=== PATIENT | male | born 1945 | race Caucasian/White ===

== ENCOUNTER 2019-10-20 07:14 | Inpatient (IN) | payer MEDICARE, MEDICAID ==
[~2019-10-20] VITALS: Ht 177.8 cm; Wt 88.2 kg
[~2019-10-20 07:14] MED LIST: ALLOPURINOL100 M1 ORAL; ALLOPURINOL300 M1 ORAL; APRESOLINE50 MG ORAL; ASPIRIN EC81 MG ORAL; ASPIRIN-LOW81 MG ORAL; FUROSEMIDE40 MG ORAL; HYDRALAZINE HCL50 MG ORAL; HYDROCODON-ACE1 EA13 ORAL; LIPITOR10 MG ORAL; METOPROLOL TAR100 M1 ORAL; METOPROLOL TAR100 MG ORAL; NORCO 5-325 TA1 EACH ORAL; SIMVASTATIN20 MG ORAL
[2019-10-20] MEDS ORDERED: FENOFIBRATE43 MG ORAL (07:16)
[2019-10-20 07:38] VITALS: BP 165/105
--- NOTE | 2019-10-20 07:40 | Emergency Room Report ---
History of Present Illness General Chief Complaint: General Complaint Source: Patient, EMS Present Illness HPI Patient presents with complaints of significant dizziness Reports difficulty ambulating Around 1130 last night when he was walking from [facility] to [facility] he felt a sensation Denies any chest pain with it however he did have some shortness of breath and palpitation sensation Reports that his blood pressure has also been elevated Denies any vomiting or diarrhea denies any focal weakness or trauma Allergies: Coded Allergies: No Known Allergies (Unverified , 09/12/15) Patient History Past Medical History: see triage record Reviewed Nursing Documentation: PMH: Agreed; PSxH: Agreed Nursing Documentation-PMH Hx Cardiac Problems: Yes - HYPERLIPIDEMIA Hx Hypertension: Yes Hx Cancer: No Hx Gastrointestinal Problems: No Hx Neurological Problems: No Review of Systems All Other Systems: negative except mentioned in HPI Physical Exam Vital Signs Date Time Temp Pulse Resp B/P (MAP) Pulse Ox O2 Delivery O2 Flow Rate FiO2 10/20/19 07:08 97.3 65 17 165/105 (125) 99 Sp02 EP Interpretation: reviewed, normal General Appearance: well appearing, no apparent distress Head: normocephalic, atraumatic Eyes: bilateral eye PERRL, bilateral eye EOMI ENT: hearing grossly normal, normal pharynx, TMs + canals normal, uvula midline Neck: full range of motion, supple, no meningismus, no bony tend Respiratory: lungs clear, normal breath sounds, no rhonchi, no respiratory distress, no retraction, no accessory muscle use Cardiovascular #1: normal peripheral pulses, no edema, no gallop, no JVD, no murmur, tachycardia Gastrointestinal: normal bowel sounds, non tender, soft, no mass, no organomegaly, non-distended, no guarding, no hernia, no pulsatile mass, no rebound Genitourinary: no CVA tenderness Musculoskeletal: other - 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 moving extremities equally Neurologic: motor strength/tone normal, 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 nml as tested, oriented x3 , sensory intact, responsive Psychiatric: mood/affect normal Skin: no rash Lymphatic: normal inspection, no adenopathy Medical Decision Making Diagnostic Impression: Primary Impression: Atrial flutter with rapid ventricular response ER Course Patient is a fairly complex patient with multiple differential to consideration including but not limited to cardiac cardiopulmonary and vascular emergencies patient initial complaint was essentially general weakness Upon evaluation patient was found to be tachycardic and placed on a monitor worker shows atrial fibrillation with RVR requiring Acute intervention Patient has further medication provided and requires inpatient care Labs Test 10/23/19 06:36 10/24/19 07:10 10/25/19 06:52 White Blood Count 11.0 K/UL (4.8-10.8) 10.6 K/UL (4.8-10.8) 10.7 K/UL (4.8-10.8) Red Blood Count 3.95 M/UL (4.70-6.10) 3.83 M/UL (4.70-6.10) 3.46 M/UL (4.70-6.10) Hemoglobin 13.1 G/DL (14.2-18.0) 12.5 G/DL (14.2-18.0) 12.6 G/DL (14.2-18.0) Hematocrit 37.8 % (42.0-52.0) 36.0 % (42.0-52.0) 32.7 % (42.0-52.0) Mean Corpuscular Volume 96 FL (80-99) 94 FL (80-99) 95 FL (80-99) Mean Corpuscular Hemoglobin 33.1 PG (27.0-31.0) 32.7 PG (27.0-31.0) 36.6 PG (27.0-31.0) Mean Corpuscular Hemoglobin Concent 34.6 G/DL (32.0-36.0) 34.7 G/DL (32.0-36.0) 38.6 G/DL (32.0-36.0) Red Cell Distribution Width 13.3 % (11.6-14.8) 13.4 % (11.6-14.8) 15.6 % (11.6-14.8) Platelet Count 132 K/UL (150-450) 126 K/UL (150-450) 139 K/UL (150-450) Mean Platelet Volume 6.3 FL (6.5-10.1) 6.6 FL (6.5-10.1) 6.8 FL (6.5-10.1) Neutrophils (%) (Auto) 76.7 % (45.0-75.0) 73.7 % (45.0-75.0) 75.4 % (45.0-75.0) Lymphocytes (%) (Auto) 12.5 % (20.0-45.0) 13.7 % (20.0-45.0) 10.4 % (20.0-45.0) Monocytes (%) (Auto) 9.6 % (1.0-10.0) 9.4 % (1.0-10.0) 10.1 % (1.0-10.0) Eosinophils (%) (Auto) 0.6 % (0.0-3.0) 1.7 % (0.0-3.0) 1.7 % (0.0-3.0) Basophils (%) (Auto) 0.6 % (0.0-2.0) 1.5 % (0.0-2.0) 2.4 % (0.0-2.0) Sodium Level 148 MMOL/L (136-145) 146 MMOL/L (136-145) 144 MMOL/L (136-145) Potassium Level 4.1 MMOL/L (3.5-5.1) 3.8 MMOL/L (3.5-5.1) 4.0 MMOL/L (3.5-5.1) Chloride Level 112 MMOL/L (98-107) 112 MMOL/L (98-107) 108 MMOL/L (98-107) Carbon Dioxide Level 24 MMOL/L (21-32) 24 MMOL/L (21-32) 25 MMOL/L (21-32) Anion Gap 12 mmol/L (5-15) 10 mmol/L (5-15) 11 mmol/L (5-15) Blood Urea Nitrogen 28 mg/dL (7-18) 27 mg/dL (7-18) 26 mg/dL (7-18) Creatinine 1.7 MG/DL (0.55-1.30) 1.9 MG/DL (0.55-1.30) 2.1 MG/DL (0.55-1.30) Estimat Glomerular Filtration Rate 39.5 mL/min (>60) 34.7 mL/min (>60) 30.9 mL/min (>60) Glucose Level 103 MG/DL (74-106) 105 MG/DL (74-106) 98 MG/DL (74-106) Uric Acid 6.3 MG/DL (2.6-7.2) Calcium Level 8.7 MG/DL (8.5-10.1) 8.7 MG/DL (8.5-10.1) 8.8 MG/DL (8.5-10.1) Phosphorus Level 2.9 MG/DL (2.5-4.9) 2.8 MG/DL (2.5-4.9) Magnesium Level 1.7 MG/DL (1.8-2.4) 1.6 MG/DL (1.8-2.4) Total Bilirubin 0.4 MG/DL (0.2-1.0) 0.5 MG/DL (0.2-1.0) Aspartate Amino Transf (AST/SGOT) 22 U/L (15-37) 17 U/L (15-37) Alanine Aminotransferase (ALT/SGPT) 15 U/L (12-78) 15 U/L (12-78) Alkaline Phosphatase 77 U/L (46-116) 68 U/L (46-116) Troponin I 0.048 ng/mL (0.000-0.056) C-Reactive Protein, Quantitative 9.2 mg/dL (0.00-0.90) Pro-B-Type Natriuretic Peptide 5253 pg/mL (0-125) Total Protein 6.2 G/DL (6.4-8.2) 5.9 G/DL (6.4-8.2) Albumin 3.2 G/DL (3.4-5.0) 2.9 G/DL (3.4-5.0) Globulin 3.0 g/dL Albumin/Globulin Ratio 1.1 (1.0-2.7) Digoxin Level 0.5 NG/ML (0.5-2.0) Direct Bilirubin < 0.1 MG/DL (0.0-0.3) EKG Diagnostic Results Rate: tachycardiac Rhythm: other ST Segments: other - Specific ST changes atrial fibrillation Rhythm Strip Diag. Results EP Interpretation: yes Rate: 120 Rhythm: no PVC's, no ectopy, other - afib rvr Chest X-Ray Diagnostic Results Chest X-Ray Diagnostic Results : Chest X-Ray Ordered: Yes # of Views/Limited/Complete: 1 View Indication: Chest Pain EP Interpretation: Yes Interpretation: no consolidation, no effusion, no pneumothorax Impression: No acute disease Electronically Signed by: Obdulio Scott DO CT/MRI/US Diagnostic Results CT/MRI/US Diagnostic Results : Impression CT headImpression: Mild age-related change Negative for acute intracranial bleed or mass effect Last Vital Signs Date Time Temp Pulse Resp B/P (MAP) Pulse Ox O2 Delivery O2 Flow Rate FiO2 10/20/19 07:08 97.3 65 17 165/105 (125) 99 Status: improved Disposition: ADMITTED INPATIENT Condition: Critical Obdulio Scott DO Oct 20, 2019 07:40
--- NOTE | 2019-10-20 07:43 | NUR ---
ED Nurse Note:pt. came with c/o bilateral legs weakness, no pain reported, VSS, pt. is A/Ox4
[2019-10-20 08:11] LABS: BASOPHILS % (AUTO) 0.8 % (0.0-2.0); EOSINOPHILS % (AUTO) 0.6 % (0.0-3.0); HEMATOCRIT 45.6 % (42.0-52.0); HEMOGLOBIN 15.6 G/DL (14.2-18.0); LYMPHOCYTES % (AUTO) 10.3 % (20.0-45.0); MEAN CORPUSCULAR VOLUME 94 FL (80-99); MONOCYTES % (AUTO) 6.1 % (1.0-10.0); NEUTROPHILS % (AUTO) 82.4 % (45.0-75.0); PLATELET COUNT 209 K/UL (150-450); RED BLOOD COUNT 4.83 M/UL (4.70-6.10); RED CELL DISTRIBUTION WIDTH 12.9 % (11.6-14.8); WHITE BLOOD COUNT 13.9 K/UL (4.8-10.8)
--- NOTE | 2019-10-20 08:23 | NUR ---
ED Nurse Note:CT head was done, blood sent to labs and IV fluids given
[2019-10-20 08:28] LABS: ANION GAP 21 mmol/L (5-15); BLOOD UREA NITROGEN 38 mg/dL (7-18); CALCIUM 9.3 MG/DL (8.5-10.1); CARBON DIOXIDE 17 MMOL/L (21-32); CHLORIDE 108 MMOL/L (98-107); POTASSIUM 3.8 MMOL/L (3.5-5.1); SODIUM 146 MMOL/L (136-145)
[2019-10-20 08:38] LABS: ALANINE AMINOTRANSFERASE 21 U/L (12-78); ALBUMIN 4.1 G/DL (3.4-5.0); ALBUMIN/GLOBULIN RATIO 1.1 (1.0-2.7); ALKALINE PHOSPHATASE 106 U/L (46-116); ASPARTATE AMINO TRANSFERASE 37 U/L (15-37); CREATINE KINASE 423 U/L (26-308)
--- NOTE | 2019-10-20 08:38 | Diagnostic Imaging Report ---
Indications: Headache and difficulty ambulating Technique: Spiral acquisitions obtained through the brain. Angled axial and coronal 5 x 5 mm slices were reconstructed. Total dose length product 1152 mGycm. CTDI vol(s) 53 mGy. Dose reduction achieved using automated exposure control Comparison: None. Findings: Normal size, for age, ventricles and extra axial CSF spaces. There is minimal periventricular deep white matter low-attenuation, consistent with chronic microvascular ischemic change. No acute intracranial hemorrhage or edema. No mass effect nor midline shift. The calvarium is intact. The mastoids are clear. Visualized orbits and sinuses are unremarkable Impression: Mild age-related change Negative for acute intracranial bleed or mass effect The CT scanner at [facility] is accredited by the [employer] and the scans are performed using protocols designed to limit radiation exposure to as low as reasonably achievable to attain images of sufficient resolution adequate for diagnostic evaluation.
[2019-10-20 09:03] LABS: APPEARANCE,URINE CLEAR; BILIRUBIN, URINE NEGATIVE (NEGATIVE); COLOR,URINE PALE YELLOW; GLUCOSE, URINE (UA) NEGATIVE (NEGATIVE); KETONES,URINE 2+ (NEGATIVE); LEUKOCYTE ESTERASE ,URINE NEGATIVE (NEGATIVE); NITRITE,URINE NEGATIVE (NEGATIVE); PH,URINE 5 (4.5-8.0); PROTEIN,URINE 4+ (NEGATIVE); UROBILINOGEN,URINE NORMAL MG/DL (0.0-1.0)
--- NOTE | 2019-10-20 09:30 | NUR ---
HAND-OFF: Report given to Vivian.
[2019-10-20 09:50] VITALS: BP 154/95
[2019-10-20] MEDS ORDERED: dilTIAZem HCl 25mg/5ml Inj IVP ONE (10:00)
[2019-10-20 10:44] VITALS: BP 133/75
--- NOTE | 2019-10-20 10:55 | Diagnostic Imaging Report ---
Indication: Chest pain Technique: One view of the chest Comparison: 09/12/2015 Findings: Unusual calcifications are seen surrounding the right heart border. The lungs and pleural spaces are clear. The heart size is normal. Surgical hardware is seen in the left shoulder Impression: No acute process Probable right pericardial calcification, unchanged
[2019-10-20] MEDS ORDERED: HYDROcodone/Acetamin 10/325 tab ORAL PRN (11:15)
[2019-10-20] MEDS ORDERED: Metoprolol Tartrate 5mg/5ml Inj IVP PRN (11:30)
[2019-10-20] MEDS ORDERED: Miralax 17gm pkt ORAL PRN (11:30)
[2019-10-20] MEDS ORDERED: Albuterol/Ipratropium 3ml neb HHN PRN (11:30)
[2019-10-20] MEDS ORDERED: Enalaprilat 2.5mg/2ml Inj IV PRN (11:30)
[2019-10-20] MEDS ORDERED: Nitroglycerin Subl 0.4mg tab SL PRN (11:30)
[2019-10-20] MEDS ORDERED: dilTIAZem HCl 25mg/5ml Inj IV PRN (11:30)
--- NOTE | 2019-10-20 11:37 | Consultation ---
History of Present Illness General Date patient seen: Oct 20, 2019 Chief Complaint: General Complaint Present Illness HPI 74 year old male with hx of HTN, Gout, chronic mild renal insufficiency, presented to ER with CC of dizziness and sob on walking. He as in a-flutter of 150 in ER and go Cardizem and Labetolol IV and his heart rate slowed down but remained in A-flutter. He is admitted to telemetry for further management. Allergies: Coded Allergies: No Known Allergies (Unverified , 09/12/15) Medication History Scheduled Allopurinol* (Allopurinol*), 300 MG ORAL DAILY Aspirin Ec* (Aspirin Ec*), 81 MG ORAL DAILY Atorvastatin Calcium* (Lipitor*), 10 MG ORAL BEDTIME Fenofibrate,Micronized (Fenofibrate), 43 MG ORAL DAILY, (Reported) Furosemide* (Lasix*), 40 MG ORAL DAILY Hydralazine HCl (Hydralazine HCl), 50 MG ORAL Q12HR Metoprolol Tartrate* (Metoprolol Tartrate*), 100 MG ORAL Q12HR Scheduled PRN Hydrocodone Bit/Acetaminophen 10-325* (Hydrocodon-Acetaminophn 10-325*), 1 EA ORAL EVERY 6 HOURS PRN for Moderate Pain (Pain Scale 4-6) Hydrocodone Bit/Acetaminophen 5-325* ([place] 5-325*), 1 TAB ORAL Q6H PRN for Mild Pain (Pain Scale 1-3) Patient History Healthcare decision maker Resuscitation status Advanced Directive on File Past Medical/Surgical History Past Medical/Surgical History: (1) History of gout (2) History of hypertension (3) Chronic renal insufficiency, stage II (mild) (4) Pericardial calcification Review of Systems All Other Systems: negative except mentioned in HPI Physical Exam General Appearance: WD/WN, no apparent distress, alert Lines, tubes and drains: peripheral HEENT: normocephalic, atraumatic Neck: non-tender, supple Respiratory/Chest: chest wall non-tender, lungs clear, normal breath sounds Cardiovascular/Chest: normal peripheral pulses Abdomen: normal bowel sounds Extremities: normal range of motion Last 24 Hour Vital Signs Date Time Temp Pulse Resp B/P (MAP) Pulse Ox O2 Delivery O2 Flow Rate FiO2 10/20/19 10:44 97.3 95 18 133/75 100 Room Air 10/20/19 10:44 95 133/75 2/20/20 09:57 153 165/105 10/20/19 09:50 97.3 153 18 154/95 100 10/20/19 07:38 97.3 65 17 165/105 99 10/20/19 07:38 65 17 10/20/19 07:08 97.3 65 17 165/105 (125) 99 Laboratory Tests Test 10/20/19 08:00 10/20/19 08:20 White Blood Count 13.9 K/UL (4.8-10.8) H Red Blood Count 4.83 M/UL (4.70-6.10) Hemoglobin 15.6 G/DL (14.2-18.0) Hematocrit 45.6 % (42.0-52.0) Mean Corpuscular Volume 94 FL (80-99) Mean Corpuscular Hemoglobin 32.4 PG (27.0-31.0) H Mean Corpuscular Hemoglobin Concent 34.3 G/DL (32.0-36.0) Red Cell Distribution Width 12.9 % (11.6-14.8) Platelet Count 209 K/UL (150-450) Mean Platelet Volume 6.2 FL (6.5-10.1) L Neutrophils (%) (Auto) 82.4 % (45.0-75.0) H Lymphocytes (%) (Auto) 10.3 % (20.0-45.0) L Monocytes (%) (Auto) 6.1 % (1.0-10.0) Eosinophils (%) (Auto) 0.6 % (0.0-3.0) Basophils (%) (Auto) 0.8 % (0.0-2.0) Sodium Level 146 MMOL/L (136-145) H Potassium Level 3.8 MMOL/L (3.5-5.1) Chloride Level 108 MMOL/L (98-107) H Carbon Dioxide Level 17 MMOL/L (21-32) L Anion Gap 21 mmol/L (5-15) H Blood Urea Nitrogen 38 mg/dL (7-18) H Creatinine 2.0 MG/DL (0.55-1.30) H Estimat Glomerular Filtration Rate 32.7 mL/min (>60) Glucose Level 63 MG/DL (74-106) L Calcium Level 9.3 MG/DL (8.5-10.1) Total Bilirubin 1.0 MG/DL (0.2-1.0) Aspartate Amino Transf (AST/SGOT) 37 U/L (15-37) Alanine Aminotransferase (ALT/SGPT) 21 U/L (12-78) Alkaline Phosphatase 106 U/L (46-116) Total Creatine Kinase 423 U/L (26-308) H Troponin I 0.030 ng/mL (0.000-0.056) Pro-B-Type Natriuretic Peptide 4493 pg/mL (0-125) H Total Protein 7.8 G/DL (6.4-8.2) Albumin 4.1 G/DL (3.4-5.0) Globulin 3.7 g/dL Albumin/Globulin Ratio 1.1 (1.0-2.7) Lipase 185 U/L (73-393) Urine Color Pale yellow Urine Appearance Clear Urine pH 5 (4.5-8.0) Urine Specific [place] 1.020 (1.005-1.035) Urine Protein 4+ (NEGATIVE) H Urine Glucose (UA) Negative (NEGATIVE) Urine Ketones 2+ (NEGATIVE) H Urine Blood 3+ (NEGATIVE) H Urine Nitrite Negative (NEGATIVE) Urine Bilirubin Negative (NEGATIVE) Urine Urobilinogen Normal MG/DL (0.0-1.0) Urine Leukocyte Esterase Negative (NEGATIVE) Urine RBC 2-4 /HPF (0 - 0) H Urine WBC 0-2 /HPF (0 - 0) Urine Squamous Epithelial Cells Occasional /LPF Urine Bacteria Few /HPF (NONE) Height (Feet): 5 Height (Inches): 7.00 Weight (Pounds): 150 Medications Current Medications Medications (Trade) Dose Ordered Sig/Catrina Route PRN Reason Start Time Stop Time Status Last Admin Dose Admin Acetaminophen (Tylenol) 650 mg Q4H PRN ORAL FEVER 10/20/19 11:30 11/19/19 11:29 UNV Acetaminophen/ Hydrocodone Bitart ([place] 10/325) 1 tab Q6H PRN ORAL Moderate Pain (Pain Scale 4-6) 10/20/19 11:15 10/27/19 11:14 Albuterol/ Ipratropium (Albuterol/ Ipratropium) 3 ml EVERY 4 HOURS PRN HHN Shortness of Breath 10/20/19 11:30 10/25/19 11:29 UNV Allopurinol (Zyloprim) 300 mg DAILY ORAL 10/21/19 09:00 11/20/19 08:59 Atorvastatin Calcium (Lipitor) 10 mg BEDTIME ORAL 10/20/19 21:00 11/19/19 20:59 Digoxin (Lanoxin) 0.25 mg DAILY IVP 10/21/19 09:00 11/20/19 08:59 UNV Diltiazem HCl (Cardizem) 10 mg EVERY HOUR PRN IV heart rate more than 120, 10/20/19 11:30 11/19/19 11:29 UNV Enalaprilat (Vasotec) 2.5 mg EVERY 6 HOURS PRN IV sbp more than 160 10/20/19 11:30 11/19/19 11:29 UNV Heparin Sodium/ Dextrose 500 ml @ 24.494 mls/ hr ADJUST PER PROTOCOL IV 10/20/19 11:30 11/19/19 11:29 UNV Hydralazine HCl (Apresoline) 50 mg Q12HR ORAL 10/20/19 21:00 11/19/19 20:59 Metoprolol Tartrate (Lopressor) 5 mg EVERY HOUR PRN IVP heart rate more than 140 10/20/19 11:30 11/19/19 11:29 UNV Metoprolol Tartrate (Lopressor) 100 mg Q12HR ORAL 10/20/19 21:00 11/19/19 20:59 Nitroglycerin (Ntg) 0.4 mg Every 5 Minutes PRN SL Prn Chest Pain 10/20/19 11:30 11/19/19 11:29 UNV Ondansetron HCl (Zofran) 4 mg Q6H PRN IVP Nausea & Vomiting 10/20/19 11:30 11/19/19 11:29 UNV Pantoprazole (Protonix) 40 mg DAILY ORAL 10/21/19 09:00 11/20/19 08:59 UNV Polyethylene Glycol (Miralax) 17 gm DAILYPRN PRN ORAL Constipation 10/20/19 11:30 11/19/19 11:29 UNV Temazepam (Restoril) 15 mg HSPRN PRN ORAL Insomnia 10/20/19 11:30 10/27/19 11:29 UNV Assessment/Plan Problem List: (1) Atrial flutter with rapid ventricular response ICD Codes: I48.92 - Unspecified atrial flutter SNOMED: 3151099, 1619200 (2) Chronic renal insufficiency, stage II (mild) ICD Codes: N18.2 - Chronic kidney disease, stage 2 (mild) SNOMED: 188827278 (3) History of hypertension ICD Codes: Z86.79 - Personal history of other diseases of the circulatory system SNOMED: 533538634 (4) History of gout ICD Codes: Z87.39 - Personal history of other diseases of the musculoskeletal system and connective tissue SNOMED: 421687848 (5) Homelessness ICD Codes: Z59.0 - Homelessness SNOMED: 66834805 (6) Pericardial calcification ICD Codes: I31.8 - Other specified diseases of pericardium SNOMED: 06127717 Assessment/Plan: telemetry monitoring Start Heparin drip digoxin and Cardizem prn to control heart rate monitor BP resume gout meds renal studies, bun/creatinine were the same during the last admission a few years ago echo cardiogram pericardiac calcification is old cardio evaluation social service evaluation. Erma Rajput MD Oct 20, 2019 11:37
--- NOTE | 2019-10-20 12:07 | NUR ---
patients wallet is placed in the safe the # is [phone]. copy given to patient
[2019-10-20 13:01] VITALS: BP 137/72
--- NOTE | 2019-10-20 13:01 | NUR ---
ED Nurse Note: SECOND BLUE TOP WITH BLOOD SPECIMEN SENT TO LAB.
--- NOTE | 2019-10-20 13:09 | NUR ---
Received patient from [place], reports was received from Kj Reyes. Patient is alert, oriented x4, no complaints of pain at the moment, I.V is intact and patent, belonging list review with kj Gómez R.N, follows commands and cooperative, place on telemetry monitor, oriented to room and policies. Plan of care discussed, verbalized understanding. Call light placed within reach, bed placed on lowest position, bed alarm on for safety reasons, Assessment done, heparin drip started. Will continue to monitor.
--- NOTE | 2019-10-20 13:09 | NUR ---
ED Nurse Note: PROVIDED PT WITH JUICE AND SANDWICH.
--- NOTE | 2019-10-20 13:09 | NUR ---
ED Nurse Note: REPORT GIVEN TO SARITHA CAGLE OF TELEMETRY UNIT.
[2019-10-20 13:29] LABS: INR 1.1 (0.9-1.1)
[2019-10-20] MEDS ORDERED: Heparin 25,000u/D5W 500ml 500 ML IV SCH ×2 (14:00→22:30)
[2019-10-20 16:21] VITALS: BP 125/76
--- NOTE | 2019-10-20 16:37 | Diagnostic Imaging Report ---
Indication: Abnormal renal function tests Technique: Grayscale and duplex images of the kidneys, retroperitoneum, and bladder were obtained. Comparison: none Findings: Right kidney measures 13 cm in length. Left kidney measures 10.7 cm in length. Both kidneys demonstrate normal echogenicity. There is mild right hydronephrosis, with decreased somewhat but not completely after patient voids. There is only minimal fullness to the left renal collecting system but no fab hydronephrosis. There is a 15 mm hypoechoic structure without distal acoustic enhancement in the interpolar region of the right kidney.. Small cysts are seen in the right kidney. Normal inferior vena cava. Bladder demonstrate a TURP defect. Prevoid volume is 250 mL. Postvoid volume is 180 mL. Calculated prostate volume is 33 mL. Impression: 15 mm hypoechoic structure in the interpolar region of the right kidney. Solid mass not excludable. Recommend further evaluation with CT. This should be done with contrast if GFR is over 30 and patient is not an acute renal failure Mild right hydronephrosis. Possibly but not definitely due to bladder urinary retention, as it partially but not completely resolved after incomplete voiding. Other etiologies should also be considered 180 mL postvoid bladder volume Evidence of prior TURP Incidental finding of right renal cyst.
--- NOTE | 2019-10-20 19:10 | NUR ---
Received patient from [place], reports was received from Kj Reyes. Patient is alert, oriented x4, no complaints of pain at the moment, I.V is intact and patent, belonging list review with kj Gómez R.N, follows commands and cooperative, place on secured entrance monitor, oriented to room and policies. Plan of care discussed, verbalized understanding. Call light placed within reach, bed placed on lowest position, bed alarm on for safety reasons, Assessment done, heparin drip started. Will continue to monitor.
--- NOTE | 2019-10-20 19:11 | NUR ---
NURSE NOTES: Got report from Javi CAGLE. Pt in stable condition. Denies any pain. No s/s of distress or discomfort noted. Pt resting in bed comfortably. Bed in low and locked position, call light within reach, bedside table within reach. Continue to monitor.
--- NOTE | 2019-10-20 19:32 | History & Physical ---
History and Physical History & Physicial Dictated for Int Med-Dr Purvis no. [id number] Leroy Zimmer MD Oct 20, 2019 19:32
[2019-10-20 20:00] VITALS: BP 158/95
--- NOTE | 2019-10-20 20:00 | History and Physical Report ---
DATE OF ADMISSION: 10/20/2019 CHIEF COMPLAINT: The patient is a 74-year-old male, who presents with chief complaint of dizziness. HISTORY OF PRESENT ILLNESS: Began last evening when the patient was walking from [facility] to [facility]. The patient began to experience dizziness. The patient states he also was having trouble walking. The patient states he was having some shortness of breath and heart palpitations. The patient presented to [place] emergency room. The patient is admitted with vertigo and ataxia rule out cerebrovascular accident versus acute coronary syndrome. PAST MEDICAL HISTORY: To rule out cerebrovascular accident versus acute coronary syndrome. REVIEW OF SYSTEMS: CONSTITUTIONAL: The patient denies weight loss or weight gain. The patient denies fevers or chills. HEENT: The patient denies ear or throat pain. The patient denies headache. CARDIOVASCULAR: The patient denies palpitations or chest pain. CHEST: The patient complains of shortness of breath as above. The patient denies wheezes. ABDOMEN: The patient denies nausea, vomiting, diarrhea, or constipation. GENITOURINARY: The patient denies dysuria or increased frequency of urination. NEUROMUSCULAR: The patient complains of vertigo as above. The patient denies seizures or generalized weakness. PAST MEDICAL HISTORY: Significant for hypercholesterolemia, hypertension, and gout. PAST SURGICAL HISTORY: Significant for right inguinal hernia repair. CURRENT MEDICATIONS: 1. Allopurinol 100 mg p.o. daily. 2. Aspirin 81 mg p.o. daily. 3. Atorvastatin 10 mg p.o. at bedtime. 4. Fenofibrate 43 mg p.o. daily. 5. Lasix 40 mg p.o. daily. 6. Hydralazine 50 mg p.o. twice daily. 7. Metoprolol 100 mg p.o. twice daily. ALLERGIES: No known drug allergies. SOCIAL HISTORY: The patient is single. The patient admits to tobacco use, one half pack per day. The patient denies alcohol use. PHYSICAL EXAMINATION: VITAL SIGNS: Temperature 97.3, respirations 18, pulse 95, blood pressure 133/70. GENERAL: The patient is a well-developed, well-nourished male, in no apparent distress. HEENT: Eyes, pupils are equal and responsive to light and accommodation. Extraocular movements are intact. NECK: Supple without lymphadenopathy. CHEST: Lungs are clear to auscultation bilaterally without wheezes or rales. CARDIOVASCULAR: Regular rate. S1 and S2 are normal without murmurs, rubs, or gallops. ABDOMEN: Soft, nontender, and nondistended. Positive bowel sounds. No evidence of hepatosplenomegaly. Currently, no rebound or guarding noted. EXTREMITIES: Negative for clubbing, cyanosis, or edema. RECTAL: Not performed. GENITAL: Not performed. NEUROLOGIC: Cranial nerves II through XII grossly intact without focal deficits. Motor strength is 5/5 bilaterally. Deep tendon reflexes are 2+ plantar. LABORATORY AND DIAGNOSTIC DATA: The CT scan of the brain failed to demonstrate acute hemorrhage or infarct. A chest x-ray is reported as no acute disease. Laboratory studies, WBC 13.9, hemoglobin 15.6, hematocrit 45.6, platelets 209,000. Sodium 146, potassium 3.8, chloride 108, CO2 17, BUN 38, creatinine 2.0, glucose 63. Troponin 0.03. BNP elevated at 4493. ASSESSMENT: This is a 74-year-old male with: 1. Vertigo. 2. Congestive heart failure. 3. Renal failure. 4. Hypercholesteremia. 5. Hypertension. 6. Gout. TREATMENT: 1. Renal failure. A Nephrology consultation has been obtained with Dr. Sandy. The patient is currently receiving intravenous fluids. We will follow recommendations of Dr. Sandy. Differential includes dehydration versus acute renal failure. 2. Congestive heart failure. Cardiology consultation has been obtained with Dr. Epifanio Silverio. Echocardiogram is pending. We will follow recommendations of Cardiology. 3. Hypercholesterolemia. Continue atorvastatin and fenofibrate as above. 4. Hypertension. Continue hydralazine and metoprolol as above. 5. Gout. Continue allopurinol as above. Leroy Zimmer M.D. DR: ZAHIRA JOB#: [id number] CC:
[2019-10-20] MEDS: Metoprolol Tartrate 100mg tab ORAL SCH (21:27)
[2019-10-20] MEDS: HydrALAZINE 50mg tab ORAL SCH (21:28)
[2019-10-21] VITALS: BP 139/90
[2019-10-21 04:00] VITALS: BP 126/72
[2019-10-21 07:22] LABS: BASOPHILS % (AUTO) 0.7 % (0.0-2.0); EOSINOPHILS % (AUTO) 1.3 % (0.0-3.0); HEMATOCRIT 39.8 % (42.0-52.0); HEMOGLOBIN 13.8 G/DL (14.2-18.0); LYMPHOCYTES % (AUTO) 12.2 % (20.0-45.0); MEAN CORPUSCULAR VOLUME 95 FL (80-99); MONOCYTES % (AUTO) 10.5 % (1.0-10.0); NEUTROPHILS % (AUTO) 75.2 % (45.0-75.0); PLATELET COUNT 158 K/UL (150-450); RED CELL DISTRIBUTION WIDTH 12.9 % (11.6-14.8); WHITE BLOOD COUNT 9.6 K/UL (4.8-10.8)
--- NOTE | 2019-10-21 07:30 | NUR ---
NURSE NOTES: Received report from Dwight Starks Patient is awake and oriented x4. Patient denies any pain at this time, no shortness of breath. Plan of care discussed. Verbalized understanding. Safety measures in place, call light within reach. Place bed in low position. Instructed to call for assistance if needed. Will continue top monitor.
--- NOTE | 2019-10-21 07:37 | Consultation ---
Consult Note Consult Note asked to eval at the request of Dr Zimmer Data reviewed full note to follow Assessment/Plan # [id number] Avila Sandy MD Oct 21, 2019 07:37
[2019-10-21 07:39] LABS: INR 1.1 (0.9-1.1)
[2019-10-21 07:41] LABS: PARTIAL THROMBOPLASTIN TIME > 150 SEC (23-33)
--- NOTE | 2019-10-21 07:45 | NUR ---
HAND-OFF: Report given to Javi CAGLE.
[2019-10-21 08:00] VITALS: BP 136/80
[2019-10-21] MEDS: Metoprolol Tartrate 100mg tab ORAL SCH ×2 (08:22→21:31)
[2019-10-21] MEDS: HydrALAZINE 50mg tab ORAL SCH ×3 (08:22→21:31)
[2019-10-21 08:44] LABS: CHOLESTEROL 111 MG/DL (< 200); HDL CHOLESTEROL 52 MG/DL (40-60); TRIGLYCERIDES 42 MG/DL (30-150)
[2019-10-21 08:47] LABS: ALANINE AMINOTRANSFERASE 30 U/L (12-78); ALBUMIN 3.2 G/DL (3.4-5.0); ALKALINE PHOSPHATASE 87 U/L (46-116); ANION GAP 16 mmol/L (5-15); ASPARTATE AMINO TRANSFERASE 26 U/L (15-37); BILIRUBIN,TOTAL 0.5 MG/DL (0.2-1.0); BLOOD UREA NITROGEN 35 mg/dL (7-18); CALCIUM 8.8 MG/DL (8.5-10.1); CARBON DIOXIDE 19 MMOL/L (21-32); CHLORIDE 112 MMOL/L (98-107); CREATININE 1.7 MG/DL (0.55-1.30); POTASSIUM 3.7 MMOL/L (3.5-5.1); SODIUM 147 MMOL/L (136-145)
[2019-10-21] MEDS ORDERED: Allopurinol 100mg Tab ORAL SCH (09:00)
[2019-10-21] MEDS ORDERED: Heparin 25,000u/D5W 500ml 500 ML IV SCH ×2 (09:00→16:30)
[2019-10-21] MEDS: Digoxin 0.5mg/2ml Inj IVP SCH (09:42)
[2019-10-21] MEDS: Tamsulosin 0.4mg cap ORAL SCH ×2 (09:46→16:53)
--- NOTE | 2019-10-21 11:05 | NUR ---
ON LINE CSR NOTE Pt is identified as homeless. SW met w/ pt and assessed pt's needs. Pt presents as A&O 4x. Pt is single, never and has one adult son living in [place] who is in contact w/ pt. Pt wears glasses. Pt reports he has been homeless on and off for years. Pt was independent w/o DME prior to hospitalization. Pt states he may need DME for ambulation. Emergency contact provided: Jorge Pickard (friend) [phone]. Pt declined to provide additional contact information. Pt does not have AD. 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 [facility] has been assisting pt w/ housing. However, pt reports he did not like any of housings that [facility] accommodated for him. Pt has been in various facilities in the past. Pt does not consider board and cares/assisted livings or independent living facilities. Pt is unwilling to pay for housing unless it is his own apartment i.e section [address] [facility] apartment. Pt states he receives $1048/mo from [employer] and [employer]. Pt states he was informed he will not be qualified for [facility] section 8 program d/t pt being discharged w/ other than honorable from [employer]. Pt does not receive additional services from [place] other than monthly income. Pt denies SI/HI. Pt reports he was residing at [facility] from May 2019-August 2019. Pt does not wish to return to [facility]. Pt is willing to go to a homeless custodial. However, such option is unsafe until he is medically cleared and able to ambulate. Recommending PT EVAL and SNF placement. Signed: 10/21/19 at 1115 by CAIT CHAUHAN <Co-Signature Required>
--- NOTE | 2019-10-21 11:15 | NUR ---
CASE MANAGEMENT: INITIAL REVIEW 74 YR OLD MALE BIBRajesh FROM [employer] CC: WEAKNESS OF THE LEGS SI: UNABLE TO AMBULATE . DIZZY . A-FLUTTER WITH RVR. RENAL INSUFFICIENCY 97.4 65 17 165/105 99% ON RA WBC 13.9 NA+ 147 CL-108 CO2-17 ANION GAP 21 BUN 38 CREAT 2.0 BG 63 T.CK 423 BNP 4493 IS:IV NS BOLUS X2 IV CARDIZEM X1 NORMODYNE PO X1 HEAD CT- MILD AGE RELATE CHANGE CHEST X-RAY- RIGHT PERICARDIAL CALCIFICATION US RENAL- RENAL CYST \: 2E TELE UNIT DCP: HOMELESS CASE MANAGEMENT: INITIAL REVIEW 10/21/19 SI: RENAL CYST . CHF . UNABLE TO AMBULATE . DIZZY . A-FLUTTER WITH RVR . RENAL INSUFFICIENCY 96.7 81 20 136/80 97% ON RA PTT > 150 NA+ 147 CL-112 CO2-19 ANION GAP 16 BUN 35 CREAT 1.7 IS:HEPARIN GTT LOPRESSOR PO BID IV DIGOXIN QD FLOMAX PO BID LIPITOR PO QHS \: 2E TELE UNIT DCP: HOMELESS PLAN: SW ACTIVELY SEEKING PLACEMENT PT EVAL Addendum: 10/21/19 at 1631 by MCKAY MIGUEL LVN interqual
[2019-10-21 12:00] VITALS: BP 147/93
[2019-10-21] MEDS: Docusate 100mg cap ORAL SCH ×2 (13:00→16:52)
--- NOTE | 2019-10-21 13:52 | Pulmonology Progress Note ---
Assessment/Plan Problems: (1) Atrial flutter with rapid ventricular response (2) Chronic renal insufficiency, stage II (mild) (3) History of hypertension (4) History of gout (5) Homelessness (6) Pericardial calcification (7) Renal mass Assessment/Plan rate controlled telemetry monitoring on Heparin drip on digoxin and Cardizem prn to control heart rate monitor BP resume gout meds renal studies, bun/creatinine were the same during the last admission a few years ago echo cardiogram pericardiac calcification is old cardio evaluation social service evaluation. Subjective ROS Limited/Unobtainable: No Constitutional: Reports: no symptoms HEENT: Repors: no symptoms Respiratory: Reports: no symptoms Allergies: Coded Allergies: No Known Allergies (Unverified , 09/12/15) Objective Last 24 Hour Vital Signs Date Time Temp Pulse Resp B/P (MAP) Pulse Ox O2 Delivery O2 Flow Rate FiO2 10/21/19 12:00 77 10/21/19 12:00 97.5 79 18 147/93 (111) 97 10/21/19 09:42 81 10/21/19 09:00 Room Air 10/21/19 08:22 81 136/80 10/21/19 08:22 136/80 10/21/19 08:00 96.7 81 20 136/80 (98) 97 10/21/19 08:00 93 10/21/19 04:00 78 10/21/19 04:00 97.7 76 18 126/72 (90) 96 10/21/19 02:00 Room Air 10/21/19 00:00 94 10/21/19 00:00 98.1 93 20 139/90 (106) 96 10/20/19 21:28 158/95 10/20/19 21:27 91 158/95 10/20/19 21:00 Room Air 10/20/19 20:00 98.1 91 20 158/95 (116) 95 10/20/19 20:00 86 10/20/19 18:00 105 10/20/19 16:21 97.4 107 18 125/76 (92) 10/20/19 15:51 Room Air Intake and Output 10/20/19 10/21/19 19:00 07:00 Intake Total 1120 ml Balance 1120 ml Intake Oral 120 ml IV Total 1000 ml # Voids 1 3 # Bowel Movements 2 General Appearance: WD/WN HEENT: normocephalic, anicteric Respiratory/Chest: chest wall non-tender, lungs clear Cardiovascular: normal peripheral pulses, regular rhythm Abdomen: normal bowel sounds, soft, non tender Laboratory Tests 10/20/19 16:00: Troponin I 0.029 10/20/19 20:15: Activated Partial Thromboplast Time 64H 10/21/19 05:35: Troponin I 0.031, Activated Partial Thromboplast Time > 150*H, White Blood Count 9.6, Red Blood Count 4.20L, Hemoglobin 13.8L, Hematocrit 39.8L, Mean Corpuscular Volume 95, Mean Corpuscular Hemoglobin 32.8H, Mean Corpuscular Hemoglobin Concent 34.6, Red Cell Distribution Width 12.9, Platelet Count 158, Mean Platelet Volume 6.6, Neutrophils (%) (Auto) 75.2H, Lymphocytes (%) (Auto) 12.2L, Monocytes (%) (Auto) 10.5H, Eosinophils (%) (Auto) 1.3, Basophils (%) ( Auto) 0.7, Prothrombin Time 11.8H, Prothromb Time International Ratio 1.1, Sodium Level 147H, Potassium Level 3.7, Chloride Level 112H, Carbon Dioxide Level 19L, Anion Gap 16H, Blood Urea Nitrogen 35H, Creatinine 1.7H, Estimat Glomerular Filtration Rate 39.5, Glucose Level 109H, Uric Acid 7.3H, Calcium Level 8.8, Phosphorus Level 3.0, Magnesium Level 1.9, Total Bilirubin 0.5, Aspartate Amino Transf (AST/SGOT) 26, Alanine Aminotransferase (ALT/SGPT) 30, Alkaline Phosphatase 87, C-Reactive Protein, Quantitative 5.8H, Total Protein 6.5, Albumin 3.2L, Globulin 3.3, Albumin/Globulin Ratio 1.0, Triglycerides Level 42, Cholesterol Level 111, LDL Cholesterol 54, HDL Cholesterol 52, Cholesterol/HDL Ratio 2.1L, Thyroid Stimulating Hormone (TSH) 0.254L 10/21/19 12:00: Urine Eosinophils [Pending], Urine Osmolality [Pending], Urine Random Sodium 84 Current Medications Medications (Trade) Dose Ordered Sig/Catrina Route PRN Reason Start Time Stop Time Status Last Admin Dose Admin Acetaminophen (Tylenol) 650 mg Q4H PRN ORAL FEVER 10/20/19 11:30 3/21/20 11:29 Acetaminophen/ Hydrocodone Bitart ([place] 10/325) 1 tab Q6H PRN ORAL Moderate Pain (Pain Scale 4-6) 10/20/19 11:15 10/27/19 11:14 Albuterol/ Ipratropium (Albuterol/ Ipratropium) 3 ml Q4H PRN HHN Shortness of Breath 10/20/19 11:30 10/25/19 11:29 Allopurinol (Zyloprim) 300 mg DAILY ORAL 10/21/19 09:00 11/20/19 08:59 10/21/19 09:43 Atorvastatin Calcium (Lipitor) 10 mg BEDTIME ORAL 10/20/19 21:00 11/19/19 20:59 10/20/19 21:27 Clonidine HCl (Catapres Tab) 0.1 mg Q4H PRN ORAL bp 165 syst 10/21/19 09:15 11/20/19 09:14 Digoxin (Lanoxin) 0.25 mg DAILY IVP 10/21/19 09:00 11/20/19 08:59 10/21/19 09:42 Diltiazem HCl (Cardizem) 10 mg Q1H PRN IV heart rate more than 120, 10/20/19 11:30 11/19/19 11:29 Docusate Sodium (Colace) 100 mg THREE TIMES A DAY ORAL 10/21/19 13:00 11/20/19 12:59 Heparin Sodium/ Dextrose 500 ml @ 27.2 mls/hr ADJUST PER PROTOCOL IV 10/21/19 09:00 11/19/19 22:29 10/21/19 09:45 Hydralazine HCl (Apresoline) 50 mg Q8HR ORAL 10/21/19 14:00 11/19/19 20:59 Metoprolol Tartrate (Lopressor) 5 mg Q1H PRN IVP heart rate more than 140 10/20/19 11:30 11/19/19 11:29 Metoprolol Tartrate (Lopressor) 100 mg Q12HR ORAL 10/20/19 21:00 11/19/19 20:59 10/21/19 08:22 Nitroglycerin (Ntg) 0.4 mg Q5M PRN SL Prn Chest Pain 10/20/19 11:30 11/19/19 11:29 Ondansetron HCl (Zofran) 4 mg Q6H PRN IVP Nausea & Vomiting 10/20/19 11:30 11/19/19 11:29 Pantoprazole (Protonix) 40 mg DAILY ORAL 10/21/19 09:00 11/20/19 08:59 10/21/19 09:43 Polyethylene Glycol (Miralax) 17 gm DAILYPRN PRN ORAL Constipation 10/20/19 11:30 11/19/19 11:29 Tamsulosin HCl (Flomax) 0.4 mg BID ORAL 10/21/19 09:30 11/20/19 09:29 10/21/19 09:46 Temazepam (Restoril) 15 mg HSPRN PRN ORAL Insomnia 10/20/19 11:30 10/27/19 11:29 Erma Rajput MD Oct 21, 2019 13:52
--- NOTE | 2019-10-21 14:30 | Consultation ---
DATE OF CONSULTATION: 10/21/2019 RENAL CONSULTATION CONSULTING PHYSICIAN: Avila Sandy M.D. HISTORY OF PRESENT ILLNESS: I was asked to evaluate the patient at the request of Dr. Zimmer for renal failure. The patient originally came to emergency room with paramedics for complaining of dizziness and difficulty ambulating and being short of breath. He is homeless. He states that he has been a patient of Dr. Purvis for many years. PAST MEDICAL HISTORY: Significant for high cholesterol, hypertension. He gives a vague history of previous prostate surgery in the form of TURP. MEDICATIONS: Listed as allopurinol, aspirin, Lipitor, Lasix, hydralazine, and metoprolol. ALLERGIES: None. SOCIAL HISTORY: The patient was an ex-smoker and currently homeless. PHYSICAL EXAMINATION: VITAL SIGNS: When examined this morning, temperature 96.7, pulse rate 81 irregular, respiratory rate 20, blood pressure 136/80. HEENT: Head is normocephalic. Sclerae not icteric. NECK: Full. LUNGS: Poor inspiratory effort. Decreased breath sounds over the bases. HEART: Regular with occasional irregular beats. Rate 80. ABDOMEN: Soft. EXTREMITIES: Lower extremities, trace edema. Varicose veins. CENTRAL NERVOUS SYSTEM: Moves all extremities. LABORATORY DATA: Today, the hemoglobin is 13.8, white blood cells 9.6. The chemistry panel today is pending. However yesterday, the creatinine was 2 and glucose level was 63. CK was 423. Natriuretic peptic assay 4490. Urinalysis had 4+ protein. Chest x-ray, no acute process. Probable right pericardial calcification. Kidney ultrasound, mild right hydronephrosis, possible due to bladder urinary retention, 180 mL postvoid bladder, evidence of prior TURP. IMPRESSION: 1. Acute on chronic renal failure. 2. Atrial flutter with rapid ventricular response upon admission. 3. Hypertension. 4. History of gout. 5. Homeless. 6. Pericardial calcification. PLAN: At this point is to monitor renal parameters. Optimize cardiac and pulmonary status. Avoid nephrotoxic. Urine studies. Start Flomax. Keep the blood pressure and blood sugar in check. According to how the patient's condition evolves, we will make the proper changes in our future management. Avila Sandy M.D. DR: BROOK JOB#: [id number] CC:
--- NOTE | 2019-10-21 14:42 | NUR ---
*-* NO INSURANCE INFORMATION IN THE BAR UNABLE TO SEND CLINICALS *-*
[2019-10-21 16:00] VITALS: BP 158/93
[2019-10-21] MEDS ORDERED: Heparin 5000 units/ml inj IV SCH (16:30)
--- NOTE | 2019-10-21 17:01 | NUR ---
NURSE NOTES: Patient refused to have colace and tamsulocin. Patient stated that he has regular bowel movement.
--- NOTE | 2019-10-21 18:46 | Internal Med Progress Note ---
Subjective Date of Service: Oct 21, 2019 Physician Name MeshaLeroy Attending Physician Yonas Purvis MD Current Medications Medications (Trade) Dose Ordered Sig/Catrina Route PRN Reason Start Time Stop Time Status Last Admin Dose Admin Acetaminophen (Tylenol) 650 mg Q4H PRN ORAL FEVER 10/20/19 11:30 11/19/19 11:29 Acetaminophen/ Hydrocodone Bitart ([place] 10/325) 1 tab Q6H PRN ORAL Moderate Pain (Pain Scale 4-6) 10/20/19 11:15 10/27/19 11:14 Albuterol/ Ipratropium (Albuterol/ Ipratropium) 3 ml Q4H PRN HHN Shortness of Breath 10/20/19 11:30 10/25/19 11:29 Allopurinol (Zyloprim) 100 mg DAILY ORAL 10/22/19 09:00 11/20/19 08:59 Atorvastatin Calcium (Lipitor) 10 mg BEDTIME ORAL 10/20/19 21:00 11/19/19 20:59 10/20/19 21:27 Clonidine HCl (Catapres Tab) 0.1 mg Q4H PRN ORAL bp 165 syst 10/21/19 09:15 11/20/19 09:14 Digoxin (Lanoxin) 0.25 mg DAILY IVP 10/21/19 09:00 11/20/19 08:59 10/21/19 09:42 Diltiazem HCl (Cardizem) 10 mg Q1H PRN IV heart rate more than 120, 10/20/19 11:30 11/19/19 11:29 Docusate Sodium (Colace) 100 mg THREE TIMES A DAY ORAL 10/21/19 13:00 11/20/19 12:59 Heparin Sodium/ Dextrose 500 ml @ 30.6 mls/hr ADJUST PER PROTOCOL IV 10/21/19 16:30 11/20/19 16:29 10/21/19 16:50 Hydralazine HCl (Apresoline) 50 mg Q8HR ORAL 10/21/19 14:00 11/19/19 20:59 10/21/19 15:56 Metoprolol Tartrate (Lopressor) 5 mg Q1H PRN IVP heart rate more than 140 10/20/19 11:30 11/19/19 11:29 Metoprolol Tartrate (Lopressor) 100 mg Q12HR ORAL 10/20/19 21:00 11/19/19 20:59 10/21/19 08:22 Nitroglycerin (Ntg) 0.4 mg Q5M PRN SL Prn Chest Pain 10/20/19 11:30 11/19/19 11:29 Ondansetron HCl (Zofran) 4 mg Q6H PRN IVP Nausea & Vomiting 10/20/19 11:30 11/19/19 11:29 Pantoprazole (Protonix) 40 mg DAILY ORAL 10/21/19 09:00 11/20/19 08:59 10/21/19 09:43 Polyethylene Glycol (Miralax) 17 gm DAILYPRN PRN ORAL Constipation 10/20/19 11:30 11/19/19 11:29 Tamsulosin HCl (Flomax) 0.4 mg BID ORAL 10/21/19 09:30 11/20/19 09:29 10/21/19 09:46 Temazepam (Restoril) 15 mg HSPRN PRN ORAL Insomnia 10/20/19 11:30 10/27/19 11:29 Allergies: Coded Allergies: No Known Allergies (Unverified , 09/12/15) ROS Limited/Unobtainable: No Constitutional: Reports: no symptoms HEENT: Reports: no symptoms Cardiovascular: Reports: no symptoms Respiratory: Reports: no symptoms Gastrointestinal/Abdominal: Reports: no symptoms Genitourinary: Reports: no symptoms Neurologic/Psychiatric: Reports: no symptoms Subjective 74 YO M admitted with vertigo and ataxia. Now atrial flutter with rapid ventricular rate and renal failure. Cover for Int Arnaldo-DR Purvis Objective Last Vital Signs Date Time Temp Pulse Resp B/P (MAP) Pulse Ox O2 Delivery O2 Flow Rate FiO2 10/21/19 16:00 96.7 78 18 158/93 (114) 97 10/21/19 09:00 Room Air Laboratory Tests Test 10/20/19 20:15 10/21/19 05:35 10/21/19 12:00 10/21/19 15:40 Activated Partial Thromboplast Time 64 SEC (23-33) H > 150 SEC (23-33) *H 63 SEC (23-33) H White Blood Count 9.6 K/UL (4.8-10.8) Red Blood Count 4.20 M/UL (4.70-6.10) L Hemoglobin 13.8 G/DL (14.2-18.0) L Hematocrit 39.8 % (42.0-52.0) L Mean Corpuscular Volume 95 FL (80-99) Mean Corpuscular Hemoglobin 32.8 PG (27.0-31.0) H Mean Corpuscular Hemoglobin Concent 34.6 G/DL (32.0-36.0) Red Cell Distribution Width 12.9 % (11.6-14.8) Platelet Count 158 K/UL (150-450) Mean Platelet Volume 6.6 FL (6.5-10.1) Neutrophils (%) (Auto) 75.2 % (45.0-75.0) H Lymphocytes (%) (Auto) 12.2 % (20.0-45.0) L Monocytes (%) (Auto) 10.5 % (1.0-10.0) H Eosinophils (%) (Auto) 1.3 % (0.0-3.0) Basophils (%) (Auto) 0.7 % (0.0-2.0) Prothrombin Time 11.8 SEC (9.30-11.50) H Prothromb Time International Ratio 1.1 (0.9-1.1) Sodium Level 147 MMOL/L (136-145) H Potassium Level 3.7 MMOL/L (3.5-5.1) Chloride Level 112 MMOL/L (98-107) H Carbon Dioxide Level 19 MMOL/L (21-32) L Anion Gap 16 mmol/L (5-15) H Blood Urea Nitrogen 35 mg/dL (7-18) H Creatinine 1.7 MG/DL (0.55-1.30) H Estimat Glomerular Filtration Rate 39.5 mL/min (>60) Glucose Level 109 MG/DL (74-106) H Uric Acid 7.3 MG/DL (2.6-7.2) H Calcium Level 8.8 MG/DL (8.5-10.1) Phosphorus Level 3.0 MG/DL (2.5-4.9) Magnesium Level 1.9 MG/DL (1.8-2.4) Total Bilirubin 0.5 MG/DL (0.2-1.0) Aspartate Amino Transf (AST/SGOT) 26 U/L (15-37) Alanine Aminotransferase (ALT/SGPT) 30 U/L (12-78) Alkaline Phosphatase 87 U/L (46-116) Troponin I 0.031 ng/mL (0.000-0.056) C-Reactive Protein, Quantitative 5.8 mg/dL (0.00-0.90) H Total Protein 6.5 G/DL (6.4-8.2) Albumin 3.2 G/DL (3.4-5.0) L Globulin 3.3 g/dL Albumin/Globulin Ratio 1.0 (1.0-2.7) Triglycerides Level 42 MG/DL (30-150) Cholesterol Level 111 MG/DL (< 200) LDL Cholesterol 54 mg/dL (<100) HDL Cholesterol 52 MG/DL (40-60) Cholesterol/HDL Ratio 2.1 (3.3-4.4) L Thyroid Stimulating Hormone (TSH) 0.254 uiU/mL (0.358-3.740) Urine Eosinophils None seen (NONE SEEN) Urine Osmolality Pending Urine Random Creatinine Pending Urine Random Microalbumin Pending Urine Random Sodium 84 mmol/L (20-110) Urine Microalbumin/Creatinine Ratio Pending Intake and Output 10/20/19 10/21/19 19:00 07:00 Intake Total 1120 ml Balance 1120 ml Intake Oral 120 ml IV Total 1000 ml # Voids 1 3 # Bowel Movements 2 Objective PHYSICAL EXAMINATION: GENERAL: The patient is a well-developed, well-nourished male, in no apparent distress. HEENT: Eyes, pupils are equal and responsive to light and accommodation. Extraocular movements are intact. NECK: Supple without lymphadenopathy. CHEST: Lungs are clear to auscultation bilaterally without wheezes or rales. CARDIOVASCULAR: Regular rate. S1 and S2 are normal without murmurs, rubs, or gallops. ABDOMEN: Soft, nontender, and nondistended. Positive bowel sounds. No evidence of hepatosplenomegaly. Currently, no rebound or guarding noted. EXTREMITIES: Negative for clubbing, cyanosis, or edema. RECTAL: Not performed. GENITAL: Not performed. NEUROLOGIC: Cranial nerves II through XII grossly intact without focal deficits. Motor strength is 5/5 bilaterally. Deep tendon reflexes are 2+ plantar. Assessment/Plan Assessment/Plan ASSESSMENT: This is a 74-year-old male with: 1. Vertigo. 2. Congestive heart failure. 3. Renal failure. 4. Hypercholesteremia. 5. Hypertension. 6. Gout. 7. Atrial flutter with rapid ventricular rate TREATMENT: 1. Renal failure. A Nephrology consultation has been obtained with Dr. Sandy. The patient is currently receiving intravenous fluids. We will follow recommendations of Dr. Sandy. Differential includes dehydration versus acute renal failure. 2. Congestive heart failure. Cardiology consultation has been obtained with Dr. Epifanio Silverio. Echocardiogram is pending. We will follow recommendations of Cardiology. 3. Hypercholesterolemia. Continue atorvastatin and fenofibrate as above. 4. Hypertension. Continue hydralazine and metoprolol as above. 5. Gout. Continue allopurinol as above. Leroy Zimmer MD Oct 21, 2019 18:46
--- NOTE | 2019-10-21 19:05 | Cardiology Progress Note ---
Assessment/Plan Assessment/Plan [id number] full note dictated Objective Last 24 Hour Vital Signs Date Time Temp Pulse Resp B/P (MAP) Pulse Ox O2 Delivery O2 Flow Rate FiO2 10/21/19 16:00 96.7 78 18 158/93 (114) 97 10/21/19 16:00 77 10/21/19 15:56 158/93 10/21/19 12:00 77 10/21/19 12:00 97.5 79 18 147/93 (111) 97 10/21/19 09:42 81 10/21/19 09:00 Room Air 10/21/19 08:22 81 136/80 10/21/19 08:22 136/80 10/21/19 08:00 96.7 81 20 136/80 (98) 97 10/21/19 08:00 93 10/21/19 04:00 78 10/21/19 04:00 97.7 76 18 126/72 (90) 96 10/21/19 02:00 Room Air 10/21/19 00:00 94 10/21/19 00:00 98.1 93 20 139/90 (106) 96 10/20/19 21:28 158/95 10/20/19 21:27 91 158/95 10/20/19 21:00 Room Air 10/20/19 20:00 98.1 91 20 158/95 (116) 95 10/20/19 20:00 86 Intake and Output 10/20/19 10/21/19 19:00 07:00 Intake Total 1120 ml Balance 1120 ml Intake Oral 120 ml IV Total 1000 ml # Voids 1 3 # Bowel Movements 2 Laboratory Tests Test 10/20/19 20:15 10/21/19 05:35 10/21/19 12:00 10/21/19 15:40 Activated Partial Thromboplast Time 64 SEC (23-33) H > 150 SEC (23-33) *H 63 SEC (23-33) H White Blood Count 9.6 K/UL (4.8-10.8) Red Blood Count 4.20 M/UL (4.70-6.10) L Hemoglobin 13.8 G/DL (14.2-18.0) L Hematocrit 39.8 % (42.0-52.0) L Mean Corpuscular Volume 95 FL (80-99) Mean Corpuscular Hemoglobin 32.8 PG (27.0-31.0) H Mean Corpuscular Hemoglobin Concent 34.6 G/DL (32.0-36.0) Red Cell Distribution Width 12.9 % (11.6-14.8) Platelet Count 158 K/UL (150-450) Mean Platelet Volume 6.6 FL (6.5-10.1) Neutrophils (%) (Auto) 75.2 % (45.0-75.0) H Lymphocytes (%) (Auto) 12.2 % (20.0-45.0) L Monocytes (%) (Auto) 10.5 % (1.0-10.0) H Eosinophils (%) (Auto) 1.3 % (0.0-3.0) Basophils (%) (Auto) 0.7 % (0.0-2.0) Prothrombin Time 11.8 SEC (9.30-11.50) H Prothromb Time International Ratio 1.1 (0.9-1.1) Sodium Level 147 MMOL/L (136-145) H Potassium Level 3.7 MMOL/L (3.5-5.1) Chloride Level 112 MMOL/L (98-107) H Carbon Dioxide Level 19 MMOL/L (21-32) L Anion Gap 16 mmol/L (5-15) H Blood Urea Nitrogen 35 mg/dL (7-18) H Creatinine 1.7 MG/DL (0.55-1.30) H Estimat Glomerular Filtration Rate 39.5 mL/min (>60) Glucose Level 109 MG/DL (74-106) H Uric Acid 7.3 MG/DL (2.6-7.2) H Calcium Level 8.8 MG/DL (8.5-10.1) Phosphorus Level 3.0 MG/DL (2.5-4.9) Magnesium Level 1.9 MG/DL (1.8-2.4) Total Bilirubin 0.5 MG/DL (0.2-1.0) Aspartate Amino Transf (AST/SGOT) 26 U/L (15-37) Alanine Aminotransferase (ALT/SGPT) 30 U/L (12-78) Alkaline Phosphatase 87 U/L (46-116) Troponin I 0.031 ng/mL (0.000-0.056) C-Reactive Protein, Quantitative 5.8 mg/dL (0.00-0.90) H Total Protein 6.5 G/DL (6.4-8.2) Albumin 3.2 G/DL (3.4-5.0) L Globulin 3.3 g/dL Albumin/Globulin Ratio 1.0 (1.0-2.7) Triglycerides Level 42 MG/DL (30-150) Cholesterol Level 111 MG/DL (< 200) LDL Cholesterol 54 mg/dL (<100) HDL Cholesterol 52 MG/DL (40-60) Cholesterol/HDL Ratio 2.1 (3.3-4.4) L Thyroid Stimulating Hormone (TSH) 0.254 uiU/mL (0.358-3.740) Urine Eosinophils None seen (NONE SEEN) Urine Osmolality Pending Urine Random Creatinine Pending Urine Random Microalbumin Pending Urine Random Sodium 84 mmol/L (20-110) Urine Microalbumin/Creatinine Ratio Pending Epifanio Silverio MD Oct 21, 2019 19:05
[2019-10-21 20:00] VITALS: BP 148/80
--- NOTE | 2019-10-21 23:15 | Consultation ---
DATE OF CONSULTATION: 10/21/2019 CARDIOLOGY CONSULTATION CONSULTING PHYSICIAN: Epifanio Silverio M.D. REFERRING PHYSICIANS: Erma Rajput M.D. and Yonas Purvis M.D. REASON FOR REFERRAL: Atrial flutter. HISTORY OF PRESENT ILLNESS: This is an elderly gentleman, homeless for the time being, who presented to the hospital because of basically generalized fatigue on ambulation from one [place] to the other for the past few days and some episodes of palpitation that he has noticed. He has some exertional fatigue. He does not really know if he has exertional shortness of breath either. He absolutely denies any pain on exertion. There is no PND. He sleeps in a sitting position mainly because he does not have a place to sleep and there is no dizziness or lightheadedness, but he did feel the heart pounding as mentioned on prior occasions. PAST MEDICAL HISTORY: Positive for history of congestive heart failure, and for some reason he has been on blood thinner previously, although he does not recall having problems with the heart rhythm previously. The patient's past medical history is positive for history of hypertension, hyperlipidemia, right inguinal hernia, benign prostatic hypertrophy, status post TURP, chronic kidney disease, gout, alcoholism in the past as well, history of heel fracture nondisplaced, dehydration, hypovolemia, anemia, prior history of melanoma as well. ALLERGIES: He is not allergic to any medications. SOCIAL HISTORY: He drinks beer. Denies any alcohol or drug use. REVIEW OF SYSTEMS: GASTROINTESTINAL: He is not having any nausea or vomiting. He has had some loose stools. No bloody or black stools. GENITOURINARY: No discomfort on urination. PULMONARY: He does have a cough sometimes. CONSTITUTIONAL: No fevers, chills, night sweats, or weight loss. NEUROLOGIC: Negative. PHYSICAL EXAMINATION: GENERAL: Shows to be a middle-aged gentleman, in bed coughing. NECK: Supple. No jugular venous distention. LUNGS: Clear to auscultation and percussion. CARDIAC: Irregularly irregular. Borderline tachycardia. No heaves or thrills noted. ABDOMEN: Soft, nontender. Positive bowel sounds. EXTREMITIES: No clubbing, cyanosis, or edema. NEUROLOGICAL: He is awake, responsive, and does not appear to be in any kind of respiratory distress. LABORATORY AND DIAGNOSTIC DATA: White count of 9.6, hemoglobin 13.8, and platelet count of . Sodium 147, potassium 3.7, chloride 112, bicarb 19, BUN 35, creatinine 1.7, and glucose of 109. Liver function tests are all normal. Two sets of cardiac enzymes are all negative. CRP of 5.8. Total cholesterol of 111 with LDL of 54 and HDL of 52. TSH of 0.254. Coags - INR of 1.2 and PTT of 30 at the time of admission. He is now on a heparin drip with last PTT of 30. Urinalysis shows 2 to 4 rbc's, 0 to [address] scan of the head that was performed, showed mild age-related changes, negative for acute intracranial bleed or mass effects. Chest x-ray performed in the emergency room shows unusual calcifications surrounding the right heart border. Lungs and pleural spaces are clear and they thought this is a probable right pericardial calcification. Renal ultrasound shows a 15 mm hyperechoic structure in the interpolar region of the right kidney, solid mass not excludable, mild right hydronephrosis, and evidence of prior TURP. The patient's electrocardiogram performed over the past few days have shown atrial flutter with rapid ventricular response, initially at a rate of 151 and subsequently rate has been controlled, and the patient anticoagulation. ASSESSMENT AND PLAN: 1. Atrial flutter, possibly few days old. 2. History of congestive heart failure. 3. LV systolic dysfunction, ejection fraction reported 35% to 40%. 4. Mild diastolic dysfunction and dilated IVC suggestive of increased RA pressure. 5. Renal insufficiency. 6. Questionable hyperthyroidism. 7. Hypertension. 8. History of gout. 9. Pericardial calcification. This patient was seen in cardiac consultation. The patient's heart rate is controlled. Agree with continuation of anticoagulation and heart rate control medications. Unfortunately, being homeless makes it difficult for him to be treated with NOACs. I have discussed with the patient the indication for anticoagulation, and at the present time although he is allowing the IV heparin, he is not looking forward to getting oral equivalent because he has apparently had a problem with that before. The atrial flutter certainly is treatable with catheter based procedure; however, he needs to definitely be on anticoagulation for a while to ensure that he has not developed left atrial appendage thrombus and to decrease the risk of stroke. I have discussed this with the patient as well. For the time being, we will continue beta-blockers and anticoagulation with heparin. If the patient does accept, we will treat with either NOACs or . Epifanio Silverio M.D. DR: ESTHER JOB#: [id number] CC:
[2019-10-22] VITALS: BP 141/83
[2019-10-22] MEDS ORDERED: Heparin 25,000u/D5W 500ml 500 ML IV SCH ×2 (01:30→11:45)
[2019-10-22 04:00] VITALS: BP 146/77
[2019-10-22] MEDS: HydrALAZINE 50mg tab ORAL SCH ×3 (06:20→21:05)
--- NOTE | 2019-10-22 07:31 | NUR ---
HAND-OFF: Report given to Victorino CAGLE.
--- NOTE | 2019-10-22 07:54 | NUR ---
NURSE NOTES: Received report from TSERING Starks. Pt in sitting at edge of bed, eating breakfast, talkative, on heparin gtt according to order 0730 timed ptt lab draw, no result at this time, no c/o pain, no apparent respiratory distress noted, bed in lowest position, call light within reach, discussed plan of care
[2019-10-22 08:00] VITALS: BP 139/66
[2019-10-22] MEDS: Tamsulosin 0.4mg cap ORAL SCH ×2 (09:00→18:00)
[2019-10-22] MEDS: Docusate 100mg cap ORAL SCH ×3 (09:00→18:00)
[2019-10-22] MEDS: Allopurinol 100mg Tab ORAL SCH (09:13)
[2019-10-22] MEDS: Metoprolol Tartrate 100mg tab ORAL SCH (09:13)
[2019-10-22] MEDS: Digoxin 0.5mg/2ml Inj IVP SCH (09:14)
[2019-10-22 09:21] LABS: BASOPHILS % (AUTO) 0.5 % (0.0-2.0); EOSINOPHILS % (AUTO) 1.7 % (0.0-3.0); HEMATOCRIT 42.1 % (42.0-52.0); HEMOGLOBIN 14.1 G/DL (14.2-18.0); LYMPHOCYTES % (AUTO) 13.1 % (20.0-45.0); MEAN CORPUSCULAR VOLUME 96 FL (80-99); MONOCYTES % (AUTO) 9.5 % (1.0-10.0); NEUTROPHILS % (AUTO) 75.3 % (45.0-75.0); PLATELET COUNT 158 K/UL (150-450); RED CELL DISTRIBUTION WIDTH 13.1 % (11.6-14.8); WHITE BLOOD COUNT 10.3 K/UL (4.8-10.8)
[2019-10-22] MEDS: Promethazine/Codeine 5ml UD ORAL PRN ×3 (09:30→21:06)
[2019-10-22 10:18] LABS: ALANINE AMINOTRANSFERASE 15 U/L (12-78); ALBUMIN 3.3 G/DL (3.4-5.0); ALBUMIN/GLOBULIN RATIO 0.9 (1.0-2.7); ALKALINE PHOSPHATASE 83 U/L (46-116); ANION GAP 13 mmol/L (5-15); ASPARTATE AMINO TRANSFERASE 23 U/L (15-37); BILIRUBIN,TOTAL 0.4 MG/DL (0.2-1.0); BLOOD UREA NITROGEN 28 mg/dL (7-18); CALCIUM 8.7 MG/DL (8.5-10.1); CARBON DIOXIDE 24 MMOL/L (21-32); CHLORIDE 111 MMOL/L (98-107); CREATININE 1.6 MG/DL (0.55-1.30); FERRITIN 54 NG/ML (8-388); PHOSPHORUS 2.4 MG/DL (2.5-4.9); POTASSIUM 3.6 MMOL/L (3.5-5.1); SODIUM 147 MMOL/L (136-145)
--- NOTE | 2019-10-22 11:04 | Nephrology Progress Note ---
Assessment/Plan Problem List: (1) Renal failure (ARF), acute on chronic (2) Atrial flutter with rapid ventricular response (3) Pericardial calcification (4) History of hypertension (5) History of gout (6) Cardiomyopathy Assessment 1. Acute on chronic renal failure. 2. Atrial flutter with rapid ventricular response upon admission. 3. Hypertension. 4. History of gout. 5. Homeless. 6. Pericardial calcification. 7. Cardiomyopathy Plan monitor renal parameters. Optimize cardiac and pulmonary status. Avoid nephrotoxic. Urine studies. Start Flomax. Keep the blood pressure and blood sugar in check. per orders Subjective ROS Limited/Unobtainable: No Constitutional: Reports: malaise, weakness Objective Objective Last 24 Hour Vital Signs Date Time Temp Pulse Resp B/P (MAP) Pulse Ox O2 Delivery O2 Flow Rate FiO2 10/22/19 09:14 60 10/22/19 09:13 60 139/66 10/22/19 09:00 Room Air 10/22/19 08:01 90 10/22/19 08:00 96.8 60 19 139/66 (90) 98 10/22/19 06:20 146/77 10/22/19 04:00 78 10/22/19 04:00 98.5 82 19 146/77 (100) 95 10/22/19 00:00 98.1 81 19 141/83 (102) 96 10/22/19 00:00 77 10/21/19 21:31 148/80 10/21/19 21:31 80 148/80 10/21/19 21:00 Room Air 10/21/19 20:03 81 20 95 Room Air 21 10/21/19 20:00 98.7 80 19 148/80 (102) 95 10/21/19 20:00 79 10/21/19 16:00 96.7 78 18 158/93 (114) 97 10/21/19 16:00 77 10/21/19 15:56 158/93 10/21/19 12:00 77 10/21/19 12:00 97.5 79 18 147/93 (111) 97 Intake and Output 10/21/19 10/22/19 19:00 07:00 Intake Total 200 ml Output Total 1200 ml Balance -1000 ml Other 200 ml Output Urine Total 1200 ml # Voids 1 # Bowel Movements 1 1 Current Medications Medications (Trade) Dose Ordered Sig/Catrina Route PRN Reason Start Time Stop Time Status Last Admin Dose Admin Acetaminophen (Tylenol) 650 mg Q4H PRN ORAL FEVER 10/20/19 11:30 11/19/19 11:29 Acetaminophen/ Hydrocodone Bitart ([place] 10/325) 1 tab Q6H PRN ORAL Moderate Pain (Pain Scale 4-6) 10/20/19 11:15 10/27/19 11:14 Albuterol/ Ipratropium (Albuterol/ Ipratropium) 3 ml Q4H PRN HHN Shortness of Breath 10/20/19 11:30 10/25/19 11:29 Allopurinol (Zyloprim) 100 mg DAILY ORAL 10/22/19 09:00 11/20/19 08:59 10/22/19 09:13 Atorvastatin Calcium (Lipitor) 10 mg BEDTIME ORAL 10/20/19 21:00 11/19/19 20:59 10/21/19 21:30 Clonidine HCl (Catapres Tab) 0.1 mg Q4H PRN ORAL bp 165 syst 10/21/19 09:15 11/20/19 09:14 Digoxin (Lanoxin) 0.25 mg DAILY ORAL 10/23/19 09:00 11/22/19 08:59 UNV Diltiazem HCl (Cardizem) 10 mg Q1H PRN IV heart rate more than 120, 10/20/19 11:30 11/19/19 11:29 Docusate Sodium (Colace) 100 mg THREE TIMES A DAY ORAL 10/21/19 13:00 11/20/19 12:59 Heparin Sodium/ Dextrose 500 ml @ 18.7 mls/hr ADJUST PER PROTOCOL IV 10/22/19 11:45 11/21/19 11:44 Hydralazine HCl (Apresoline) 50 mg Q8HR ORAL 10/21/19 14:00 11/19/19 20:59 10/22/19 06:20 Magnesium Sulfate 100 ml @ 100 mls/hr Q1H IVPB 10/22/19 11:00 10/22/19 12:59 Metoprolol Tartrate (Lopressor) 100 mg Q12HR ORAL 10/20/19 21:00 11/19/19 20:59 10/22/19 09:13 Nitroglycerin (Ntg) 0.4 mg Q5M PRN SL Prn Chest Pain 10/20/19 11:30 11/19/19 11:29 Ondansetron HCl (Zofran) 4 mg Q6H PRN IVP Nausea & Vomiting 10/20/19 11:30 11/19/19 11:29 Pantoprazole (Protonix) 40 mg BID ORAL 10/22/19 18:00 11/20/19 08:59 UNV Polyethylene Glycol (Miralax) 17 gm DAILYPRN PRN ORAL Constipation 10/20/19 11:30 11/19/19 11:29 Potassium Phosphate 20 mm/ Sodium Chloride 281.6667 ml @ 46.944 m... ONCE IV 10/22/19 12:00 10/22/19 14:00 Promethazine HCl/ Codeine (Phenergan with Codeine) 5 ml Q4H PRN ORAL For Cough 10/21/19 19:00 11/20/19 18:59 10/22/19 09:30 Tamsulosin HCl (Flomax) 0.4 mg BID ORAL 10/21/19 09:30 11/20/19 09:29 10/21/19 09:46 Temazepam (Restoril) 15 mg HSPRN PRN ORAL Insomnia 10/20/19 11:30 10/27/19 11:29 Laboratory Tests 10/21/19 12:00: Urine Eosinophils None seen, Urine Osmolality [Pending], Urine Random Creatinine [Pending], Urine Random Microalbumin [Pending], Urine Random Sodium 84, Urine Microalbumin/Creatinine Ratio [Pending] 10/21/19 15:40: Activated Partial Thromboplast Time 63H 10/21/19 22:56: Activated Partial Thromboplast Time > 150*H 10/22/19 08:00: Activated Partial Thromboplast Time 136H, White Blood Count 10.3, Red Blood Count 4.40L, Hemoglobin 14.1L, Hematocrit 42.1, Mean Corpuscular Volume 96, Mean Corpuscular Hemoglobin 32.1H, Mean Corpuscular Hemoglobin Concent 33.5, Red Cell Distribution Width 13.1, Platelet Count 158, Mean Platelet Volume 7.3, Neutrophils (%) (Auto) 75.3H, Lymphocytes (%) (Auto) 13.1L, Monocytes (%) (Auto ) 9.5, Eosinophils (%) (Auto) 1.7, Basophils (%) (Auto) 0.5, Sodium Level 147H, Potassium Level 3.6, Chloride Level 111H, Carbon Dioxide Level 24, Anion Gap 13 , Blood Urea Nitrogen 28H, Creatinine 1.6H, Estimat Glomerular Filtration Rate 42.3, Glucose Level 114H, Uric Acid 6.4, Calcium Level 8.7, Phosphorus Level 2.4L, Magnesium Level 1.6L, Iron Level [Pending], Unsaturated Iron Binding [ Pending], Ferritin 54, Total Bilirubin 0.4, Aspartate Amino Transf (AST/SGOT) 23 , Alanine Aminotransferase (ALT/SGPT) 15, Alkaline Phosphatase 83, Troponin I 0.023, C-Reactive Protein, Quantitative 4.9H, Pro-B-Type Natriuretic Peptide 7746H, Total Protein 6.8, Albumin 3.3L, Globulin 3.5, Albumin/Globulin Ratio 0.9L, Vitamin B12 Level [Pending], Folate [Pending], Digoxin Level < 0.2L Height (Feet): 5 Height (Inches): 10.00 Weight (Pounds): 177 General Appearance: no apparent distress, lethargic Cardiovascular: normal rate Respiratory/Chest: decreased breath sounds Abdomen: distended Avila Sandy MD Oct 22, 2019 11:04
--- NOTE | 2019-10-22 11:26 | Pulmonology Progress Note ---
Assessment/Plan Assessment/Plan ASSESSMENT Atrial flutter n with rapid ventricular response Congestive heart failure with systolic dysfunction Cardiomyopathy with EF 35-40% Acute on chronic renal failure Chronic kidney disease Hypertension History of TURP Gout Homeless E/lyte imbalance PLAN OF CARE tele heparin gtt- rate controlled with dig and Cardizem, converted to SR this am Echo with ejection fraction 35 to 40% and mild global LV hypokinesis moderately elevated left atrial pressure grade 2, RVSP of 36 guideline directed medical therapy as e[r cardio recs CT head -no acute IC pathology BP management with BP and hydralazine , optimize further as needed pericardial calcification on CXR old O2 HHN PRN avoid nephrotoxic's, monitor renal parameters; correct lytes as needed ( K, P and Mg as per nephro orders) renal ultrasound noted consider CT as per nephrology recs started on Flomax on allopurinol SS eval case discussed and evaluated by supervising physician Subjective Allergies: Coded Allergies: No Known Allergies (Unverified , 09/12/15) Subjective denies PROP [employer], SOB, palpitations pulse ox stable on RA Objective Last 24 Hour Vital Signs Date Time Temp Pulse Resp B/P (MAP) Pulse Ox O2 Delivery O2 Flow Rate FiO2 10/22/19 09:14 60 10/22/19 09:13 60 139/66 10/22/19 09:00 Room Air 10/22/19 08:01 90 10/22/19 08:00 96.8 60 19 139/66 (90) 98 10/22/19 06:20 146/77 10/22/19 04:00 78 10/22/19 04:00 98.5 82 19 146/77 (100) 95 10/22/19 00:00 98.1 81 19 141/83 (102) 96 10/22/19 00:00 77 10/21/19 21:31 148/80 10/21/19 21:31 80 148/80 10/21/19 21:00 Room Air 10/21/19 20:03 81 20 95 Room Air 21 10/21/19 20:00 98.7 80 19 148/80 (102) 95 10/21/19 20:00 79 10/21/19 16:00 96.7 78 18 158/93 (114) 97 10/21/19 16:00 77 10/21/19 15:56 158/93 10/21/19 12:00 77 10/21/19 12:00 97.5 79 18 147/93 (111) 97 Intake and Output 10/21/19 10/22/19 19:00 07:00 Intake Total 200 ml Output Total 1200 ml Balance -1000 ml Other 200 ml Output Urine Total 1200 ml # Voids 1 # Bowel Movements 1 1 General Appearance: other - male in NAD HEENT: normocephalic, atraumatic, anicteric, PERRL Respiratory/Chest: lungs clear, no respiratory distress, no accessory muscle use Cardiovascular: normal rate, regular rhythm - now in SR Abdomen: normal bowel sounds, soft, non tender - mild distention Extremities: no edema, pedal pulses normal Neurologic/Psychiatric: no motor/sensory deficits, alert, oriented x 3, responsive Musculoskeletal: normal muscle bulk Laboratory Tests 10/21/19 12:00: Urine Eosinophils None seen, Urine Osmolality [Pending], Urine Random Creatinine [Pending], Urine Random Microalbumin [Pending], Urine Random Sodium 84, Urine Microalbumin/Creatinine Ratio [Pending] 10/21/19 15:40: Activated Partial Thromboplast Time 63H 10/21/19 22:56: Activated Partial Thromboplast Time > 150*H 10/22/19 08:00: Activated Partial Thromboplast Time 136H, White Blood Count 10.3, Red Blood Count 4.40L, Hemoglobin 14.1L, Hematocrit 42.1, Mean Corpuscular Volume 96, Mean Corpuscular Hemoglobin 32.1H, Mean Corpuscular Hemoglobin Concent 33.5, Red Cell Distribution Width 13.1, Platelet Count 158, Mean Platelet Volume 7.3, Neutrophils (%) (Auto) 75.3H, Lymphocytes (%) (Auto) 13.1L, Monocytes (%) (Auto ) 9.5, Eosinophils (%) (Auto) 1.7, Basophils (%) (Auto) 0.5, Sodium Level 147H, Potassium Level 3.6, Chloride Level 111H, Carbon Dioxide Level 24, Anion Gap 13 , Blood Urea Nitrogen 28H, Creatinine 1.6H, Estimat Glomerular Filtration Rate 42.3, Glucose Level 114H, Uric Acid 6.4, Calcium Level 8.7, Phosphorus Level 2.4L, Magnesium Level 1.6L, Iron Level [Pending], Unsaturated Iron Binding [ Pending], Ferritin 54, Total Bilirubin 0.4, Aspartate Amino Transf (AST/SGOT) 23 , Alanine Aminotransferase (ALT/SGPT) 15, Alkaline Phosphatase 83, Troponin I 0.023, C-Reactive Protein, Quantitative 4.9H, Pro-B-Type Natriuretic Peptide 7746H, Total Protein 6.8, Albumin 3.3L, Globulin 3.5, Albumin/Globulin Ratio 0.9L, Vitamin B12 Level [Pending], Folate [Pending], Digoxin Level < 0.2L Current Medications Medications (Trade) Dose Ordered Sig/Catrina Route PRN Reason Start Time Stop Time Status Last Admin Dose Admin Acetaminophen (Tylenol) 650 mg Q4H PRN ORAL FEVER 10/20/19 11:30 11/19/19 11:29 Acetaminophen/ Hydrocodone Bitart ([place] 10/325) 1 tab Q6H PRN ORAL Moderate Pain (Pain Scale 4-6) 10/20/19 11:15 10/27/19 11:14 Albuterol/ Ipratropium (Albuterol/ Ipratropium) 3 ml Q4H PRN HHN Shortness of Breath 10/20/19 11:30 10/25/19 11:29 Allopurinol (Zyloprim) 100 mg DAILY ORAL 10/22/19 09:00 11/20/19 08:59 10/22/19 09:13 Atorvastatin Calcium (Lipitor) 10 mg BEDTIME ORAL 10/20/19 21:00 11/19/19 20:59 10/21/19 21:30 Clonidine HCl (Catapres Tab) 0.1 mg Q4H PRN ORAL bp 165 syst 10/21/19 09:15 11/20/19 09:14 Digoxin (Lanoxin) 0.25 mg DAILY ORAL 10/23/19 09:00 11/22/19 08:59 Diltiazem HCl (Cardizem) 10 mg Q1H PRN IV heart rate more than 120, 10/20/19 11:30 11/19/19 11:29 Docusate Sodium (Colace) 100 mg THREE TIMES A DAY ORAL 10/21/19 13:00 11/20/19 12:59 Heparin Sodium/ Dextrose 500 ml @ 18.7 mls/hr ADJUST PER PROTOCOL IV 10/22/19 11:45 11/21/19 11:44 Hydralazine HCl (Apresoline) 50 mg Q8HR ORAL 10/21/19 14:00 11/19/19 20:59 10/22/19 06:20 Magnesium Sulfate 100 ml @ 100 mls/hr Q1H IVPB 10/22/19 11:00 10/22/19 12:59 Metoprolol Tartrate (Lopressor) 100 mg Q12HR ORAL 10/20/19 21:00 11/19/19 20:59 10/22/19 09:13 Nitroglycerin (Ntg) 0.4 mg Q5M PRN SL Prn Chest Pain 10/20/19 11:30 11/19/19 11:29 Ondansetron HCl (Zofran) 4 mg Q6H PRN IVP Nausea & Vomiting 10/20/19 11:30 11/19/19 11:29 Pantoprazole (Protonix) 40 mg BID ORAL 10/22/19 18:00 11/20/19 08:59 Polyethylene Glycol (Miralax) 17 gm DAILYPRN PRN ORAL Constipation 10/20/19 11:30 11/19/19 11:29 Potassium Phosphate 20 mm/ Sodium Chloride 281.6667 ml @ 46.944 m... ONCE IV 10/22/19 12:00 10/22/19 14:00 Promethazine HCl/ Codeine (Phenergan with Codeine) 5 ml Q4H PRN ORAL For Cough 10/21/19 19:00 11/20/19 18:59 10/22/19 09:30 Tamsulosin HCl (Flomax) 0.4 mg BID ORAL 10/21/19 09:30 11/20/19 09:29 10/21/19 09:46 Temazepam (Restoril) 15 mg HSPRN PRN ORAL Insomnia 10/20/19 11:30 10/27/19 11:29 Princess Elias [employer]GER Oct 22, 2019 11:26
[2019-10-22 11:30] LABS: % IRON SATURATION 15 % (15-50); IRON 34 ug/dL (50-175); TOTAL IRON BINDING CAPACITY 222 ug/dL (250-450)
[2019-10-22 12:00] VITALS: BP 145/82
[2019-10-22] MEDS ORDERED: Potassium Phosphate 20 MM in NS 275 ML IV SCH (12:00)
--- NOTE | 2019-10-22 12:13 | NUR ---
NURSE NOTES: Pt converted to SR prior to AM shift, EKG done now, notified Dr. Silverio of SR and sent EKG results, pt is still on heparin drip
[2019-10-22] MEDS: Phospha 250 Neutral tab ORAL SCH ×2 (13:48→18:15)
[2019-10-22] MEDS: Magnesium Oxide 400mg tab ORAL SCH ×2 (13:48→18:15)
[2019-10-22] MEDS ORDERED: Tubing IV Secondary IV ONE (15:15)
--- NOTE | 2019-10-22 15:48 | Cardiology Progress Note ---
Assessment/Plan Assessment/Plan 1. Atrial flutter, possibly few days ? spont converted to sinus 10/22 2. History of congestive heart failure. 3. LV systolic dysfunction, ejection fraction reported 35% to 40%. 4. Mild diastolic dysfunction and dilated IVC suggestive of increased RA pressure. 5. Renal insufficiency. 6. Questionable hyperthyroidism. 7. Hypertension. 8. History of gout. 9. Pericardial calcification. now in sinus start on amiod for nwo i discussed with the pt need for anticoaguation for strok prevention and the possiblity of cure with ablation will refer to ep for ablation on dc amiod 200 mg bid for 1 weeks then 200 mg once a day pt is willing to take anticoag as inpt but nto suer if he will as out pt diuretics when ok with renal decrease bb sicne nwo o amiod adn dc dig as interact with amio dc heparin start on eliquis for stroke prevention Subjective Cardiovascular: Denies: chest pain, lightheadedness, palpitations Respiratory: Reports: cough; Denies: shortness of breath Gastrointestinal/Abdominal: Denies: abdominal pain Genitourinary: Denies: burning Objective Last 24 Hour Vital Signs Date Time Temp Pulse Resp B/P (MAP) Pulse Ox O2 Delivery O2 Flow Rate FiO2 10/22/19 13:48 145/82 10/22/19 12:00 98.5 84 20 145/82 (103) 97 10/22/19 11:30 84 10/22/19 09:14 60 10/22/19 09:13 60 139/66 10/22/19 09:00 Room Air 10/22/19 08:01 90 10/22/19 08:00 96.8 60 19 139/66 (90) 98 10/22/19 06:20 146/77 10/22/19 04:00 78 10/22/19 04:00 98.5 82 19 146/77 (100) 95 10/22/19 00:00 98.1 81 19 141/83 (102) 96 10/22/19 00:00 77 10/21/19 21:31 148/80 10/21/19 21:31 80 148/80 10/21/19 21:00 Room Air 10/21/19 20:03 81 20 95 Room Air 21 10/21/19 20:00 98.7 80 19 148/80 (102) 95 10/21/19 20:00 79 10/21/19 16:00 96.7 78 18 158/93 (114) 97 10/21/19 16:00 77 10/21/19 15:56 158/93 General Appearance: no apparent distress, alert Neck: supple Cardiovascular: normal rate Respiratory/Chest: lungs clear Abdomen: normal bowel sounds, non tender, soft Extremities: no swelling Intake and Output 10/21/19 10/22/19 19:00 07:00 Intake Total 200 ml Output Total 1200 ml Balance -1000 ml Other 200 ml Output Urine Total 1200 ml # Voids 1 # Bowel Movements 1 1 Laboratory Tests Test 10/21/19 15:40 10/21/19 22:56 10/22/19 08:00 Activated Partial Thromboplast Time 63 SEC (23-33) H > 150 SEC (23-33) *H 136 SEC (23-33) H White Blood Count 10.3 K/UL (4.8-10.8) Red Blood Count 4.40 M/UL (4.70-6.10) L Hemoglobin 14.1 G/DL (14.2-18.0) L Hematocrit 42.1 % (42.0-52.0) Mean Corpuscular Volume 96 FL (80-99) Mean Corpuscular Hemoglobin 32.1 PG (27.0-31.0) H Mean Corpuscular Hemoglobin Concent 33.5 G/DL (32.0-36.0) Red Cell Distribution Width 13.1 % (11.6-14.8) Platelet Count 158 K/UL (150-450) Mean Platelet Volume 7.3 FL (6.5-10.1) Neutrophils (%) (Auto) 75.3 % (45.0-75.0) H Lymphocytes (%) (Auto) 13.1 % (20.0-45.0) L Monocytes (%) (Auto) 9.5 % (1.0-10.0) Eosinophils (%) (Auto) 1.7 % (0.0-3.0) Basophils (%) (Auto) 0.5 % (0.0-2.0) Sodium Level 147 MMOL/L (136-145) H Potassium Level 3.6 MMOL/L (3.5-5.1) Chloride Level 111 MMOL/L (98-107) H Carbon Dioxide Level 24 MMOL/L (21-32) Anion Gap 13 mmol/L (5-15) Blood Urea Nitrogen 28 mg/dL (7-18) H Creatinine 1.6 MG/DL (0.55-1.30) H Estimat Glomerular Filtration Rate 42.3 mL/min (>60) Glucose Level 114 MG/DL (74-106) H Uric Acid 6.4 MG/DL (2.6-7.2) Calcium Level 8.7 MG/DL (8.5-10.1) Phosphorus Level 2.4 MG/DL (2.5-4.9) L Magnesium Level 1.6 MG/DL (1.8-2.4) L Iron Level 34 ug/dL (50-175) L Total Iron Binding Capacity 222 ug/dL (250-450) L Percent Iron Saturation 15 % (15-50) Unsaturated Iron Binding 188 ug/dL (112-346) Ferritin 54 NG/ML (8-388) Total Bilirubin 0.4 MG/DL (0.2-1.0) Aspartate Amino Transf (AST/SGOT) 23 U/L (15-37) Alanine Aminotransferase (ALT/SGPT) 15 U/L (12-78) Alkaline Phosphatase 83 U/L (46-116) Troponin I 0.023 ng/mL (0.000-0.056) C-Reactive Protein, Quantitative 4.9 mg/dL (0.00-0.90) H Pro-B-Type Natriuretic Peptide 7746 pg/mL (0-125) H Total Protein 6.8 G/DL (6.4-8.2) Albumin 3.3 G/DL (3.4-5.0) L Globulin 3.5 g/dL Albumin/Globulin Ratio 0.9 (1.0-2.7) L Vitamin B12 Level 184 PG/ML (193-986) L Folate 14.1 NG/ML (8.6-58.9) Digoxin Level < 0.2 NG/ML (0.5-2.0) L Epifanio Silverio MD Oct 22, 2019 15:48
[2019-10-22 16:00] VITALS: BP 144/89
--- NOTE | 2019-10-22 16:33 | Internal Med Progress Note ---
Subjective Date of Service: Oct 22, 2019 Physician Name Leroy Zimmer Attending Physician Yonas Purvis MD Current Medications Medications (Trade) Dose Ordered Sig/Catrina Route PRN Reason Start Time Stop Time Status Last Admin Dose Admin Acetaminophen (Tylenol) 650 mg Q4H PRN ORAL FEVER 10/20/19 11:30 11/19/19 11:29 Acetaminophen/ Hydrocodone Bitart ([place] 10/325) 1 tab Q6H PRN ORAL Moderate Pain (Pain Scale 4-6) 10/20/19 11:15 10/27/19 11:14 Albuterol/ Ipratropium (Albuterol/ Ipratropium) 3 ml Q4H PRN HHN Shortness of Breath 10/20/19 11:30 10/25/19 11:29 Allopurinol (Zyloprim) 100 mg DAILY ORAL 10/22/19 09:00 11/20/19 08:59 10/22/19 09:13 Amiodarone HCl (Cordarone) 200 mg EVERY 12 HOURS ORAL 10/22/19 21:00 11/21/19 20:59 Apixaban (Eliquis) 5 mg BID ORAL 10/22/19 18:00 11/21/19 17:59 Atorvastatin Calcium (Lipitor) 10 mg BEDTIME ORAL 10/20/19 21:00 11/19/19 20:59 10/21/19 21:30 Clonidine HCl (Catapres Tab) 0.1 mg Q4H PRN ORAL bp 165 syst 10/21/19 09:15 11/20/19 09:14 Cyanocobalamin (Vitamin B12) 1,000 mcg Q24H SUBQ 10/22/19 16:00 10/24/19 16:01 Diltiazem HCl (Cardizem) 10 mg Q1H PRN IV heart rate more than 120, 10/20/19 11:30 11/19/19 11:29 Docusate Sodium (Colace) 100 mg THREE TIMES A DAY ORAL 10/21/19 13:00 11/20/19 12:59 Hydralazine HCl (Apresoline) 50 mg Q8HR ORAL 10/21/19 14:00 11/19/19 20:59 10/22/19 13:48 Magnesium Oxide (Mag-Ox 400mg) 400 mg THREE TIMES A DAY ORAL 10/22/19 13:00 11/21/19 12:59 10/22/19 13:48 Metoprolol Tartrate (Lopressor) 50 mg Q12HR ORAL 10/22/19 21:00 11/21/19 20:59 Nitroglycerin (Ntg) 0.4 mg Q5M PRN SL Prn Chest Pain 10/20/19 11:30 11/19/19 11:29 Ondansetron HCl (Zofran) 4 mg Q6H PRN IVP Nausea & Vomiting 10/20/19 11:30 11/19/19 11:29 Pantoprazole (Protonix) 40 mg BID ORAL 10/22/19 18:00 11/20/19 08:59 Phosphorus (Phospha 250 Neutral) 250 mg THREE TIMES A DAY ORAL 10/22/19 13:00 11/21/19 12:59 10/22/19 13:48 Polyethylene Glycol (Miralax) 17 gm DAILYPRN PRN ORAL Constipation 10/20/19 11:30 11/19/19 11:29 Promethazine HCl/ Codeine (Phenergan with Codeine) 5 ml Q4H PRN ORAL For Cough 10/21/19 19:00 11/20/19 18:59 10/22/19 13:51 Tamsulosin HCl (Flomax) 0.4 mg BID ORAL 10/21/19 09:30 11/20/19 09:29 10/21/19 09:46 Temazepam (Restoril) 15 mg HSPRN PRN ORAL Insomnia 10/20/19 11:30 10/27/19 11:29 Allergies: Coded Allergies: No Known Allergies (Unverified , 09/12/15) ROS Limited/Unobtainable: No Constitutional: Reports: no symptoms HEENT: Reports: no symptoms Cardiovascular: Reports: no symptoms Respiratory: Reports: shortness of breath Gastrointestinal/Abdominal: Reports: no symptoms Genitourinary: Reports: no symptoms Neurologic/Psychiatric: Reports: no symptoms Subjective 74 YO M admitted with vertigo and ataxia. Now atrial flutter with rapid ventricular rate and renal failure. Cover for Int Pita Purvis Objective Last Vital Signs Date Time Temp Pulse Resp B/P (MAP) Pulse Ox O2 Delivery O2 Flow Rate FiO2 10/22/19 13:48 145/82 10/22/19 12:00 98.5 84 20 97 10/22/19 09:00 Room Air 10/21/19 20:03 21 Laboratory Tests Test 10/21/19 22:56 10/22/19 08:00 10/22/19 16:00 Activated Partial Thromboplast Time > 150 SEC (23-33) *H 136 SEC (23-33) H White Blood Count 10.3 K/UL (4.8-10.8) Red Blood Count 4.40 M/UL (4.70-6.10) L Hemoglobin 14.1 G/DL (14.2-18.0) L Hematocrit 42.1 % (42.0-52.0) Mean Corpuscular Volume 96 FL (80-99) Mean Corpuscular Hemoglobin 32.1 PG (27.0-31.0) H Mean Corpuscular Hemoglobin Concent 33.5 G/DL (32.0-36.0) Red Cell Distribution Width 13.1 % (11.6-14.8) Platelet Count 158 K/UL (150-450) Mean Platelet Volume 7.3 FL (6.5-10.1) Neutrophils (%) (Auto) 75.3 % (45.0-75.0) H Lymphocytes (%) (Auto) 13.1 % (20.0-45.0) L Monocytes (%) (Auto) 9.5 % (1.0-10.0) Eosinophils (%) (Auto) 1.7 % (0.0-3.0) Basophils (%) (Auto) 0.5 % (0.0-2.0) Sodium Level 147 MMOL/L (136-145) H Potassium Level 3.6 MMOL/L (3.5-5.1) Chloride Level 111 MMOL/L (98-107) H Carbon Dioxide Level 24 MMOL/L (21-32) Anion Gap 13 mmol/L (5-15) Blood Urea Nitrogen 28 mg/dL (7-18) H Creatinine 1.6 MG/DL (0.55-1.30) H Estimat Glomerular Filtration Rate 42.3 mL/min (>60) Glucose Level 114 MG/DL (74-106) H Uric Acid 6.4 MG/DL (2.6-7.2) Calcium Level 8.7 MG/DL (8.5-10.1) Phosphorus Level 2.4 MG/DL (2.5-4.9) L Magnesium Level 1.6 MG/DL (1.8-2.4) L Iron Level 34 ug/dL (50-175) L Total Iron Binding Capacity 222 ug/dL (250-450) L Percent Iron Saturation 15 % (15-50) Unsaturated Iron Binding 188 ug/dL (112-346) Ferritin 54 NG/ML (8-388) Total Bilirubin 0.4 MG/DL (0.2-1.0) Aspartate Amino Transf (AST/SGOT) 23 U/L (15-37) Alanine Aminotransferase (ALT/SGPT) 15 U/L (12-78) Alkaline Phosphatase 83 U/L (46-116) Troponin I 0.023 ng/mL (0.000-0.056) C-Reactive Protein, Quantitative 4.9 mg/dL (0.00-0.90) H Pro-B-Type Natriuretic Peptide 7746 pg/mL (0-125) H Total Protein 6.8 G/DL (6.4-8.2) Albumin 3.3 G/DL (3.4-5.0) L Globulin 3.5 g/dL Albumin/Globulin Ratio 0.9 (1.0-2.7) L Vitamin B12 Level 184 PG/ML (193-986) L Folate 14.1 NG/ML (8.6-58.9) Digoxin Level < 0.2 NG/ML (0.5-2.0) L Urine Opiates Screen Positive (NEGATIVE) H Urine Barbiturates Screen Negative (NEGATIVE) Phencyclidine (PCP) Screen Negative (NEGATIVE) Urine Amphetamines Screen Negative (NEGATIVE) Urine Benzodiazepines Screen Negative (NEGATIVE) Urine Cocaine Screen Negative (NEGATIVE) Urine Marijuana (THC) Screen Negative (NEGATIVE) Intake and Output 10/21/19 10/22/19 19:00 07:00 Intake Total 200 ml Output Total 1200 ml Balance -1000 ml Other 200 ml Output Urine Total 1200 ml # Voids 1 # Bowel Movements 1 1 Objective PHYSICAL EXAMINATION: GENERAL: The patient is a well-developed, well-nourished male, in no apparent distress. HEENT: Eyes, pupils are equal and responsive to light and accommodation. Extraocular movements are intact. NECK: Supple without lymphadenopathy. CHEST: Lungs are clear to auscultation bilaterally without wheezes or rales. CARDIOVASCULAR: Regular rate. S1 and S2 are normal without murmurs, rubs, or gallops. ABDOMEN: Soft, nontender, and nondistended. Positive bowel sounds. No evidence of hepatosplenomegaly. Currently, no rebound or guarding noted. EXTREMITIES: Negative for clubbing, cyanosis, or edema. RECTAL: Not performed. GENITAL: Not performed. NEUROLOGIC: Cranial nerves II through XII grossly intact without focal deficits. Motor strength is 5/5 bilaterally. Deep tendon reflexes are 2+ plantar. Assessment/Plan Assessment/Plan ASSESSMENT: This is a 74-year-old male with: 1. Vertigo. 2. Congestive heart failure. 3. Renal failure. 4. Hypercholesteremia. 5. Hypertension. 6. Gout. 7. Atrial flutter with rapid ventricular rate; now sinus TREATMENT: 1. Renal failure. A Nephrology consultation has been obtained with Dr. Sandy. The patient is currently receiving intravenous fluids. We will follow recommendations of Dr. Sandy. Differential includes dehydration versus acute renal failure. 2. Congestive heart failure. Cardiology consultation has been obtained with Dr. Epifanio Silverio. Echocardiogram is pending. We will follow recommendations of Cardiology. 3. Hypercholesterolemia. Continue atorvastatin and fenofibrate as above. 4. Hypertension. Continue hydralazine and metoprolol as above. 5. Gout. Continue allopurinol as above. 6. Continue amiodarone as above Per Cardiology Leroy Zimmer MD Oct 22, 2019 16:33
[2019-10-22] MEDS: Vitamin B12 1000mcg/ml Inj SUBQ SCH (18:00)
[2019-10-22] MEDS: Eliquis 5mg tablet ORAL SCH (18:16)
--- NOTE | 2019-10-22 18:45 | NUR ---
NURSE NOTES: PT refused B12 shot, notified Dr. Silverio
--- NOTE | 2019-10-22 19:39 | NUR ---
HAND-OFF: Report given to TSERING Bell.
--- NOTE | 2019-10-22 19:50 | NUR ---
NURSE NOTES: Received pt from TSERING De La Paz. Pt awake, alert, and talkative. Bed in lowest position. Call light within reach. Will continue to monitor.
[2019-10-22 20:00] VITALS: BP 144/82
[2019-10-22] MEDS: Amiodarone 200mg tab ORAL SCH (21:05)
[2019-10-22] MEDS: Metoprolol Tartrate 50mg tab ORAL SCH (21:05)
[2019-10-23] VITALS (7 sets, daily range): BP systolic 150–167; BP diastolic 73–88
[2019-10-23] MEDS: Promethazine/Codeine 5ml UD ORAL PRN ×4 (01:27→20:45)
[2019-10-23] MEDS: HydrALAZINE 50mg tab ORAL SCH ×3 (05:06→22:09)
--- NOTE | 2019-10-23 07:11 | NUR ---
HAND-OFF: Report given to TSERING De La Paz. Pt stable.
--- NOTE | 2019-10-23 07:22 | NUR ---
NURSE NOTES: Received report from TSERING Bell. Pt in bed, asleep, respiration unlabored and regular, HOB >30 degrees, glasses at bedside, bedside table within reach, no distress noted, bed in lowest position, call light within reach.
[2019-10-23 08:43] LABS: BASOPHILS % (AUTO) 0.6 % (0.0-2.0); EOSINOPHILS % (AUTO) 0.6 % (0.0-3.0); HEMATOCRIT 37.8 % (42.0-52.0); HEMOGLOBIN 13.1 G/DL (14.2-18.0); LYMPHOCYTES % (AUTO) 12.5 % (20.0-45.0); MEAN CORPUSCULAR VOLUME 96 FL (80-99); MONOCYTES % (AUTO) 9.6 % (1.0-10.0); NEUTROPHILS % (AUTO) 76.7 % (45.0-75.0); PLATELET COUNT 132 K/UL (150-450); RED BLOOD COUNT 3.95 M/UL (4.70-6.10); RED CELL DISTRIBUTION WIDTH 13.3 % (11.6-14.8)
[2019-10-23] MEDS: Tamsulosin 0.4mg cap ORAL SCH ×2 (09:00→16:55)
[2019-10-23] MEDS: Docusate 100mg cap ORAL SCH ×3 (09:00→16:54)
[2019-10-23] MEDS: Allopurinol 100mg Tab ORAL SCH (09:10)
[2019-10-23] MEDS: Magnesium Oxide 400mg tab ORAL SCH ×3 (09:10→17:09)
[2019-10-23] MEDS: Metoprolol Tartrate 50mg tab ORAL SCH ×2 (09:10→20:45)
[2019-10-23] MEDS: Eliquis 5mg tablet ORAL SCH ×2 (09:11→17:10)
[2019-10-23] MEDS: Phospha 250 Neutral tab ORAL SCH (09:11)
[2019-10-23] MEDS: Amiodarone 200mg tab ORAL SCH ×2 (09:11→20:45)
[2019-10-23 09:16] LABS: ALANINE AMINOTRANSFERASE 15 U/L (12-78); ALBUMIN 3.2 G/DL (3.4-5.0); ALBUMIN/GLOBULIN RATIO 1.1 (1.0-2.7); ALKALINE PHOSPHATASE 77 U/L (46-116); ANION GAP 12 mmol/L (5-15); ASPARTATE AMINO TRANSFERASE 22 U/L (15-37); BILIRUBIN,TOTAL 0.4 MG/DL (0.2-1.0); BLOOD UREA NITROGEN 28 mg/dL (7-18); CALCIUM 8.7 MG/DL (8.5-10.1); CARBON DIOXIDE 24 MMOL/L (21-32); CHLORIDE 112 MMOL/L (98-107); CREATININE 1.7 MG/DL (0.55-1.30); PHOSPHORUS 2.9 MG/DL (2.5-4.9); POTASSIUM 4.1 MMOL/L (3.5-5.1); SODIUM 148 MMOL/L (136-145)
--- NOTE | 2019-10-23 10:00 | NUR ---
PT Note Attempted to see patient for evaltx but patient requested t defer as he didn't get enough sleep last night.
--- NOTE | 2019-10-23 10:58 | Pulmonology Progress Note ---
Assessment/Plan Assessment/Plan ASSESSMENT Atrial flutter n with rapid ventricular response Congestive heart failure with systolic dysfunction Cardiomyopathy with EF 35-40% leukocytosis fevers, cough - possible PNA Acute on chronic renal failure Chronic kidney disease Hypertension History of TURP Gout Homeless E/lyte imbalance PLAN OF CARE tele off heparin gtt-now on Eliquis rate controlled with dig and Cardizem, Amiodarone added by cardio converted to SR Echo with ejection fraction 35 to 40% and mild global LV hypokinesis moderately elevated left atrial pressure grade 2, RVSP of 36 guideline directed medical therapy as per cardio recs CT head -no acute IC pathology BP management with BP and hydralazine , optimize further as needed pericardial calcification on CXR old O2 HHN PRN today , 10/23/ fever , cough and leukocytosis, ? PNA check CXR and start empiric Zosyn sputum cx if able avoid nephrotoxic's, monitor renal parameters; correct lytes as needed ( K, P and Mg as per nephro orders) renal ultrasound noted consider CT as per nephrology recs started on Flomax on allopurinol SS eval case discussed and evaluated by supervising physician Subjective Allergies: Coded Allergies: No Known Allergies (Unverified , 09/12/15) Subjective leukocytosis today, cough denies [employer], SOB, palpitations pulse ox stable on RA Objective Last 24 Hour Vital Signs Date Time Temp Pulse Resp B/P (MAP) Pulse Ox O2 Delivery O2 Flow Rate FiO2 10/23/19 09:10 90 167/85 10/23/19 08:15 90 10/23/19 08:00 101.0 90 18 167/85 (112) 98 10/23/19 07:58 Room Air 10/23/19 05:06 163/80 10/23/19 04:00 98.5 87 22 163/80 (107) 95 10/23/19 04:00 83 10/23/19 00:00 92 10/23/19 00:00 98.9 89 20 150/88 (108) 96 10/22/19 21:05 91 144/82 10/22/19 21:05 144/82 10/22/19 21:00 Room Air 10/22/19 20:00 99.5 91 20 144/82 (102) 96 10/22/19 20:00 87 10/22/19 19:47 64 18 98 Room Air 21 10/22/19 16:00 97.8 84 20 144/89 (107) 98 10/22/19 15:25 80 10/22/19 13:48 145/82 10/22/19 12:00 98.5 84 20 145/82 (103) 97 10/22/19 11:30 84 Intake and Output 10/22/19 10/23/19 19:00 07:00 Intake Total 140 ml Output Total 1200 ml Balance -1060 ml Intake Oral 140 ml Output Urine Total 1200 ml # Voids 3 3 # Bowel Movements 1 1 Objective General Appearance: other - male in NAD HEENT: normocephalic, atraumatic, anicteric, PERRL Respiratory/Chest: few bibasilar cackles, no accessory muscle use Cardiovascular: normal rate, regular rhythm now in SR Abdomen: normal bowel sounds, soft, non tender with mild distention Extremities: no edema, pedal pulses normal Neurologic/Psychiatric: no motor/sensory deficits, alert, oriented x 3, responsive Musculoskeletal: normal muscle bulk Laboratory Tests 10/22/19 16:00: Urine Opiates Screen PositiveH, Urine Barbiturates Screen Negative, Phencyclidine (PCP) Screen Negative, Urine Amphetamines Screen Negative, Urine Benzodiazepines Screen Negative, Urine Cocaine Screen Negative, Urine Marijuana (THC) Screen Negative 10/23/19 06:36: White Blood Count 11.0H, Red Blood Count 3.95L, Hemoglobin 13.1L, Hematocrit 37.8L, Mean Corpuscular Volume 96, Mean Corpuscular Hemoglobin 33.1H, Mean Corpuscular Hemoglobin Concent 34.6, Red Cell Distribution Width 13.3, Platelet Count 132L, Mean Platelet Volume 6.3L, Neutrophils (%) (Auto) 76.7H, Lymphocytes (%) (Auto) 12.5L, Monocytes (%) (Auto) 9.6, Eosinophils (%) (Auto) 0.6, Basophils (%) (Auto) 0.6, Sodium Level 148H, Potassium Level 4.1, Chloride Level 112H, Carbon Dioxide Level 24, Anion Gap 12, Blood Urea Nitrogen 28H, Creatinine 1.7H, Estimat Glomerular Filtration Rate 39.5, Glucose Level 103, Uric Acid 6.3, Calcium Level 8.7, Phosphorus Level 2.9, Magnesium Level 1.7L, Total Bilirubin 0.4, Aspartate Amino Transf (AST/SGOT) 22, Alanine Aminotransferase (ALT/SGPT) 15, Alkaline Phosphatase 77, Troponin I 0.048, C- Reactive Protein, Quantitative 9.2H, Pro-B-Type Natriuretic Peptide 5253H, Total Protein 6.2L, Albumin 3.2L, Globulin 3.0, Albumin/Globulin Ratio 1.1, Digoxin Level 0.5 Current Medications Medications (Trade) Dose Ordered Sig/Catrina Route PRN Reason Start Time Stop Time Status Last Admin Dose Admin Acetaminophen (Tylenol) 650 mg Q4H PRN ORAL FEVER 10/20/19 11:30 11/19/19 11:29 10/23/19 09:12 Acetaminophen/ Hydrocodone Bitart ([place] 10/325) 1 tab Q6H PRN ORAL Moderate Pain (Pain Scale 4-6) 10/20/19 11:15 10/27/19 11:14 Albuterol/ Ipratropium (Albuterol/ Ipratropium) 3 ml Q4H PRN HHN Shortness of Breath 10/20/19 11:30 10/25/19 11:29 Allopurinol (Zyloprim) 100 mg DAILY ORAL 10/22/19 09:00 11/20/19 08:59 10/23/19 09:10 Amiodarone HCl (Cordarone) 200 mg EVERY 12 HOURS ORAL 10/22/19 21:00 11/21/19 20:59 10/23/19 09:11 Apixaban (Eliquis) 5 mg BID ORAL 10/22/19 18:00 11/21/19 17:59 10/23/19 09:11 Atorvastatin Calcium (Lipitor) 10 mg BEDTIME ORAL 10/20/19 21:00 11/19/19 20:59 10/22/19 21:06 Cetylpyridinium Chloride (Cepacol) 1 lozg Q2H PRN HIRAM sore throat 10/22/19 18:00 11/21/19 17:59 10/23/19 05:06 Clonidine HCl (Catapres Tab) 0.1 mg Q4H PRN ORAL bp 165 syst 10/21/19 09:15 11/20/19 09:14 Cyanocobalamin (Vitamin B12) 1,000 mcg Q24H SUBQ 10/22/19 16:00 10/24/19 16:01 Diltiazem HCl (Cardizem) 10 mg Q1H PRN IV heart rate more than 120, 10/20/19 11:30 11/19/19 11:29 Docusate Sodium (Colace) 100 mg THREE TIMES A DAY ORAL 10/21/19 13:00 11/20/19 12:59 Hydralazine HCl (Apresoline) 50 mg Q8HR ORAL 10/21/19 14:00 11/19/19 20:59 10/23/19 05:06 Magnesium Oxide (Mag-Ox 400mg) 400 mg THREE TIMES A DAY ORAL 10/22/19 13:00 11/21/19 12:59 10/23/19 09:10 Metoprolol Tartrate (Lopressor) 50 mg Q12HR ORAL 10/22/19 21:00 11/21/19 20:59 10/23/19 09:10 Nitroglycerin (Ntg) 0.4 mg Q5M PRN SL Prn Chest Pain 10/20/19 11:30 11/19/19 11:29 Ondansetron HCl (Zofran) 4 mg Q6H PRN IVP Nausea & Vomiting 10/20/19 11:30 11/19/19 11:29 Pantoprazole (Protonix) 40 mg BID ORAL 10/22/19 18:00 11/20/19 08:59 10/23/19 09:11 Phosphorus (Phospha 250 Neutral) 250 mg THREE TIMES A DAY ORAL 10/22/19 13:00 11/21/19 12:59 10/23/19 09:11 Polyethylene Glycol (Miralax) 17 gm DAILYPRN PRN ORAL Constipation 10/20/19 11:30 11/19/19 11:29 Promethazine HCl/ Codeine (Phenergan with Codeine) 5 ml Q4H PRN ORAL For Cough 10/21/19 19:00 11/20/19 18:59 10/23/19 09:10 Tamsulosin HCl (Flomax) 0.4 mg BID ORAL 10/21/19 09:30 11/20/19 09:29 10/21/19 09:46 Temazepam (Restoril) 15 mg HSPRN PRN ORAL Insomnia 10/20/19 11:30 10/27/19 11:29 Princess Elias REGISTERED HEALTH NURSE Oct 23, 2019 10:58
[2019-10-23] MEDS ORDERED: Albuterol/Ipratropium 3ml neb HHN PRN (11:30)
--- NOTE | 2019-10-23 11:54 | Nephrology Progress Note ---
Assessment/Plan Problem List: (1) Renal failure (ARF), acute on chronic (2) Atrial flutter with rapid ventricular response (3) Pericardial calcification (4) History of hypertension (5) History of gout (6) Cardiomyopathy Assessment 1. Acute on chronic renal failure. 2. Atrial flutter with rapid ventricular response upon admission. 3. Hypertension. 4. History of gout. 5. Homeless. 6. Pericardial calcification. 7. Cardiomyopathy Plan monitor renal parameters. Optimize cardiac and pulmonary status. Avoid nephrotoxic. Urine studies. Start Flomax. Keep the blood pressure and blood sugar in check. per orders Subjective ROS Limited/Unobtainable: No Constitutional: Reports: malaise Objective Objective Last 24 Hour Vital Signs Date Time Temp Pulse Resp B/P (MAP) Pulse Ox O2 Delivery O2 Flow Rate FiO2 10/23/19 09:42 98.7 10/23/19 09:10 90 167/85 10/23/19 08:15 90 10/23/19 08:00 101.0 90 18 167/85 (112) 98 10/23/19 07:58 Room Air 10/23/19 07:11 83 20 96 Room Air 21 10/23/19 05:06 163/80 10/23/19 04:00 98.5 87 22 163/80 (107) 95 10/23/19 04:00 83 10/23/19 00:00 92 10/23/19 00:00 98.9 89 20 150/88 (108) 96 10/22/19 21:05 91 144/82 10/22/19 21:05 144/82 10/22/19 21:00 Room Air 10/22/19 20:00 99.5 91 20 144/82 (102) 96 10/22/19 20:00 87 10/22/19 19:47 64 18 98 Room Air 21 10/22/19 16:00 97.8 84 20 144/89 (107) 98 10/22/19 15:25 80 10/22/19 13:48 145/82 10/22/19 12:00 98.5 84 20 145/82 (103) 97 Intake and Output 10/22/19 10/23/19 19:00 07:00 Intake Total 140 ml Output Total 1200 ml Balance -1060 ml Intake Oral 140 ml Output Urine Total 1200 ml # Voids 3 3 # Bowel Movements 1 1 Current Medications Medications (Trade) Dose Ordered Sig/Catrina Route PRN Reason Start Time Stop Time Status Last Admin Dose Admin Acetaminophen (Tylenol) 650 mg Q4H PRN ORAL FEVER 10/20/19 11:30 11/19/19 11:29 10/23/19 09:12 Acetaminophen/ Hydrocodone Bitart ([place] 10/325) 1 tab Q6H PRN ORAL Moderate Pain (Pain Scale 4-6) 10/20/19 11:15 10/27/19 11:14 Albuterol/ Ipratropium (Albuterol/ Ipratropium) 3 ml Q4H PRN HHN Shortness of Breath 10/23/19 11:30 10/28/19 11:29 Allopurinol (Zyloprim) 100 mg DAILY ORAL 10/22/19 09:00 11/20/19 08:59 10/23/19 09:10 Amiodarone HCl (Cordarone) 200 mg EVERY 12 HOURS ORAL 10/22/19 21:00 11/21/19 20:59 10/23/19 09:11 Apixaban (Eliquis) 5 mg BID ORAL 10/22/19 18:00 11/21/19 17:59 10/23/19 09:11 Atorvastatin Calcium (Lipitor) 10 mg BEDTIME ORAL 10/20/19 21:00 11/19/19 20:59 10/22/19 21:06 Cetylpyridinium Chloride (Cepacol) 1 lozg Q2H PRN HIRAM sore throat 10/22/19 18:00 11/21/19 17:59 10/23/19 05:06 Clonidine HCl (Catapres Tab) 0.1 mg Q4H PRN ORAL bp 165 syst 10/21/19 09:15 11/20/19 09:14 Cyanocobalamin (Vitamin B12) 1,000 mcg Q24H SUBQ 10/22/19 16:00 10/24/19 16:01 Diltiazem HCl (Cardizem) 10 mg Q1H PRN IV heart rate more than 120, 10/20/19 11:30 11/19/19 11:29 Docusate Sodium (Colace) 100 mg THREE TIMES A DAY ORAL 10/21/19 13:00 11/20/19 12:59 Hydralazine HCl (Apresoline) 50 mg Q8HR ORAL 10/21/19 14:00 11/19/19 20:59 10/23/19 05:06 Magnesium Oxide (Mag-Ox 400mg) 400 mg THREE TIMES A DAY ORAL 10/22/19 13:00 11/21/19 12:59 10/23/19 09:10 Metoprolol Tartrate (Lopressor) 50 mg Q12HR ORAL 10/22/19 21:00 11/21/19 20:59 10/23/19 09:10 Nitroglycerin (Ntg) 0.4 mg Q5M PRN SL Prn Chest Pain 10/20/19 11:30 11/19/19 11:29 Ondansetron HCl (Zofran) 4 mg Q6H PRN IVP Nausea & Vomiting 10/20/19 11:30 11/19/19 11:29 Pantoprazole (Protonix) 40 mg BID ORAL 10/22/19 18:00 11/20/19 08:59 10/23/19 09:11 Phosphorus (Phospha 250 Neutral) 250 mg THREE TIMES A DAY ORAL 10/22/19 13:00 11/21/19 12:59 10/23/19 09:11 Piperacillin Sod/ Tazobactam Sod 3.375 gm/Sodium Chloride 110 ml @ 27.5 mls/hr Q8H IVPB 10/23/19 12:00 10/30/19 11:59 Polyethylene Glycol (Miralax) 17 gm DAILYPRN PRN ORAL Constipation 10/20/19 11:30 11/19/19 11:29 Promethazine HCl/ Codeine (Phenergan with Codeine) 5 ml Q4H PRN ORAL For Cough 10/21/19 19:00 11/20/19 18:59 10/23/19 09:10 Tamsulosin HCl (Flomax) 0.4 mg BID ORAL 10/21/19 09:30 11/20/19 09:29 10/21/19 09:46 Temazepam (Restoril) 15 mg HSPRN PRN ORAL Insomnia 10/20/19 11:30 10/27/19 11:29 Laboratory Tests 10/22/19 16:00: Urine Opiates Screen PositiveH, Urine Barbiturates Screen Negative, Phencyclidine (PCP) Screen Negative, Urine Amphetamines Screen Negative, Urine Benzodiazepines Screen Negative, Urine Cocaine Screen Negative, Urine Marijuana (THC) Screen Negative 10/23/19 06:36: White Blood Count 11.0H, Red Blood Count 3.95L, Hemoglobin 13.1L, Hematocrit 37.8L, Mean Corpuscular Volume 96, Mean Corpuscular Hemoglobin 33.1H, Mean Corpuscular Hemoglobin Concent 34.6, Red Cell Distribution Width 13.3, Platelet Count 132L, Mean Platelet Volume 6.3L, Neutrophils (%) (Auto) 76.7H, Lymphocytes (%) (Auto) 12.5L, Monocytes (%) (Auto) 9.6, Eosinophils (%) (Auto) 0.6, Basophils (%) (Auto) 0.6, Sodium Level 148H, Potassium Level 4.1, Chloride Level 112H, Carbon Dioxide Level 24, Anion Gap 12, Blood Urea Nitrogen 28H, Creatinine 1.7H, Estimat Glomerular Filtration Rate 39.5, Glucose Level 103, Uric Acid 6.3, Calcium Level 8.7, Phosphorus Level 2.9, Magnesium Level 1.7L, Total Bilirubin 0.4, Aspartate Amino Transf (AST/SGOT) 22, Alanine Aminotransferase (ALT/SGPT) 15, Alkaline Phosphatase 77, Troponin I 0.048, C- Reactive Protein, Quantitative 9.2H, Pro-B-Type Natriuretic Peptide 5253H, Total Protein 6.2L, Albumin 3.2L, Globulin 3.0, Albumin/Globulin Ratio 1.1, Digoxin Level 0.5 Height (Feet): 5 Height (Inches): 10.00 Weight (Pounds): 177 General Appearance: no apparent distress Objective no change Avila Sandy MD Oct 23, 2019 11:54
--- NOTE | 2019-10-23 12:30 | NUR ---
NURSE NOTES: Attempted to administer IV Abx Zosyn to pt, pt stated " Now? I want to eat my lunch and then after we can."
[2019-10-23] MEDS: Zoysn 3.37gm in NS 100ML IVPB SCH ×3 (13:38→22:06)
[2019-10-23] MEDS ORDERED: Piperacillin/Tazobactam 2.25 GM in D5W 55 ML IVPB SCH (14:00)
--- NOTE | 2019-10-23 14:07 | Internal Med Progress Note ---
Subjective Date of Service: Oct 23, 2019 Physician Name Leroy Zimmer Attending Physician Yonas Purvis MD Current Medications Medications (Trade) Dose Ordered Sig/Catrina Route PRN Reason Start Time Stop Time Status Last Admin Dose Admin Acetaminophen (Tylenol) 650 mg Q4H PRN ORAL FEVER 10/20/19 11:30 11/19/19 11:29 10/23/19 09:12 Acetaminophen/ Hydrocodone Bitart ([place] 10/325) 1 tab Q6H PRN ORAL Moderate Pain (Pain Scale 4-6) 10/20/19 11:15 10/27/19 11:14 Albuterol/ Ipratropium (Albuterol/ Ipratropium) 3 ml Q4H PRN HHN Shortness of Breath 10/23/19 11:30 10/28/19 11:29 Allopurinol (Zyloprim) 100 mg DAILY ORAL 10/22/19 09:00 11/20/19 08:59 10/23/19 09:10 Amiodarone HCl (Cordarone) 200 mg EVERY 12 HOURS ORAL 10/22/19 21:00 11/21/19 20:59 10/23/19 09:11 Apixaban (Eliquis) 5 mg BID ORAL 10/22/19 18:00 11/21/19 17:59 10/23/19 09:11 Atorvastatin Calcium (Lipitor) 10 mg BEDTIME ORAL 10/20/19 21:00 11/19/19 20:59 10/22/19 21:06 Cetylpyridinium Chloride (Cepacol) 1 lozg Q2H PRN HIRAM sore throat 10/22/19 18:00 11/21/19 17:59 10/23/19 05:06 Clonidine HCl (Catapres Tab) 0.1 mg Q4H PRN ORAL bp 165 syst 10/21/19 09:15 11/20/19 09:14 Cyanocobalamin (Vitamin B12) 1,000 mcg Q24H SUBQ 10/22/19 16:00 10/24/19 16:01 Diltiazem HCl (Cardizem) 10 mg Q1H PRN IV heart rate more than 120, 10/20/19 11:30 11/19/19 11:29 Docusate Sodium (Colace) 100 mg THREE TIMES A DAY ORAL 10/21/19 13:00 11/20/19 12:59 Hydralazine HCl (Apresoline) 50 mg Q8HR ORAL 10/21/19 14:00 11/19/19 20:59 10/23/19 13:39 Magnesium Oxide (Mag-Ox 400mg) 400 mg THREE TIMES A DAY ORAL 10/22/19 13:00 11/21/19 12:59 10/23/19 13:39 Metoprolol Tartrate (Lopressor) 50 mg Q12HR ORAL 10/22/19 21:00 11/21/19 20:59 10/23/19 09:10 Nitroglycerin (Ntg) 0.4 mg Q5M PRN SL Prn Chest Pain 10/20/19 11:30 11/19/19 11:29 Ondansetron HCl (Zofran) 4 mg Q6H PRN IVP Nausea & Vomiting 10/20/19 11:30 11/19/19 11:29 Pantoprazole (Protonix) 40 mg BID ORAL 10/22/19 18:00 11/20/19 08:59 10/23/19 09:11 Piperacillin Sod/ Tazobactam Sod 3.375 gm/Sodium Chloride 110 ml @ 27.5 mls/hr Q8H IVPB 10/23/19 12:00 10/30/19 11:59 10/23/19 13:38 Polyethylene Glycol (Miralax) 17 gm DAILYPRN PRN ORAL Constipation 10/20/19 11:30 11/19/19 11:29 Promethazine HCl/ Codeine (Phenergan with Codeine) 5 ml Q4H PRN ORAL For Cough 10/21/19 19:00 11/20/19 18:59 10/23/19 09:10 Tamsulosin HCl (Flomax) 0.4 mg BID ORAL 10/21/19 09:30 11/20/19 09:29 10/21/19 09:46 Temazepam (Restoril) 15 mg HSPRN PRN ORAL Insomnia 10/20/19 11:30 10/27/19 11:29 Allergies: Coded Allergies: No Known Allergies (Unverified , 09/12/15) ROS Limited/Unobtainable: No Constitutional: Reports: no symptoms HEENT: Reports: no symptoms Cardiovascular: Reports: no symptoms Respiratory: Reports: no symptoms Gastrointestinal/Abdominal: Reports: no symptoms Genitourinary: Reports: no symptoms Neurologic/Psychiatric: Reports: no symptoms Subjective 74 YO M admitted with vertigo and ataxia. Now atrial flutter with rapid ventricular rate and renal failure. Cover for Int Arnaldo-DR Purvis Objective Last Vital Signs Date Time Temp Pulse Resp B/P (MAP) Pulse Ox O2 Delivery O2 Flow Rate FiO2 10/23/19 13:39 157/80 10/23/19 12:00 98.7 82 20 96 10/23/19 07:58 Room Air 10/23/19 07:11 21 Laboratory Tests Test 10/22/19 16:00 10/23/19 06:36 Urine Opiates Screen Positive (NEGATIVE) H Urine Barbiturates Screen Negative (NEGATIVE) Phencyclidine (PCP) Screen Negative (NEGATIVE) Urine Amphetamines Screen Negative (NEGATIVE) Urine Benzodiazepines Screen Negative (NEGATIVE) Urine Cocaine Screen Negative (NEGATIVE) Urine Marijuana (THC) Screen Negative (NEGATIVE) White Blood Count 11.0 K/UL (4.8-10.8) H Red Blood Count 3.95 M/UL (4.70-6.10) L Hemoglobin 13.1 G/DL (14.2-18.0) L Hematocrit 37.8 % (42.0-52.0) L Mean Corpuscular Volume 96 FL (80-99) Mean Corpuscular Hemoglobin 33.1 PG (27.0-31.0) H Mean Corpuscular Hemoglobin Concent 34.6 G/DL (32.0-36.0) Red Cell Distribution Width 13.3 % (11.6-14.8) Platelet Count 132 K/UL (150-450) L Mean Platelet Volume 6.3 FL (6.5-10.1) L Neutrophils (%) (Auto) 76.7 % (45.0-75.0) H Lymphocytes (%) (Auto) 12.5 % (20.0-45.0) L Monocytes (%) (Auto) 9.6 % (1.0-10.0) Eosinophils (%) (Auto) 0.6 % (0.0-3.0) Basophils (%) (Auto) 0.6 % (0.0-2.0) Sodium Level 148 MMOL/L (136-145) H Potassium Level 4.1 MMOL/L (3.5-5.1) Chloride Level 112 MMOL/L (98-107) H Carbon Dioxide Level 24 MMOL/L (21-32) Anion Gap 12 mmol/L (5-15) Blood Urea Nitrogen 28 mg/dL (7-18) H Creatinine 1.7 MG/DL (0.55-1.30) H Estimat Glomerular Filtration Rate 39.5 mL/min (>60) Glucose Level 103 MG/DL (74-106) Uric Acid 6.3 MG/DL (2.6-7.2) Calcium Level 8.7 MG/DL (8.5-10.1) Phosphorus Level 2.9 MG/DL (2.5-4.9) Magnesium Level 1.7 MG/DL (1.8-2.4) L Total Bilirubin 0.4 MG/DL (0.2-1.0) Aspartate Amino Transf (AST/SGOT) 22 U/L (15-37) Alanine Aminotransferase (ALT/SGPT) 15 U/L (12-78) Alkaline Phosphatase 77 U/L (46-116) Troponin I 0.048 ng/mL (0.000-0.056) C-Reactive Protein, Quantitative 9.2 mg/dL (0.00-0.90) H Pro-B-Type Natriuretic Peptide 5253 pg/mL (0-125) H Total Protein 6.2 G/DL (6.4-8.2) L Albumin 3.2 G/DL (3.4-5.0) L Globulin 3.0 g/dL Albumin/Globulin Ratio 1.1 (1.0-2.7) Digoxin Level 0.5 NG/ML (0.5-2.0) Intake and Output 10/22/19 10/23/19 19:00 07:00 Intake Total 140 ml Output Total 1200 ml Balance -1060 ml Intake Oral 140 ml Output Urine Total 1200 ml # Voids 3 3 # Bowel Movements 1 1 Objective PHYSICAL EXAMINATION: GENERAL: The patient is a well-developed, well-nourished male, in no apparent distress. HEENT: Eyes, pupils are equal and responsive to light and accommodation. Extraocular movements are intact. NECK: Supple without lymphadenopathy. CHEST: Lungs are clear to auscultation bilaterally without wheezes or rales. CARDIOVASCULAR: Regular rate. S1 and S2 are normal without murmurs, rubs, or gallops. ABDOMEN: Soft, nontender, and nondistended. Positive bowel sounds. No evidence of hepatosplenomegaly. Currently, no rebound or guarding noted. EXTREMITIES: Negative for clubbing, cyanosis, or edema. RECTAL: Not performed. GENITAL: Not performed. NEUROLOGIC: Cranial nerves II through XII grossly intact without focal deficits. Motor strength is 5/5 bilaterally. Deep tendon reflexes are 2+ plantar. Assessment/Plan Assessment/Plan ASSESSMENT: This is a 74-year-old male with: 1. Vertigo. 2. Congestive heart failure. 3. Renal failure. 4. Hypercholesteremia. 5. Hypertension. 6. Gout. 7. Atrial flutter with rapid ventricular rate; now sinus TREATMENT: 1. Renal failure. A Nephrology consultation has been obtained with Dr. Sandy. The patient is currently receiving intravenous fluids. We will follow recommendations of Dr. Sandy. Differential includes dehydration versus acute renal failure. 2. Congestive heart failure. Cardiology consultation has been obtained with Dr. Epifanio Silverio. Echocardiogram is pending. We will follow recommendations of Cardiology. 3. Hypercholesterolemia. Continue atorvastatin and fenofibrate as above. 4. Hypertension. Continue hydralazine and metoprolol as above. 5. Gout. Continue allopurinol as above. 6. Continue amiodarone as above Per Cardiology 7. Continue apixaban Leroy Zimmer MD Oct 23, 2019 14:07
--- NOTE | 2019-10-23 15:52 | Cardiology Progress Note ---
Assessment/Plan Assessment/Plan 1. Atrial flutter, possibly few days ? spont converted to sinus 10/22 2. History of congestive heart failure. 3. LV systolic dysfunction, ejection fraction reported 35% to 40%. 4. Mild diastolic dysfunction and dilated IVC suggestive of increased RA pressure. 5. Renal insufficiency. 6. Questionable hyperthyroidism. 7. Hypertension. 8. History of gout. 9. Pericardial calcification. now in sinus start on amiod for nwo i discussed with the pt need for anticoaguation for stroke prevention and the possibility of cure with ablation will refer to ep for ablation on dc amiod 200 mg bid for 1 weeks then 200 mg once a day pt is willing to take anticoag as inpt but not suer if he will as out pt but definately coumadin may be dangerous with lack of fu and beign homeless diuretics when ok with renal decrease bb since now on amiod and dc dig as interact with amio dc heparin start on eliquis for stroke prevention ambualte d/c planning diuretics Subjective Cardiovascular: Denies: chest pain, lightheadedness, palpitations Respiratory: Denies: shortness of breath Gastrointestinal/Abdominal: Denies: abdominal pain Genitourinary: Denies: burning Subjective walked to the rn station but says rn was upset at hime walkign Objective Last 24 Hour Vital Signs Date Time Temp Pulse Resp B/P (MAP) Pulse Ox O2 Delivery O2 Flow Rate FiO2 10/23/19 13:39 157/80 10/23/19 12:00 98.7 82 20 157/80 (105) 96 10/23/19 11:43 78 10/23/19 09:42 98.7 10/23/19 09:10 90 167/85 10/23/19 08:15 90 10/23/19 08:00 101.0 90 18 167/85 (112) 98 10/23/19 07:58 Room Air 10/23/19 07:11 83 20 96 Room Air 21 10/23/19 05:06 163/80 10/23/19 04:00 98.5 87 22 163/80 (107) 95 10/23/19 04:00 83 10/23/19 00:00 92 10/23/19 00:00 98.9 89 20 150/88 (108) 96 10/22/19 21:05 91 144/82 10/22/19 21:05 144/82 10/22/19 21:00 Room Air 10/22/19 20:00 99.5 91 20 144/82 (102) 96 10/22/19 20:00 87 10/22/19 19:47 64 18 98 Room Air 21 10/22/19 16:00 97.8 84 20 144/89 (107) 98 General Appearance: no apparent distress, alert Neck: supple Respiratory/Chest: crackles/rales - left base Abdomen: normal bowel sounds, non tender, soft Extremities: trace edema Intake and Output 10/22/19 10/23/19 19:00 07:00 Intake Total 140 ml Output Total 1200 ml Balance -1060 ml Intake Oral 140 ml Output Urine Total 1200 ml # Voids 3 3 # Bowel Movements 1 1 Laboratory Tests Test 10/22/19 16:00 10/23/19 06:36 Urine Opiates Screen Positive (NEGATIVE) H Urine Barbiturates Screen Negative (NEGATIVE) Phencyclidine (PCP) Screen Negative (NEGATIVE) Urine Amphetamines Screen Negative (NEGATIVE) Urine Benzodiazepines Screen Negative (NEGATIVE) Urine Cocaine Screen Negative (NEGATIVE) Urine Marijuana (THC) Screen Negative (NEGATIVE) White Blood Count 11.0 K/UL (4.8-10.8) H Red Blood Count 3.95 M/UL (4.70-6.10) L Hemoglobin 13.1 G/DL (14.2-18.0) L Hematocrit 37.8 % (42.0-52.0) L Mean Corpuscular Volume 96 FL (80-99) Mean Corpuscular Hemoglobin 33.1 PG (27.0-31.0) H Mean Corpuscular Hemoglobin Concent 34.6 G/DL (32.0-36.0) Red Cell Distribution Width 13.3 % (11.6-14.8) Platelet Count 132 K/UL (150-450) L Mean Platelet Volume 6.3 FL (6.5-10.1) L Neutrophils (%) (Auto) 76.7 % (45.0-75.0) H Lymphocytes (%) (Auto) 12.5 % (20.0-45.0) L Monocytes (%) (Auto) 9.6 % (1.0-10.0) Eosinophils (%) (Auto) 0.6 % (0.0-3.0) Basophils (%) (Auto) 0.6 % (0.0-2.0) Sodium Level 148 MMOL/L (136-145) H Potassium Level 4.1 MMOL/L (3.5-5.1) Chloride Level 112 MMOL/L (98-107) H Carbon Dioxide Level 24 MMOL/L (21-32) Anion Gap 12 mmol/L (5-15) Blood Urea Nitrogen 28 mg/dL (7-18) H Creatinine 1.7 MG/DL (0.55-1.30) H Estimat Glomerular Filtration Rate 39.5 mL/min (>60) Glucose Level 103 MG/DL (74-106) Uric Acid 6.3 MG/DL (2.6-7.2) Calcium Level 8.7 MG/DL (8.5-10.1) Phosphorus Level 2.9 MG/DL (2.5-4.9) Magnesium Level 1.7 MG/DL (1.8-2.4) L Total Bilirubin 0.4 MG/DL (0.2-1.0) Aspartate Amino Transf (AST/SGOT) 22 U/L (15-37) Alanine Aminotransferase (ALT/SGPT) 15 U/L (12-78) Alkaline Phosphatase 77 U/L (46-116) Troponin I 0.048 ng/mL (0.000-0.056) C-Reactive Protein, Quantitative 9.2 mg/dL (0.00-0.90) H Pro-B-Type Natriuretic Peptide 5253 pg/mL (0-125) H Total Protein 6.2 G/DL (6.4-8.2) L Albumin 3.2 G/DL (3.4-5.0) L Globulin 3.0 g/dL Albumin/Globulin Ratio 1.1 (1.0-2.7) Digoxin Level 0.5 NG/ML (0.5-2.0) Epifanio Silverio MD Oct 23, 2019 15:52
[2019-10-23] MEDS: Vitamin B12 1000mcg/ml Inj SUBQ SCH (16:00)
--- NOTE | 2019-10-23 16:25 | NUR ---
NURSE NOTES: Received report from Ana Cristina CAGLE. Patient in bed awake and orientedx4. Denied SOB. IV site in left forearm 22G running with Zosyn patent and asymptomatic. Bed in lowest position and locked. Will continue the plan of care.
--- NOTE | 2019-10-23 16:25 | NUR ---
HAND-OFF: Report given to TSERING Willis. Pt stable. PT refused B12 shot
[2019-10-23] MEDS: Imdur 30mg tab ORAL SCH (16:48)
--- NOTE | 2019-10-23 19:15 | NUR ---
NURSE NOTES: Received patient from Min RN. Patient in bed, on room air, no signs of respiratory distress. Bed in low position, locked, bed alarm on, call light within reach.
--- NOTE | 2019-10-23 19:19 | NUR ---
HAND-OFF: Report given to Brett CAGLE. Pt remains stable.
[2019-10-24] VITALS (8 sets, daily range): BP systolic 123–149; BP diastolic 65–93
[2019-10-24] MEDS: Promethazine/Codeine 5ml UD ORAL PRN ×3 (00:58→20:11)
[2019-10-24] MEDS: Zoysn 3.37gm in NS 100ML IVPB SCH ×3 (05:52→22:04)
[2019-10-24] MEDS: HydrALAZINE 50mg tab ORAL SCH ×3 (05:52→22:04)
--- NOTE | 2019-10-24 07:13 | NUR ---
NURSE NOTES: Received report from Chanell CAGLE. Pt in bed awake an orientedx4. On room air. Call light within easy reach. Bed in lowest position and locked. IV site LFA 20G running with IV Zosyn patent and asymptomatic. Sputum Cx not collected yet. Encouraged the patient to collect the sputum. Will continue to plan of care.
[2019-10-24 07:45] LABS: BASOPHILS % (AUTO) 1.5 % (0.0-2.0); EOSINOPHILS % (AUTO) 1.7 % (0.0-3.0); HEMOGLOBIN 12.5 G/DL (14.2-18.0); LYMPHOCYTES % (AUTO) 13.7 % (20.0-45.0); MEAN CORPUSCULAR VOLUME 94 FL (80-99); MONOCYTES % (AUTO) 9.4 % (1.0-10.0); NEUTROPHILS % (AUTO) 73.7 % (45.0-75.0); PLATELET COUNT 126 K/UL (150-450); RED BLOOD COUNT 3.83 M/UL (4.70-6.10); RED CELL DISTRIBUTION WIDTH 13.4 % (11.6-14.8); WHITE BLOOD COUNT 10.6 K/UL (4.8-10.8)
[2019-10-24 08:13] LABS: ANION GAP 10 mmol/L (5-15); BLOOD UREA NITROGEN 27 mg/dL (7-18); CALCIUM 8.7 MG/DL (8.5-10.1); CARBON DIOXIDE 24 MMOL/L (21-32); CHLORIDE 112 MMOL/L (98-107); CREATININE 1.9 MG/DL (0.55-1.30); POTASSIUM 3.8 MMOL/L (3.5-5.1); SODIUM 146 MMOL/L (136-145)
[2019-10-24] MEDS: Eliquis 5mg tablet ORAL SCH ×2 (08:46→17:44)
[2019-10-24] MEDS: Magnesium Oxide 400mg tab ORAL SCH ×3 (08:46→17:45)
[2019-10-24] MEDS: Imdur 30mg tab ORAL SCH (08:46)
[2019-10-24] MEDS: Metoprolol Tartrate 50mg tab ORAL SCH ×2 (08:46→20:10)
[2019-10-24] MEDS: Amiodarone 200mg tab ORAL SCH ×2 (08:47→20:10)
[2019-10-24] MEDS: Allopurinol 100mg Tab ORAL SCH ×2 (08:48→08:55)
[2019-10-24] MEDS: Docusate 100mg cap ORAL SCH ×3 (08:48→17:43)
[2019-10-24] MEDS: Tamsulosin 0.4mg cap ORAL SCH ×2 (08:48→17:44)
[2019-10-24 09:00] LABS: ALANINE AMINOTRANSFERASE 15 U/L (12-78); ALBUMIN 2.9 G/DL (3.4-5.0); ALKALINE PHOSPHATASE 68 U/L (46-116); ASPARTATE AMINO TRANSFERASE 17 U/L (15-37); BILIRUBIN,DIRECT < 0.1 MG/DL (0.0-0.3); BILIRUBIN,TOTAL 0.5 MG/DL (0.2-1.0); PHOSPHORUS 2.8 MG/DL (2.5-4.9)
--- NOTE | 2019-10-24 09:04 | NUR ---
RADIOLOGY: PCXR COMPLETED 0900HRS. NF
--- NOTE | 2019-10-24 11:16 | Nephrology Progress Note ---
Assessment/Plan Problem List: (1) Renal failure (ARF), acute on chronic (2) Atrial flutter with rapid ventricular response (3) Pericardial calcification (4) History of hypertension (5) History of gout (6) Cardiomyopathy Assessment 1. Acute on chronic renal failure. 2. Atrial flutter with rapid ventricular response upon admission. 3. Hypertension. 4. History of gout. 5. Homeless. 6. Pericardial calcification. 7. Cardiomyopathy Plan monitor renal parameters. Optimize cardiac and pulmonary status. Avoid nephrotoxic. Urine studies. Start Flomax. Keep the blood pressure and blood sugar in check. per orders Subjective ROS Limited/Unobtainable: No Constitutional: Reports: malaise Objective Objective Last 24 Hour Vital Signs Date Time Temp Pulse Resp B/P (MAP) Pulse Ox O2 Delivery O2 Flow Rate FiO2 10/24/19 09:00 Room Air 10/24/19 08:46 149/82 10/24/19 08:46 85 149/82 10/24/19 08:00 85 10/24/19 08:00 98.2 85 20 149/82 (104) 94 10/24/19 06:02 98.4 77 137/77 (97) 10/24/19 05:52 137/77 10/24/19 04:00 72 10/24/19 04:00 98.8 75 24 123/65 (84) 97 10/24/19 00:00 99.1 75 20 124/71 (88) 95 10/24/19 00:00 74 10/23/19 22:09 154/73 10/23/19 22:00 81 154/73 (100) 10/23/19 22:00 98.5 10/23/19 21:00 Room Air 10/23/19 20:45 80 151/75 10/23/19 20:00 79 10/23/19 20:00 98.4 80 20 151/75 (100) 98 10/23/19 19:48 81 20 97 Room Air 21 10/23/19 16:48 150/75 10/23/19 16:00 98.7 72 18 150/75 (100) 97 10/23/19 16:00 72 10/23/19 13:39 157/80 10/23/19 12:00 98.7 82 20 157/80 (105) 96 10/23/19 11:43 78 Intake and Output 10/23/19 10/24/19 19:00 07:00 Intake Total 1310.0 ml Balance 1310.0 ml Intake Oral 1200 ml IV Total 110.0 ml # Voids 5 3 # Bowel Movements 1 1 Laboratory Tests 10/24/19 07:10: White Blood Count 10.6, Red Blood Count 3.83L, Hemoglobin 12.5L, Hematocrit 36.0L, Mean Corpuscular Volume 94, Mean Corpuscular Hemoglobin 32.7H, Mean Corpuscular Hemoglobin Concent 34.7, Red Cell Distribution Width 13.4, Platelet Count 126L, Mean Platelet Volume 6.6, Neutrophils (%) (Auto) 73.7, Lymphocytes ( %) (Auto) 13.7L, Monocytes (%) (Auto) 9.4, Eosinophils (%) (Auto) 1.7, Basophils (%) (Auto) 1.5, Sodium Level 146H, Potassium Level 3.8, Chloride Level 112H, Carbon Dioxide Level 24, Anion Gap 10, Blood Urea Nitrogen 27H, Creatinine 1.9H, Estimat Glomerular Filtration Rate 34.7, Glucose Level 105, Calcium Level 8.7, Phosphorus Level 2.8, Magnesium Level 1.6L, Total Bilirubin 0.5, Direct Bilirubin < 0.1, Aspartate Amino Transf (AST/SGOT) 17, Alanine Aminotransferase (ALT/SGPT) 15, Alkaline Phosphatase 68, Total Protein 5.9L, Albumin 2.9L Height (Feet): 5 Height (Inches): 10.00 Weight (Pounds): 177 General Appearance: no apparent distress Objective no change Avila Sandy MD Oct 24, 2019 11:16
--- NOTE | 2019-10-24 11:34 | Diagnostic Imaging Report ---
. Indication: Shortness of breath Technique: One view of the chest Comparison: 10/20/2019 Findings: Inspiration is suboptimal, with crowding of bronchovascular markings Medial pleural or pericardial calcifications are again demonstrated to the right of midline. No definite acute infiltrates, effusions, congestion. Surgical hardware in the left shoulder again demonstrated. Impression: No definite acute process
--- NOTE | 2019-10-24 12:24 | Pulmonology Progress Note ---
Assessment/Plan Problems: (1) Atrial flutter with rapid ventricular response Assessment & Plan: converted to sinus (2) Chronic renal insufficiency, stage II (mild) (3) History of hypertension (4) History of gout (5) Homelessness (6) Pericardial calcification Assessment & Plan: PPD to rule out Hx of TB (7) Renal mass Assessment/Plan rate controlled telemetry monitoring off Heparin drip converted to sinus spontaneously monitor BP renal studies, bun/creatinine were the same during the last admission a few years ago echo cardiogram reviewed EF is 35% to 40% pericardiac calcification is old cardio evaluation social service evaluation. Subjective ROS Limited/Unobtainable: No Interval Events: doing better Allergies: Coded Allergies: No Known Allergies (Unverified , 09/12/15) Objective Last 24 Hour Vital Signs Date Time Temp Pulse Resp B/P (MAP) Pulse Ox O2 Delivery O2 Flow Rate FiO2 10/24/19 12:00 99.3 96 20 123/69 (87) 93 10/24/19 09:00 Room Air 10/24/19 08:46 149/82 10/24/19 08:46 85 149/82 10/24/19 08:00 85 10/24/19 08:00 98.2 85 20 149/82 (104) 94 10/24/19 06:02 98.4 77 137/77 (97) 10/24/19 05:52 137/77 10/24/19 04:00 72 10/24/19 04:00 98.8 75 24 123/65 (84) 97 10/24/19 00:00 99.1 75 20 124/71 (88) 95 10/24/19 00:00 74 10/23/19 22:09 154/73 10/23/19 22:00 81 154/73 (100) 10/23/19 22:00 98.5 10/23/19 21:00 Room Air 10/23/19 20:45 80 151/75 10/23/19 20:00 79 10/23/19 20:00 98.4 80 20 151/75 (100) 98 10/23/19 19:48 81 20 97 Room Air 21 10/23/19 16:48 150/75 10/23/19 16:00 98.7 72 18 150/75 (100) 97 10/23/19 16:00 72 10/23/19 13:39 157/80 Intake and Output 10/23/19 10/24/19 19:00 07:00 Intake Total 1310.0 ml Balance 1310.0 ml Intake Oral 1200 ml IV Total 110.0 ml # Voids 5 3 # Bowel Movements 1 1 General Appearance: WD/WN HEENT: normocephalic, atraumatic Respiratory/Chest: chest wall non-tender, lungs clear Cardiovascular: normal peripheral pulses, normal rate Abdomen: normal bowel sounds, soft, non tender Extremities: no cyanosis, no clubbing Skin: no rash 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 Laboratory Tests 10/24/19 07:10: White Blood Count 10.6, Red Blood Count 3.83L, Hemoglobin 12.5L, Hematocrit 36.0L, Mean Corpuscular Volume 94, Mean Corpuscular Hemoglobin 32.7H, Mean Corpuscular Hemoglobin Concent 34.7, Red Cell Distribution Width 13.4, Platelet Count 126L, Mean Platelet Volume 6.6, Neutrophils (%) (Auto) 73.7, Lymphocytes ( %) (Auto) 13.7L, Monocytes (%) (Auto) 9.4, Eosinophils (%) (Auto) 1.7, Basophils (%) (Auto) 1.5, Sodium Level 146H, Potassium Level 3.8, Chloride Level 112H, Carbon Dioxide Level 24, Anion Gap 10, Blood Urea Nitrogen 27H, Creatinine 1.9H, Estimat Glomerular Filtration Rate 34.7, Glucose Level 105, Calcium Level 8.7, Phosphorus Level 2.8, Magnesium Level 1.6L, Total Bilirubin 0.5, Direct Bilirubin < 0.1, Aspartate Amino Transf (AST/SGOT) 17, Alanine Aminotransferase (ALT/SGPT) 15, Alkaline Phosphatase 68, Total Protein 5.9L, Albumin 2.9L Current Medications Medications (Trade) Dose Ordered Sig/Catrina Route PRN Reason Start Time Stop Time Status Last Admin Dose Admin Acetaminophen (Tylenol) 650 mg Q4H PRN ORAL FEVER 10/20/19 11:30 11/19/19 11:29 10/23/19 09:12 Acetaminophen/ Hydrocodone Bitart ([place] 10/325) 1 tab Q6H PRN ORAL Moderate Pain (Pain Scale 4-6) 10/20/19 11:15 10/27/19 11:14 Albuterol/ Ipratropium (Albuterol/ Ipratropium) 3 ml Q4H PRN HHN Shortness of Breath 10/23/19 11:30 10/28/19 11:29 Allopurinol (Zyloprim) 100 mg DAILY ORAL 10/22/19 09:00 11/20/19 08:59 10/24/19 08:55 Amiodarone HCl (Cordarone) 200 mg EVERY 12 HOURS ORAL 10/22/19 21:00 11/21/19 20:59 10/24/19 08:47 Apixaban (Eliquis) 5 mg BID ORAL 10/22/19 18:00 11/21/19 17:59 10/24/19 08:46 Atorvastatin Calcium (Lipitor) 10 mg BEDTIME ORAL 10/20/19 21:00 11/19/19 20:59 10/23/19 20:45 Cetylpyridinium Chloride (Cepacol) 1 lozg Q2H PRN HIRAM sore throat 10/22/19 18:00 11/21/19 17:59 10/24/19 05:52 Clonidine HCl (Catapres Tab) 0.1 mg Q4H PRN ORAL bp 165 syst 10/21/19 09:15 11/20/19 09:14 Cyanocobalamin (Vitamin B12) 1,000 mcg Q24H SUBQ 10/22/19 16:00 10/24/19 16:01 Diltiazem HCl (Cardizem) 10 mg Q1H PRN IV heart rate more than 120, 10/20/19 11:30 11/19/19 11:29 Docusate Sodium (Colace) 100 mg THREE TIMES A DAY ORAL 10/21/19 13:00 11/20/19 12:59 Furosemide (Lasix) 20 mg DAILY ORAL 10/24/19 09:00 11/23/19 08:59 10/24/19 08:47 Hydralazine HCl (Apresoline) 50 mg Q8HR ORAL 10/21/19 14:00 11/19/19 20:59 10/24/19 05:52 Isosorbide Mononitrate (Imdur) 30 mg DAILY ORAL 10/23/19 16:00 11/22/19 15:59 10/24/19 08:46 Magnesium Oxide (Mag-Ox 400mg) 400 mg THREE TIMES A DAY ORAL 10/22/19 13:00 11/21/19 12:59 10/24/19 08:46 Metoprolol Tartrate (Lopressor) 50 mg Q12HR ORAL 10/22/19 21:00 11/21/19 20:59 10/24/19 08:46 Nitroglycerin (Ntg) 0.4 mg Q5M PRN SL Prn Chest Pain 10/20/19 11:30 11/19/19 11:29 Ondansetron HCl (Zofran) 4 mg Q6H PRN IVP Nausea & Vomiting 10/20/19 11:30 11/19/19 11:29 Pantoprazole (Protonix) 40 mg BID ORAL 10/22/19 18:00 11/20/19 08:59 10/24/19 08:48 Piperacillin Sod/ Tazobactam Sod 3.375 gm/Sodium Chloride 110 ml @ 27.5 mls/hr EVERY 8 HOURS IVPB 10/24/19 06:00 10/31/19 05:59 10/24/19 05:52 Polyethylene Glycol (Miralax) 17 gm DAILYPRN PRN ORAL Constipation 10/20/19 11:30 11/19/19 11:29 Promethazine HCl/ Codeine (Phenergan with Codeine) 5 ml Q4H PRN ORAL For Cough 10/21/19 19:00 11/20/19 18:59 10/24/19 11:34 Tamsulosin HCl (Flomax) 0.4 mg BID ORAL 10/21/19 09:30 11/20/19 09:29 10/21/19 09:46 Temazepam (Restoril) 15 mg HSPRN PRN ORAL Insomnia 10/20/19 11:30 10/27/19 11:29 Erma Rajput MD Oct 24, 2019 12:24
--- NOTE | 2019-10-24 13:38 | NUR ---
CASE MANAGEMENT: INITIAL REVIEW 10/24/19 SI: UNABLE TO AMBULATE . DIZZY . A-FLUTTER WITH RVR. RENAL INSUFFICIENCY 99.3 96 20 123/69 93% ON RA NA+146 CL 112 BUN 27 CREAT 1.9 H/H 12.5/36.0 IS:IV ZOSYN TID LASIX PO QD PROTONIX PO BID AMIODARONE PO BID LOPRESSOR PO BID IMDUR PO QD HYDRALAZINE PO TID \: 2E TELE UNIT DCP: HOMELESS PLAN: SEEKING PLACEMENT
[2019-10-24] MEDS ORDERED: PPD Tuberculin Skin Test 5TU IDERMAL ONE (14:00)
--- NOTE | 2019-10-24 14:00 | NUR ---
*-* DISCHARGE PLANNING *-* PATIENT HAS BEEN REFERRED TO: 1. [facility] P: [phone] F: [phone] EFAX: [phone] & 2. [facility] P: [phone] F: [phone] EMAIL: [email or web address] & CLINIC OFFICE [email or web address] Addendum: 10/25/19 at 1204 by MCKAY MIGUEL LVN PATIENT HAS NO SNF DAYS POSS. DC TO [facility]
--- NOTE | 2019-10-24 14:55 | NUR ---
P.T Note: P.T evaluation completed and tx initiated. Please refer to P.T evaluation for current functional status. Pt is alert, pleasant and cooperative. Pt had no c/o but excessive coughing and generalized weakness. Pt currently requires SBA X 1 for bed mobilities and MIN/CGA x 1 for transfer and gait/ambulation activities. Skilled P.T service is warranted to increase his strength endurance to increase mobility independence and safety. Recommend SNF for further rehab intervention.
--- NOTE | 2019-10-24 19:03 | NUR ---
HAND-OFF: Report given to Brett CAGLE. Pt remains stable.
--- NOTE | 2019-10-24 19:11 | Internal Med Progress Note ---
Subjective Date of Service: Oct 24, 2019 Physician Name Leroy Zimmer Attending Physician Yonas Purvis MD Current Medications Medications (Trade) Dose Ordered Sig/Catrina Route PRN Reason Start Time Stop Time Status Last Admin Dose Admin Acetaminophen (Tylenol) 650 mg Q4H PRN ORAL FEVER 10/20/19 11:30 11/19/19 11:29 10/23/19 09:12 Acetaminophen/ Hydrocodone Bitart ([place] 10/325) 1 tab Q6H PRN ORAL Moderate Pain (Pain Scale 4-6) 10/20/19 11:15 10/27/19 11:14 Albuterol/ Ipratropium (Albuterol/ Ipratropium) 3 ml Q4H PRN HHN Shortness of Breath 10/23/19 11:30 10/28/19 11:29 Allopurinol (Zyloprim) 100 mg DAILY ORAL 10/22/19 09:00 11/20/19 08:59 10/24/19 08:55 Amiodarone HCl (Cordarone) 200 mg EVERY 12 HOURS ORAL 10/22/19 21:00 11/21/19 20:59 10/24/19 08:47 Apixaban (Eliquis) 5 mg BID ORAL 10/22/19 18:00 11/21/19 17:59 10/24/19 17:44 Atorvastatin Calcium (Lipitor) 10 mg BEDTIME ORAL 10/20/19 21:00 11/19/19 20:59 10/23/19 20:45 Cetylpyridinium Chloride (Cepacol) 1 lozg Q2H PRN HIRAM sore throat 10/22/19 18:00 11/21/19 17:59 10/24/19 05:52 Clonidine HCl (Catapres Tab) 0.1 mg Q4H PRN ORAL bp 165 syst 10/21/19 09:15 11/20/19 09:14 Cyanocobalamin (Vitamin B-12) 1,000 mcg DAILY ORAL 10/25/19 09:00 11/24/19 08:59 Diltiazem HCl (Cardizem) 10 mg Q1H PRN IV heart rate more than 120, 10/20/19 11:30 11/19/19 11:29 Docusate Sodium (Colace) 100 mg THREE TIMES A DAY ORAL 10/21/19 13:00 11/20/19 12:59 Furosemide (Lasix) 20 mg DAILY ORAL 10/24/19 09:00 11/23/19 08:59 10/24/19 08:47 Hydralazine HCl (Apresoline) 50 mg Q8HR ORAL 10/21/19 14:00 11/19/19 20:59 10/24/19 14:22 Isosorbide Mononitrate (Imdur) 30 mg DAILY ORAL 10/23/19 16:00 11/22/19 15:59 10/24/19 08:46 Magnesium Oxide (Mag-Ox 400mg) 400 mg THREE TIMES A DAY ORAL 10/22/19 13:00 11/21/19 12:59 10/24/19 17:45 Metoprolol Tartrate (Lopressor) 50 mg Q12HR ORAL 10/22/19 21:00 11/21/19 20:59 10/24/19 08:46 Nitroglycerin (Ntg) 0.4 mg Q5M PRN SL Prn Chest Pain 10/20/19 11:30 11/19/19 11:29 Ondansetron HCl (Zofran) 4 mg Q6H PRN IVP Nausea & Vomiting 10/20/19 11:30 11/19/19 11:29 Pantoprazole (Protonix) 40 mg BID ORAL 10/22/19 18:00 11/20/19 08:59 10/24/19 17:45 Piperacillin Sod/ Tazobactam Sod 3.375 gm/Sodium Chloride 110 ml @ 27.5 mls/hr EVERY 8 HOURS IVPB 10/24/19 06:00 10/31/19 05:59 10/24/19 14:21 Polyethylene Glycol (Miralax) 17 gm DAILYPRN PRN ORAL Constipation 10/20/19 11:30 11/19/19 11:29 Promethazine HCl/ Codeine (Phenergan with Codeine) 5 ml Q4H PRN ORAL For Cough 10/21/19 19:00 11/20/19 18:59 10/24/19 11:34 Tamsulosin HCl (Flomax) 0.4 mg BID ORAL 10/21/19 09:30 11/20/19 09:29 10/21/19 09:46 Temazepam (Restoril) 15 mg HSPRN PRN ORAL Insomnia 10/20/19 11:30 10/27/19 11:29 Allergies: Coded Allergies: No Known Allergies (Unverified , 09/12/15) ROS Limited/Unobtainable: No Constitutional: Reports: no symptoms HEENT: Reports: no symptoms Cardiovascular: Reports: no symptoms Respiratory: Reports: no symptoms Gastrointestinal/Abdominal: Reports: no symptoms Genitourinary: Reports: no symptoms Neurologic/Psychiatric: Reports: no symptoms Subjective 74 YO M admitted with vertigo and ataxia. Now atrial flutter with rapid ventricular rate and renal failure. Cover for Int Med-DR Purvis Objective Last Vital Signs Date Time Temp Pulse Resp B/P (MAP) Pulse Ox O2 Delivery O2 Flow Rate FiO2 10/24/19 16:00 79 10/24/19 16:00 98.7 20 136/70 (92) 97 10/24/19 09:09 Room Air 21 Laboratory Tests Test 10/24/19 07:10 White Blood Count 10.6 K/UL (4.8-10.8) Red Blood Count 3.83 M/UL (4.70-6.10) L Hemoglobin 12.5 G/DL (14.2-18.0) L Hematocrit 36.0 % (42.0-52.0) L Mean Corpuscular Volume 94 FL (80-99) Mean Corpuscular Hemoglobin 32.7 PG (27.0-31.0) H Mean Corpuscular Hemoglobin Concent 34.7 G/DL (32.0-36.0) Red Cell Distribution Width 13.4 % (11.6-14.8) Platelet Count 126 K/UL (150-450) L Mean Platelet Volume 6.6 FL (6.5-10.1) Neutrophils (%) (Auto) 73.7 % (45.0-75.0) Lymphocytes (%) (Auto) 13.7 % (20.0-45.0) L Monocytes (%) (Auto) 9.4 % (1.0-10.0) Eosinophils (%) (Auto) 1.7 % (0.0-3.0) Basophils (%) (Auto) 1.5 % (0.0-2.0) Sodium Level 146 MMOL/L (136-145) H Potassium Level 3.8 MMOL/L (3.5-5.1) Chloride Level 112 MMOL/L (98-107) H Carbon Dioxide Level 24 MMOL/L (21-32) Anion Gap 10 mmol/L (5-15) Blood Urea Nitrogen 27 mg/dL (7-18) H Creatinine 1.9 MG/DL (0.55-1.30) H Estimat Glomerular Filtration Rate 34.7 mL/min (>60) Glucose Level 105 MG/DL (74-106) Calcium Level 8.7 MG/DL (8.5-10.1) Phosphorus Level 2.8 MG/DL (2.5-4.9) Magnesium Level 1.6 MG/DL (1.8-2.4) L Total Bilirubin 0.5 MG/DL (0.2-1.0) Direct Bilirubin < 0.1 MG/DL (0.0-0.3) Aspartate Amino Transf (AST/SGOT) 17 U/L (15-37) Alanine Aminotransferase (ALT/SGPT) 15 U/L (12-78) Alkaline Phosphatase 68 U/L (46-116) Total Protein 5.9 G/DL (6.4-8.2) L Albumin 2.9 G/DL (3.4-5.0) L Intake and Output 10/23/19 10/24/19 19:00 07:00 Intake Total 1310.0 ml Balance 1310.0 ml Intake Oral 1200 ml IV Total 110.0 ml # Voids 5 3 # Bowel Movements 1 1 Objective PHYSICAL EXAMINATION: GENERAL: The patient is a well-developed, well-nourished male, in no apparent distress. HEENT: Eyes, pupils are equal and responsive to light and accommodation. Extraocular movements are intact. NECK: Supple without lymphadenopathy. CHEST: Lungs are clear to auscultation bilaterally without wheezes or rales. CARDIOVASCULAR: Regular rate. S1 and S2 are normal without murmurs, rubs, or gallops. ABDOMEN: Soft, nontender, and nondistended. Positive bowel sounds. No evidence of hepatosplenomegaly. Currently, no rebound or guarding noted. EXTREMITIES: Negative for clubbing, cyanosis, or edema. RECTAL: Not performed. GENITAL: Not performed. NEUROLOGIC: Cranial nerves II through XII grossly intact without focal deficits. Motor strength is 5/5 bilaterally. Deep tendon reflexes are 2+ plantar. Assessment/Plan Assessment/Plan ASSESSMENT: This is a 74-year-old male with: 1. Vertigo. 2. Congestive heart failure. 3. Renal failure. 4. Hypercholesteremia. 5. Hypertension. 6. Gout. 7. Atrial flutter with rapid ventricular rate; now sinus TREATMENT: 1. Renal failure. A Nephrology consultation has been obtained with Dr. Sandy. The patient is currently receiving intravenous fluids. We will follow recommendations of Dr. Sandy. Differential includes dehydration versus acute renal failure. 2. Congestive heart failure. Cardiology consultation has been obtained with Dr. Epifanio Silverio. Echocardiogram is pending. We will follow recommendations of Cardiology. 3. Hypercholesterolemia. Continue atorvastatin and fenofibrate as above. 4. Hypertension. Continue hydralazine and metoprolol as above. 5. Gout. Continue allopurinol as above. 6. Continue amiodarone as above Per Cardiology 7. Continue apixaban Leroy Zimmer MD Oct 24, 2019 19:11
--- NOTE | 2019-10-24 19:30 | NUR ---
NURSE NOTES: Received patient from Min RN. Patient in bed, alert and oriented. On room air, no signs of respiratory distress. Left forearm 20 gauge iv intact, patent, no signs of infection or infiltration. Bed in low position, locked, call light within reach.
--- NOTE | 2019-10-24 23:40 | NUR ---
NURSE NOTES: Patient coughing, asked if he can have cough syrup. Cough syrup not due for another half hour. Informed patient, patient said "forget it." Asked if patient wants staff to come back in half hour to give the syrup, patient refused.
[2019-10-25] VITALS (7 sets, daily range): BP systolic 134–156; BP diastolic 71–90
--- NOTE | 2019-10-25 01:30 | NUR ---
NURSE NOTES: Offered patient cough syrup again. Patient continues to refuse despite coughing.
[2019-10-25] MEDS: Zoysn 3.37gm in NS 100ML IVPB SCH ×3 (06:03→22:05)
[2019-10-25] MEDS: HydrALAZINE 50mg tab ORAL SCH ×4 (06:04→22:05)
[2019-10-25 07:54] LABS: BASOPHILS % (AUTO) 2.4 % (0.0-2.0); EOSINOPHILS % (AUTO) 1.7 % (0.0-3.0); HEMATOCRIT 32.7 % (42.0-52.0); HEMOGLOBIN 12.6 G/DL (14.2-18.0); LYMPHOCYTES % (AUTO) 10.4 % (20.0-45.0); MEAN CORPUSCULAR VOLUME 95 FL (80-99); MONOCYTES % (AUTO) 10.1 % (1.0-10.0); NEUTROPHILS % (AUTO) 75.4 % (45.0-75.0); PLATELET COUNT 139 K/UL (150-450); RED BLOOD COUNT 3.46 M/UL (4.70-6.10); RED CELL DISTRIBUTION WIDTH 15.6 % (11.6-14.8); WHITE BLOOD COUNT 10.7 K/UL (4.8-10.8)
--- NOTE | 2019-10-25 08:04 | CDS Physician Query ---
Clarification is required for compliance, coding accuracy, and to reflect severity of illness for this patient Dear Dr. Leroy Zimmer M.D. Date: 10/25/2019 Straightener/CDS Name: Michael Lemus ASSESSMENT: This is a 74-year-old male with: 1. Vertigo. 2. Congestive heart failure. 3. Renal failure. 4. Hypercholesteremia. 5. Hypertension. 6. Gout. BNP: 7746 "Heart Failure / CHF" documented in H&P Please Clarify: Acuity [] Acute [] Chronic [X] Acute on Chronic Type [X] Systolic [] Diastolic [] Systolic & Diastolic (Combined) [] Other: Present on Admission: [X] Yes [] No [] Clinically Undetermined Physician signature Date Please also document in your Progress Notes and/or Discharge Summary and indicate if the condition was present on admission. MAGO
[2019-10-25 08:12] LABS: ANION GAP 11 mmol/L (5-15); BLOOD UREA NITROGEN 26 mg/dL (7-18); CALCIUM 8.8 MG/DL (8.5-10.1); CARBON DIOXIDE 25 MMOL/L (21-32); CHLORIDE 108 MMOL/L (98-107); CREATININE 2.1 MG/DL (0.55-1.30); SODIUM 144 MMOL/L (136-145)
--- NOTE | 2019-10-25 08:28 | NUR ---
NURSE NOTES: Received report from Brett CAGLE. Pt in bed awake and orientedx4 and able to make needs known. IV site in left forearm 20G running with IV Zosyn patent and asymptomatic. Side rails x2 up for safety. Bed in lowest position and locked.On room air Will continue to plan of care.
[2019-10-25] MEDS: Docusate 100mg cap ORAL SCH ×3 (08:59→17:29)
[2019-10-25] MEDS: Amiodarone 200mg tab ORAL SCH ×2 (08:59→20:37)
[2019-10-25] MEDS: Metoprolol Tartrate 50mg tab ORAL SCH ×2 (08:59→20:46)
[2019-10-25] MEDS: Allopurinol 100mg Tab ORAL SCH (09:00)
[2019-10-25] MEDS: Eliquis 5mg tablet ORAL SCH ×2 (09:00→17:29)
[2019-10-25] MEDS ORDERED: Vitamin B-12 500mcg tab ORAL SCH (09:00)
[2019-10-25] MEDS: Imdur 30mg tab ORAL SCH (09:00)
[2019-10-25] MEDS: Tamsulosin 0.4mg cap ORAL SCH ×2 (09:00→17:29)
[2019-10-25] MEDS: Magnesium Oxide 400mg tab ORAL SCH ×3 (09:00→17:36)
--- NOTE | 2019-10-25 09:52 | Cardiology Progress Note ---
Assessment/Plan Assessment/Plan 1. Atrial flutter, possibly few days ? spont converted to sinus 10/22 2. History of congestive heart failure. 3. LV systolic dysfunction, ejection fraction reported 35% to 40%. 4. Mild diastolic dysfunction and dilated IVC suggestive of increased RA pressure. 5. Renal insufficiency. 6. Questionable hyperthyroidism. 7. Hypertension. 8. History of gout. 9. Pericardial calcification. remains in sinus on amiod for nwo i discussed with the pt need for anticoaguation for stroke prevention and the possibility of cure with ablation will refer to ep for ablation on dc amiod 200 mg bid for 1 weeks then 200 mg once a day pt is willing to take anticoag as inpt but not suer if he will as out pt but definately coumadin may be dangerous with lack of fu and beign homeless d/w decrease bb since now on amiod and dc dig as interact with amio dc heparin on eliquis for stroke prevention renal fx worse will dc lasix dc tele to med surg i have explained the medicatio namio and eliqusi to pt again Subjective Cardiovascular: Denies: chest pain, lightheadedness, palpitations Respiratory: Reports: cough, sputum; Denies: shortness of breath Gastrointestinal/Abdominal: Denies: abdominal pain Genitourinary: Denies: burning Subjective walked Objective Last 24 Hour Vital Signs Date Time Temp Pulse Resp B/P (MAP) Pulse Ox O2 Delivery O2 Flow Rate FiO2 10/25/19 09:00 148/74 10/25/19 08:59 85 148/74 10/25/19 08:00 97.5 85 20 148/74 (98) 97 10/25/19 06:04 155/89 10/25/19 06:00 99.5 82 155/89 (111) 10/25/19 04:00 76 10/25/19 04:00 98.6 83 20 146/79 (101) 97 10/25/19 00:00 73 10/25/19 00:00 98.6 78 20 134/71 (92) 96 10/24/19 22:04 148/93 10/24/19 22:00 80 148/93 (111) 10/24/19 21:00 Room Air 10/24/19 20:15 80 18 97 Room Air 21 10/24/19 20:10 79 143/76 10/24/19 20:00 80 10/24/19 20:00 99.7 79 24 143/76 (98) 96 10/24/19 16:00 79 10/24/19 16:00 98.7 79 20 136/70 (92) 97 10/24/19 14:22 123/69 10/24/19 12:00 83 10/24/19 12:00 99.3 96 20 123/69 (87) 93 General Appearance: no apparent distress, alert Neck: supple Cardiovascular: normal rate Respiratory/Chest: lungs clear Abdomen: normal bowel sounds, non tender, soft Extremities: no swelling Intake and Output 10/24/19 10/25/19 19:00 07:00 Intake Total 600 ml 240 ml Output Total 1000 ml 1650 ml Balance -400 ml -1410 ml Intake Oral 600 ml 240 ml Output Urine Total 1000 ml 1650 ml # Bowel Movements 1 Laboratory Tests Test 10/25/19 06:52 White Blood Count 10.7 K/UL (4.8-10.8) Red Blood Count 3.46 M/UL (4.70-6.10) L Hemoglobin 12.6 G/DL (14.2-18.0) L Hematocrit 32.7 % (42.0-52.0) L Mean Corpuscular Volume 95 FL (80-99) Mean Corpuscular Hemoglobin 36.6 PG (27.0-31.0) H Mean Corpuscular Hemoglobin Concent 38.6 G/DL (32.0-36.0) H Red Cell Distribution Width 15.6 % (11.6-14.8) H Platelet Count 139 K/UL (150-450) L Mean Platelet Volume 6.8 FL (6.5-10.1) Neutrophils (%) (Auto) 75.4 % (45.0-75.0) H Lymphocytes (%) (Auto) 10.4 % (20.0-45.0) L Monocytes (%) (Auto) 10.1 % (1.0-10.0) H Eosinophils (%) (Auto) 1.7 % (0.0-3.0) Basophils (%) (Auto) 2.4 % (0.0-2.0) H Sodium Level 144 MMOL/L (136-145) Potassium Level 4.0 MMOL/L (3.5-5.1) Chloride Level 108 MMOL/L (98-107) H Carbon Dioxide Level 25 MMOL/L (21-32) Anion Gap 11 mmol/L (5-15) Blood Urea Nitrogen 26 mg/dL (7-18) H Creatinine 2.1 MG/DL (0.55-1.30) H Estimat Glomerular Filtration Rate 30.9 mL/min (>60) Glucose Level 98 MG/DL (74-106) Calcium Level 8.8 MG/DL (8.5-10.1) Epifanio Silverio MD Oct 25, 2019 09:52
[2019-10-25] MEDS: Promethazine/Codeine 5ml UD ORAL PRN ×2 (11:58→20:37)
--- NOTE | 2019-10-25 12:25 | Pulmonology Progress Note ---
Assessment/Plan Problems: (1) Low grade fever (2) Atrial flutter with rapid ventricular response Assessment & Plan: converted to sinus (3) Chronic renal insufficiency, stage II (mild) (4) History of hypertension (5) History of gout (6) Homelessness (7) Pericardial calcification Assessment & Plan: PPD to rule out Hx of TB (8) Renal mass Assessment/Plan ID to see rate controlled no more telemetry monitoring off Heparin drip converted to sinus spontaneously monitor BP renal studies, bun/creatinine were the same during the last admission a few years ago echo cardiogram reviewed EF is 35% to 40% pericardiac calcification is old cardio evaluation appreciated social service evaluation. Subjective Interval Events: still coughing Allergies: Coded Allergies: No Known Allergies (Unverified , 09/12/15) Objective Last 24 Hour Vital Signs Date Time Temp Pulse Resp B/P (MAP) Pulse Ox O2 Delivery O2 Flow Rate FiO2 10/25/19 09:00 Room Air 10/25/19 09:00 148/74 10/25/19 08:59 85 148/74 10/25/19 08:00 82 10/25/19 08:00 97.5 85 20 148/74 (98) 97 10/25/19 06:04 155/89 10/25/19 06:00 99.5 82 155/89 (111) 10/25/19 04:00 76 10/25/19 04:00 98.6 83 20 146/79 (101) 97 10/25/19 00:00 73 10/25/19 00:00 98.6 78 20 134/71 (92) 96 10/24/19 22:04 148/93 10/24/19 22:00 80 148/93 (111) 10/24/19 21:00 Room Air 10/24/19 20:15 80 18 97 Room Air 21 10/24/19 20:10 79 143/76 10/24/19 20:00 80 10/24/19 20:00 99.7 79 24 143/76 (98) 96 10/24/19 16:00 79 10/24/19 16:00 98.7 79 20 136/70 (92) 97 10/24/19 14:22 123/69 Intake and Output 10/24/19 10/25/19 19:00 07:00 Intake Total 600 ml 240 ml Output Total 1000 ml 1650 ml Balance -400 ml -1410 ml Intake Oral 600 ml 240 ml Output Urine Total 1000 ml 1650 ml # Bowel Movements 2 General Appearance: WD/WN HEENT: normocephalic, atraumatic Respiratory/Chest: chest wall non-tender, crackles/rales Cardiovascular: normal peripheral pulses, normal rate Genitourinary: normal external genitalia Extremities: no clubbing Skin: no rash Neurologic/Psychiatric: facilities custodian II-XII grossly normal Laboratory Tests 10/25/19 06:52: White Blood Count 10.7, Red Blood Count 3.46L, Hemoglobin 12.6L, Hematocrit 32.7L, Mean Corpuscular Volume 95, Mean Corpuscular Hemoglobin 36.6H, Mean Corpuscular Hemoglobin Concent 38.6H, Red Cell Distribution Width 15.6H, Platelet Count 139L, Mean Platelet Volume 6.8, Neutrophils (%) (Auto) 75.4H, Lymphocytes (%) (Auto) 10.4L, Monocytes (%) (Auto) 10.1H, Eosinophils (%) (Auto ) 1.7, Basophils (%) (Auto) 2.4H, Sodium Level 144, Potassium Level 4.0, Chloride Level 108H, Carbon Dioxide Level 25, Anion Gap 11, Blood Urea Nitrogen 26H, Creatinine 2.1H, Estimat Glomerular Filtration Rate 30.9, Glucose Level 98 , Calcium Level 8.8 Current Medications Medications (Trade) Dose Ordered Sig/Catrina Route PRN Reason Start Time Stop Time Status Last Admin Dose Admin Acetaminophen (Tylenol) 650 mg Q4H PRN ORAL FEVER 10/20/19 11:30 11/19/19 11:29 10/23/19 09:12 Acetaminophen/ Hydrocodone Bitart ([place] 10/325) 1 tab Q6H PRN ORAL Moderate Pain (Pain Scale 4-6) 10/20/19 11:15 10/27/19 11:14 Albuterol/ Ipratropium (Albuterol/ Ipratropium) 3 ml Q4H PRN HHN Shortness of Breath 10/23/19 11:30 10/28/19 11:29 Allopurinol (Zyloprim) 100 mg DAILY ORAL 10/22/19 09:00 11/20/19 08:59 10/25/19 09:00 Amiodarone HCl (Cordarone) 200 mg EVERY 12 HOURS ORAL 10/22/19 21:00 11/21/19 20:59 10/25/19 08:59 Apixaban (Eliquis) 5 mg BID ORAL 10/22/19 18:00 11/21/19 17:59 10/25/19 09:00 Atorvastatin Calcium (Lipitor) 10 mg BEDTIME ORAL 10/20/19 21:00 11/19/19 20:59 10/24/19 20:10 Cetylpyridinium Chloride (Cepacol) 1 lozg Q2H PRN HIRAM sore throat 10/22/19 18:00 11/21/19 17:59 10/24/19 05:52 Clonidine HCl (Catapres Tab) 0.1 mg Q4H PRN ORAL bp 165 syst 10/21/19 09:15 11/20/19 09:14 Cyanocobalamin (Vitamin B-12) 1,000 mcg DAILY ORAL 10/25/19 09:00 11/24/19 08:59 10/25/19 09:00 Diltiazem HCl (Cardizem) 10 mg Q1H PRN IV heart rate more than 120, 10/20/19 11:30 11/19/19 11:29 Docusate Sodium (Colace) 100 mg THREE TIMES A DAY ORAL 10/21/19 13:00 11/20/19 12:59 Hydralazine HCl (Apresoline) 50 mg Q8HR ORAL 10/21/19 14:00 11/19/19 20:59 10/25/19 06:04 Isosorbide Mononitrate (Imdur) 30 mg DAILY ORAL 10/23/19 16:00 11/22/19 15:59 10/25/19 09:00 Magnesium Oxide (Mag-Ox 400mg) 400 mg THREE TIMES A DAY ORAL 10/22/19 13:00 11/21/19 12:59 10/25/19 09:00 Metoprolol Tartrate (Lopressor) 50 mg Q12HR ORAL 10/22/19 21:00 11/21/19 20:59 10/25/19 08:59 Nitroglycerin (Ntg) 0.4 mg Q5M PRN SL Prn Chest Pain 10/20/19 11:30 11/19/19 11:29 Ondansetron HCl (Zofran) 4 mg Q6H PRN IVP Nausea & Vomiting 10/20/19 11:30 11/19/19 11:29 Pantoprazole (Protonix) 40 mg BID ORAL 10/22/19 18:00 11/20/19 08:59 10/25/19 09:00 Piperacillin Sod/ Tazobactam Sod 3.375 gm/Sodium Chloride 110 ml @ 27.5 mls/hr EVERY 8 HOURS IVPB 10/24/19 06:00 10/31/19 05:59 10/25/19 06:03 Polyethylene Glycol (Miralax) 17 gm DAILYPRN PRN ORAL Constipation 10/20/19 11:30 11/19/19 11:29 Promethazine HCl/ Codeine (Phenergan with Codeine) 5 ml Q4H PRN ORAL For Cough 10/21/19 19:00 11/20/19 18:59 10/25/19 11:58 Tamsulosin HCl (Flomax) 0.4 mg BID ORAL 10/21/19 09:30 11/20/19 09:29 10/21/19 09:46 Temazepam (Restoril) 15 mg HSPRN PRN ORAL Insomnia 10/20/19 11:30 10/27/19 11:29 Erma Rajput MD Oct 25, 2019 12:25
--- NOTE | 2019-10-25 13:54 | Nephrology Progress Note ---
Assessment/Plan Problem List: (1) Renal failure (ARF), acute on chronic (2) Atrial flutter with rapid ventricular response (3) Pericardial calcification (4) History of hypertension (5) History of gout (6) Cardiomyopathy Assessment 1. Acute on chronic renal failure. 2. Atrial flutter with rapid ventricular response upon admission. 3. Hypertension. 4. History of gout. 5. Homeless. 6. Pericardial calcification. 7. Cardiomyopathy Plan monitor renal parameters. Optimize cardiac and pulmonary status. Avoid nephrotoxic. Urine studies. Start Flomax. Keep the blood pressure and blood sugar in check. per orders Subjective ROS Limited/Unobtainable: No Constitutional: Reports: malaise Objective Objective Last 24 Hour Vital Signs Date Time Temp Pulse Resp B/P (MAP) Pulse Ox O2 Delivery O2 Flow Rate FiO2 10/25/19 09:00 Room Air 10/25/19 09:00 148/74 10/25/19 08:59 85 148/74 10/25/19 08:00 82 10/25/19 08:00 97.5 85 20 148/74 (98) 97 10/25/19 06:04 155/89 10/25/19 06:00 99.5 82 155/89 (111) 10/25/19 04:00 76 10/25/19 04:00 98.6 83 20 146/79 (101) 97 10/25/19 00:00 73 10/25/19 00:00 98.6 78 20 134/71 (92) 96 10/24/19 22:04 148/93 10/24/19 22:00 80 148/93 (111) 10/24/19 21:00 Room Air 10/24/19 20:15 80 18 97 Room Air 21 10/24/19 20:10 79 143/76 10/24/19 20:00 80 10/24/19 20:00 99.7 79 24 143/76 (98) 96 10/24/19 16:00 79 10/24/19 16:00 98.7 79 20 136/70 (92) 97 10/24/19 14:22 123/69 Intake and Output 10/24/19 10/25/19 19:00 07:00 Intake Total 600 ml 240 ml Output Total 1000 ml 1650 ml Balance -400 ml -1410 ml Intake Oral 600 ml 240 ml Output Urine Total 1000 ml 1650 ml # Bowel Movements 2 Laboratory Tests 10/25/19 06:52: White Blood Count 10.7, Red Blood Count 3.46L, Hemoglobin 12.6L, Hematocrit 32.7L, Mean Corpuscular Volume 95, Mean Corpuscular Hemoglobin 36.6H, Mean Corpuscular Hemoglobin Concent 38.6H, Red Cell Distribution Width 15.6H, Platelet Count 139L, Mean Platelet Volume 6.8, Neutrophils (%) (Auto) 75.4H, Lymphocytes (%) (Auto) 10.4L, Monocytes (%) (Auto) 10.1H, Eosinophils (%) (Auto ) 1.7, Basophils (%) (Auto) 2.4H, Sodium Level 144, Potassium Level 4.0, Chloride Level 108H, Carbon Dioxide Level 25, Anion Gap 11, Blood Urea Nitrogen 26H, Creatinine 2.1H, Estimat Glomerular Filtration Rate 30.9, Glucose Level 98 , Calcium Level 8.8 Height (Feet): 5 Height (Inches): 10.00 Weight (Pounds): 177 General Appearance: no apparent distress Cardiovascular: normal rate Respiratory/Chest: decreased breath sounds Abdomen: soft Objective no change Avila Sandy MD Oct 25, 2019 13:54
--- NOTE | 2019-10-25 19:00 | Infectious Diseases Prog Note ---
Subjective Allergies: Coded Allergies: No Known Allergies (Unverified , 09/12/15) Subjective # [id number] Objective Vital Signs Last 24 Hour Vital Signs Date Time Temp Pulse Resp B/P (MAP) Pulse Ox O2 Delivery O2 Flow Rate FiO2 10/25/19 15:57 98.8 75 20 136/90 (105) 97 10/25/19 14:33 137/75 10/25/19 12:00 98.1 73 20 137/75 (95) 97 10/25/19 09:00 Room Air 10/25/19 09:00 148/74 10/25/19 08:59 85 148/74 10/25/19 08:00 82 10/25/19 08:00 97.5 85 20 148/74 (98) 97 10/25/19 06:04 155/89 10/25/19 06:00 99.5 82 155/89 (111) 10/25/19 04:00 76 10/25/19 04:00 98.6 83 20 146/79 (101) 97 10/25/19 00:00 73 10/25/19 00:00 98.6 78 20 134/71 (92) 96 10/24/19 22:04 148/93 10/24/19 22:00 80 148/93 (111) 10/24/19 21:00 Room Air 10/24/19 20:15 80 18 97 Room Air 21 10/24/19 20:10 79 143/76 10/24/19 20:00 80 10/24/19 20:00 99.7 79 24 143/76 (98) 96 Height (Feet): 5 Height (Inches): 10.00 Weight (Pounds): 177 Laboratory Tests Test 10/25/19 06:52 White Blood Count 10.7 K/UL (4.8-10.8) Red Blood Count 3.46 M/UL (4.70-6.10) L Hemoglobin 12.6 G/DL (14.2-18.0) L Hematocrit 32.7 % (42.0-52.0) L Mean Corpuscular Volume 95 FL (80-99) Mean Corpuscular Hemoglobin 36.6 PG (27.0-31.0) H Mean Corpuscular Hemoglobin Concent 38.6 G/DL (32.0-36.0) H Red Cell Distribution Width 15.6 % (11.6-14.8) H Platelet Count 139 K/UL (150-450) L Mean Platelet Volume 6.8 FL (6.5-10.1) Neutrophils (%) (Auto) 75.4 % (45.0-75.0) H Lymphocytes (%) (Auto) 10.4 % (20.0-45.0) L Monocytes (%) (Auto) 10.1 % (1.0-10.0) H Eosinophils (%) (Auto) 1.7 % (0.0-3.0) Basophils (%) (Auto) 2.4 % (0.0-2.0) H Sodium Level 144 MMOL/L (136-145) Potassium Level 4.0 MMOL/L (3.5-5.1) Chloride Level 108 MMOL/L (98-107) H Carbon Dioxide Level 25 MMOL/L (21-32) Anion Gap 11 mmol/L (5-15) Blood Urea Nitrogen 26 mg/dL (7-18) H Creatinine 2.1 MG/DL (0.55-1.30) H Estimat Glomerular Filtration Rate 30.9 mL/min (>60) Glucose Level 98 MG/DL (74-106) Calcium Level 8.8 MG/DL (8.5-10.1) Current Medications Medications (Trade) Dose Ordered Sig/Catrina Route PRN Reason Start Time Stop Time Status Last Admin Dose Admin Acetaminophen (Tylenol) 650 mg Q4H PRN ORAL FEVER 10/20/19 11:30 11/19/19 11:29 10/23/19 09:12 Acetaminophen/ Hydrocodone Bitart ([place] 10/325) 1 tab Q6H PRN ORAL Moderate Pain (Pain Scale 4-6) 10/20/19 11:15 10/27/19 11:14 Albuterol/ Ipratropium (Albuterol/ Ipratropium) 3 ml Q4H PRN HHN Shortness of Breath 10/23/19 11:30 10/28/19 11:29 Allopurinol (Zyloprim) 100 mg DAILY ORAL 10/22/19 09:00 11/20/19 08:59 10/25/19 09:00 Amiodarone HCl (Cordarone) 200 mg EVERY 12 HOURS ORAL 10/22/19 21:00 11/21/19:59 10/25/19 08:59 Apixaban (Eliquis) 5 mg BID ORAL 10/22/19 18:00 11/21/19 17:59 10/25/19 17:29 Atorvastatin Calcium (Lipitor) 10 mg BEDTIME ORAL 10/20/19 21:00 11/19/19 20:59 10/24/19 20:10 Cetylpyridinium Chloride (Cepacol) 1 lozg Q2H PRN HIRAM sore throat 10/22/19 18:00 11/21/19 17:59 10/25/19 12:57 Clonidine HCl (Catapres Tab) 0.1 mg Q4H PRN ORAL bp 165 syst 10/21/19 09:15 11/20/19 09:14 Cyanocobalamin (Vitamin B-12) 1,000 mcg DAILY ORAL 10/25/19 09:00 11/24/19 08:59 10/25/19 09:00 Diltiazem HCl (Cardizem) 10 mg Q1H PRN IV heart rate more than 120, 10/20/19 11:30 11/19/19 11:29 Docusate Sodium (Colace) 100 mg THREE TIMES A DAY ORAL 10/21/19 13:00 11/20/19 12:59 Hydralazine HCl (Apresoline) 50 mg Q8HR ORAL 10/21/19 14:00 11/19/19 20:59 10/25/19 14:33 Isosorbide Mononitrate (Imdur) 30 mg DAILY ORAL 10/23/19 16:00 11/22/19 15:59 10/25/19 09:00 Magnesium Oxide (Mag-Ox 400mg) 400 mg THREE TIMES A DAY ORAL 10/22/19 13:00 11/21/19 12:59 10/25/19 17:36 Metoprolol Tartrate (Lopressor) 50 mg Q12HR ORAL 10/22/19 21:00 11/21/19 20:59 10/25/19 08:59 Nitroglycerin (Ntg) 0.4 mg Q5M PRN SL Prn Chest Pain 10/20/19 11:30 11/19/19 11:29 Ondansetron HCl (Zofran) 4 mg Q6H PRN IVP Nausea & Vomiting 10/20/19 11:30 11/19/19 11:29 Pantoprazole (Protonix) 40 mg BID ORAL 10/22/19 18:00 11/20/19 08:59 10/25/19 17:29 Piperacillin Sod/ Tazobactam Sod 3.375 gm/Sodium Chloride 110 ml @ 27.5 mls/hr EVERY 8 HOURS IVPB 10/24/19 06:00 10/31/19 05:59 10/25/19 14:31 Polyethylene Glycol (Miralax) 17 gm DAILYPRN PRN ORAL Constipation 10/20/19 11:30 11/19/19 11:29 Promethazine HCl/ Codeine (Phenergan with Codeine) 5 ml Q4H PRN ORAL For Cough 10/21/19 19:00 11/20/19 18:59 10/25/19 11:58 Tamsulosin HCl (Flomax) 0.4 mg BID ORAL 10/21/19 09:30 11/20/19 09:29 10/21/19 09:46 Temazepam (Restoril) 15 mg HSPRN PRN ORAL Insomnia 10/20/19 11:30 10/27/19 11:29 Gilmer Reed MD Oct 25, 2019 19:00
--- NOTE | 2019-10-25 19:14 | Internal Med Progress Note ---
Subjective Date of Service: Oct 25, 2019 Physician Name Leroy Zimmer Attending Physician Yonas Purvis MD Current Medications Medications (Trade) Dose Ordered Sig/Catrina Route PRN Reason Start Time Stop Time Status Last Admin Dose Admin Acetaminophen (Tylenol) 650 mg Q4H PRN ORAL FEVER 10/20/19 11:30 11/19/19 11:29 10/23/19 09:12 Acetaminophen/ Hydrocodone Bitart ([place] 10/325) 1 tab Q6H PRN ORAL Moderate Pain (Pain Scale 4-6) 10/20/19 11:15 10/27/19 11:14 Albuterol/ Ipratropium (Albuterol/ Ipratropium) 3 ml Q4H PRN HHN Shortness of Breath 10/23/19 11:30 10/28/19 11:29 Allopurinol (Zyloprim) 100 mg DAILY ORAL 10/22/19 09:00 11/20/19 08:59 10/25/19 09:00 Amiodarone HCl (Cordarone) 200 mg EVERY 12 HOURS ORAL 10/22/19 21:00 11/21/19 20:59 10/25/19 08:59 Apixaban (Eliquis) 5 mg BID ORAL 10/22/19 18:00 11/21/19 17:59 10/25/19 17:29 Atorvastatin Calcium (Lipitor) 10 mg BEDTIME ORAL 10/20/19 21:00 11/19/19 20:59 10/24/19 20:10 Cetylpyridinium Chloride (Cepacol) 1 lozg Q2H PRN HIRAM sore throat 10/22/19 18:00 11/21/19 17:59 10/25/19 12:57 Clonidine HCl (Catapres Tab) 0.1 mg Q4H PRN ORAL bp 165 syst 10/21/19 09:15 11/20/19 09:14 Cyanocobalamin (Vitamin B-12) 1,000 mcg DAILY ORAL 10/25/19 09:00 11/24/19 08:59 10/25/19 09:00 Diltiazem HCl (Cardizem) 10 mg Q1H PRN IV heart rate more than 120, 10/20/19 11:30 11/19/19 11:29 Docusate Sodium (Colace) 100 mg THREE TIMES A DAY ORAL 10/21/19 13:00 11/20/19 12:59 Hydralazine HCl (Apresoline) 50 mg Q8HR ORAL 10/21/19 14:00 11/19/19 20:59 10/25/19 14:33 Isosorbide Mononitrate (Imdur) 30 mg DAILY ORAL 10/23/19 16:00 11/22/19 15:59 10/25/19 09:00 Magnesium Oxide (Mag-Ox 400mg) 400 mg THREE TIMES A DAY ORAL 10/22/19 13:00 11/21/19 12:59 10/25/19 17:36 Metoprolol Tartrate (Lopressor) 50 mg Q12HR ORAL 10/22/19 21:00 11/21/19 20:59 10/25/19 08:59 Nitroglycerin (Ntg) 0.4 mg Q5M PRN SL Prn Chest Pain 10/20/19 11:30 11/19/19 11:29 Ondansetron HCl (Zofran) 4 mg Q6H PRN IVP Nausea & Vomiting 10/20/19 11:30 11/19/19 11:29 Pantoprazole (Protonix) 40 mg BID ORAL 10/22/19 18:00 11/20/19 08:59 10/25/19 17:29 Piperacillin Sod/ Tazobactam Sod 3.375 gm/Sodium Chloride 110 ml @ 27.5 mls/hr EVERY 8 HOURS IVPB 10/24/19 06:00 10/31/19 05:59 10/25/19 14:31 Polyethylene Glycol (Miralax) 17 gm DAILYPRN PRN ORAL Constipation 10/20/19 11:30 11/19/19 11:29 Promethazine HCl/ Codeine (Phenergan with Codeine) 5 ml Q4H PRN ORAL For Cough 10/21/19 19:00 11/20/19 18:59 10/25/19 11:58 Tamsulosin HCl (Flomax) 0.4 mg BID ORAL 10/21/19 09:30 11/20/19 09:29 10/21/19 09:46 Temazepam (Restoril) 15 mg HSPRN PRN ORAL Insomnia 10/20/19 11:30 10/27/19 11:29 Allergies: Coded Allergies: No Known Allergies (Unverified , 09/12/15) ROS Limited/Unobtainable: No Constitutional: Reports: no symptoms HEENT: Reports: no symptoms Cardiovascular: Reports: no symptoms Respiratory: Reports: no symptoms Gastrointestinal/Abdominal: Reports: no symptoms Genitourinary: Reports: no symptoms Neurologic/Psychiatric: Reports: no symptoms Subjective 74 YO M admitted with vertigo and ataxia. Now atrial flutter with rapid ventricular rate and renal failure. Cover for Int Arnaldo-DR Purvis Objective Last Vital Signs Date Time Temp Pulse Resp B/P (MAP) Pulse Ox O2 Delivery O2 Flow Rate FiO2 10/25/19 15:57 98.8 75 20 136/90 (105) 97 10/25/19 09:00 Room Air 10/24/19 20:15 21 Laboratory Tests Test 10/25/19 06:52 White Blood Count 10.7 K/UL (4.8-10.8) Red Blood Count 3.46 M/UL (4.70-6.10) L Hemoglobin 12.6 G/DL (14.2-18.0) L Hematocrit 32.7 % (42.0-52.0) L Mean Corpuscular Volume 95 FL (80-99) Mean Corpuscular Hemoglobin 36.6 PG (27.0-31.0) H Mean Corpuscular Hemoglobin Concent 38.6 G/DL (32.0-36.0) H Red Cell Distribution Width 15.6 % (11.6-14.8) H Platelet Count 139 K/UL (150-450) L Mean Platelet Volume 6.8 FL (6.5-10.1) Neutrophils (%) (Auto) 75.4 % (45.0-75.0) H Lymphocytes (%) (Auto) 10.4 % (20.0-45.0) L Monocytes (%) (Auto) 10.1 % (1.0-10.0) H Eosinophils (%) (Auto) 1.7 % (0.0-3.0) Basophils (%) (Auto) 2.4 % (0.0-2.0) H Sodium Level 144 MMOL/L (136-145) Potassium Level 4.0 MMOL/L (3.5-5.1) Chloride Level 108 MMOL/L (98-107) H Carbon Dioxide Level 25 MMOL/L (21-32) Anion Gap 11 mmol/L (5-15) Blood Urea Nitrogen 26 mg/dL (7-18) H Creatinine 2.1 MG/DL (0.55-1.30) H Estimat Glomerular Filtration Rate 30.9 mL/min (>60) Glucose Level 98 MG/DL (74-106) Calcium Level 8.8 MG/DL (8.5-10.1) Intake and Output 10/24/19 10/25/19 19:00 07:00 Intake Total 600 ml 240 ml Output Total 1000 ml 1650 ml Balance -400 ml -1410 ml Intake Oral 600 ml 240 ml Output Urine Total 1000 ml 1650 ml # Bowel Movements 2 Objective PHYSICAL EXAMINATION: GENERAL: The patient is a well-developed, well-nourished male, in no apparent distress. HEENT: Eyes, pupils are equal and responsive to light and accommodation. Extraocular movements are intact. NECK: Supple without lymphadenopathy. CHEST: Lungs are clear to auscultation bilaterally without wheezes or rales. CARDIOVASCULAR: Regular rate. S1 and S2 are normal without murmurs, rubs, or gallops. ABDOMEN: Soft, nontender, and nondistended. Positive bowel sounds. No evidence of hepatosplenomegaly. Currently, no rebound or guarding noted. EXTREMITIES: Negative for clubbing, cyanosis, or edema. RECTAL: Not performed. GENITAL: Not performed. NEUROLOGIC: Cranial nerves II through XII grossly intact without focal deficits. Motor strength is 5/5 bilaterally. Deep tendon reflexes are 2+ plantar. Assessment/Plan Assessment/Plan ASSESSMENT: This is a 74-year-old male with: 1. Vertigo. 2. Congestive heart failure. 3. Renal failure. 4. Hypercholesteremia. 5. Hypertension. 6. Gout. 7. Atrial flutter with rapid ventricular rate; now sinus TREATMENT: 1. Renal failure. A Nephrology consultation has been obtained with Dr. Sandy. The patient is currently receiving intravenous fluids. We will follow recommendations of Dr. Sandy. Differential includes dehydration versus acute renal failure. 2. Congestive heart failure. Cardiology consultation has been obtained with Dr. Epifanio Silverio. Echocardiogram is pending. We will follow recommendations of Cardiology. 3. Hypercholesterolemia. Continue atorvastatin and fenofibrate as above. 4. Hypertension. Continue hydralazine and metoprolol as above. 5. Gout. Continue allopurinol as above. 6. Continue amiodarone as above Per Cardiology 7. Continue apixaban 8. discharge planning Leroy Zimmer MD Oct 25, 2019 19:14
--- NOTE | 2019-10-25 19:47 | NUR ---
HAND-OFF: Report given to Kim CAGLE. Pt remains stable.
--- NOTE | 2019-10-25 19:50 | NUR ---
NURSE NOTES: Received report from Minsu, RN. Pt in bed awake and oriented x4 and able to make needs known. IV site in left forearm 20G patent and asymptomatic. Side rails x2 up for safety. Bed in lowest position and locked.On room air Will continue to plan of care.
--- NOTE | 2019-10-25 23:00 | Consultation ---
DATE OF CONSULTATION: 10/25/2019 INFECTIOUS DISEASE CONSULTATION CONSULTING PHYSICIAN: Gilmer Reed M.D. REFERRING PHYSICIAN: Erma Rajput M.D. REASON FOR CONSULTATION: Evaluation of the patient for sepsis, fever, antibiotic management. HISTORY OF PRESENT ILLNESS: The patient is a 74-year-old male with multiple medical problems, who was admitted to this medical center earlier for dizziness. The patient developed cough and fever during hospitalization. The patient has been started on IV antibiotics. Infectious Disease consultation has been requested for further evaluation of the patient and antibiotic management. PAST MEDICAL HISTORY: Significant for: 1. Atrial fibrillation with rapid ventricular response. 2. History of chronic renal insufficiency. 3. History of hypertension. 4. History of gout. 5. History of homelessness. 6. Pericardial calcification. 7. History of renal mass. ALLERGIES: No known drug allergies. MEDICATIONS: IV Zosyn. SOCIAL HISTORY: The patient is homeless. FAMILY HISTORY: Not contributing. REVIEW OF SYSTEMS: A 10-point review of systems was done and except what was mentioned above has been negative.HEENT: No recent change in vision or hearing. PULMONARY: As mentioned above. CARDIOVASCULAR: No chest pain. GASTROINTESTINAL/ABDOMEN: No nausea or vomiting. No abdominal pain. GENITOURINARY: No dysuria. PHYSICAL EXAMINATION: VITAL SIGNS: Temperature is 97.5, pulse 86, respiratory rate 18, and blood pressure 152/90. HEENT: No pale conjunctivae. No icterus. NECK: No lymphadenopathy. CHEST: Coarse breathing sounds. HEART: S1 and S2. ABDOMEN: Soft, nontender. EXTREMITIES: No cyanosis at this time. NEUROLOGIC: Awake and alert. LABORATORY AND DIAGNOSTIC DATA: On , the patient has white count of 11, hemoglobin 12.6, platelets 126,000. BUN 26, creatinine 2.1. ALT, AST, and alkaline phosphatase unremarkable. Chest x-ray, no acute process. ASSESSMENT: The patient is a 74-year-old male, who has: 1. Cough. 2. Probable pneumonia (despite of negative chest x-ray). 3. Status post fever. 4. Status post leukocytosis. PLAN: 1. We will continue the patient on IV Zosyn day #2/7. 2. Monitor cultures (blood, sputum). 3. Monitor CBC and BMP. 4. Monitor chest x-ray. 5. Based on the patient's clinical course and labs, we will do further recommendations. Thank you, Dr. Rajput, for allowing me to participate in the care of this patient. I will follow the patient with you during this hospitalization. Gilmer Reed M.D. DR: PAIGE JOB#: [id number] CC:
[2019-10-25] MEDS ORDERED: Nitroglycerin Subl 0.4mg tab SL PRN (23:20)
--- NOTE | 2019-10-25 23:25 | NUR ---
NURSE NOTES: Patient admitted to 3E, received report from TSERING Mckeon. Belongings list reviewed. Patient alert, oriented, no distress noted at this time. No complaints of pain, "except when I cough", patient refuses meds for now. Bed in low position, locked, side rails up x2, call light and light cord within reach. Will continue to monitor.
--- NOTE | 2019-10-25 23:25 | NUR ---
NURSE NOTES: TRANSFER TO FLOOR: Patient transferred to 3 E bed 303-1 via hospital bed. Report given to TSERING Armenta Belongings accounted for and signed with oncoming nurse, Kathi. Pt in stable condition. All medications for 2099 and 2199 have been given, currently zosyn running, IV intact and patent.
[2019-10-25] MEDS ORDERED: dilTIAZem HCl 25mg/5ml Inj IV PRN (23:30)
[2019-10-25] MEDS ORDERED: Albuterol/Ipratropium 3ml neb HHN PRN (23:30)
[2019-10-26] VITALS: BP 152/90
--- NOTE | 2019-10-26 | NUR ---
NURSE NOTES: Offered throat lozenge and cough medication, patient refused both, despite coughing. Aware of need for sputum specimen, cup at bedside. Encouraged to call as needed. Will continue to monitor.
--- NOTE | 2019-10-26 | NUR ---
NURSE NOTES: Sleeping. No distress noted. Addendum: 10/27/19 at 0011 by Kathi Girard RN Incorrect note, incorrect date.
--- NOTE | 2019-10-26 01:22 | NUR ---
NURSE NOTES: Patient asleep, resp unlabored.
[2019-10-26 04:00] VITALS: BP 145/86
--- NOTE | 2019-10-26 04:28 | NUR ---
NURSE NOTES: Patient up to bathroom, steady gait. voided without difficulty. Coughing, unable to give sputum specimen at this time. Refused cough med.
[2019-10-26] MEDS ORDERED: HYDROcodone/Acetamin 10/325 tab ORAL PRN (05:15)
[2019-10-26] MEDS: Zoysn 3.37gm in NS 100ML IVPB SCH (05:48)
[2019-10-26] MEDS: HydrALAZINE 50mg tab ORAL SCH ×3 (05:49→22:00)
[2019-10-26] MEDS: Piperacillin/Tazobactam 3.375 GM in NS 110 ML IVPB SCH ×3 (05:49→22:00)
[2019-10-26 06:47] LABS: ANION GAP 10 mmol/L (5-15); BLOOD UREA NITROGEN 27 mg/dL (7-18); CALCIUM 8.9 MG/DL (8.5-10.1); CARBON DIOXIDE 28 MMOL/L (21-32); CHLORIDE 109 MMOL/L (98-107); CREATININE 2.4 MG/DL (0.55-1.30); POTASSIUM 4.2 MMOL/L (3.5-5.1); SODIUM 146 MMOL/L (136-145)
[2019-10-26 07:02] LABS: BASOPHILS % (AUTO) 0.9 % (0.0-2.0); EOSINOPHILS % (AUTO) 2.3 % (0.0-3.0); HEMATOCRIT 31.8 % (42.0-52.0); HEMOGLOBIN 12.3 G/DL (14.2-18.0); LYMPHOCYTES % (AUTO) 13.8 % (20.0-45.0); MEAN CORPUSCULAR VOLUME 96 FL (80-99); MONOCYTES % (AUTO) 12.6 % (1.0-10.0); NEUTROPHILS % (AUTO) 70.4 % (45.0-75.0); PLATELET COUNT 172 K/UL (150-450); RED BLOOD COUNT 3.32 M/UL (4.70-6.10); RED CELL DISTRIBUTION WIDTH 14.6 % (11.6-14.8); WHITE BLOOD COUNT 9.4 K/UL (4.8-10.8)
--- NOTE | 2019-10-26 07:33 | NUR ---
HAND-OFF: Left written report for TSERING Parry. Charge nurse aware.
[2019-10-26 08:00] VITALS: BP 144/69
[2019-10-26] MEDS ORDERED: Tamsulosin 0.4mg cap ORAL SCH (09:00)
[2019-10-26] MEDS ORDERED: Eliquis 5mg tablet ORAL SCH (09:00)
--- NOTE | 2019-10-26 09:00 | NUR ---
NURSE NOTES: Patient is in bed awake and able to verbalize needs. Stable. Patient is upset at RN for asking him to verify his name and birthday. Plan of care discussed with patient. Patient instructed to use call light for assistance, verbalized understanding. Patient is in bed in locked and lowest position with call light within reach. All needs met at this time. All safety measures provided. Will continue to monitor.
[2019-10-26] MEDS: Allopurinol 100mg Tab ORAL SCH (09:58)
[2019-10-26] MEDS: Imdur 30mg tab ORAL SCH (09:58)
[2019-10-26] MEDS: Docusate 100mg cap ORAL SCH ×3 (09:59→17:22)
[2019-10-26] MEDS: Vitamin B-12 500mcg tab ORAL SCH (09:59)
[2019-10-26] MEDS: Magnesium Oxide 400mg tab ORAL SCH ×3 (09:59→17:53)
[2019-10-26] MEDS: Amiodarone 200mg tab ORAL SCH ×2 (09:59→20:40)
--- NOTE | 2019-10-26 09:59 | NUR ---
RD ASSESSMENT & RECOMMENDATIONS SEE CARE ACTIVITY FOR COMPLETE ASSESSMENT DAILY ESTIMATED NEEDS: Needs based on Cardiac 78.6 kg abw 25-30 kcals/kg 4384-2985 total kcals 1-1.2 g protein/kg 79-94 g total protein 25-30 mL/kg 1451-7397 total fluid mLs NUTRITION DIAGNOSIS: Decreased sodium and fat needs r/t cardiac history (CHF, HTN) as evidenced by pt w/ elev BP (145/86), elev BNP, w/ h/o hypercholesterolemia. CURRENT DIET: Regular PO DIET RECOMMENDATIONS--->>> Rec diet change to CARDIAC diet (Low Na/ Low Fat) ADDITIONAL RECOMMENDATIONS: 1) Obtain a standing weight 2) Monitor lytes w/ renal dx, need for renal dietary restrictions
[2019-10-26] MEDS: Metoprolol Tartrate 50mg tab ORAL SCH ×2 (10:00→20:40)
--- NOTE | 2019-10-26 10:39 | Infectious Diseases Prog Note ---
Assessment/Plan Assessment/Plan ASSESSMENT: The patient is a 74-year-old male, who has: Cough Probable pneumonia (despite of negative chest x-ray). Status post fever Status post leukocytosis. Atrial fibrillation with rapid ventricular response. History of chronic renal insufficiency. History of hypertension. History of gout. History of homelessness. Pericardial calcification. History of renal mass. PLAN: continue the patient on IV Zosyn day #3/7 Monitor cultures (blood, sputum) Monitor CBC and BMP. Monitor chest x-ray. recommendations. Subjective Allergies: Coded Allergies: No Known Allergies (Unverified , 09/12/15) Subjective afebrile Objective Vital Signs Last 24 Hour Vital Signs Date Time Temp Pulse Resp B/P (MAP) Pulse Ox O2 Delivery O2 Flow Rate FiO2 10/26/19 10:00 84 144/69 10/26/19 09:58 144/69 10/26/19 09:00 Room Air 10/26/19 08:00 99.4 84 18 144/69 (94) 92 10/26/19 05:49 145/86 10/26/19 04:00 98.6 75 17 145/86 (105) 96 10/26/19 00:00 98.8 83 18 152/90 (110) 96 10/25/19 22:05 142/79 10/25/19 20:50 Room Air 10/25/19 20:46 87 156/79 10/25/19 20:00 98.2 87 16 156/79 (104) 95 10/25/19 19:54 82 18 96 Room Air 21 10/25/19 15:57 98.8 75 20 136/90 (105) 97 10/25/19 14:33 137/75 10/25/19 12:00 98.1 73 20 137/75 (95) 97 Height (Feet): 5 Height (Inches): 10.00 Weight (Pounds): 194 HEENT: anicteric Respiratory/Chest: no respiratory distress Cardiovascular: regularly irregular Abdomen: no organomegaly Laboratory Tests Test 10/26/19 05:20 White Blood Count 9.4 K/UL (4.8-10.8) Red Blood Count 3.32 M/UL (4.70-6.10) L Hemoglobin 12.3 G/DL (14.2-18.0) L Hematocrit 31.8 % (42.0-52.0) L Mean Corpuscular Volume 96 FL (80-99) Mean Corpuscular Hemoglobin 37.0 PG (27.0-31.0) H Mean Corpuscular Hemoglobin Concent 38.5 G/DL (32.0-36.0) H Red Cell Distribution Width 14.6 % (11.6-14.8) Platelet Count 172 K/UL (150-450) Mean Platelet Volume 6.5 FL (6.5-10.1) Neutrophils (%) (Auto) 70.4 % (45.0-75.0) Lymphocytes (%) (Auto) 13.8 % (20.0-45.0) L Monocytes (%) (Auto) 12.6 % (1.0-10.0) H Eosinophils (%) (Auto) 2.3 % (0.0-3.0) Basophils (%) (Auto) 0.9 % (0.0-2.0) Sodium Level 146 MMOL/L (136-145) H Potassium Level 4.2 MMOL/L (3.5-5.1) Chloride Level 109 MMOL/L (98-107) H Carbon Dioxide Level 28 MMOL/L (21-32) Anion Gap 10 mmol/L (5-15) Blood Urea Nitrogen 27 mg/dL (7-18) H Creatinine 2.4 MG/DL (0.55-1.30) H Estimat Glomerular Filtration Rate 26.5 mL/min (>60) Glucose Level 95 MG/DL (74-106) Calcium Level 8.9 MG/DL (8.5-10.1) Current Medications Medications (Trade) Dose Ordered Sig/Catrina Route PRN Reason Start Time Stop Time Status Last Admin Dose Admin Acetaminophen (Tylenol) 650 mg Q4H PRN ORAL FEVER 10/25/19 23:30 11/19/19 11:29 Acetaminophen/ Hydrocodone Bitart ([place] 10/325) 1 tab Q6H PRN ORAL Moderate Pain (Pain Scale 4-6) 10/26/19 05:15 10/27/19 11:14 Albuterol/ Ipratropium (Albuterol/ Ipratropium) 3 ml Q4H PRN HHN Shortness of Breath 10/25/19 23:30 10/28/19 11:29 Allopurinol (Zyloprim) 100 mg DAILY ORAL 10/26/19 09:00 11/20/19 08:59 10/26/19 09:58 Amiodarone HCl (Cordarone) 200 mg EVERY 12 HOURS ORAL 10/26/19 09:00 11/21/19 20:59 10/26/19 09:59 Apixaban (Eliquis) 5 mg BID ORAL 10/26/19 09:00 11/21/19 17:59 10/26/19 09:58 Atorvastatin Calcium (Lipitor) 10 mg BEDTIME ORAL 10/26/19 21:00 11/19/19 20:59 Cetylpyridinium Chloride (Cepacol) 1 lozg Q2H PRN HIRAM sore throat 10/26/19 00:00 11/21/19 17:59 Clonidine HCl (Catapres Tab) 0.1 mg Q4H PRN ORAL bp 165 syst 10/26/19 01:15 11/20/19 09:14 Cyanocobalamin (Vitamin B-12) 1,000 mcg DAILY ORAL 10/26/19 09:00 11/24/19 08:59 10/26/19 09:59 Diltiazem HCl (Cardizem) 10 mg Q1H PRN IV heart rate more than 120, 10/25/19 23:30 11/19/19 11:29 Docusate Sodium (Colace) 100 mg THREE TIMES A DAY ORAL 10/26/19 09:00 11/20/19 12:59 10/26/19 09:59 Hydralazine HCl (Apresoline) 50 mg Q8HR ORAL 10/26/19 06:00 11/19/19 20:59 10/26/19 05:49 Isosorbide Mononitrate (Imdur) 30 mg DAILY ORAL 10/26/19 09:00 11/22/19 15:59 10/26/19 09:58 Magnesium Oxide (Mag-Ox 400mg) 400 mg THREE TIMES A DAY ORAL 10/26/19 09:00 11/21/19 12:59 10/26/19 09:59 Metoprolol Tartrate (Lopressor) 50 mg Q12HR ORAL 10/26/19 09:00 11/21/19 20:59 10/26/19 10:00 Nitroglycerin (Ntg) 0.4 mg Q5M PRN SL Prn Chest Pain 10/25/19 23:20 11/19/19 11:29 Ondansetron HCl (Zofran) 4 mg Q6H PRN IVP Nausea & Vomiting 10/25/19 23:30 11/19/19 11:29 Pantoprazole (Protonix) 40 mg BID ORAL 10/26/19 09:00 11/20/19 08:59 10/26/19 09:59 Piperacillin Sod/ Tazobactam Sod 3.375 gm/Sodium Chloride 110 ml @ 27.5 mls/hr EVERY 8 HOURS IVPB 10/26/19 06:00 10/31/19 05:59 10/26/19 05:49 Polyethylene Glycol (Miralax) 17 gm DAILYPRN PRN ORAL Constipation 10/26/19 11:30 11/19/19 11:29 Promethazine HCl/ Codeine (Phenergan with Codeine) 5 ml Q4H PRN ORAL For Cough 10/26/19 01:00 11/20/19 00:59 Tamsulosin HCl (Flomax) 0.4 mg BID ORAL 10/26/19 09:00 11/20/19 09:29 10/26/19 09:59 Temazepam (Restoril) 15 mg HSPRN PRN ORAL Insomnia 10/26/19 03:00 10/27/19 02:59 Gilmer Reed MD Oct 26, 2019 10:39
--- NOTE | 2019-10-26 11:06 | NUR ---
CHARGE NURSE NOTES: Pt is very independent w/ ADL's, ambulates inside his room, walks from his room to the nursing station (100 feetx2) back & forth without any help, w/ steady gait. No dizziness, per pt report.
[2019-10-26] MEDS ORDERED: Miralax 17gm pkt ORAL PRN (11:30)
--- NOTE | 2019-10-26 11:58 | Nephrology Progress Note ---
Assessment/Plan Problem List: (1) Renal failure (ARF), acute on chronic Assessment: Cr up to 2.4 (2) Atrial flutter with rapid ventricular response (3) Pericardial calcification (4) History of hypertension (5) History of gout (6) Cardiomyopathy Assessment 1. Acute on chronic renal failure. 2. Atrial flutter with rapid ventricular response upon admission. 3. Hypertension. 4. History of gout. 5. Homeless. 6. Pericardial calcification. 7. Cardiomyopathy Plan monitor renal parameters. Cr higher today Optimize cardiac and pulmonary status. Avoid nephrotoxic. Urine studies. Flomax. Keep the blood pressure and blood sugar in check. per orders Subjective ROS Limited/Unobtainable: No Constitutional: Reports: malaise Objective Objective Last 24 Hour Vital Signs Date Time Temp Pulse Resp B/P (MAP) Pulse Ox O2 Delivery O2 Flow Rate FiO2 10/26/19 10:00 84 144/69 10/26/19 09:58 144/69 10/26/19 09:00 Room Air 10/26/19 08:00 99.4 84 18 144/69 (94) 92 10/26/19 05:49 145/86 10/26/19 04:00 98.6 75 17 145/86 (105) 96 10/26/19 00:00 98.8 83 18 152/90 (110) 96 10/25/19 22:05 142/79 10/25/19 20:50 Room Air 10/25/19 20:46 87 156/79 10/25/19 20:00 98.2 87 16 156/79 (104) 95 10/25/19 19:54 82 18 96 Room Air 21 10/25/19 15:57 98.8 75 20 136/90 (105) 97 10/25/19 14:33 137/75 10/25/19 12:00 98.1 73 20 137/75 (95) 97 Intake and Output 10/25/19 10/26/19 19:00 07:00 Intake Total 400 ml 360 ml Output Total 1250 ml Balance -850 ml 360 ml Intake Oral 400 ml 360 ml Output Urine Total 1250 ml # Voids 4 2 Current Medications Medications (Trade) Dose Ordered Sig/Catrina Route PRN Reason Start Time Stop Time Status Last Admin Dose Admin Acetaminophen (Tylenol) 650 mg Q4H PRN ORAL FEVER 2/25/20 23:30 11/19/19 11:29 Acetaminophen/ Hydrocodone Bitart ([place] 10/325) 1 tab Q6H PRN ORAL Moderate Pain (Pain Scale 4-6) 10/26/19 05:15 10/27/19 11:14 Albuterol/ Ipratropium (Albuterol/ Ipratropium) 3 ml Q4H PRN HHN Shortness of Breath 10/25/19 23:30 10/28/19 11:29 Allopurinol (Zyloprim) 100 mg DAILY ORAL 10/26/19 09:00 11/20/19 08:59 10/26/19 09:58 Amiodarone HCl (Cordarone) 200 mg EVERY 12 HOURS ORAL 10/26/19 09:00 11/21/19 20:59 10/26/19 09:59 Apixaban (Eliquis) 5 mg BID ORAL 10/26/19 09:00 11/21/19 17:59 10/26/19 09:58 Atorvastatin Calcium (Lipitor) 10 mg BEDTIME ORAL 10/26/19 21:00 11/19/19 20:59 Cetylpyridinium Chloride (Cepacol) 1 lozg Q2H PRN HIRAM sore throat 10/26/19 00:00 11/21/19 17:59 Clonidine HCl (Catapres Tab) 0.1 mg Q4H PRN ORAL bp 165 syst 10/26/19 01:15 11/20/19 09:14 Cyanocobalamin (Vitamin B-12) 1,000 mcg DAILY ORAL 10/26/19 09:00 11/24/19 08:59 10/26/19 09:59 Diltiazem HCl (Cardizem) 10 mg Q1H PRN IV heart rate more than 120, 10/25/19 23:30 11/19/19 11:29 Docusate Sodium (Colace) 100 mg THREE TIMES A DAY ORAL 10/26/19 09:00 11/20/19 12:59 10/26/19 09:59 Hydralazine HCl (Apresoline) 50 mg Q8HR ORAL 10/26/19 06:00 11/19/19 20:59 10/26/19 05:49 Isosorbide Mononitrate (Imdur) 30 mg DAILY ORAL 10/26/19 09:00 11/22/19 15:59 10/26/19 09:58 Magnesium Oxide (Mag-Ox 400mg) 400 mg THREE TIMES A DAY ORAL 10/26/19 09:00 11/21/19 12:59 10/26/19 09:59 Metoprolol Tartrate (Lopressor) 50 mg Q12HR ORAL 10/26/19 09:00 11/21/19 20:59 10/26/19 10:00 Nitroglycerin (Ntg) 0.4 mg Q5M PRN SL Prn Chest Pain 10/25/19 23:20 11/19/19 11:29 Ondansetron HCl (Zofran) 4 mg Q6H PRN IVP Nausea & Vomiting 10/25/19 23:30 11/19/19 11:29 Pantoprazole (Protonix) 40 mg BID ORAL 10/26/19 09:00 11/20/19 08:59 10/26/19 09:59 Piperacillin Sod/ Tazobactam Sod 3.375 gm/Sodium Chloride 110 ml @ 27.5 mls/hr EVERY 8 HOURS IVPB 10/26/19 06:00 10/31/19 05:59 10/26/19 05:49 Polyethylene Glycol (Miralax) 17 gm DAILYPRN PRN ORAL Constipation 10/26/19 11:30 11/19/19 11:29 Promethazine HCl/ Codeine (Phenergan with Codeine) 5 ml Q4H PRN ORAL For Cough 10/26/19 01:00 11/20/19 00:59 Tamsulosin HCl (Flomax) 0.4 mg BID ORAL 10/26/19 09:00 11/20/19 09:29 10/26/19 09:59 Temazepam (Restoril) 15 mg HSPRN PRN ORAL Insomnia 10/26/19 03:00 10/27/19 02:59 Laboratory Tests 10/26/19 05:20: White Blood Count 9.4, Red Blood Count 3.32L, Hemoglobin 12.3L, Hematocrit 31.8L , Mean Corpuscular Volume 96, Mean Corpuscular Hemoglobin 37.0H, Mean Corpuscular Hemoglobin Concent 38.5H, Red Cell Distribution Width 14.6, Platelet Count 172, Mean Platelet Volume 6.5, Neutrophils (%) (Auto) 70.4, Lymphocytes (%) (Auto) 13.8L, Monocytes (%) (Auto) 12.6H, Eosinophils (%) (Auto ) 2.3, Basophils (%) (Auto) 0.9, Sodium Level 146H, Potassium Level 4.2, Chloride Level 109H, Carbon Dioxide Level 28, Anion Gap 10, Blood Urea Nitrogen 27H, Creatinine 2.4H, Estimat Glomerular Filtration Rate 26.5, Glucose Level 95 , Calcium Level 8.9 Height (Feet): 5 Height (Inches): 10.00 Weight (Pounds): 194 General Appearance: no apparent distress Objective no change Avila Sandy MD Oct 26, 2019 11:58
[2019-10-26 12:00] VITALS: BP 138/77
--- NOTE | 2019-10-26 12:06 | NUR ---
SECURITY AUDITOR NOTE SW met w/ pt to discuss dc planning. Pt presents as A&O4x, irritable and labile. Pt states he does not know where he will be going upon DC. Pt is ambulatory and independent w/ ADLs. SW offered board and care and independent living facilities. However, pt refused that he does not want shared housing. GISSEL informed pt tat SW can only offer limited housing. GISSEL redirected pt several times as pt attempted to change topics while discussing dc planning. Pt reports he needs to see a monitoring tech at ' office upon DC. GISSEL encouraged pt to schedule the appointment so that he could address his concern in dermatology. SW offered the list of winter shelters, homeless shelters, list of independent living facilities and other homeless resource. HOwever, pt refused to receive them. PT did not disclose his preferred location. GISSEL encouraged pt to work w/ his legal support manager, Pepe Bean from [facility]. PT is uncooperative w/ dc planning. PT to be discharged his preferred location w/ bus pass. Signed: 10/26/19 at 1211 by CAIT CHAUHAN <Co-Signature Required>
--- NOTE | 2019-10-26 12:30 | NUR ---
NURSE NOTES: Patient able to ambulate independently, steady gait. Patient confirms that he is able to ambulate independently and that he does not have any dizziness. Patient's vital signs are stable. Will continue to monitor.
--- NOTE | 2019-10-26 12:32 | NUR ---
DISCHARGE PLANNING: PATIENT HAS EXHAUSTED SNF DAYS UNABLE TO PLACE IN SNF NO SKILLED NEED PATIENT IS ABLE TO AMBULATE WITH NO ASSIST SW PROVIDED DC SHELTERS; PT DECLINING SERVICES PATIENT TO BE DISCHARGE
--- NOTE | 2019-10-26 12:53 | Internal Med Progress Note ---
Subjective Date of Service: Oct 26, 2019 Physician Name Leroy Zimmer Attending Physician Yonas Purvis MD Current Medications Medications (Trade) Dose Ordered Sig/Catrina Route PRN Reason Start Time Stop Time Status Last Admin Dose Admin Acetaminophen (Tylenol) 650 mg Q4H PRN ORAL FEVER 10/25/19 23:30 11/19/19 11:29 Acetaminophen/ Hydrocodone Bitart ([place] 10/325) 1 tab Q6H PRN ORAL Moderate Pain (Pain Scale 4-6) 10/26/19 05:15 10/27/19 11:14 Albuterol/ Ipratropium (Albuterol/ Ipratropium) 3 ml Q4H PRN HHN Shortness of Breath 10/25/19 23:30 10/28/19 11:29 Allopurinol (Zyloprim) 100 mg DAILY ORAL 10/26/19 09:00 11/20/19 08:59 10/26/19 09:58 Amiodarone HCl (Cordarone) 200 mg EVERY 12 HOURS ORAL 10/26/19 09:00 11/21/19 20:59 10/26/19 09:59 Apixaban (Eliquis) 5 mg BID ORAL 10/26/19 09:00 11/21/19 17:59 10/26/19 09:58 Atorvastatin Calcium (Lipitor) 10 mg BEDTIME ORAL 10/26/19 21:00 11/19/19 20:59 Cetylpyridinium Chloride (Cepacol) 1 lozg Q2H PRN HIRAM sore throat 10/26/19 00:00 11/21/19 17:59 Clonidine HCl (Catapres Tab) 0.1 mg Q4H PRN ORAL bp 165 syst 10/26/19 01:15 11/20/19 09:14 Cyanocobalamin (Vitamin B-12) 1,000 mcg DAILY ORAL 10/26/19 09:00 11/24/19 08:59 10/26/19 09:59 Diltiazem HCl (Cardizem) 10 mg Q1H PRN IV heart rate more than 120, 10/25/19 23:30 11/19/19 11:29 Docusate Sodium (Colace) 100 mg THREE TIMES A DAY ORAL 10/26/19 09:00 11/20/19 12:59 10/26/19 09:59 Hydralazine HCl (Apresoline) 50 mg Q8HR ORAL 10/26/19 06:00 11/19/19 20:59 10/26/19 05:49 Isosorbide Mononitrate (Imdur) 30 mg DAILY ORAL 10/26/19 09:00 11/22/19 15:59 10/26/19 09:58 Magnesium Oxide (Mag-Ox 400mg) 400 mg THREE TIMES A DAY ORAL 10/26/19 09:00 11/21/19 12:59 10/26/19 09:59 Metoprolol Tartrate (Lopressor) 50 mg Q12HR ORAL 10/26/19 09:00 11/21/19 20:59 10/26/19 10:00 Nitroglycerin (Ntg) 0.4 mg Q5M PRN SL Prn Chest Pain 10/25/19 23:20 11/19/19 11:29 Ondansetron HCl (Zofran) 4 mg Q6H PRN IVP Nausea & Vomiting 10/25/19 23:30 11/19/19 11:29 Pantoprazole (Protonix) 40 mg BID ORAL 10/26/19 09:00 11/20/19 08:59 10/26/19 09:59 Piperacillin Sod/ Tazobactam Sod 3.375 gm/Sodium Chloride 110 ml @ 27.5 mls/hr EVERY 8 HOURS IVPB 10/26/19 06:00 10/31/19 05:59 10/26/19 05:49 Polyethylene Glycol (Miralax) 17 gm DAILYPRN PRN ORAL Constipation 10/26/19 11:30 11/19/19 11:29 Promethazine HCl/ Codeine (Phenergan with Codeine) 5 ml Q4H PRN ORAL For Cough 10/26/19 01:00 11/20/19 00:59 Tamsulosin HCl (Flomax) 0.4 mg BID ORAL 10/26/19 09:00 11/20/19 09:29 10/26/19 09:59 Temazepam (Restoril) 15 mg HSPRN PRN ORAL Insomnia 10/26/19 03:00 10/27/19 02:59 Allergies: Coded Allergies: No Known Allergies (Unverified , 09/12/15) ROS Limited/Unobtainable: No Constitutional: Reports: no symptoms HEENT: Reports: no symptoms Cardiovascular: Reports: no symptoms Respiratory: Reports: no symptoms Gastrointestinal/Abdominal: Reports: no symptoms Genitourinary: Reports: no symptoms Neurologic/Psychiatric: Reports: no symptoms Subjective 74 YO M admitted with vertigo and ataxia. Now atrial flutter with rapid ventricular rate and renal failure. Cover for Int Arnaldo-DR Purvis Objective Last Vital Signs Date Time Temp Pulse Resp B/P (MAP) Pulse Ox O2 Delivery O2 Flow Rate FiO2 10/26/19 12:00 98.4 70 20 138/77 (97) 94 10/26/19 09:00 Room Air 10/25/19 19:54 21 Laboratory Tests Test 10/26/19 05:20 White Blood Count 9.4 K/UL (4.8-10.8) Red Blood Count 3.32 M/UL (4.70-6.10) L Hemoglobin 12.3 G/DL (14.2-18.0) L Hematocrit 31.8 % (42.0-52.0) L Mean Corpuscular Volume 96 FL (80-99) Mean Corpuscular Hemoglobin 37.0 PG (27.0-31.0) H Mean Corpuscular Hemoglobin Concent 38.5 G/DL (32.0-36.0) H Red Cell Distribution Width 14.6 % (11.6-14.8) Platelet Count 172 K/UL (150-450) Mean Platelet Volume 6.5 FL (6.5-10.1) Neutrophils (%) (Auto) 70.4 % (45.0-75.0) Lymphocytes (%) (Auto) 13.8 % (20.0-45.0) L Monocytes (%) (Auto) 12.6 % (1.0-10.0) H Eosinophils (%) (Auto) 2.3 % (0.0-3.0) Basophils (%) (Auto) 0.9 % (0.0-2.0) Sodium Level 146 MMOL/L (136-145) H Potassium Level 4.2 MMOL/L (3.5-5.1) Chloride Level 109 MMOL/L (98-107) H Carbon Dioxide Level 28 MMOL/L (21-32) Anion Gap 10 mmol/L (5-15) Blood Urea Nitrogen 27 mg/dL (7-18) H Creatinine 2.4 MG/DL (0.55-1.30) H Estimat Glomerular Filtration Rate 26.5 mL/min (>60) Glucose Level 95 MG/DL (74-106) Calcium Level 8.9 MG/DL (8.5-10.1) Intake and Output 10/25/19 10/26/19 19:00 07:00 Intake Total 400 ml 360 ml Output Total 1250 ml Balance -850 ml 360 ml Intake Oral 400 ml 360 ml Output Urine Total 1250 ml # Voids 4 2 Objective PHYSICAL EXAMINATION: GENERAL: The patient is a well-developed, well-nourished male, in no apparent distress. HEENT: Eyes, pupils are equal and responsive to light and accommodation. Extraocular movements are intact. NECK: Supple without lymphadenopathy. CHEST: Lungs are clear to auscultation bilaterally without wheezes or rales. CARDIOVASCULAR: Regular rate. S1 and S2 are normal without murmurs, rubs, or gallops. ABDOMEN: Soft, nontender, and nondistended. Positive bowel sounds. No evidence of hepatosplenomegaly. Currently, no rebound or guarding noted. EXTREMITIES: Negative for clubbing, cyanosis, or edema. RECTAL: Not performed. GENITAL: Not performed. NEUROLOGIC: Cranial nerves II through XII grossly intact without focal deficits. Motor strength is 5/5 bilaterally. Deep tendon reflexes are 2+ plantar. Assessment/Plan Assessment/Plan ASSESSMENT: This is a 74-year-old male with: 1. Vertigo. 2. Congestive heart failure. 3. Renal failure. 4. Hypercholesteremia. 5. Hypertension. 6. Gout. 7. Atrial flutter with rapid ventricular rate; now sinus TREATMENT: 1. Renal failure. A Nephrology consultation has been obtained with Dr. Sandy. The patient is currently receiving intravenous fluids. We will follow recommendations of Dr. Sandy. Differential includes dehydration versus acute renal failure. 2. Congestive heart failure. Cardiology consultation has been obtained with Dr. Epifanio Silverio. Echocardiogram is pending. We will follow recommendations of Cardiology. 3. Hypercholesterolemia. Continue atorvastatin and fenofibrate as above. 4. Hypertension. Continue hydralazine and metoprolol as above. 5. Gout. Continue allopurinol as above. 6. Continue amiodarone as above Per Cardiology 7. Continue apixaban 8. discharge planning Leroy Zimmer MD Oct 26, 2019 12:53
--- NOTE | 2019-10-26 12:58 | Pulmonology Progress Note ---
Assessment/Plan Problems: (1) Purulent bronchitis (2) Atrial flutter with rapid ventricular response Assessment & Plan: converted to sinus (3) Chronic renal insufficiency, stage II (mild) (4) History of hypertension (5) History of gout (6) Homelessness (7) Pericardial calcification Assessment & Plan: PPD to rule out Hx of TB (8) Renal mass Assessment/Plan renal function worsening ID consult appreciated ge doesn't want any anticoagulation rate controlled no more telemetry monitoring converted to sinus spontaneously monitor BP renal studies, bun/creatinine were the same during the last admission a few years ago echo cardiogram reviewed EF is 35% to 40% pericardiac calcification is old cardio evaluation appreciated social service evaluation. Subjective ROS Limited/Unobtainable: No Constitutional: Reports: no symptoms HEENT: Repors: no symptoms Respiratory: Reports: no symptoms Allergies: Coded Allergies: No Known Allergies (Unverified , 09/12/15) Objective Last 24 Hour Vital Signs Date Time Temp Pulse Resp B/P (MAP) Pulse Ox O2 Delivery O2 Flow Rate FiO2 10/26/19 12:00 98.4 70 20 138/77 (97) 94 10/26/19 10:00 84 144/69 10/26/19 09:58 144/69 10/26/19 09:00 Room Air 10/26/19 08:00 99.4 84 18 144/69 (94) 92 10/26/19 05:49 145/86 10/26/19 04:00 98.6 75 17 145/86 (105) 96 10/26/19 00:00 98.8 83 18 152/90 (110) 96 10/25/19 22:05 142/79 10/25/19 20:50 Room Air 10/25/19 20:46 87 156/79 10/25/19 20:00 98.2 87 16 156/79 (104) 95 10/25/19 19:54 82 18 96 Room Air 21 10/25/19 15:57 98.8 75 20 136/90 (105) 97 10/25/19 14:33 137/75 Intake and Output 10/25/19 10/26/19 19:00 07:00 Intake Total 400 ml 360 ml Output Total 1250 ml Balance -850 ml 360 ml Intake Oral 400 ml 360 ml Output Urine Total 1250 ml # Voids 4 2 Objective still coughing a lot, has lots of ear wax. 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 normal Laboratory Tests 10/26/19 05:20: White Blood Count 9.4, Red Blood Count 3.32L, Hemoglobin 12.3L, Hematocrit 31.8L , Mean Corpuscular Volume 96, Mean Corpuscular Hemoglobin 37.0H, Mean Corpuscular Hemoglobin Concent 38.5H, Red Cell Distribution Width 14.6, Platelet Count 172, Mean Platelet Volume 6.5, Neutrophils (%) (Auto) 70.4, Lymphocytes (%) (Auto) 13.8L, Monocytes (%) (Auto) 12.6H, Eosinophils (%) (Auto ) 2.3, Basophils (%) (Auto) 0.9, Sodium Level 146H, Potassium Level 4.2, Chloride Level 109H, Carbon Dioxide Level 28, Anion Gap 10, Blood Urea Nitrogen 27H, Creatinine 2.4H, Estimat Glomerular Filtration Rate 26.5, Glucose Level 95 , Calcium Level 8.9 Current Medications Medications (Trade) Dose Ordered Sig/Catrina Route PRN Reason Start Time Stop Time Status Last Admin Dose Admin Acetaminophen (Tylenol) 650 mg Q4H PRN ORAL FEVER 10/25/19 23:30 11/19/19 11:29 Acetaminophen/ Hydrocodone Bitart ([place] 10/325) 1 tab Q6H PRN ORAL Moderate Pain (Pain Scale 4-6) 10/26/19 05:15 10/27/19 11:14 Albuterol/ Ipratropium (Albuterol/ Ipratropium) 3 ml Q4H PRN HHN Shortness of Breath 10/25/19 23:30 10/28/19 11:29 Allopurinol (Zyloprim) 100 mg DAILY ORAL 10/26/19 09:00 11/20/19 08:59 10/26/19 09:58 Amiodarone HCl (Cordarone) 200 mg EVERY 12 HOURS ORAL 10/26/19 09:00 11/21/19 20:59 10/26/19 09:59 Apixaban (Eliquis) 5 mg BID ORAL 10/26/19 09:00 11/21/19 17:59 10/26/19 09:58 Atorvastatin Calcium (Lipitor) 10 mg BEDTIME ORAL 10/26/19 21:00 11/19/19 20:59 Cetylpyridinium Chloride (Cepacol) 1 lozg Q2H PRN HIRAM sore throat 10/26/19 00:00 11/21/19 17:59 Clonidine HCl (Catapres Tab) 0.1 mg Q4H PRN ORAL bp 165 syst 10/26/19 01:15 11/20/19 09:14 Cyanocobalamin (Vitamin B-12) 1,000 mcg DAILY ORAL 10/26/19 09:00 11/24/19 08:59 10/26/19 09:59 Diltiazem HCl (Cardizem) 10 mg Q1H PRN IV heart rate more than 120, 10/25/19 23:30 11/19/19 11:29 Docusate Sodium (Colace) 100 mg THREE TIMES A DAY ORAL 10/26/19 09:00 11/20/19 12:59 10/26/19 09:59 Hydralazine HCl (Apresoline) 50 mg Q8HR ORAL 10/26/19 06:00 11/19/19 20:59 10/26/19 05:49 Isosorbide Mononitrate (Imdur) 30 mg DAILY ORAL 10/26/19 09:00 11/22/19 15:59 10/26/19 09:58 Magnesium Oxide (Mag-Ox 400mg) 400 mg THREE TIMES A DAY ORAL 10/26/19 09:00 11/21/19 12:59 10/26/19 09:59 Metoprolol Tartrate (Lopressor) 50 mg Q12HR ORAL 10/26/19 09:00 11/21/19 20:59 10/26/19 10:00 Nitroglycerin (Ntg) 0.4 mg Q5M PRN SL Prn Chest Pain 10/25/19 23:20 11/19/19 11:29 Ondansetron HCl (Zofran) 4 mg Q6H PRN IVP Nausea & Vomiting 10/25/19 23:30 11/19/19 11:29 Pantoprazole (Protonix) 40 mg BID ORAL 10/26/19 09:00 11/20/19 08:59 10/26/19 09:59 Piperacillin Sod/ Tazobactam Sod 3.375 gm/Sodium Chloride 110 ml @ 27.5 mls/hr EVERY 8 HOURS IVPB 10/26/19 06:00 10/31/19 05:59 10/26/19 05:49 Polyethylene Glycol (Miralax) 17 gm DAILYPRN PRN ORAL Constipation 10/26/19 11:30 11/19/19 11:29 Promethazine HCl/ Codeine (Phenergan with Codeine) 5 ml Q4H PRN ORAL For Cough 10/26/19 01:00 11/20/19 00:59 Tamsulosin HCl (Flomax) 0.4 mg BID ORAL 10/26/19 09:00 11/20/19 09:29 10/26/19 09:59 Temazepam (Restoril) 15 mg HSPRN PRN ORAL Insomnia 10/26/19 03:00 10/27/19 02:59 Erma Rajput MD Oct 26, 2019 12:58
[2019-10-26] MEDS ORDERED: METOPROLOL TART50 MG ORAL (12:59)
[2019-10-26] MEDS ORDERED: NITRO0.4 SL (12:59)
[2019-10-26] MEDS ORDERED: ELIQUIS5 MG ORAL (12:59)
[2019-10-26] MEDS ORDERED: PACERONE200 MG ORAL (12:59)
[2019-10-26] MEDS ORDERED: APRESOLINE50 MG ORAL (12:59)
[2019-10-26] MEDS ORDERED: FLOMAX0.4 MG ORAL (12:59)
[2019-10-26] MEDS ORDERED: ISOSORBIDE MONO30 M1 ORAL (12:59)
--- NOTE | 2019-10-26 14:24 | NUR ---
NURSE NOTES: RN checked blood pressure with automatic cuff. When removing cuff from patient, patient stated, "you dont have to hurt me." Patient was reassured that RN did not touch patient other than to remove blood pressure cuff. No injuries noted at this time. Patient is upset with RN and continues to disrespect staff.
--- NOTE | 2019-10-26 14:44 | NUR ---
NURSE NOTES: Patient is upset with RN because RN started Zosyn IV as ordered. Patient demands to be disconnected. Patient is aware of risks and benefits. Patient continues to refuse.
[2019-10-26 16:00] VITALS: BP 128/75
--- NOTE | 2019-10-26 16:39 | NUR ---
CASE MANAGEMENT: REVIEW 10/26/19 SI: UNABLE TO AMBULATE . DIZZY . A-FLUTTER WITH RVR. RENAL INSUFFICIENCY 98.4 70 20 138/77 94% ON RA NA+146 CL 109 BUN 27 CREAT 2.4 H/H 12.3/31.8 IS:IV ZOSYN TID HYDRALAZINE PO TID AMIODARONE PO BID LOPRESSOR PO BID IMDUR PO QD PROTONIX PO BID \: 2E TELE UNIT DCP: HOMELESS PLAN: PATIENT AMBULATING WELL PATIENT HAS NO SNF DAYS [facility] AT [facility] PATIENT DECLINED [facility] ASSISTANCE PATIENT APPEALED DISCHARGE
--- NOTE | 2019-10-26 19:36 | NUR ---
HAND-OFF: Report given to Kathi CAGLE. Patient is stable.
--- NOTE | 2019-10-26 19:40 | NUR ---
NURSE NOTES: Received report from TSERING Parry. Rounds done, patient sitting up in bed, no distress noted. Bed in low position, locked, side rails up x2, call light within reach. Will continue to monitor.
[2019-10-26 20:00] VITALS: BP 138/77
--- NOTE | 2019-10-26 23:30 | NUR ---
NURSE NOTES: Patient refuses vitals.
--- NOTE | 2019-10-27 00:11 | NUR ---
NURSE NOTES: Sleeping, no distress noted.
--- NOTE | 2019-10-27 04:16 | NUR ---
NURSE NOTES: Patient coughing. Offered cough medication, patient refused. Refused vitals signs as well at this time. Will attempt later.
--- NOTE | 2019-10-27 04:58 | NUR ---
NURSE NOTES: Patient refused lab draw. Coughing, refuses medication as well.
[2019-10-27] MEDS: Piperacillin/Tazobactam 3.375 GM in NS 110 ML IVPB SCH ×3 (06:00→22:00)
[2019-10-27 06:20] VITALS: BP 170/92
[2019-10-27] MEDS: HydrALAZINE 50mg tab ORAL SCH ×3 (06:23→21:47)
--- NOTE | 2019-10-27 06:24 | NUR ---
NURSE NOTES: Refused IV antibiotic.
--- NOTE | 2019-10-27 06:55 | NUR ---
NURSE NOTES: Refused BP recheck after med.
--- NOTE | 2019-10-27 07:40 | NUR ---
HAND-OFF: Report given to TSERING Agarwal.
[2019-10-27 08:00] VITALS: BP 135/80
[2019-10-27] MEDS: Allopurinol 100mg Tab ORAL SCH (08:46)
[2019-10-27] MEDS: Vitamin B-12 500mcg tab ORAL SCH (08:46)
[2019-10-27] MEDS: Amiodarone 200mg tab ORAL SCH ×2 (08:46→20:15)
[2019-10-27] MEDS: Docusate 100mg cap ORAL SCH ×4 (08:46→17:59)
[2019-10-27] MEDS: Imdur 30mg tab ORAL SCH (08:47)
[2019-10-27] MEDS: Metoprolol Tartrate 50mg tab ORAL SCH ×2 (08:47→20:15)
[2019-10-27] MEDS: Magnesium Oxide 400mg tab ORAL SCH ×3 (08:51→17:56)
--- NOTE | 2019-10-27 10:00 | NUR ---
NURSE NOTES: Received report from Kathi CAGLE, pt a/a/o x4 laying in bed with no signs of distress or other issues however he stated that he is not ready to go home. He stated that he is waiting for his medicare appeal. IV on the left FA gauge#20. pt is able to ambulate around the u unit. call light within reach bed in lowest position. side rales up. I will f/u as needed.
[2019-10-27 10:15] LABS: BASOPHILS % (AUTO) 3.3 % (0.0-2.0); EOSINOPHILS % (AUTO) 2.9 % (0.0-3.0); HEMATOCRIT 38.9 % (42.0-52.0); HEMOGLOBIN 12.4 G/DL (14.2-18.0); LYMPHOCYTES % (AUTO) 16.3 % (20.0-45.0); MEAN CORPUSCULAR VOLUME 98 FL (80-99); MONOCYTES % (AUTO) 10.5 % (1.0-10.0); NEUTROPHILS % (AUTO) 67.1 % (45.0-75.0); PLATELET COUNT 194 K/UL (150-450); RED BLOOD COUNT 3.98 M/UL (4.70-6.10); WHITE BLOOD COUNT 7.6 K/UL (4.8-10.8)
[2019-10-27 10:27] LABS: ALANINE AMINOTRANSFERASE 14 U/L (12-78); ALBUMIN 2.8 G/DL (3.4-5.0); ALBUMIN/GLOBULIN RATIO 0.7 (1.0-2.7); ALKALINE PHOSPHATASE 63 U/L (46-116); ANION GAP 9 mmol/L (5-15); ASPARTATE AMINO TRANSFERASE 18 U/L (15-37); BILIRUBIN,TOTAL 0.3 MG/DL (0.2-1.0); BLOOD UREA NITROGEN 26 mg/dL (7-18); CALCIUM 9.1 MG/DL (8.5-10.1); CARBON DIOXIDE 26 MMOL/L (21-32); CHLORIDE 109 MMOL/L (98-107); PHOSPHORUS 2.5 MG/DL (2.5-4.9); POTASSIUM 3.9 MMOL/L (3.5-5.1); SODIUM 144 MMOL/L (136-145)
--- NOTE | 2019-10-27 10:54 | Nephrology Progress Note ---
Assessment/Plan Problem List: (1) Renal failure (ARF), acute on chronic Assessment: Cr up to 2.4 (2) Atrial flutter with rapid ventricular response (3) Pericardial calcification (4) History of hypertension (5) History of gout (6) Cardiomyopathy Assessment 1. Acute on chronic renal failure. 2. Atrial flutter with rapid ventricular response upon admission. 3. Hypertension. 4. History of gout. 5. Homeless. 6. Pericardial calcification. 7. Cardiomyopathy Plan monitor renal parameters. Cr lower again Optimize cardiac and pulmonary status. Avoid nephrotoxic. Urine studies. Flomax. Keep the blood pressure and blood sugar in check. per orders Subjective ROS Limited/Unobtainable: No Constitutional: Reports: malaise, weakness Objective Objective Last 24 Hour Vital Signs Date Time Temp Pulse Resp B/P (MAP) Pulse Ox O2 Delivery O2 Flow Rate FiO2 10/27/19 08:47 82 135/80 10/27/19 08:47 135/80 10/27/19 08:00 97.8 82 20 135/80 (98) 98 10/27/19 06:23 170/92 10/27/19 06:20 98.6 77 20 170/92 (118) 96 10/26/19 21:00 Room Air 10/26/19 20:40 77 138/77 10/26/19 20:00 98.9 77 18 138/77 (97) 96 10/26/19 16:00 98.7 75 20 128/75 (92) 97 10/26/19 14:23 156/76 10/26/19 12:00 98.4 70 20 138/77 (97) 94 Intake and Output 10/26/19 10/27/19 19:00 07:00 Intake Total 500 ml Balance 500 ml Intake Oral 500 ml # Voids 2 Current Medications Medications (Trade) Dose Ordered Sig/Catrina Route PRN Reason Start Time Stop Time Status Last Admin Dose Admin Acetaminophen (Tylenol) 650 mg Q4H PRN ORAL FEVER 10/25/19 23:30 11/19/19 11:29 Acetaminophen/ Hydrocodone Bitart ([place] 10/325) 1 tab Q6H PRN ORAL Moderate Pain (Pain Scale 4-6) 10/26/19 05:15 10/27/19 11:14 Albuterol/ Ipratropium (Albuterol/ Ipratropium) 3 ml Q4H PRN HHN Shortness of Breath 10/25/19 23:30 10/28/19 11:29 Allopurinol (Zyloprim) 100 mg DAILY ORAL 10/26/19 09:00 11/20/19 08:59 10/27/19 08:46 Amiodarone HCl (Cordarone) 200 mg EVERY 12 HOURS ORAL 10/26/19 09:00 11/21/19 20:59 10/27/19 08:46 Atorvastatin Calcium (Lipitor) 10 mg BEDTIME ORAL 10/26/19 21:00 11/19/19 20:59 10/26/19 20:43 Cetylpyridinium Chloride (Cepacol) 1 lozg Q2H PRN HIRAM sore throat 10/26/19 00:00 11/21/19 17:59 Clonidine HCl (Catapres Tab) 0.1 mg Q4H PRN ORAL bp 165 syst 10/26/19 01:15 11/20/19 09:14 Cyanocobalamin (Vitamin B-12) 1,000 mcg DAILY ORAL 10/26/19 09:00 11/24/19 08:59 10/27/19 08:46 Diltiazem HCl (Cardizem) 10 mg Q1H PRN IV heart rate more than 120, 10/25/19 23:30 11/19/19 11:29 Docusate Sodium (Colace) 100 mg THREE TIMES A DAY ORAL 10/26/19 09:00 11/20/19 12:59 10/26/19 09:59 Hydralazine HCl (Apresoline) 50 mg Q8HR ORAL 10/26/19 06:00 11/19/19 20:59 10/27/19 06:23 Isosorbide Mononitrate (Imdur) 30 mg DAILY ORAL 10/26/19 09:00 11/22/19 15:59 10/27/19 08:47 Magnesium Oxide (Mag-Ox 400mg) 400 mg THREE TIMES A DAY ORAL 10/26/19 09:00 11/21/19 12:59 10/27/19 08:51 Metoprolol Tartrate (Lopressor) 50 mg Q12HR ORAL 10/26/19 09:00 11/21/19 20:59 10/27/19 08:47 Nitroglycerin (Ntg) 0.4 mg Q5M PRN SL Prn Chest Pain 10/25/19 23:20 11/19/19 11:29 Ondansetron HCl (Zofran) 4 mg Q6H PRN IVP Nausea & Vomiting 10/25/19 23:30 11/19/19 11:29 Pantoprazole (Protonix) 40 mg BID ORAL 10/26/19 09:00 11/20/19 08:59 10/27/19 08:46 Piperacillin Sod/ Tazobactam Sod 3.375 gm/Sodium Chloride 110 ml @ 27.5 mls/hr EVERY 8 HOURS IVPB 10/26/19 06:00 10/31/19 05:59 10/26/19 14:23 Polyethylene Glycol (Miralax) 17 gm DAILYPRN PRN ORAL Constipation 10/26/19 11:30 11/19/19 11:29 Promethazine HCl/ Codeine (Phenergan with Codeine) 5 ml Q4H PRN ORAL For Cough 10/26/19 01:00 11/20/19 00:59 Laboratory Tests 10/27/19 09:45: White Blood Count 7.6, Red Blood Count 3.98L, Hemoglobin 12.4L, Hematocrit 38.9L , Mean Corpuscular Volume 98, Mean Corpuscular Hemoglobin 31.2H, Mean Corpuscular Hemoglobin Concent 32.0, Red Cell Distribution Width 14.0, Platelet Count 194, Mean Platelet Volume 7.0, Neutrophils (%) (Auto) 67.1, Lymphocytes (% ) (Auto) 16.3L, Monocytes (%) (Auto) 10.5H, Eosinophils (%) (Auto) 2.9, Basophils (%) (Auto) 3.3H, Sodium Level 144, Potassium Level 3.9, Chloride Level 109H, Carbon Dioxide Level 26, Anion Gap 9, Blood Urea Nitrogen 26H, Creatinine 2.0H, Estimat Glomerular Filtration Rate 32.7, Glucose Level 110H, Uric Acid 5.5, Calcium Level 9.1, Phosphorus Level 2.5, Magnesium Level 1.9, Total Bilirubin 0.3, Aspartate Amino Transf (AST/SGOT) 18, Alanine Aminotransferase (ALT/SGPT) 14, Alkaline Phosphatase 63, Total Protein 7.0, Albumin 2.8L, Globulin 4.2, Albumin/Globulin Ratio 0.7L Height (Feet): 5 Height (Inches): 10.00 Weight (Pounds): 194 General Appearance: no apparent distress Cardiovascular: normal rate Respiratory/Chest: decreased breath sounds Abdomen: soft Objective no change Avila Sandy MD Oct 27, 2019 10:54
[2019-10-27 12:00] VITALS: BP 150/71
--- NOTE | 2019-10-27 13:35 | NUR ---
*-* CASE MANAGEMENT NOTES *-* PATIENT HAS FILED A DISCHARGE APPEAL WITH MEDICARE (RIKI) ALL MEDICAL RECORDS HAVE BEEN FAXED TO: CASE# [id number] F: [phone]
--- NOTE | 2019-10-27 14:41 | Pulmonology Progress Note ---
Assessment/Plan Problems: (1) Purulent bronchitis (2) Atrial flutter with rapid ventricular response Assessment & Plan: converted to sinus (3) Chronic renal insufficiency, stage II (mild) (4) History of hypertension (5) History of gout (6) Homelessness (7) Pericardial calcification Assessment & Plan: PPD to rule out Hx of TB was negative (8) Renal mass Assessment/Plan renal function fluctuating ID consult appreciated ge doesn't want any anticoagulation rate controlled no more telemetry monitoring converted to sinus spontaneously monitor BP pt wanted to appeal the discharge, but he was told that he can not appeal because he has ran out of Medicare . I don't think one has anything to do with the other one. Subjective Interval Events: still has some cough, doesn't want to be discharged Allergies: Coded Allergies: No Known Allergies (Unverified , 09/12/15) Objective Last 24 Hour Vital Signs Date Time Temp Pulse Resp B/P (MAP) Pulse Ox O2 Delivery O2 Flow Rate FiO2 10/27/19 13:47 150/71 10/27/19 12:00 97.7 75 20 150/71 (97) 95 10/27/19 09:00 Room Air 10/27/19 08:47 82 135/80 10/27/19 08:47 135/80 10/27/19 08:00 97.8 82 20 135/80 (98) 98 10/27/19 06:23 170/92 10/27/19 06:20 98.6 77 20 170/92 (118) 96 10/26/19 21:00 Room Air 10/26/19 20:40 77 138/77 10/26/19 20:00 98.9 77 18 138/77 (97) 96 10/26/19 16:00 98.7 75 20 128/75 (92) 97 Intake and Output 10/26/19 10/27/19 19:00 07:00 Intake Total 500 ml Balance 500 ml Intake Oral 500 ml # Voids 2 Objective still coughing a lot, has lots of ear wax. wants to be seen by ENT HEENT: normocephalic, anicteric Cardiovascular: normal peripheral pulses, normal rate Abdomen: normal bowel sounds, no organomegaly Genitourinary: normal external genitalia Extremities: no clubbing Neurologic/Psychiatric: no motor/sensory deficits Lymphatic: no neck adenopathy Laboratory Tests 10/27/19 09:45: White Blood Count 7.6, Red Blood Count 3.98L, Hemoglobin 12.4L, Hematocrit 38.9L , Mean Corpuscular Volume 98, Mean Corpuscular Hemoglobin 31.2H, Mean Corpuscular Hemoglobin Concent 32.0, Red Cell Distribution Width 14.0, Platelet Count 194, Mean Platelet Volume 7.0, Neutrophils (%) (Auto) 67.1, Lymphocytes (% ) (Auto) 16.3L, Monocytes (%) (Auto) 10.5H, Eosinophils (%) (Auto) 2.9, Basophils (%) (Auto) 3.3H, Sodium Level 144, Potassium Level 3.9, Chloride Level 109H, Carbon Dioxide Level 26, Anion Gap 9, Blood Urea Nitrogen 26H, Creatinine 2.0H, Estimat Glomerular Filtration Rate 32.7, Glucose Level 110H, Uric Acid 5.5, Calcium Level 9.1, Phosphorus Level 2.5, Magnesium Level 1.9, Total Bilirubin 0.3, Aspartate Amino Transf (AST/SGOT) 18, Alanine Aminotransferase (ALT/SGPT) 14, Alkaline Phosphatase 63, Total Protein 7.0, Albumin 2.8L, Globulin 4.2, Albumin/Globulin Ratio 0.7L Current Medications Medications (Trade) Dose Ordered Sig/Catrina Route PRN Reason Start Time Stop Time Status Last Admin Dose Admin Acetaminophen (Tylenol) 650 mg Q4H PRN ORAL FEVER 10/25/19 23:30 11/19/19 11:29 Albuterol/ Ipratropium (Albuterol/ Ipratropium) 3 ml Q4H PRN HHN Shortness of Breath 10/25/19 23:30 10/28/19 11:29 Allopurinol (Zyloprim) 100 mg DAILY ORAL 10/26/19 09:00 11/20/19 08:59 10/27/19 08:46 Amiodarone HCl (Cordarone) 200 mg EVERY 12 HOURS ORAL 10/26/19 09:00 11/21/19 20:59 10/27/19 08:46 Atorvastatin Calcium (Lipitor) 10 mg BEDTIME ORAL 10/26/19 21:00 11/19/19 20:59 10/26/19 20:43 Cetylpyridinium Chloride (Cepacol) 1 lozg Q2H PRN HIRAM sore throat 10/26/19 00:00 11/21/19 17:59 10/27/19 12:12 Clonidine HCl (Catapres Tab) 0.1 mg Q4H PRN ORAL bp 165 syst 10/26/19 01:15 11/20/19 09:14 Cyanocobalamin (Vitamin B-12) 1,000 mcg DAILY ORAL 10/26/19 09:00 11/24/19 08:59 10/27/19 08:46 Diltiazem HCl (Cardizem) 10 mg Q1H PRN IV heart rate more than 120, 10/25/19 23:30 11/19/19 11:29 Docusate Sodium (Colace) 100 mg THREE TIMES A DAY ORAL 10/26/19 09:00 11/20/19 12:59 10/26/19 09:59 Hydralazine HCl (Apresoline) 50 mg Q8HR ORAL 10/26/19 06:00 11/19/19 20:59 10/27/19 13:47 Isosorbide Mononitrate (Imdur) 30 mg DAILY ORAL 10/26/19 09:00 11/22/19 15:59 10/27/19 08:47 Magnesium Oxide (Mag-Ox 400mg) 400 mg THREE TIMES A DAY ORAL 10/26/19 09:00 11/21/19 12:59 10/27/19 12:10 Metoprolol Tartrate (Lopressor) 50 mg Q12HR ORAL 10/26/19 09:00 11/21/19 20:59 10/27/19 08:47 Nitroglycerin (Ntg) 0.4 mg Q5M PRN SL Prn Chest Pain 10/25/19 23:20 11/19/19 11:29 Ondansetron HCl (Zofran) 4 mg Q6H PRN IVP Nausea & Vomiting 10/25/19 23:30 11/19/19 11:29 Pantoprazole (Protonix) 40 mg BID ORAL 10/26/19 09:00 11/20/19 08:59 10/27/19 08:46 Piperacillin Sod/ Tazobactam Sod 3.375 gm/Sodium Chloride 110 ml @ 27.5 mls/hr EVERY 8 HOURS IVPB 10/26/19 06:00 10/31/19 05:59 10/27/19 13:46 Polyethylene Glycol (Miralax) 17 gm DAILYPRN PRN ORAL Constipation 10/26/19 11:30 11/19/19 11:29 Promethazine HCl/ Codeine (Phenergan with Codeine) 5 ml Q4H PRN ORAL For Cough 10/26/19 01:00 11/20/19 00:59 Erma Rajput MD Oct 27, 2019 14:41
--- NOTE | 2019-10-27 15:04 | Infectious Diseases Prog Note ---
Assessment/Plan Assessment/Plan ASSESSMENT: The patient is a 74-year-old male, who has: Cough Probable (HAP) pneumonia (despite of negative chest x-ray). Status post fever Status post leukocytosis. Atrial fibrillation with rapid ventricular response. History of chronic renal insufficiency. History of hypertension. History of gout. History of homelessness. Pericardial calcification. History of renal mass. PLAN: continue the patient on IV Zosyn day # 4/7 Monitor cultures (blood, sputum) Monitor CBC and BMP. Monitor chest x-ray. Subjective Gastrointestinal/Abdominal: Denies: no symptoms, nausea, vomiting, diarrhea, constipation, blood in stool, bloating, other Allergies: Coded Allergies: No Known Allergies (Unverified , 09/12/15) Subjective comfortable afebrile Objective Vital Signs Last 24 Hour Vital Signs Date Time Temp Pulse Resp B/P (MAP) Pulse Ox O2 Delivery O2 Flow Rate FiO2 10/27/19 13:47 150/71 10/27/19 12:00 97.7 75 20 150/71 (97) 95 10/27/19 09:00 Room Air 10/27/19 08:47 82 135/80 10/27/19 08:47 135/80 10/27/19 08:00 97.8 82 20 135/80 (98) 98 10/27/19 06:23 170/92 10/27/19 06:20 98.6 77 20 170/92 (118) 96 10/26/19 21:00 Room Air 10/26/19 20:40 77 138/77 10/26/19 20:00 98.9 77 18 138/77 (97) 96 10/26/19 16:00 98.7 75 20 128/75 (92) 97 Height (Feet): 5 Height (Inches): 10.00 Weight (Pounds): 194 HEENT: mucous membranes moist Respiratory/Chest: no respiratory distress Cardiovascular: normal rate Abdomen: no organomegaly Laboratory Tests Test 10/27/19 09:45 White Blood Count 7.6 K/UL (4.8-10.8) Red Blood Count 3.98 M/UL (4.70-6.10) L Hemoglobin 12.4 G/DL (14.2-18.0) L Hematocrit 38.9 % (42.0-52.0) L Mean Corpuscular Volume 98 FL (80-99) Mean Corpuscular Hemoglobin 31.2 PG (27.0-31.0) H Mean Corpuscular Hemoglobin Concent 32.0 G/DL (32.0-36.0) Red Cell Distribution Width 14.0 % (11.6-14.8) Platelet Count 194 K/UL (150-450) Mean Platelet Volume 7.0 FL (6.5-10.1) Neutrophils (%) (Auto) 67.1 % (45.0-75.0) Lymphocytes (%) (Auto) 16.3 % (20.0-45.0) L Monocytes (%) (Auto) 10.5 % (1.0-10.0) H Eosinophils (%) (Auto) 2.9 % (0.0-3.0) Basophils (%) (Auto) 3.3 % (0.0-2.0) H Sodium Level 144 MMOL/L (136-145) Potassium Level 3.9 MMOL/L (3.5-5.1) Chloride Level 109 MMOL/L (98-107) H Carbon Dioxide Level 26 MMOL/L (21-32) Anion Gap 9 mmol/L (5-15) Blood Urea Nitrogen 26 mg/dL (7-18) H Creatinine 2.0 MG/DL (0.55-1.30) H Estimat Glomerular Filtration Rate 32.7 mL/min (>60) Glucose Level 110 MG/DL (74-106) H Uric Acid 5.5 MG/DL (2.6-7.2) Calcium Level 9.1 MG/DL (8.5-10.1) Phosphorus Level 2.5 MG/DL (2.5-4.9) Magnesium Level 1.9 MG/DL (1.8-2.4) Total Bilirubin 0.3 MG/DL (0.2-1.0) Aspartate Amino Transf (AST/SGOT) 18 U/L (15-37) Alanine Aminotransferase (ALT/SGPT) 14 U/L (12-78) Alkaline Phosphatase 63 U/L (46-116) Total Protein 7.0 G/DL (6.4-8.2) Albumin 2.8 G/DL (3.4-5.0) L Globulin 4.2 g/dL Albumin/Globulin Ratio 0.7 (1.0-2.7) L Current Medications Medications (Trade) Dose Ordered Sig/Catrina Route PRN Reason Start Time Stop Time Status Last Admin Dose Admin Acetaminophen (Tylenol) 650 mg Q4H PRN ORAL FEVER 10/25/19 23:30 11/19/19 11:29 Albuterol/ Ipratropium (Albuterol/ Ipratropium) 3 ml Q4H PRN HHN Shortness of Breath 10/25/19 23:30 10/28/19 11:29 Allopurinol (Zyloprim) 100 mg DAILY ORAL 10/26/19 09:00 11/20/19 08:59 10/27/19 08:46 Amiodarone HCl (Cordarone) 200 mg EVERY 12 HOURS ORAL 10/26/19 09:00 11/21/19 20:59 10/27/19 08:46 Atorvastatin Calcium (Lipitor) 10 mg BEDTIME ORAL 10/26/19 21:00 11/19/19 20:59 10/26/19 20:43 Cetylpyridinium Chloride (Cepacol) 1 lozg Q2H PRN HIRAM sore throat 10/26/19 00:00 11/21/19 17:59 10/27/19 12:12 Clonidine HCl (Catapres Tab) 0.1 mg Q4H PRN ORAL bp 165 syst 10/26/19 01:15 11/20/19 09:14 Cyanocobalamin (Vitamin B-12) 1,000 mcg DAILY ORAL 10/26/19 09:00 11/24/19 08:59 10/27/19 08:46 Diltiazem HCl (Cardizem) 10 mg Q1H PRN IV heart rate more than 120, 10/25/19 23:30 11/19/19 11:29 Docusate Sodium (Colace) 100 mg THREE TIMES A DAY ORAL 10/26/19 09:00 11/20/19 12:59 10/26/19 09:59 Hydralazine HCl (Apresoline) 50 mg Q8HR ORAL 10/26/19 06:00 11/19/19 20:59 10/27/19 13:47 Isosorbide Mononitrate (Imdur) 30 mg DAILY ORAL 10/26/19 09:00 11/22/19 15:59 10/27/19 08:47 Magnesium Oxide (Mag-Ox 400mg) 400 mg THREE TIMES A DAY ORAL 10/26/19 09:00 11/21/19 12:59 10/27/19 12:10 Metoprolol Tartrate (Lopressor) 50 mg Q12HR ORAL 10/26/19 09:00 11/21/19 20:59 10/27/19 08:47 Nitroglycerin (Ntg) 0.4 mg Q5M PRN SL Prn Chest Pain 10/25/19 23:20 11/19/19 11:29 Ondansetron HCl (Zofran) 4 mg Q6H PRN IVP Nausea & Vomiting 10/25/19 23:30 11/19/19 11:29 Pantoprazole (Protonix) 40 mg BID ORAL 10/26/19 09:00 11/20/19 08:59 10/27/19 08:46 Piperacillin Sod/ Tazobactam Sod 3.375 gm/Sodium Chloride 110 ml @ 27.5 mls/hr EVERY 8 HOURS IVPB 10/26/19 06:00 10/31/19 05:59 10/27/19 13:46 Polyethylene Glycol (Miralax) 17 gm DAILYPRN PRN ORAL Constipation 10/26/19 11:30 11/19/19 11:29 Promethazine HCl/ Codeine (Phenergan with Codeine) 5 ml Q4H PRN ORAL For Cough 10/26/19 01:00 11/20/19 00:59 Gilmer Reed MD Oct 27, 2019 15:04
[2019-10-27 16:00] VITALS: BP 143/77
--- NOTE | 2019-10-27 18:31 | Internal Med Progress Note ---
Subjective Date of Service: Oct 27, 2019 Physician Name Leroy Zimmer Attending Physician Yonas Purvis MD Current Medications Medications (Trade) Dose Ordered Sig/Catrina Route PRN Reason Start Time Stop Time Status Last Admin Dose Admin Acetaminophen (Tylenol) 650 mg Q4H PRN ORAL FEVER 10/25/19 23:30 11/19/19 11:29 Albuterol/ Ipratropium (Albuterol/ Ipratropium) 3 ml Q4H PRN HHN Shortness of Breath 10/25/19 23:30 10/28/19 11:29 Allopurinol (Zyloprim) 100 mg DAILY ORAL 10/26/19 09:00 11/20/19 08:59 10/27/19 08:46 Amiodarone HCl (Cordarone) 200 mg EVERY 12 HOURS ORAL 10/26/19 09:00 11/21/19 20:59 10/27/19 08:46 Atorvastatin Calcium (Lipitor) 10 mg BEDTIME ORAL 10/26/19 21:00 11/19/19 20:59 10/26/19 20:43 Cetylpyridinium Chloride (Cepacol) 1 lozg Q2H PRN HIRAM sore throat 10/26/19 00:00 11/21/19 17:59 10/27/19 12:12 Clonidine HCl (Catapres Tab) 0.1 mg Q4H PRN ORAL bp 165 syst 10/26/19 01:15 11/20/19 09:14 Cyanocobalamin (Vitamin B-12) 1,000 mcg DAILY ORAL 10/26/19 09:00 11/24/19 08:59 10/27/19 08:46 Diltiazem HCl (Cardizem) 10 mg Q1H PRN IV heart rate more than 120, 10/25/19 23:30 11/19/19 11:29 Docusate Sodium (Colace) 100 mg THREE TIMES A DAY ORAL 10/26/19 09:00 11/20/19 12:59 10/26/19 09:59 Hydralazine HCl (Apresoline) 50 mg Q8HR ORAL 10/26/19 06:00 11/19/19 20:59 10/27/19 13:47 Isosorbide Mononitrate (Imdur) 30 mg DAILY ORAL 10/26/19 09:00 11/22/19 15:59 10/27/19 08:47 Magnesium Oxide (Mag-Ox 400mg) 400 mg THREE TIMES A DAY ORAL 10/26/19 09:00 11/21/19 12:59 10/27/19 17:56 Metoprolol Tartrate (Lopressor) 50 mg Q12HR ORAL 10/26/19 09:00 11/21/19 20:59 10/27/19 08:47 Nitroglycerin (Ntg) 0.4 mg Q5M PRN SL Prn Chest Pain 10/25/19 23:20 11/19/19 11:29 Ondansetron HCl (Zofran) 4 mg Q6H PRN IVP Nausea & Vomiting 10/25/19 23:30 11/19/19 11:29 Pantoprazole (Protonix) 40 mg BID ORAL 10/26/19 09:00 11/20/19 08:59 10/27/19 17:56 Piperacillin Sod/ Tazobactam Sod 3.375 gm/Sodium Chloride 110 ml @ 27.5 mls/hr EVERY 8 HOURS IVPB 10/26/19 06:00 10/31/19 05:59 10/27/19 13:46 Polyethylene Glycol (Miralax) 17 gm DAILYPRN PRN ORAL Constipation 10/26/19 11:30 11/19/19 11:29 Promethazine HCl/ Codeine (Phenergan with Codeine) 5 ml Q4H PRN ORAL For Cough 10/26/19 01:00 11/20/19 00:59 Allergies: Coded Allergies: No Known Allergies (Unverified , 09/12/15) ROS Limited/Unobtainable: No Constitutional: Reports: no symptoms HEENT: Reports: no symptoms Cardiovascular: Reports: no symptoms Respiratory: Reports: no symptoms Gastrointestinal/Abdominal: Reports: no symptoms Genitourinary: Reports: no symptoms Neurologic/Psychiatric: Reports: no symptoms Subjective 74 YO M admitted with vertigo and ataxia. Now atrial flutter with rapid ventricular rate and renal failure. Cover for Lyndon Purvis Objective Last Vital Signs Date Time Temp Pulse Resp B/P (MAP) Pulse Ox O2 Delivery O2 Flow Rate FiO2 10/27/19 16:00 98.5 70 20 143/77 (99) 95 10/27/19 09:00 Room Air 10/25/19 19:54 21 Laboratory Tests Test 10/27/19 09:45 White Blood Count 7.6 K/UL (4.8-10.8) Red Blood Count 3.98 M/UL (4.70-6.10) L Hemoglobin 12.4 G/DL (14.2-18.0) L Hematocrit 38.9 % (42.0-52.0) L Mean Corpuscular Volume 98 FL (80-99) Mean Corpuscular Hemoglobin 31.2 PG (27.0-31.0) H Mean Corpuscular Hemoglobin Concent 32.0 G/DL (32.0-36.0) Red Cell Distribution Width 14.0 % (11.6-14.8) Platelet Count 194 K/UL (150-450) Mean Platelet Volume 7.0 FL (6.5-10.1) Neutrophils (%) (Auto) 67.1 % (45.0-75.0) Lymphocytes (%) (Auto) 16.3 % (20.0-45.0) L Monocytes (%) (Auto) 10.5 % (1.0-10.0) H Eosinophils (%) (Auto) 2.9 % (0.0-3.0) Basophils (%) (Auto) 3.3 % (0.0-2.0) H Sodium Level 144 MMOL/L (136-145) Potassium Level 3.9 MMOL/L (3.5-5.1) Chloride Level 109 MMOL/L (98-107) H Carbon Dioxide Level 26 MMOL/L (21-32) Anion Gap 9 mmol/L (5-15) Blood Urea Nitrogen 26 mg/dL (7-18) H Creatinine 2.0 MG/DL (0.55-1.30) H Estimat Glomerular Filtration Rate 32.7 mL/min (>60) Glucose Level 110 MG/DL (74-106) H Uric Acid 5.5 MG/DL (2.6-7.2) Calcium Level 9.1 MG/DL (8.5-10.1) Phosphorus Level 2.5 MG/DL (2.5-4.9) Magnesium Level 1.9 MG/DL (1.8-2.4) Total Bilirubin 0.3 MG/DL (0.2-1.0) Aspartate Amino Transf (AST/SGOT) 18 U/L (15-37) Alanine Aminotransferase (ALT/SGPT) 14 U/L (12-78) Alkaline Phosphatase 63 U/L (46-116) Total Protein 7.0 G/DL (6.4-8.2) Albumin 2.8 G/DL (3.4-5.0) L Globulin 4.2 g/dL Albumin/Globulin Ratio 0.7 (1.0-2.7) L Intake and Output 10/26/19 10/27/19 19:00 07:00 Intake Total 500 ml Balance 500 ml Intake Oral 500 ml # Voids 2 Objective PHYSICAL EXAMINATION: GENERAL: The patient is a well-developed, well-nourished male, in no apparent distress. HEENT: Eyes, pupils are equal and responsive to light and accommodation. Extraocular movements are intact. NECK: Supple without lymphadenopathy. CHEST: Lungs are clear to auscultation bilaterally without wheezes or rales. CARDIOVASCULAR: Regular rate. S1 and S2 are normal without murmurs, rubs, or gallops. ABDOMEN: Soft, nontender, and nondistended. Positive bowel sounds. No evidence of hepatosplenomegaly. Currently, no rebound or guarding noted. EXTREMITIES: Negative for clubbing, cyanosis, or edema. RECTAL: Not performed. GENITAL: Not performed. NEUROLOGIC: Cranial nerves II through XII grossly intact without focal deficits. Motor strength is 5/5 bilaterally. Deep tendon reflexes are 2+ plantar. Assessment/Plan Assessment/Plan ASSESSMENT: This is a 74-year-old male with: 1. Vertigo. 2. Congestive heart failure. 3. Renal failure. 4. Hypercholesteremia. 5. Hypertension. 6. Gout. 7. Atrial flutter with rapid ventricular rate; now sinus TREATMENT: 1. Renal failure. A Nephrology consultation has been obtained with Dr. Sandy. The patient is currently receiving intravenous fluids. We will follow recommendations of Dr. Sandy. Differential includes dehydration versus acute renal failure. 2. Congestive heart failure. Cardiology consultation has been obtained with Dr. Epifanio Silverio. Echocardiogram is pending. We will follow recommendations of Cardiology. 3. Hypercholesterolemia. Continue atorvastatin and fenofibrate as above. 4. Hypertension. Continue hydralazine and metoprolol as above. 5. Gout. Continue allopurinol as above. 6. Continue amiodarone as above Per Cardiology 7. Continue apixaban 8. Patient has filed an appeal of discharge to medicare-see social work note Leroy Zimmer MD Oct 27, 2019 18:31
--- NOTE | 2019-10-27 19:23 | NUR ---
HAND-OFF: Report given to Shreyas CAGLE, pt in stable condition. Addendum: 10/27/19 at 1930 by Any Roldan RN during my shift pt REFUSED, IV abx (Zosyn) because he stated that he doesn't want to be connected for 4hrs. he also REFUSED to take the stool softener (Docusate) since he stated that he doesn't needed. RN offered cough medicine however pt REFUSED saying "that syrup is not strong enough". however pt was ok taking cepacol. incoming nurse is aware of the above.
--- NOTE | 2019-10-27 19:24 | NUR ---
NURSE NOTES: Received report from TSERING Agarwal. Pt is sleeping, lying semi-castro's; comfortably resting. No signs of acute distress noted. Bed at lowest position. Brakes on. Siderails up x2. Call light within reach. Will continue to monitor.
[2019-10-27 20:00] VITALS: BP 171/94
[2019-10-27] MEDS: Promethazine/Codeine 5ml UD ORAL PRN (23:10)
--- NOTE | 2019-10-27 23:57 | NUR ---
NURSE NOTES: Pt was yelling and very combative, unpleasant and verbally aggressive towards staff due to his HTN. RN educated and explained to the pt that he has 3 scheduled BP medications and how how long they take effect. RN also explained to pt that the 3 scheduled BP medications cannot be given along with the PRN BP medications as pt's BP might drop tremendously. RN monitored pt's BP but pt was very suspicious that RN was not giving him the right medications and states "all the medications you have given me are not working and you're probably giving me wrong medications." He even questioned if RN is "even an RN" just because he was assuming that RN was not worried about his condition. He also stated that "you're probably thinking that I'm stupid and ignorant about my blood pressure". RN even called for security for assistance as pt has been increasingly getting aggressive and combative. grill associate made aware of the situation as well. grill associate also explained BP medication regimen to the pt. Dr. Silverio made aware of the BP situation and ordered new medications for the pt. Order noted and carried out. Please see orders for details.
[2019-10-28] VITALS (9 sets, daily range): BP systolic 122–188; BP diastolic 72–103
[2019-10-28] MEDS: Piperacillin/Tazobactam 3.375 GM in NS 110 ML IVPB SCH ×3 (06:00→22:00)
[2019-10-28 06:29] LABS: BLOOD UREA NITROGEN 28 mg/dL (7-18); CALCIUM 8.4 MG/DL (8.5-10.1); CARBON DIOXIDE 28 MMOL/L (21-32); CHLORIDE 108 MMOL/L (98-107); CREATININE 2.1 MG/DL (0.55-1.30); POTASSIUM 4.2 MMOL/L (3.5-5.1); SODIUM 144 MMOL/L (136-145)
[2019-10-28 06:42] LABS: BASOPHILS % (AUTO) 1.6 % (0.0-2.0); EOSINOPHILS % (AUTO) 4.1 % (0.0-3.0); HEMATOCRIT 37.4 % (42.0-52.0); HEMOGLOBIN 12.6 G/DL (14.2-18.0); LYMPHOCYTES % (AUTO) 29.6 % (20.0-45.0); MEAN CORPUSCULAR VOLUME 95 FL (80-99); MONOCYTES % (AUTO) 8.3 % (1.0-10.0); NEUTROPHILS % (AUTO) 56.4 % (45.0-75.0); PLATELET COUNT 192 K/UL (150-450); RED BLOOD COUNT 3.95 M/UL (4.70-6.10); RED CELL DISTRIBUTION WIDTH 12.9 % (11.6-14.8); WHITE BLOOD COUNT 7.4 K/UL (4.8-10.8)
--- NOTE | 2019-10-28 07:49 | NUR ---
HAND-OFF: Report given to TSERING Curiel. Pt is awake and in stable condition. Plan of care endorsed.
--- NOTE | 2019-10-28 07:54 | NUR ---
NURSE NOTES: Received patient in bed awake. No SOB or acute distress. IV line intact. HOB elevated. Bed locked in lowest position. Call light within reach. Will continue to monitor.
[2019-10-28] MEDS: Docusate 100mg cap ORAL SCH ×3 (09:00→18:00)
[2019-10-28] MEDS: Allopurinol 100mg Tab ORAL SCH (09:21)
[2019-10-28] MEDS: Magnesium Oxide 400mg tab ORAL SCH ×4 (09:21→18:00)
[2019-10-28] MEDS: Vitamin B-12 500mcg tab ORAL SCH (09:22)
[2019-10-28] MEDS: Metoprolol Tartrate 50mg tab ORAL SCH ×2 (09:23→21:00)
[2019-10-28] MEDS: Amiodarone 200mg tab ORAL SCH (09:23)
[2019-10-28] MEDS: HydrALAZINE 50mg tab ORAL SCH ×3 (09:23→22:00)
[2019-10-28] MEDS: Imdur 30mg tab ORAL SCH (09:23)
--- NOTE | 2019-10-28 10:22 | Nephrology Progress Note ---
Assessment/Plan Problem List: (1) Renal failure (ARF), acute on chronic Assessment: Cr up to 2.4 (2) Atrial flutter with rapid ventricular response (3) Pericardial calcification (4) History of hypertension (5) History of gout (6) Cardiomyopathy Assessment 1. Acute on chronic renal failure. 2. Atrial flutter with rapid ventricular response upon admission. 3. Hypertension. 4. History of gout. 5. Homeless. 6. Pericardial calcification. 7. Cardiomyopathy Plan monitor renal parameters. Cr lower again Optimize cardiac and pulmonary status. Avoid nephrotoxic. Urine studies. Flomax. Keep the blood pressure and blood sugar in check. per orders Subjective ROS Limited/Unobtainable: No Constitutional: Reports: malaise Objective Objective Last 24 Hour Vital Signs Date Time Temp Pulse Resp B/P (MAP) Pulse Ox O2 Delivery O2 Flow Rate FiO2 10/28/19 09:24 70 126/79 10/28/19 09:23 126/79 10/28/19 09:23 70 126/79 10/28/19 09:23 126/79 10/28/19 08:24 70 16 96 Room Air 21 10/28/19 08:00 98.0 75 20 126/79 (95) 96 10/28/19 04:00 98.3 68 20 142/79 (100) 94 10/28/19 02:07 72 137/73 (94) 10/28/19 01:03 76 162/96 (118) 10/28/19 00:31 80 182/103 10/28/19 00:04 81 188/103 (131) 10/28/19 00:00 98.2 77 20 177/91 (119) 96 10/27/19 23:57 177/80 10/27/19 21:47 167/95 10/27/19 21:00 Room Air 10/27/19 20:15 77 171/94 10/27/19 20:14 79 18 97 Room Air 21 10/27/19 20:00 98.6 77 20 171/94 (119) 94 10/27/19 16:00 98.5 70 20 143/77 (99) 95 10/27/19 13:47 150/71 10/27/19 12:00 97.7 75 20 150/71 (97) 95 Intake and Output 10/27/19 10/28/19 19:00 07:00 Intake Total 650 ml 700 ml Output Total 500 ml Balance 150 ml 700 ml Intake Oral 650 ml 700 ml Output Urine Total 500 ml # Voids 4 # Bowel Movements 3 Laboratory Tests 10/28/19 04:45: White Blood Count 7.4, Red Blood Count 3.95L, Hemoglobin 12.6L, Hematocrit 37.4L , Mean Corpuscular Volume 95, Mean Corpuscular Hemoglobin 32.0H, Mean Corpuscular Hemoglobin Concent 33.8, Red Cell Distribution Width 12.9, Platelet Count 192, Mean Platelet Volume 5.9L, Neutrophils (%) (Auto) 56.4, Lymphocytes ( %) (Auto) 29.6, Monocytes (%) (Auto) 8.3, Eosinophils (%) (Auto) 4.1H, Basophils (%) (Auto) 1.6, Sodium Level 144, Potassium Level 4.2, Chloride Level 108H, Carbon Dioxide Level 28, Blood Urea Nitrogen 28H, Creatinine 2.1H, Estimat Glomerular Filtration Rate 30.9, Glucose Level 86, Calcium Level 8.4L Height (Feet): 5 Height (Inches): 10.00 Weight (Pounds): 194 General Appearance: no apparent distress Objective no change Avila Sandy MD Oct 28, 2019 10:22
--- NOTE | 2019-10-28 10:54 | Infectious Diseases Prog Note ---
Assessment/Plan Assessment/Plan ASSESSMENT: The patient is a 74-year-old male, who has: Cough Probable (HAP) pneumonia (despite of negative chest x-ray). Fever, sp sp leukocytosis. Atrial fibrillation with rapid ventricular response. History of chronic renal insufficiency. History of hypertension. History of gout. History of homelessness. Pericardial calcification. History of renal mass. PLAN: continue the patient on IV Zosyn day # 5/7 Monitor cultures (blood, sputum) Monitor CBC and BMP. Monitor chest x-ray : P Subjective Allergies: Coded Allergies: No Known Allergies (Unverified , 09/12/15) Subjective comfortable afebrile Objective Vital Signs Last 24 Hour Vital Signs Date Time Temp Pulse Resp B/P (MAP) Pulse Ox O2 Delivery O2 Flow Rate FiO2 10/28/19 09:24 70 126/79 10/28/19 09:23 126/79 10/28/19 09:23 70 126/79 10/28/19 09:23 126/79 10/28/19 08:24 70 16 96 Room Air 21 10/28/19 08:00 98.0 75 20 126/79 (95) 96 10/28/19 04:00 98.3 68 20 142/79 (100) 94 10/28/19 02:07 72 137/73 (94) 10/28/19 01:03 76 162/96 (118) 10/28/19 00:31 80 182/103 10/28/19 00:04 81 188/103 (131) 10/28/19 00:00 98.2 77 20 177/91 (119) 96 10/27/19 23:57 177/80 10/27/19 21:47 167/95 10/27/19 21:00 Room Air 10/27/19 20:15 77 171/94 10/27/19 20:14 79 18 97 Room Air 21 10/27/19 20:00 98.6 77 20 171/94 (119) 94 10/27/19 16:00 98.5 70 20 143/77 (99) 95 10/27/19 13:47 150/71 10/27/19 12:00 97.7 75 20 150/71 (97) 95 Height (Feet): 5 Height (Inches): 10.00 Weight (Pounds): 194 HEENT: anicteric Respiratory/Chest: normal breath sounds Cardiovascular: regular rhythm Abdomen: no organomegaly Laboratory Tests Test 10/28/19 04:45 White Blood Count 7.4 K/UL (4.8-10.8) Red Blood Count 3.95 M/UL (4.70-6.10) L Hemoglobin 12.6 G/DL (14.2-18.0) L Hematocrit 37.4 % (42.0-52.0) L Mean Corpuscular Volume 95 FL (80-99) Mean Corpuscular Hemoglobin 32.0 PG (27.0-31.0) H Mean Corpuscular Hemoglobin Concent 33.8 G/DL (32.0-36.0) Red Cell Distribution Width 12.9 % (11.6-14.8) Platelet Count 192 K/UL (150-450) Mean Platelet Volume 5.9 FL (6.5-10.1) L Neutrophils (%) (Auto) 56.4 % (45.0-75.0) Lymphocytes (%) (Auto) 29.6 % (20.0-45.0) Monocytes (%) (Auto) 8.3 % (1.0-10.0) Eosinophils (%) (Auto) 4.1 % (0.0-3.0) H Basophils (%) (Auto) 1.6 % (0.0-2.0) Sodium Level 144 MMOL/L (136-145) Potassium Level 4.2 MMOL/L (3.5-5.1) Chloride Level 108 MMOL/L (98-107) H Carbon Dioxide Level 28 MMOL/L (21-32) Blood Urea Nitrogen 28 mg/dL (7-18) H Creatinine 2.1 MG/DL (0.55-1.30) H Estimat Glomerular Filtration Rate 30.9 mL/min (>60) Glucose Level 86 MG/DL (74-106) Calcium Level 8.4 MG/DL (8.5-10.1) L Current Medications Medications (Trade) Dose Ordered Sig/Catrina Route PRN Reason Start Time Stop Time Status Last Admin Dose Admin Acetaminophen (Tylenol) 650 mg Q4H PRN ORAL FEVER 10/25/19 23:30 11/19/19 11:29 Albuterol/ Ipratropium (Albuterol/ Ipratropium) 3 ml Q4H PRN HHN Shortness of Breath 10/25/19 23:30 10/28/19 11:29 Allopurinol (Zyloprim) 100 mg DAILY ORAL 10/26/19 09:00 11/20/19 08:59 10/28/19 09:21 Amiodarone HCl (Cordarone) 200 mg EVERY 12 HOURS ORAL 10/26/19 09:00 11/21/19 20:59 10/28/19 09:23 Amlodipine Besylate (Norvasc) 5 mg BID ORAL 10/28/19 00:15 11/27/19 00:14 10/28/19 09:24 Atorvastatin Calcium (Lipitor) 10 mg BEDTIME ORAL 10/26/19 21:00 11/19/19 20:59 10/27/19 20:15 Cetylpyridinium Chloride (Cepacol) 1 lozg Q2H PRN HIRAM sore throat 10/26/19 00:00 11/21/19 17:59 10/27/19 23:11 Clonidine HCl (Catapres Tab) 0.1 mg Q4H PRN ORAL bp 165 syst 10/26/19 01:15 11/20/19 09:14 10/27/19 23:57 Cyanocobalamin (Vitamin B-12) 1,000 mcg DAILY ORAL 10/26/19 09:00 11/24/19 08:59 10/28/19 09:22 Diltiazem HCl (Cardizem) 10 mg Q1H PRN IV heart rate more than 120, 10/25/19 23:30 11/19/19 11:29 Docusate Sodium (Colace) 100 mg THREE TIMES A DAY ORAL 10/26/19 09:00 11/20/19 12:59 10/26/19 09:59 Hydralazine HCl (Apresoline) 75 mg TID ORAL 10/28/19 09:00 11/27/19 08:59 10/28/19 09:23 Isosorbide Mononitrate (Imdur) 30 mg DAILY ORAL 10/26/19 09:00 11/22/19 15:59 10/28/19 09:23 Magnesium Oxide (Mag-Ox 400mg) 400 mg THREE TIMES A DAY ORAL 10/26/19 09:00 11/21/19 12:59 10/28/19 09:21 Metoprolol Tartrate (Lopressor) 50 mg Q12HR ORAL 10/26/19 09:00 11/21/19 20:59 10/28/19 09:23 Nitroglycerin (Ntg) 0.4 mg Q5M PRN SL Prn Chest Pain 10/25/19 23:20 11/19/19 11:29 Ondansetron HCl (Zofran) 4 mg Q6H PRN IVP Nausea & Vomiting 10/25/19 23:30 11/19/19 11:29 Pantoprazole (Protonix) 40 mg BID ORAL 10/26/19 09:00 11/20/19 08:59 10/28/19 09:20 Piperacillin Sod/ Tazobactam Sod 3.375 gm/Sodium Chloride 110 ml @ 27.5 mls/hr EVERY 8 HOURS IVPB 10/26/19 06:00 10/31/19 05:59 10/27/19 13:46 Polyethylene Glycol (Miralax) 17 gm DAILYPRN PRN ORAL Constipation 10/26/19 11:30 11/19/19 11:29 Promethazine HCl/ Codeine (Phenergan with Codeine) 5 ml Q4H PRN ORAL For Cough 10/26/19 01:00 11/20/19 00:59 10/27/19 23:10 Gilmer Reed MD Oct 28, 2019 10:54
[2019-10-28] MEDS: Promethazine/Codeine 5ml UD ORAL PRN ×2 (12:30→21:10)
--- NOTE | 2019-10-28 13:57 | NUR ---
CASE MANAGEMENT: REVIEW 10/28/19 SI: UNABLE TO AMBULATE . DIZZY . A-FLUTTER WITH RVR. RENAL INSUFFICIENCY 98.0 75 20 126/79 96% ON RA H/H 12.6/37.4 BUN 28 CREAT 2.1 CA+ 8.4 IS:IV ZOSYN TID HYDRALAZINE PO TID NORVASC PO BID AMIODARONE PO BID LOPRESSOR PO BID IMDUR PO QD PROTONIX PO BID \: 2E TELE UNIT DCP: HOMELESS PLAN: PATIENT AMBULATING WELL PATIENT HAS NO SNF DAYS PREVIOUSLY AT [facility] PATIENT DECLINED NURSING HOME ASSISTANCE PATIENT APPEALED DISCHARGE
--- NOTE | 2019-10-28 14:34 | Pulmonology Progress Note ---
Assessment/Plan Problems: (1) Uncontrolled hypertension (2) Purulent bronchitis (3) Atrial flutter with rapid ventricular response Assessment & Plan: converted to sinus (4) Chronic renal insufficiency, stage II (mild) (5) History of hypertension (6) History of gout (7) Homelessness (8) Pericardial calcification Assessment & Plan: PPD to rule out Hx of TB was negative (9) Renal mass Assessment/Plan c.o high BP, not controlled yet rate controlled converted to sinus spontaneously symptomatic treatment Subjective ROS Limited/Unobtainable: No HEENT: Repors: no symptoms Allergies: Coded Allergies: No Known Allergies (Unverified , 09/12/15) Objective Last 24 Hour Vital Signs Date Time Temp Pulse Resp B/P (MAP) Pulse Ox O2 Delivery O2 Flow Rate FiO2 10/28/19 12:00 97.5 69 18 147/82 (103) 96 10/28/19 09:24 70 126/79 10/28/19 09:23 126/79 10/28/19 09:23 70 126/79 10/28/19 09:23 126/79 10/28/19 09:00 Room Air 10/28/19 08:24 70 16 96 Room Air 21 10/28/19 08:00 98.0 75 20 126/79 (95) 96 10/28/19 04:00 98.3 68 20 142/79 (100) 94 10/28/19 02:07 72 137/73 (94) 10/28/19 01:03 76 162/96 (118) 10/28/19 00:31 80 182/103 10/28/19 00:04 81 188/103 (131) 10/28/19 00:00 98.2 77 20 177/91 (119) 96 10/27/19 23:57 177/80 10/27/19 21:47 167/95 10/27/19 21:00 Room Air 10/27/19 20:15 77 171/94 10/27/19 20:14 79 18 97 Room Air 21 10/27/19 20:00 98.6 77 20 171/94 (119) 94 10/27/19 16:00 98.5 70 20 143/77 (99) 95 Intake and Output 10/27/19 10/28/19 19:00 07:00 Intake Total 650 ml 700 ml Output Total 500 ml Balance 150 ml 700 ml Intake Oral 650 ml 700 ml Output Urine Total 500 ml # Voids 4 # Bowel Movements 3 Objective bp is very high HEENT: normocephalic, anicteric Respiratory/Chest: lungs clear, no respiratory distress Cardiovascular: normal peripheral pulses, regular rhythm Abdomen: soft, non tender, no organomegaly Extremities: no cyanosis Skin: no ulcers Laboratory Tests 10/28/19 04:45: White Blood Count 7.4, Red Blood Count 3.95L, Hemoglobin 12.6L, Hematocrit 37.4L , Mean Corpuscular Volume 95, Mean Corpuscular Hemoglobin 32.0H, Mean Corpuscular Hemoglobin Concent 33.8, Red Cell Distribution Width 12.9, Platelet Count 192, Mean Platelet Volume 5.9L, Neutrophils (%) (Auto) 56.4, Lymphocytes ( %) (Auto) 29.6, Monocytes (%) (Auto) 8.3, Eosinophils (%) (Auto) 4.1H, Basophils (%) (Auto) 1.6, Sodium Level 144, Potassium Level 4.2, Chloride Level 108H, Carbon Dioxide Level 28, Blood Urea Nitrogen 28H, Creatinine 2.1H, Estimat Glomerular Filtration Rate 30.9, Glucose Level 86, Calcium Level 8.4L Current Medications Medications (Trade) Dose Ordered Sig/Catrina Route PRN Reason Start Time Stop Time Status Last Admin Dose Admin Acetaminophen (Tylenol) 650 mg Q4H PRN ORAL FEVER 10/25/19 23:30 11/19/19 11:29 Allopurinol (Zyloprim) 100 mg DAILY ORAL 10/26/19 09:00 11/20/19 08:59 10/28/19 09:21 Amiodarone HCl (Cordarone) 200 mg EVERY 12 HOURS ORAL 10/26/19 09:00 11/21/19 20:59 10/28/19 09:23 Amlodipine Besylate (Norvasc) 5 mg BID ORAL 10/28/19 00:15 11/27/19 00:14 10/28/19 09:24 Atorvastatin Calcium (Lipitor) 10 mg BEDTIME ORAL 10/26/19 21:00 11/19/19 20:59 10/27/19 20:15 Cetylpyridinium Chloride (Cepacol) 1 lozg Q2H PRN HIRAM sore throat 10/26/19 00:00 11/21/19 17:59 10/28/19 12:30 Clonidine HCl (Catapres Tab) 0.1 mg Q4H PRN ORAL bp 165 syst 10/26/19 01:15 11/20/19 09:14 10/27/19 23:57 Cyanocobalamin (Vitamin B-12) 1,000 mcg DAILY ORAL 10/26/19 09:00 11/24/19 08:59 10/28/19 09:22 Docusate Sodium (Colace) 100 mg THREE TIMES A DAY ORAL 10/26/19 09:00 11/20/19 12:59 10/26/19 09:59 Hydralazine HCl (Apresoline) 75 mg Q8HR ORAL 10/28/19 22:00 11/27/19 08:59 Isosorbide Mononitrate (Imdur) 30 mg DAILY ORAL 10/26/19 09:00 11/22/19 15:59 10/28/19 09:23 Magnesium Oxide (Mag-Ox 400mg) 400 mg THREE TIMES A DAY ORAL 10/26/19 09:00 11/21/19 12:59 10/28/19 09:21 Metoprolol Tartrate (Lopressor) 50 mg Q12HR ORAL 10/26/19 09:00 11/21/19 20:59 10/28/19 09:23 Nitroglycerin (Ntg) 0.4 mg Q5M PRN SL Prn Chest Pain 10/25/19 23:20 11/19/19 11:29 Ondansetron HCl (Zofran) 4 mg Q6H PRN IVP Nausea & Vomiting 10/25/19 23:30 11/19/19 11:29 Pantoprazole (Protonix) 40 mg BID ORAL 10/26/19 09:00 11/20/19 08:59 10/28/19 09:20 Piperacillin Sod/ Tazobactam Sod 3.375 gm/Sodium Chloride 110 ml @ 27.5 mls/hr EVERY 8 HOURS IVPB 10/26/19 06:00 10/31/19 05:59 10/27/19 13:46 Polyethylene Glycol (Miralax) 17 gm DAILYPRN PRN ORAL Constipation 10/26/19 11:30 11/19/19 11:29 Promethazine HCl/ Codeine (Phenergan with Codeine) 5 ml Q4H PRN ORAL For Cough 10/26/19 01:00 11/20/19 00:59 10/28/19 12:30 Erma Rajput MD Oct 28, 2019 14:34
--- NOTE | 2019-10-28 15:27 | NUR ---
NURSE NOTES: Patient back on floor, received report from Leta. Patient is awake. No SOB or acute distress. No complaints of pain. Steri strips on post op site intact, will monitor for bleeding. HOB elevated. Bed locked in lowest position. Call light within reach. Will continue plan of care.
--- NOTE | 2019-10-28 15:36 | Diagnostic Imaging Report ---
Indication: Abnormal chest sounds Technique: One view of the chest Comparison: 10/24/2019 Findings: Lungs and pleural spaces remain clear. Calcifications outlining the right atrial wall or pericardium again noted. Left shoulder hardware again noted. Rightward tracheal deviation is unchanged since prior 2016 exam. Impression: Unchanged, over 4 days, findings as above. No acute process
--- NOTE | 2019-10-28 19:34 | Internal Med Progress Note ---
Subjective Date of Service: Oct 28, 2019 Physician Name Leroy Zimmer Attending Physician Yonas Purvis MD Current Medications Medications (Trade) Dose Ordered Sig/Catrina Route PRN Reason Start Time Stop Time Status Last Admin Dose Admin Acetaminophen (Tylenol) 650 mg Q4H PRN ORAL FEVER 10/25/19 23:30 11/19/19 11:29 Allopurinol (Zyloprim) 100 mg DAILY ORAL 10/26/19 09:00 11/20/19 08:59 10/28/19 09:21 Amiodarone HCl (Cordarone) 200 mg EVERY 12 HOURS ORAL 10/26/19 09:00 11/21/19 20:59 10/28/19 09:23 Amlodipine Besylate (Norvasc) 5 mg BID ORAL 10/28/19 00:15 11/27/19 00:14 10/28/19 17:24 Atorvastatin Calcium (Lipitor) 10 mg BEDTIME ORAL 10/26/19 21:00 11/19/19 20:59 10/27/19 20:15 Cetylpyridinium Chloride (Cepacol) 1 lozg Q2H PRN HIRAM sore throat 10/26/19 00:00 11/21/19 17:59 10/28/19 12:30 Clonidine HCl (Catapres Tab) 0.1 mg Q4H PRN ORAL bp 165 syst 10/26/19 01:15 11/20/19 09:14 10/27/19 23:57 Cyanocobalamin (Vitamin B-12) 1,000 mcg DAILY ORAL 10/26/19 09:00 11/24/19 08:59 10/28/19 09:22 Docusate Sodium (Colace) 100 mg THREE TIMES A DAY ORAL 10/26/19 09:00 11/20/19 12:59 10/26/19 09:59 Hydralazine HCl (Apresoline) 75 mg Q8HR ORAL 10/28/19 22:00 11/27/19 08:59 Isosorbide Mononitrate (Imdur) 30 mg DAILY ORAL 10/26/19 09:00 11/22/19 15:59 10/28/19 09:23 Magnesium Oxide (Mag-Ox 400mg) 400 mg THREE TIMES A DAY ORAL 10/26/19 09:00 11/21/19 12:59 10/28/19 09:21 Metoprolol Tartrate (Lopressor) 50 mg Q12HR ORAL 10/26/19 09:00 11/21/19 20:59 10/28/19 09:23 Nitroglycerin (Ntg) 0.4 mg Q5M PRN SL Prn Chest Pain 10/25/19 23:20 11/19/19 11:29 Ondansetron HCl (Zofran) 4 mg Q6H PRN IVP Nausea & Vomiting 10/25/19 23:30 11/19/19 11:29 Pantoprazole (Protonix) 40 mg BID ORAL 10/26/19 09:00 11/20/19 08:59 10/28/19 17:24 Piperacillin Sod/ Tazobactam Sod 3.375 gm/Sodium Chloride 110 ml @ 27.5 mls/hr EVERY 8 HOURS IVPB 10/26/19 06:00 11/01/19 15:00 10/27/19 13:46 Polyethylene Glycol (Miralax) 17 gm DAILYPRN PRN ORAL Constipation 10/26/19 11:30 11/19/19 11:29 Promethazine HCl/ Codeine (Phenergan with Codeine) 5 ml Q4H PRN ORAL For Cough 10/26/19 01:00 11/20/19 00:59 10/28/19 12:30 Allergies: Coded Allergies: No Known Allergies (Unverified , 09/12/15) ROS Limited/Unobtainable: No Constitutional: Reports: no symptoms HEENT: Reports: no symptoms Cardiovascular: Reports: no symptoms Respiratory: Reports: no symptoms Gastrointestinal/Abdominal: Reports: no symptoms Genitourinary: Reports: no symptoms Neurologic/Psychiatric: Reports: no symptoms Subjective 74 YO M admitted with vertigo and ataxia. Now atrial flutter with rapid ventricular rate and renal failure. Cover for Int Arnaldo-DR Purvis Objective Last Vital Signs Date Time Temp Pulse Resp B/P (MAP) Pulse Ox O2 Delivery O2 Flow Rate FiO2 10/28/19 17:24 67 132/72 10/28/19 16:00 98.0 20 96 10/28/19 09:00 Room Air 10/28/19 08:24 21 Laboratory Tests Test 10/28/19 04:45 White Blood Count 7.4 K/UL (4.8-10.8) Red Blood Count 3.95 M/UL (4.70-6.10) L Hemoglobin 12.6 G/DL (14.2-18.0) L Hematocrit 37.4 % (42.0-52.0) L Mean Corpuscular Volume 95 FL (80-99) Mean Corpuscular Hemoglobin 32.0 PG (27.0-31.0) H Mean Corpuscular Hemoglobin Concent 33.8 G/DL (32.0-36.0) Red Cell Distribution Width 12.9 % (11.6-14.8) Platelet Count 192 K/UL (150-450) Mean Platelet Volume 5.9 FL (6.5-10.1) L Neutrophils (%) (Auto) 56.4 % (45.0-75.0) Lymphocytes (%) (Auto) 29.6 % (20.0-45.0) Monocytes (%) (Auto) 8.3 % (1.0-10.0) Eosinophils (%) (Auto) 4.1 % (0.0-3.0) H Basophils (%) (Auto) 1.6 % (0.0-2.0) Sodium Level 144 MMOL/L (136-145) Potassium Level 4.2 MMOL/L (3.5-5.1) Chloride Level 108 MMOL/L (98-107) H Carbon Dioxide Level 28 MMOL/L (21-32) Blood Urea Nitrogen 28 mg/dL (7-18) H Creatinine 2.1 MG/DL (0.55-1.30) H Estimat Glomerular Filtration Rate 30.9 mL/min (>60) Glucose Level 86 MG/DL (74-106) Calcium Level 8.4 MG/DL (8.5-10.1) L Intake and Output 10/27/19 10/28/19 19:00 07:00 Intake Total 650 ml 700 ml Output Total 500 ml Balance 150 ml 700 ml Intake Oral 650 ml 700 ml Output Urine Total 500 ml # Voids 4 # Bowel Movements 3 Objective PHYSICAL EXAMINATION: GENERAL: The patient is a well-developed, well-nourished male, in no apparent distress. HEENT: Eyes, pupils are equal and responsive to light and accommodation. Extraocular movements are intact. NECK: Supple without lymphadenopathy. CHEST: Lungs are clear to auscultation bilaterally without wheezes or rales. CARDIOVASCULAR: Regular rate. S1 and S2 are normal without murmurs, rubs, or gallops. ABDOMEN: Soft, nontender, and nondistended. Positive bowel sounds. No evidence of hepatosplenomegaly. Currently, no rebound or guarding noted. EXTREMITIES: Negative for clubbing, cyanosis, or edema. RECTAL: Not performed. GENITAL: Not performed. NEUROLOGIC: Cranial nerves II through XII grossly intact without focal deficits. Motor strength is 5/5 bilaterally. Deep tendon reflexes are 2+ plantar. Assessment/Plan Assessment/Plan ASSESSMENT: This is a 74-year-old male with: 1. Vertigo. 2. Congestive heart failure. 3. Renal failure. 4. Hypercholesteremia. 5. Hypertension. 6. Gout. 7. Atrial flutter with rapid ventricular rate; now sinus TREATMENT: 1. Renal failure. A Nephrology consultation has been obtained with Dr. Sandy. The patient is currently receiving intravenous fluids. We will follow recommendations of Dr. Sandy. Differential includes dehydration versus acute renal failure. 2. Congestive heart failure. Cardiology consultation has been obtained with Dr. Epifanio Silverio. Echocardiogram is pending. We will follow recommendations of Cardiology. 3. Hypercholesterolemia. Continue atorvastatin and fenofibrate as above. 4. Hypertension. Continue hydralazine and metoprolol as above. 5. Gout. Continue allopurinol as above. 6. Continue amiodarone as above Per Cardiology 7. Continue apixaban 8. Patient has filed an appeal of discharge to medicare-see social work note Leroy Zimmer MD Oct 28, 2019 19:34
--- NOTE | 2019-10-28 19:39 | NUR ---
HAND-OFF: Report given to gerry.
--- NOTE | 2019-10-28 19:41 | NUR ---
NURSE NOTES: Received report from Veena RN. Rounding is done with Outgoing nurse. Patient a/o x4. Denied any pain or distress. No sob noted at this time. Breathing is even and unlabored at this time. IV site is intact and patent. Bed is on alarm, Locked, and Lowest position. Call light within reach. Will continue to monitor.
--- NOTE | 2019-10-28 19:43 | Cardiology Progress Note ---
Assessment/Plan Assessment/Plan 1. Atrial flutter, possibly few days ? spont converted to sinus 10/22 2. History of congestive heart failure. 3. LV systolic dysfunction, ejection fraction reported 35% to 40%. 4. Mild diastolic dysfunction and dilated IVC suggestive of increased RA pressure. 5. Renal insufficiency. 6. Questionable hyperthyroidism. 7. Hypertension. 8. History of gout. 9. Pericardial calcification. bp controlled on norvasdc 5 mg daily and hydralzine 75 tid heart rat is fien on amiod will decreases to once a day now and on metoprolol bid eliqusi 5 mg bid for stroke prevention Subjective Cardiovascular: Denies: chest pain, lightheadedness Subjective walked to nurses sataion upseet htat he has to get different meds for bp upset that he is beign dcd tomorrow upset at not beign brought water by staff Objective Last 24 Hour Vital Signs Date Time Temp Pulse Resp B/P (MAP) Pulse Ox O2 Delivery O2 Flow Rate FiO2 10/28/19 17:24 67 132/72 10/28/19 16:00 98.0 67 20 132/72 (92) 96 10/28/19 12:00 97.5 69 18 147/82 (103) 96 10/28/19 09:24 70 126/79 10/28/19 09:23 126/79 10/28/19 09:23 70 126/79 10/28/19 09:23 126/79 10/28/19 09:00 Room Air 10/28/19 08:24 70 16 96 Room Air 21 10/28/19 08:00 98.0 75 20 126/79 (95) 96 10/28/19 04:00 98.3 68 20 142/79 (100) 94 10/28/19 02:07 72 137/73 (94) 10/28/19 01:03 76 162/96 (118) 10/28/19 00:31 80 182/103 10/28/19 00:04 81 188/103 (131) 10/28/19 00:00 98.2 77 20 177/91 (119) 96 10/27/19 23:57 177/80 10/27/19 21:47 167/95 10/27/19 21:00 Room Air 10/27/19 20:15 77 171/94 10/27/19 20:14 79 18 97 Room Air 21 10/27/19 20:00 98.6 77 20 171/94 (119) 94 General Appearance: no apparent distress, alert Neck: supple Cardiovascular: normal rate Respiratory/Chest: lungs clear Abdomen: normal bowel sounds, non tender, soft Extremities: no swelling Intake and Output 10/27/19 10/28/19 19:00 07:00 Intake Total 650 ml 700 ml Output Total 500 ml Balance 150 ml 700 ml Intake Oral 650 ml 700 ml Output Urine Total 500 ml # Voids 4 # Bowel Movements 3 Laboratory Tests Test 10/28/19 04:45 White Blood Count 7.4 K/UL (4.8-10.8) Red Blood Count 3.95 M/UL (4.70-6.10) L Hemoglobin 12.6 G/DL (14.2-18.0) L Hematocrit 37.4 % (42.0-52.0) L Mean Corpuscular Volume 95 FL (80-99) Mean Corpuscular Hemoglobin 32.0 PG (27.0-31.0) H Mean Corpuscular Hemoglobin Concent 33.8 G/DL (32.0-36.0) Red Cell Distribution Width 12.9 % (11.6-14.8) Platelet Count 192 K/UL (150-450) Mean Platelet Volume 5.9 FL (6.5-10.1) L Neutrophils (%) (Auto) 56.4 % (45.0-75.0) Lymphocytes (%) (Auto) 29.6 % (20.0-45.0) Monocytes (%) (Auto) 8.3 % (1.0-10.0) Eosinophils (%) (Auto) 4.1 % (0.0-3.0) H Basophils (%) (Auto) 1.6 % (0.0-2.0) Sodium Level 144 MMOL/L (136-145) Potassium Level 4.2 MMOL/L (3.5-5.1) Chloride Level 108 MMOL/L (98-107) H Carbon Dioxide Level 28 MMOL/L (21-32) Blood Urea Nitrogen 28 mg/dL (7-18) H Creatinine 2.1 MG/DL (0.55-1.30) H Estimat Glomerular Filtration Rate 30.9 mL/min (>60) Glucose Level 86 MG/DL (74-106) Calcium Level 8.4 MG/DL (8.5-10.1) L Epifanio Silverio MD Oct 28, 2019 19:43
[2019-10-28] MEDS: Eliquis 5mg tablet ORAL SCH (21:00)
--- NOTE | 2019-10-28 21:15 | NUR ---
NURSE NOTES: Patient refused medication. Explained about medications and offered 3 times, but still refused.
--- NOTE | 2019-10-28 22:50 | NUR ---
NURSE NOTES: Patient refused IV Antibiotic medication. Explained about medications and offered 3 times, but still refused
[2019-10-29] VITALS: BP 140/78
[2019-10-29] MEDS: Promethazine/Codeine 5ml UD ORAL PRN ×2 (03:00→08:30)
[2019-10-29 04:00] VITALS: BP 131/77
--- NOTE | 2019-10-29 05:00 | NUR ---
NURSE NOTES: Patient refused to blood draw for labs.
[2019-10-29] MEDS: HydrALAZINE 50mg tab ORAL SCH (06:00)
[2019-10-29] MEDS: Piperacillin/Tazobactam 3.375 GM in NS 110 ML IVPB SCH (06:00)
--- NOTE | 2019-10-29 06:20 | NUR ---
NURSE NOTES: Patient refused IV Antibiotic medication and BP medication. Explained about medications; benefits and side effects. Offered 3 times, but still refused.
--- NOTE | 2019-10-29 07:33 | NUR ---
HAND-OFF: Report given to Sterling CAGLE. Patient in stable condition.
--- NOTE | 2019-10-29 07:44 | Pulmonology Progress Note ---
Assessment/Plan Assessment/Plan ASSESSMENT Atrial flutter with rapid ventricular response CHF with systolic dysfunction Cardiomyopathy with EF 35-40% leukocytosis fevers, cough - possible PNA Acute on chronic renal failure Chronic kidney disease Hypertension History of TURP Gout Homeless E/lyte imbalance PLAN OF CARE MS off heparin gtt-now on Eliquis rate controlled with dig and Cardizem, Amiodarone added by cardio converted to SR Echo with ejection fraction 35 to 40% and mild global LV hypokinesis moderately elevated left atrial pressure grade 2, RVSP of 36 guideline directed medical therapy as per cardio recs CT head -no acute IC pathology BP management with BP and hydralazine , optimize further as needed pericardial calcification on CXR old O2 HHN PRN today , 10/23/ fever , cough and leukocytosis, ? PNA empiric Zosyn sputum cx if able BCX negative avoid nephrotoxic's, monitor renal parameters; correct lytes as needed ( K, P and Mg as per nephro orders) renal ultrasound noted consider CT as per nephrology recs started on Flomax on allopurinol SS eval pt appealed with dc order dc plan in progress case discussed and evaluated by supervising physician Subjective Allergies: Coded Allergies: No Known Allergies (Unverified , 09/12/15) Subjective no fevers, no leukocytosis pulse ox stable on RA Objective Last 24 Hour Vital Signs Date Time Temp Pulse Resp B/P (MAP) Pulse Ox O2 Delivery O2 Flow Rate FiO2 10/29/19 06:00 131/77 10/29/19 04:00 97.2 67 18 131/77 (95) 97 10/29/19 00:00 98.3 74 19 140/78 (98) 95 10/28/19 22:00 122/78 10/28/19 21:00 Room Air 10/28/19 21:00 73 122/69 10/28/19 20:00 98.5 73 18 122/78 (93) 93 10/28/19 19:53 70 18 96 Room Air 21 10/28/19 17:24 67 132/72 10/28/19 16:00 98.0 67 20 132/72 (92) 96 10/28/19 12:00 97.5 69 18 147/82 (103) 96 10/28/19 09:24 70 126/79 10/28/19 09:23 126/79 10/28/19 09:23 70 126/79 10/28/19 09:23 126/79 10/28/19 09:00 Room Air 10/28/19 08:24 70 16 96 Room Air 21 10/28/19 08:00 98.0 75 20 126/79 (95) 96 Intake and Output 10/28/19 10/29/19 19:00 07:00 Intake Total 800 ml 100 ml Balance 800 ml 100 ml Intake Oral 800 ml 100 ml # Voids 3 2 Objective General Appearance: male in NAD HEENT: normocephalic, atraumatic, anicteric, PERRL Respiratory/Chest: few bibasilar cackles, no accessory muscle use Cardiovascular: normal rate, regular rhythm now in SR Abdomen: normal bowel sounds, soft, non tender with mild distention Extremities: no edema, pedal pulses normal Neurologic/Psychiatric: no motor/sensory deficits, alert, oriented x 3, responsive Musculoskeletal: normal muscle bulk Current Medications Medications (Trade) Dose Ordered Sig/Catrina Route PRN Reason Start Time Stop Time Status Last Admin Dose Admin Acetaminophen (Tylenol) 650 mg Q4H PRN ORAL FEVER 10/25/19 23:30 11/19/19 11:29 Allopurinol (Zyloprim) 100 mg DAILY ORAL 10/26/19 09:00 11/20/19 08:59 10/28/19 09:21 Amiodarone HCl (Cordarone) 200 mg DAILY ORAL 10/29/19 09:00 11/28/19 08:59 Amlodipine Besylate (Norvasc) 5 mg BID ORAL 10/28/19 00:15 11/27/19 00:14 10/28/19 17:24 Apixaban (Eliquis) 5 mg Q12HR ORAL 10/28/19 21:00 11/27/19 20:59 Atorvastatin Calcium (Lipitor) 10 mg BEDTIME ORAL 10/26/19 21:00 11/19/19 20:59 10/27/19 20:15 Cetylpyridinium Chloride (Cepacol) 1 lozg Q2H PRN HIRAM sore throat 10/26/19 00:00 11/21/19 17:59 10/29/19 03:00 Clonidine HCl (Catapres Tab) 0.1 mg Q4H PRN ORAL bp 165 syst 10/26/19 01:15 11/20/19 09:14 10/27/19 23:57 Cyanocobalamin (Vitamin B-12) 1,000 mcg DAILY ORAL 10/26/19 09:00 11/24/19 08:59 10/28/19 09:22 Docusate Sodium (Colace) 100 mg THREE TIMES A DAY ORAL 10/26/19 09:00 11/20/19 12:59 10/26/19 09:59 Hydralazine HCl (Apresoline) 75 mg Q8HR ORAL 10/28/19 22:00 11/27/19 08:59 Magnesium Oxide (Mag-Ox 400mg) 400 mg THREE TIMES A DAY ORAL 10/26/19 09:00 11/21/19 12:59 10/28/19 09:21 Metoprolol Tartrate (Lopressor) 50 mg Q12HR ORAL 10/26/19 09:00 11/21/19 20:59 10/28/19 09:23 Nitroglycerin (Ntg) 0.4 mg Q5M PRN SL Prn Chest Pain 10/25/19 23:20 11/19/19 11:29 Ondansetron HCl (Zofran) 4 mg Q6H PRN IVP Nausea & Vomiting 10/25/19 23:30 11/19/19 11:29 Pantoprazole (Protonix) 40 mg BID ORAL 10/26/19 09:00 11/20/19 08:59 10/28/19 17:24 Piperacillin Sod/ Tazobactam Sod 3.375 gm/Sodium Chloride 110 ml @ 27.5 mls/hr EVERY 8 HOURS IVPB 10/26/19 06:00 11/01/19 15:00 10/27/19 13:46 Polyethylene Glycol (Miralax) 17 gm DAILYPRN PRN ORAL Constipation 10/26/19 11:30 11/19/19 11:29 Promethazine HCl/ Codeine (Phenergan with Codeine) 5 ml Q4H PRN ORAL For Cough 10/26/19 01:00 11/20/19 00:59 10/29/19 03:00 Princess Elias BREAD WRAPPER Oct 29, 2019 07:44
--- NOTE | 2019-10-29 07:45 | NUR ---
NURSE NOTES: Pt sitting in bed w/bed in lowest position and call light within reach. Pt A&Ox4, VSS, and in no apparent distress. IV site intact/asymptomatic & H/L'd; skin intact; and BLL lung sounds crackly. Pt scheduled to be D/C'd this AM; pt would not like to take any scheduled medication and requests only phenergan w/codeine. Will continue to monitor.
[2019-10-29 08:00] VITALS: BP 156/96
[2019-10-29] MEDS: Vitamin B-12 500mcg tab ORAL SCH (09:00)
[2019-10-29] MEDS ORDERED: Amiodarone 200mg tab ORAL SCH (09:00)
[2019-10-29] MEDS: Allopurinol 100mg Tab ORAL SCH (09:00)
[2019-10-29] MEDS: Magnesium Oxide 400mg tab ORAL SCH (09:00)
[2019-10-29] MEDS: Eliquis 5mg tablet ORAL SCH (09:00)
[2019-10-29] MEDS: Metoprolol Tartrate 50mg tab ORAL SCH (09:00)
[2019-10-29] MEDS: Docusate 100mg cap ORAL SCH (09:00)
[2019-10-29] MEDS ORDERED: NS 275ml ONE (11:19)
--- NOTE | 2019-10-29 11:30 | NUR ---
NURSE NOTES: Escorted pt downstairs w/all belongings accounted for and in stable condition. Pt provided w/his wallet; home meds; D/C summary; and annika pass. Pt previously provided w/list of resources by Salesperson [employer] and I explained to him to f/u w/Dr. Purvis outpatient; pt verbalized understanding and stated that he will see Dr. Purvis on Thursday.
--- NOTE | 2019-10-29 13:12 | Internal Med Progress Note ---
Subjective Date of Service: Oct 29, 2019 Physician Name Leroy Zimmer Attending Physician Yonas Purvis MD Allergies: Coded Allergies: No Known Allergies (Unverified , 09/12/15) ROS Limited/Unobtainable: No Constitutional: Reports: no symptoms HEENT: Reports: no symptoms Cardiovascular: Reports: no symptoms Respiratory: Reports: no symptoms Gastrointestinal/Abdominal: Reports: no symptoms Genitourinary: Reports: no symptoms Neurologic/Psychiatric: Reports: no symptoms Subjective 74 YO M admitted with vertigo and ataxia. Now atrial flutter with rapid ventricular rate and renal failure. Cover for [facility] Med-DR Purvis Objective Last Vital Signs Date Time Temp Pulse Resp B/P (MAP) Pulse Ox O2 Delivery O2 Flow Rate FiO2 10/29/19 09:00 Room Air 10/29/19 08:00 98.8 84 18 156/96 (116) 95 10/28/19 19:53 21 Intake and Output 10/28/19 10/29/19 19:00 07:00 Intake Total 800 ml 100 ml Balance 800 ml 100 ml Intake Oral 800 ml 100 ml # Voids 3 2 Objective PHYSICAL EXAMINATION: GENERAL: The patient is a well-developed, well-nourished male, in no apparent distress. HEENT: Eyes, pupils are equal and responsive to light and accommodation. Extraocular movements are intact. NECK: Supple without lymphadenopathy. CHEST: Lungs are clear to auscultation bilaterally without wheezes or rales. CARDIOVASCULAR: Regular rate. S1 and S2 are normal without murmurs, rubs, or gallops. ABDOMEN: Soft, nontender, and nondistended. Positive bowel sounds. No evidence of hepatosplenomegaly. Currently, no rebound or guarding noted. EXTREMITIES: Negative for clubbing, cyanosis, or edema. RECTAL: Not performed. GENITAL: Not performed. NEUROLOGIC: Cranial nerves II through XII grossly intact without focal deficits. Motor strength is 5/5 bilaterally. Deep tendon reflexes are 2+ plantar. Assessment/Plan Assessment/Plan ASSESSMENT: This is a 74-year-old male with: 1. Vertigo. 2. Congestive heart failure. 3. Renal failure. 4. Hypercholesteremia. 5. Hypertension. 6. Gout. 7. Atrial flutter with rapid ventricular rate; now sinus TREATMENT: 1. Renal failure. A Nephrology consultation has been obtained with Dr. Sandy. The patient is currently receiving intravenous fluids. We will follow recommendations of Dr. Sandy. Differential includes dehydration versus acute renal failure. 2. Congestive heart failure. Cardiology consultation has been obtained with Dr. Epifanio Silverio. Echocardiogram is pending. We will follow recommendations of Cardiology. 3. Hypercholesterolemia. Continue atorvastatin and fenofibrate as above. 4. Hypertension. Continue hydralazine and metoprolol as above. 5. Gout. Continue allopurinol as above. 6. Continue amiodarone as above Per Cardiology 7. Continue apixaban 8. Discharge home today Leroy Zimmer MD Oct 29, 2019 13:12
--- NOTE | 2019-10-31 11:33 | Discharge Summary ---
Discharge Summary Discharge Summary _ DATE OF ADMISSION: 10/20/2019 DATE OF DISCHARGE: 10/29/2019 DISCHARGED BY: Dr. Purvis REASON FOR ADMISSION: 74 years old male with past medical history of hypertension, gout, chronic renal insufficiency , presented to emergency department with chief complaint of dizziness and shortness of breath while walking. EKG revealed atrial flutter with heart rate of 150. Patient received Cardizem and labetalol IV , and heart rate improved. Patient however remained in a flutter and subsequently admitted to telemetry floor for further management. CONSULTANTS: doormaker Dr. Silverio pulmonary Dr. Rajput ID specialist Dr. Reed daycare assistant Dr. Sandy [facility] COURSE: Patient admitted to telemetry floor. Patient started on heparin drip. Heart rate was controlled initially with digoxin and Cardizem. Blood pressure was closely monitored. Echocardiogram demonstrated ejection fraction of 35 to 40% with mild global left ventricular hypokinesis. Moderately elevated left atrial pressure grade 2, right ventricular systolic pressure of 36. Guideline directed medical therapy provided as per cardiology recommendation. CT of the head revealed no acute intracranial pathology. Blood pressure was managed with beta-tino and hydralazine. Antihypertensive regimen was further optimized as per cardiology to bring blood pressure under control. Patient spontaneously converted to sinus rhythm on 10/22. Cardiology closely followed. Blood pressure improved. Amiodarone decreased to once a day dose after heart rate stabilized . Heart rate was controlled with beta-tino and amiodarone. Heparin drip stopped , and patient started on Eliquis for stroke prevention. Per doormaker patient had a systolic dysfunction along with mild diastolic dysfunction and dilated IVC, suggestive of increased right atrial pressure. Chest x-ray revealed pericardial calcification which was old. Supplemental oxygen provided as needed to keep pulse oximetry above 92% , pulmonary toilet with bronchodilator provided as needed. Nephrotoxins were avoided. Renal parameters and electrolytes were closely monitored , electrolytes corrected as needed (potassium, phosphorus and magnesium). Renal ultrasound demonstrated mild right hydronephrosis and evidence of 180 mL of post void bladder volume. Patient started on Flomax. Allopurinol continued. Patient reported cough and exhibited fever and leukocytosis. ID specialist consulted.. Patient received empiric antibiotic as per ID specialist recommendation. Patient possibly have hospital-acquired pneumonia , despite negative chest x- ray. Leukocytosis resolved. Blood cultures were negative. Supportive care provided. Patient clinically stabilized and was ready for discharge. FINAL DIAGNOSES: Atrial flutter with rapid ventricular response Congestive heart failure, systolic dysfunction Mild diastolic dysfunction and dilated IVC, suggestive of increased RA pressure. Probable HAP /pneumonia Cardiomyopathy with ejection fraction 35 to 40% Acute on chronic renal failure Chronic kidney disease stage 2 Hypertension History of TURP Gout Homeless Electrolyte imbalance Pericardial calcification/old DISCHARGE MEDICATIONS: See Medication Reconciliation list. DISCHARGE INSTRUCTIONS: Patient was discharged home. Follow-up with 3/ Princess Elias NP Oct 31, 2019 11:33
== END 2019-10-29 11:20 | disposition home or self-care (01) | DRG 308 ==
LOC: EDBD 07:14 → EMR 07:49 → EDBEDREQSVC 09:31 → EDBEDREQ 09:31 → 2E 11:18 → 3E 10-25 23:30 → SDSOVERFLO 10-27 10:08 → 3E 10-27 10:09 → SDSOVERFLO 10-27 10:49 → 3E 10-27 10:50 → SDSOVERFLO 10-28 05:57 → 3E 10-28 05:58
DX: I48.92 Unspecified atrial flutter (principal); J18.9 Pneumonia, unspecified organism; N17.9 Acute kidney failure, unspecified; I50.40 Unspecified combined systolic (congestive) and diastolic (congestive) heart failure; I13.0 Hypertensive heart and chronic kidney disease with heart failure and stage 1 through stage 4 chronic kidney disease, or unspecified chronic kidney disease; I31.1 Chronic constrictive pericarditis; R42 Dizziness and giddiness; I11.0 Hypertensive heart disease with heart failure; N18.2 Chronic kidney disease, stage 2 (mild); M10.9 Gout, unspecified; Z59.0 Homelessness; R26.89 Other abnormalities of gait and mobility; I42.9 Cardiomyopathy, unspecified
CPT/HCPCS: 36415; 70450; 71045; 76770; 80048; 80053; 80061; 80076; 80162; 80307; 81003; 82043; 82550; 82607; 82728; 82746; 83540; 83550; 83690; 83735; 83880; 83935; 84100; 84300; 84443; 84484; 84550; 85025; 85610; 85730; 86140; 86580; 87040; 89050; 93005; 93306; 94664; 96374; 99285; C9399

== ENCOUNTER 2019-11-14 21:18 | Inpatient (IN) | payer MEDICARE, MEDICAID ==
[~2019-11-14] VITALS: Ht 177.8 cm; Wt 84.8 kg
[~2019-11-14 21:18] MED LIST changes: +ELIQUIS5 MG ORAL; +FENOFIBRATE43 MG ORAL; +FLOMAX0.4 MG ORAL; +ISOSORBIDE MONO30 M1 ORAL; +METOPROLOL TART50 MG ORAL; +NITRO0.4 SL; +PACERONE200 MG ORAL
[2019-11-14 21:34] VITALS: BP 145/82
--- NOTE | 2019-11-14 21:34 | Emergency Room Report ---
History of Present Illness General Chief Complaint: General Complaint Source: Patient Present Illness HPI This a 74-year-old male who is homeless. He has a history of atrial flutter and atrial flutter. He is taking Eliquis. Also history of cardiomyopathy with ejection fraction of 35 to 40% on the last admission. He presents with chief complaint of difficulty walking. He said he was walking to his regular supermarket when all of a sudden he felt that he was unsteady. He said he has mild difficulty in breathing. He is felt better now. No chest pain. No nausea no vomiting. Patient is a poor historian because he goes on different tangents. He said he had similar symptoms last month when he was admitted for this. COVID-19 risk:Travel to affect: No Has patient experienced valdez: No Allergies: Coded Allergies: No Known Allergies (Unverified , 09/12/15) Patient History Past Medical History: see triage record, old chart reviewed, HTN, CAD, CHF, AFib Past Surgical History: other Pertinent Family History: none Social History: Denies: smoking Immunizations: other Reviewed Nursing Documentation: PMH: Agreed; PSxH: Agreed Nursing Documentation-PMH Hx Cardiac Problems: Yes - HYPERLIPIDEMIA Hx Hypertension: Yes Hx Cancer: No Hx Gastrointestinal Problems: No Hx Neurological Problems: No Review of Systems Eye: Denies: eye pain, blurred vision ENT: Denies: ear pain, nose congestion, throat swelling Respiratory: Denies: cough, shortness of breath Cardiovascular: Denies: chest pain, palpitations Gastrointestinal: Denies: abdominal pain, diarrhea, nausea, vomiting Musculoskeletal: Denies: back pain, joint pain Skin: Denies: rash Neurological: Reports: dizziness; Denies: headache, numbness Endocrine: Denies: increased thirst, increased urine Hematologic/Lymphatic: Denies: easy bruising All Other Systems: negative except mentioned in HPI Physical Exam Vital Signs Date Time Temp Pulse Resp B/P (MAP) Pulse Ox O2 Delivery O2 Flow Rate FiO2 11/14/19 21:24 97.5 55 16 145/82 (103) 98 Room Air Vitals with high blood pressure Sp02 EP Interpretation: reviewed, normal General Appearance: well appearing, no apparent distress, alert Head: normocephalic, atraumatic Eyes: bilateral eye PERRL, bilateral eye EOMI ENT: hearing grossly normal, normal pharynx Neck: full range of motion, supple, no meningismus Respiratory: chest non-tender, lungs clear, normal breath sounds Cardiovascular #1: no murmur, irregularly irregular Gastrointestinal: normal bowel sounds, non tender, no mass, no organomegaly, no bruit, non-distended Musculoskeletal: back normal, normal range of motion, gait/station normal Psychiatric: mood/affect normal Medical Decision Making Diagnostic Impression: Primary Impression: Atrial flutter with rapid ventricular response Additional Impressions: Dizziness CKD (chronic kidney disease) Qualified Codes: N18.9 - Chronic kidney disease, unspecified ER Course Patient presents with acute dizziness. This is probably secondary to his atrial flutter with a rapid ventricular rate. His rate is controlled here. When he came in it was controlled but intermittently goes up to [birth year]19[birth year]. Better control with Cardizem. CT head is negative. No evidence of rest or distress or ACS. Will admit patient for cardiac monitoring and further work- up. I was the case with Dr. Purvis and Dr. Rajput for admission. EKG Diagnostic Results Rate: normal Rhythm: other - aflutter ST Segments: other - NSST changes Rhythm Strip Diag. Results EP Interpretation: yes Rate: 93 Rhythm: no PVC's, no ectopy, other - aflutter Chest X-Ray Diagnostic Results Chest X-Ray Diagnostic Results : Chest X-Ray Ordered: Yes # of Views/Limited/Complete: 1 View Indication: Shortness of Breath EP Interpretation: Yes Interpretation: no consolidation, no effusion, no pneumothorax, other - cm Impression: Other - CM CT/MRI/US Diagnostic Results CT/MRI/US Diagnostic Results : Imaging Test Ordered: CT head Impression Per radiologist negative Last Vital Signs Date Time Temp Pulse Resp B/P (MAP) Pulse Ox O2 Delivery O2 Flow Rate FiO2 11/14/19 21:24 97.5 55 16 145/82 (103) 98 Room Air Status: improved Disposition: ADMITTED INPATIENT Condition: Serious Jamie Handley MD Nov 14, 2019 21:34
--- NOTE | 2019-11-14 21:34 | NUR ---
ED Nurse Note: Pt biba CO "trouble walking" and SOB while walking to the store. Pt denies pain or injury. Aao x 4. ERMD at bedside. Pt states that he has a hx of a hernia in lower left abd. VSS. no s/s of distress noted.
--- NOTE | 2019-11-14 21:40 | NUR ---
ED Nurse Note: All bloodwork drawn and sent to lab
--- NOTE | 2019-11-14 21:43 | NUR ---
ED Nurse Note: brick dropper at beside for EKG
--- NOTE | 2019-11-14 21:44 | NUR ---
ED Nurse Note: Pt taken to CT in stable condition; no s/s of distress noted. VSS.
--- NOTE | 2019-11-14 22:03 | Diagnostic Imaging Report ---
Indications: Gait difficulty, altered mental status Technique: Spiral acquisitions obtained through the brain. Angled axial and coronal 5 x 5 mm slices were reconstructed. Total dose length product 1012 mGycm. CTDI vol(s) 53 mGy. Dose reduction achieved using automated exposure control Comparison: 10/20/2019 Findings: Normal for age ventricles and extra-axial CSF spaces. There is periventricular deep white matter low-attenuation, consistent with chronic microvascular ischemic changes. Visualized orbits and sinuses are unremarkable. The mastoids are clear. The calvarium is intact. Tiny punctate density there is a third ventricle could represent a small colloid cyst. Impression: Negative This agrees with the preliminary interpretation provided overnight by [facility] teleradiology service. The CT scanner at [facility] is accredited by the [employer] and the scans are performed using protocols designed to limit radiation exposure to as low as reasonably achievable to attain images of sufficient resolution adequate for diagnostic evaluation.
[2019-11-14 22:06] LABS: BASOPHILS % (AUTO) 0.9 % (0.0-2.0); EOSINOPHILS % (AUTO) 1.1 % (0.0-3.0); HEMATOCRIT 42.4 % (42.0-52.0); HEMOGLOBIN 15.2 G/DL (14.2-18.0); LYMPHOCYTES % (AUTO) 15.2 % (20.0-45.0); MEAN CORPUSCULAR VOLUME 91 FL (80-99); MONOCYTES % (AUTO) 10.3 % (1.0-10.0); NEUTROPHILS % (AUTO) 72.6 % (45.0-75.0); PLATELET COUNT 266 K/UL (150-450); RED BLOOD COUNT 4.64 M/UL (4.70-6.10); RED CELL DISTRIBUTION WIDTH 12.9 % (11.6-14.8); WHITE BLOOD COUNT 10.2 K/UL (4.8-10.8)
[2019-11-14 22:10] LABS: INR 1.1 (0.9-1.1)
[2019-11-14 22:13] LABS: APPEARANCE,URINE CLEAR; BILIRUBIN, URINE NEGATIVE (NEGATIVE); COLOR,URINE PALE YELLOW; GLUCOSE, URINE (UA) NEGATIVE (NEGATIVE); KETONES,URINE NEGATIVE (NEGATIVE); LEUKOCYTE ESTERASE ,URINE NEGATIVE (NEGATIVE); NITRITE,URINE NEGATIVE (NEGATIVE); PH,URINE 5 (4.5-8.0); PROTEIN,URINE 3+ (NEGATIVE); UROBILINOGEN,URINE NORMAL MG/DL (0.0-1.0)
[2019-11-14] MEDS ORDERED: dilTIAZem HCl 25mg/5ml Inj IVP ONE (22:15)
[2019-11-14] MEDS ORDERED: dilTIAZem HCl 25mg/5ml Inj IV PRN (22:15)
--- NOTE | 2019-11-14 22:16 | NUR ---
ED Nurse Note: all medications administered; pt tolerated well no adverse reactions noted. no s/s of distress noted.
[2019-11-14 22:24] LABS: ANION GAP 16 mmol/L (5-15); BLOOD UREA NITROGEN 50 mg/dL (7-18); CALCIUM 9.2 MG/DL (8.5-10.1); CARBON DIOXIDE 21 MMOL/L (21-32); CHLORIDE 109 MMOL/L (98-107); CREATININE 2.9 MG/DL (0.55-1.30); POTASSIUM 3.3 MMOL/L (3.5-5.1); SODIUM 146 MMOL/L (136-145)
[2019-11-14 22:39] LABS: ALANINE AMINOTRANSFERASE 23 U/L (12-78); ALBUMIN 4.3 G/DL (3.4-5.0); ALBUMIN/GLOBULIN RATIO 1.2 (1.0-2.7); ALKALINE PHOSPHATASE 102 U/L (46-116); ASPARTATE AMINO TRANSFERASE 24 U/L (15-37); BILIRUBIN,TOTAL 0.6 MG/DL (0.2-1.0)
--- NOTE | 2019-11-14 22:50 | NUR ---
ED Nurse Note: MRSA VRE and CRE swabs completed and sent to lab
--- NOTE | 2019-11-14 23:25 | NUR ---
ED Nurse Note: Pt belongings list completed; awaiting security to place wallet in safe per pt request.
--- NOTE | 2019-11-14 23:30 | NUR ---
ED Nurse Note: Attempted to reach telemetry unit for transfer; pending report
--- NOTE | 2019-11-14 23:36 | NUR ---
ED Nurse Note: report given to TSERING West on telemetry unit.
--- NOTE | 2019-11-14 23:40 | NUR ---
NURSE NOTES: Received patient from ED. Patient on room air, no signs of respiratory distress. Calm, cooperative, talkative, transferred to bed independently. IV on left forearm, patent, dressing intact. Notified charge nurse that automobile leasing supervisor is needed to lock patient's money in the safe. Bed in low position, locked, bed alarm on, call light within reach.
[2019-11-14 23:50] VITALS: BP 125/65
[2019-11-14] MEDS ORDERED: Zolpidem 5mg tab ORAL PRN (23:59)
[2019-11-15] VITALS: BP 122/80
--- NOTE | 2019-11-15 | NUR ---
NURSE NOTES: Left message for Dr. Rajput for diet orders and informed him that patient's potassium was 3.3.
[2019-11-15] MEDS: HydrALAZINE 50mg tab ORAL SCH ×4 (01:00→21:14)
[2019-11-15 04:13] VITALS: BP 119/71
--- NOTE | 2019-11-15 07:30 | NUR ---
NURSE NOTES: RECEIVED REPORT FROM TSERING PAGAN. PATIENT AWAKE IN BED. NO COMPLAINTS OF PAIN OR DISCOMFORT. BREATHING IS EVEN AND UNLABORED ON ROOM AIR- NO S/SX OF DISTRESS AT THIS TIME. SIDERAILS X 2. BED LOCKED AND IN LOWEST POSITION. CALL LIGHT IN REACH. WILL CONTINUE TO MONITOR.
[2019-11-15 08:00] VITALS: BP 135/69
--- NOTE | 2019-11-15 08:05 | Diagnostic Imaging Report ---
Indication: Chest pain Technique: One view of the chest Comparison: 10/28/2019 Findings: Lungs and pleural spaces are clear. The heart size is normal. Unusual right-sided likely pericardial calcifications again demonstrated. Surgical hardware in the left shoulder is again demonstrated. Findings are unchanged Impression: No acute process
[2019-11-15] MEDS ORDERED: Imdur 30mg tab ORAL SCH (09:00)
[2019-11-15] MEDS ORDERED: Furosemide 40mg tab ORAL SCH (09:00)
[2019-11-15] MEDS ORDERED: Allopurinol 100mg Tab ORAL SCH (09:00)
[2019-11-15] MEDS: Eliquis 5mg tablet ORAL SCH ×2 (09:00→18:00)
[2019-11-15] MEDS: Tamsulosin 0.4mg cap ORAL SCH ×2 (09:05→18:01)
[2019-11-15] MEDS: Metoprolol Tartrate 50mg tab ORAL SCH ×2 (09:05→21:14)
[2019-11-15] MEDS: Amiodarone 200mg tab ORAL SCH ×2 (09:06→21:14)
[2019-11-15 12:00] VITALS: BP 131/75
--- NOTE | 2019-11-15 12:07 | Consultation ---
Consult Note Consult Note I was asked to evaluate the patient at the request of Dr. Purvis for renal failure Patient known to me from his recent admission on October 21 Patient examined chart reviewed full note to follow Or orders Assessment/Plan # [id number] Avila Sandy MD Nov 15, 2019 12:07
--- NOTE | 2019-11-15 13:47 | NUR ---
CASE MANAGEMENT:REVIEW 74 YR OLD MALE MALE BIBA FROM ; TROUBLE WALKING SI: AFLUTTER W/RVR. CKD 97.6 55 16 145/82 98% ON RA NA+146 K-3.3 BUN+50 CR+2.9 BNP+2306 IS: IV CARDIZEM CT HEAD CXR : TO TELEMETRY IS: AMIODARONE PO Q12 ELIQUIS PO BID LASIX PO QD IMDUR PO QD LOPRESSOR PO Q12 HYDRALAZINE PO Q8HRS FLOMAX PO BID PLAN: CT HEAD
--- NOTE | 2019-11-15 13:59 | Consultation ---
History of Present Illness General Date patient seen: Nov 15, 2019 Chief Complaint: General Complaint Present Illness HPI 74 year old male with hx of HTN, Gout, chronic mild renal insufficiency, presented to ER with CC of increasing weakness. He was in a-flutter of 150 in ER and go Cardizem and Labetolol IV and his heart rate slowed down but remained in A-flutter. He is admitted to telemetry for further management. Allergies: Uncoded Allergies: red meat (Adverse Reaction, Unknown, 11/15/19) patient has gout and does not eat red meat Medication History Scheduled Allopurinol* (Allopurinol*), 300 MG ORAL DAILY Amiodarone Hcl* ([place]*), 200 MG ORAL EVERY 12 HOURS Apixaban (Eliquis), 5 MG ORAL BID Aspirin Ec* (Aspirin Ec*), 81 MG ORAL DAILY Atorvastatin Calcium* (Lipitor*), 10 MG ORAL BEDTIME Fenofibrate,Micronized (Fenofibrate), 43 MG ORAL DAILY, (Reported) Furosemide* (Lasix*), 40 MG ORAL DAILY Hydralazine HCl (Hydralazine HCl), 50 MG ORAL Q8HR Isosorbide Mononitrate (Isosorbide Mononitrate Er), 30 MG ORAL DAILY Metoprolol Tartrate* (Metoprolol Tartrate*), 50 MG ORAL Q12HR Tamsulosin HCl (Flomax), 0.4 MG ORAL BID Scheduled PRN Nitroglycerin 0.4MG table* (Nitroglycerin*), 0.4 MG SL Q5M PRN Patient History Healthcare decision maker Resuscitation status Full Code Advanced Directive on File Past Medical/Surgical History Past Medical/Surgical History: (1) Pericardial calcification (2) Chronic renal insufficiency, stage II (mild) (3) History of hypertension (4) History of gout (5) CKD (chronic kidney disease) (6) Cardiomyopathy Review of Systems All Other Systems: negative except mentioned in HPI Physical Exam General Appearance: WD/WN Lines, tubes and drains: peripheral HEENT: normocephalic, atraumatic Neck: non-tender, normal alignment Respiratory/Chest: chest wall non-tender, lungs clear Cardiovascular/Chest: normal peripheral pulses, normal rate Abdomen: normal bowel sounds, non tender Genitourinary/Rectal: normal genital exam Extremities: normal range of motion Last 24 Hour Vital Signs Date Time Temp Pulse Resp B/P (MAP) Pulse Ox O2 Delivery O2 Flow Rate FiO2 11/15/19 12:00 97.5 76 18 131/75 (93) 96 11/15/19 12:00 74 11/15/19 09:53 135/69 11/15/19 09:06 135/69 11/15/19 09:05 79 135/69 11/15/19 09:00 Room Air 11/15/19 08:00 95 11/15/19 08:00 97.9 79 20 135/69 (91) 97 11/15/19 04:13 98.1 82 16 119/71 (87) 95 11/15/19 04:00 90 11/15/19 01:00 122/80 11/15/19 00:14 104 11/15/19 00:00 Room Air 11/15/19 00:00 122/80 (94) 11/15/19 00:00 97.3 76 20 122/80 (94) 97 11/14/19 23:50 97.5 92 16 125/65 98 Room Air 11/14/19 23:50 97.5 92 16 125/65 98 Room Air 11/14/19 22:17 94 130/64 11/14/19 21:34 97.5 55 16 145/82 98 Room Air 11/14/19 21:34 55 16 Room Air 11/14/19 21:24 97.5 55 16 145/82 (103) 98 Room Air Intake and Output 11/14/19 11/15/19 19:00 07:00 Intake Total 0 ml Balance 0 ml Intake Oral 0 ml # Voids 1 # Bowel Movements 3 Laboratory Tests Test 11/14/19 21:40 11/14/19 22:00 White Blood Count 10.2 K/UL (4.8-10.8) Red Blood Count 4.64 M/UL (4.70-6.10) L Hemoglobin 15.2 G/DL (14.2-18.0) Hematocrit 42.4 % (42.0-52.0) Mean Corpuscular Volume 91 FL (80-99) Mean Corpuscular Hemoglobin 32.7 PG (27.0-31.0) H Mean Corpuscular Hemoglobin Concent 35.8 G/DL (32.0-36.0) Red Cell Distribution Width 12.9 % (11.6-14.8) Platelet Count 266 K/UL (150-450) Mean Platelet Volume 6.3 FL (6.5-10.1) L Neutrophils (%) (Auto) 72.6 % (45.0-75.0) Lymphocytes (%) (Auto) 15.2 % (20.0-45.0) L Monocytes (%) (Auto) 10.3 % (1.0-10.0) H Eosinophils (%) (Auto) 1.1 % (0.0-3.0) Basophils (%) (Auto) 0.9 % (0.0-2.0) Prothrombin Time 11.2 SEC (9.30-11.50) Prothromb Time International Ratio 1.1 (0.9-1.1) Activated Partial Thromboplast Time 30 SEC (23-33) Sodium Level 146 MMOL/L (136-145) H Potassium Level 3.3 MMOL/L (3.5-5.1) L Chloride Level 109 MMOL/L (98-107) H Carbon Dioxide Level 21 MMOL/L (21-32) Anion Gap 16 mmol/L (5-15) H Blood Urea Nitrogen 50 mg/dL (7-18) H Creatinine 2.9 MG/DL (0.55-1.30) H Estimat Glomerular Filtration Rate 21.3 mL/min (>60) Glucose Level 113 MG/DL (74-106) H Calcium Level 9.2 MG/DL (8.5-10.1) Total Bilirubin 0.6 MG/DL (0.2-1.0) Aspartate Amino Transf (AST/SGOT) 24 U/L (15-37) Alanine Aminotransferase (ALT/SGPT) 23 U/L (12-78) Alkaline Phosphatase 102 U/L (46-116) Troponin I 0.000 ng/mL (0.000-0.056) Pro-B-Type Natriuretic Peptide 2306 pg/mL (0-125) H Total Protein 7.9 G/DL (6.4-8.2) Albumin 4.3 G/DL (3.4-5.0) Globulin 3.6 g/dL Albumin/Globulin Ratio 1.2 (1.0-2.7) Urine Color Pale yellow Urine Appearance Clear Urine pH 5 (4.5-8.0) Urine Specific [place] 1.015 (1.005-1.035) Urine Protein 3+ (NEGATIVE) H Urine Glucose (UA) Negative (NEGATIVE) Urine Ketones Negative (NEGATIVE) Urine Blood Negative (NEGATIVE) Urine Nitrite Negative (NEGATIVE) Urine Bilirubin Negative (NEGATIVE) Urine Urobilinogen Normal MG/DL (0.0-1.0) Urine Leukocyte Esterase Negative (NEGATIVE) Urine RBC 0-2 /HPF (0 - 0) H Urine WBC 0-2 /HPF (0 - 0) Urine Squamous Epithelial Cells None /LPF (NONE/OCC) Urine Bacteria Few /HPF (NONE) Urine Opiates Screen Negative (NEGATIVE) Urine Barbiturates Screen Negative (NEGATIVE) Phencyclidine (PCP) Screen Negative (NEGATIVE) Urine Amphetamines Screen Negative (NEGATIVE) Urine Benzodiazepines Screen Negative (NEGATIVE) Urine Cocaine Screen Negative (NEGATIVE) Urine Marijuana (THC) Screen Negative (NEGATIVE) Height (Feet): 5 Height (Inches): 10.00 Weight (Pounds): 182 Medications Current Medications Medications (Trade) Dose Ordered Sig/Catrina Route PRN Reason Start Time Stop Time Status Last Admin Dose Admin Acetaminophen (Tylenol) 650 mg Q4H PRN ORAL fever 11/14/19 22:00 12/14/19 21:59 Allopurinol (Zyloprim) 100 mg DAILY ORAL 11/15/19 09:00 12/15/19 08:59 11/15/19 09:06 Amiodarone HCl (Cordarone) 200 mg EVERY 12 HOURS ORAL 11/15/19 09:00 12/15/19 08:59 11/15/19 09:06 Apixaban (Eliquis) 5 mg BID ORAL 11/15/19 09:00 12/15/19 08:59 Atorvastatin Calcium (Lipitor) 10 mg BEDTIME ORAL 11/15/19 21:00 12/15/19 20:59 Diltiazem HCl (Cardizem) 10 mg EVERY HOUR PRN IV heart rate more than 120, 11/14/19 22:15 12/14/19 22:14 Furosemide (Lasix) 40 mg DAILY ORAL 11/15/19 09:00 12/15/19 08:59 11/15/19 09:06 Hydralazine HCl (Apresoline) 50 mg Q8HR ORAL 11/14/19 23:59 12/14/19 23:58 11/15/19 01:00 Isosorbide Mononitrate (Imdur) 30 mg DAILY ORAL 11/15/19 09:00 12/15/19 08:59 11/15/19 09:06 Metoprolol Tartrate (Lopressor) 50 mg Q12HR ORAL 11/15/19 09:00 12/15/19 08:59 11/15/19 09:05 Ondansetron HCl (Zofran) 4 mg Q6H PRN IVP Nausea & Vomiting 11/14/19 22:00 12/14/19 21:59 Tamsulosin HCl (Flomax) 0.4 mg BID ORAL 11/15/19 09:00 12/15/19 08:59 11/15/19 09:05 Zolpidem Tartrate (Ambien) 5 mg HSPRN PRN ORAL Insomnia 11/14/19 23:59 11/21/19 23:58 Assessment/Plan Problem List: (1) Atrial flutter with rapid ventricular response ICD Codes: I48.92 - Unspecified atrial flutter SNOMED: 2945150, 3190278 (2) Pericardial calcification ICD Codes: I31.8 - Other specified diseases of pericardium SNOMED: 41519121 (3) Chronic renal insufficiency, stage II (mild) ICD Codes: N18.2 - Chronic kidney disease, stage 2 (mild) SNOMED: 324214067 (4) Cardiomyopathy ICD Codes: I42.9 - Cardiomyopathy, unspecified SNOMED: 76153222 (5) History of gout ICD Codes: Z87.39 - Personal history of other diseases of the musculoskeletal system and connective tissue SNOMED: 798482243 (6) History of hypertension ICD Codes: Z86.79 - Personal history of other diseases of the circulatory system SNOMED: 882223072 Assessment/Plan: telemetry monitoring heart rate control with prn Cardizem adjust cardiac meds anticoagulation by cardiology renal evaluation and f/u renal parameters. Erma Rajput MD Nov 15, 2019 13:59
[2019-11-15 16:00] VITALS: BP 116/61
--- NOTE | 2019-11-15 16:20 | NUR ---
POLICE MANAGER NOTE Pt was recently discharged from the hospital on 10/29/2019. Pt is homeless, receives SSI and previously refused a placement assistance. Pt presents as A&O4x. Pt did not disclose which area/place he has been staying prior to admission. Pt engaged w/ this SW minimally and did not disclose a lot. Pt reports he did not contact his cancer/eye doctor and did not provide any reason. Pt states he only concerns about the current medical issue that he is currently treating at this time. PT reports he does not have a plan where he will be going upon DC. Yet, he is determined he does not spend his income on shared housing/independent living/board and care. SW will continue to F/U. Signed: 11/15/19 at 1623 by CAIT CHAUHAN <Co-Signature Required>
--- NOTE | 2019-11-15 16:38 | NUR ---
NURSE NOTES:WOUND CARE NOTES: Pt presented on admission with non-blanching erythema sacrum,R and L gluteal cheeks.Pt denied tenderness when palpated. A Historical scar noted to R buttocks which pt confirmed was from Pressure injury in 2013. Pt then began to exhibit hostility towards staff during skin assessment. When informed staff would respect pt's wishes to be left alone. Pt demanded staff completed skin assessment. Pt was educated and advised of risks vs benefits to having preventive measures applied to minimize friction on skin and prevent further skin breakdown Non-blanching erythema noted to R and L heels. Pt denied tenderness when each heel individually palpated. NO other skin concerns noted .Pt denied bladder or bowel incontinence and demonstrated good mobility in bed. Pt encouraged to frequently reposition while in bed. Tx.Plan:Apply Moisture Barrier Paste to Sacrum. Cover with Optifoam drsg. Change every 3 days and prn. Apply Cavilon Skin Barrier to both heels. Cover each heel with Optifoam drsg. Change every 7 days and prn. Encourage Pt to frequently reposition as tolerated while in bed. Off-load heels with pillow.
--- NOTE | 2019-11-15 16:40 | Cardiology Progress Note ---
Assessment/Plan Assessment/Plan [id number] Objective Last 24 Hour Vital Signs Date Time Temp Pulse Resp B/P (MAP) Pulse Ox O2 Delivery O2 Flow Rate FiO2 11/15/19 15:13 131/75 11/15/19 12:00 97.5 76 18 131/75 (93) 96 11/15/19 12:00 74 11/15/19 09:53 135/69 11/15/19 09:06 135/69 11/15/19 09:05 79 135/69 11/15/19 09:00 Room Air 11/15/19 08:00 95 11/15/19 08:00 97.9 79 20 135/69 (91) 97 11/15/19 04:13 98.1 82 16 119/71 (87) 95 11/15/19 04:00 90 11/15/19 01:00 122/80 11/15/19 00:14 104 11/15/19 00:00 Room Air 11/15/19 00:00 122/80 (94) 11/15/19 00:00 97.3 76 20 122/80 (94) 97 11/14/19 23:50 97.5 92 16 125/65 98 Room Air 11/14/19 23:50 97.5 92 16 125/65 98 Room Air 11/14/19 22:17 94 130/64 11/14/19 21:34 97.5 55 16 145/82 98 Room Air 11/14/19 21:34 55 16 Room Air 11/14/19 21:24 97.5 55 16 145/82 (103) 98 Room Air Intake and Output 11/14/19 11/15/19 19:00 07:00 Intake Total 0 ml Balance 0 ml Intake Oral 0 ml # Voids 1 # Bowel Movements 3 Laboratory Tests Test 11/14/19 21:40 11/14/19 22:00 White Blood Count 10.2 K/UL (4.8-10.8) Red Blood Count 4.64 M/UL (4.70-6.10) L Hemoglobin 15.2 G/DL (14.2-18.0) Hematocrit 42.4 % (42.0-52.0) Mean Corpuscular Volume 91 FL (80-99) Mean Corpuscular Hemoglobin 32.7 PG (27.0-31.0) H Mean Corpuscular Hemoglobin Concent 35.8 G/DL (32.0-36.0) Red Cell Distribution Width 12.9 % (11.6-14.8) Platelet Count 266 K/UL (150-450) Mean Platelet Volume 6.3 FL (6.5-10.1) L Neutrophils (%) (Auto) 72.6 % (45.0-75.0) Lymphocytes (%) (Auto) 15.2 % (20.0-45.0) L Monocytes (%) (Auto) 10.3 % (1.0-10.0) H Eosinophils (%) (Auto) 1.1 % (0.0-3.0) Basophils (%) (Auto) 0.9 % (0.0-2.0) Prothrombin Time 11.2 SEC (9.30-11.50) Prothromb Time International Ratio 1.1 (0.9-1.1) Activated Partial Thromboplast Time 30 SEC (23-33) Sodium Level 146 MMOL/L (136-145) H Potassium Level 3.3 MMOL/L (3.5-5.1) L Chloride Level 109 MMOL/L (98-107) H Carbon Dioxide Level 21 MMOL/L (21-32) Anion Gap 16 mmol/L (5-15) H Blood Urea Nitrogen 50 mg/dL (7-18) H Creatinine 2.9 MG/DL (0.55-1.30) H Estimat Glomerular Filtration Rate 21.3 mL/min (>60) Glucose Level 113 MG/DL (74-106) H Calcium Level 9.2 MG/DL (8.5-10.1) Total Bilirubin 0.6 MG/DL (0.2-1.0) Aspartate Amino Transf (AST/SGOT) 24 U/L (15-37) Alanine Aminotransferase (ALT/SGPT) 23 U/L (12-78) Alkaline Phosphatase 102 U/L (46-116) Troponin I 0.000 ng/mL (0.000-0.056) Pro-B-Type Natriuretic Peptide 2306 pg/mL (0-125) H Total Protein 7.9 G/DL (6.4-8.2) Albumin 4.3 G/DL (3.4-5.0) Globulin 3.6 g/dL Albumin/Globulin Ratio 1.2 (1.0-2.7) Urine Color Pale yellow Urine Appearance Clear Urine pH 5 (4.5-8.0) Urine Specific [place] 1.015 (1.005-1.035) Urine Protein 3+ (NEGATIVE) H Urine Glucose (UA) Negative (NEGATIVE) Urine Ketones Negative (NEGATIVE) Urine Blood Negative (NEGATIVE) Urine Nitrite Negative (NEGATIVE) Urine Bilirubin Negative (NEGATIVE) Urine Urobilinogen Normal MG/DL (0.0-1.0) Urine Leukocyte Esterase Negative (NEGATIVE) Urine RBC 0-2 /HPF (0 - 0) H Urine WBC 0-2 /HPF (0 - 0) Urine Squamous Epithelial Cells None /LPF (NONE/OCC) Urine Bacteria Few /HPF (NONE) Urine Opiates Screen Negative (NEGATIVE) Urine Barbiturates Screen Negative (NEGATIVE) Phencyclidine (PCP) Screen Negative (NEGATIVE) Urine Amphetamines Screen Negative (NEGATIVE) Urine Benzodiazepines Screen Negative (NEGATIVE) Urine Cocaine Screen Negative (NEGATIVE) Urine Marijuana (THC) Screen Negative (NEGATIVE) Epifanio Silverio MD Nov 15, 2019 16:40
--- NOTE | 2019-11-15 18:05 | History & Physical ---
History and Physical History & Physicial Dictated for Int Med-DR Purvis no. [id number]. Leroy Zimmer MD Nov 15, 2019 18:05
--- NOTE | 2019-11-15 19:00 | Consultation ---
DATE OF CONSULTATION: 11/15/2019 RENAL CONSULTATION REASON FOR CONSULTATION: I was asked to evaluate the patient at the request of Dr. Purvis for renal failure. HISTORY OF PRESENT ILLNESS: The patient is known to me from his previous admission here at the [facility]. He refers to our emergency room with general complaint. He is 74 years old. He is homeless with history of atrial flutter. He is having history of cardiomyopathy with ejection fraction of 35 to 40 percent and his main complaint is difficulty walking. PAST MEDICAL HISTORY: Significant for high cholesterol, hypertension, vague history of previous prostate surgery in the form of transurethral resection of prostate. The patient also has history of coronary artery disease and congestive heart failure and atrial fibrillation and hypertension. PHYSICAL EXAMINATION: VITAL SIGNS: Today, the patient's blood pressure was 135/69, pulse rate 76 and irregular, temperature 97.5, not in any distress. HEENT: Head is normocephalic. LUNGS: Poor inspiratory effort. Decreased breath sounds over the bases. HEART: Mainly irregular with occasional irregular beats. ABDOMEN: Soft. EXTREMITIES: Trace edema. Varicose veins. CENTRAL NERVOUS SYSTEM: Moves all extremities. LABORATORY DATA: Creatinine 2.9, BUN 50, potassium 3.3. Pro-natriuretic assay 2300. Urine for tox was negative. Urinalysis had 3+ protein. IMPRESSION: 1. The patient's renal impression is acute on chronic renal failure. Other conditions atrial flutter with periodic rapid ventricular response. 2. Hypertension. 3. History of gout. 4. Pericardial calcification. 5. The patient is homeless. PLAN: The patient is seen by a transfer table operator for the dysrhythmia. The cardiac and pulmonary status will be optimized. Nephrotoxic's will be avoided. Urine studies will be ordered. We will continue on Flomax. Keep the blood pressure and blood sugar in check and according to how the patient's condition evolves, we will make the proper changes in our future management. Avila Sandy M.D. DR: ALEJANDRO JOB#: [id number] CC:
--- NOTE | 2019-11-15 19:00 | History and Physical Report ---
DATE OF ADMISSION: 11/14/2019 CHIEF COMPLAINT: The patient is a 74-year-old male, who presents with chief complaint of shortness of breath and unsteady gait. HISTORY OF PRESENT ILLNESS: The patient was admitted to [facility] from October to October 29, 2019. Please see history and physical and discharge summary dictated at that time. The patient presented to [place] emergency room stating that he was walking. The patient became short of breath. The patient also had an unsteady gait. The patient has a history of atrial flutter. The patient presented to [place] emergency room. The patient is admitted with chief complaint of shortness of breath and ataxia, to rule out atrial flutter with rapid ventricular rate. REVIEW OF SYSTEMS: CONSTITUTIONAL: The patient denies weight loss or weight gain. The patient denies fevers or chills. HEENT: The patient denies ear or throat pain. The patient denies headache. CARDIOVASCULAR: The patient denies palpitations or chest pain. CHEST: The patient denies wheezes. The patient does complain of shortness of breath as above. ABDOMEN: The patient denies nausea, vomiting, diarrhea, or constipation. GENITOURINARY: The patient denies dysuria or increased frequency of urination. NEUROMUSCULAR: The patient denies seizures or generalized weakness. PAST MEDICAL HISTORY: Significant for: 1. Atrial flutter. 2. Hypercholesterolemia. 3. Hypertension. 4. Congestive heart failure. 5. Cardiomyopathy with an ejection fraction of 35% to 40%. 6. Chronic renal failure. 7. Benign prostatic hypertrophy. 8. Gout. PAST SURGICAL HISTORY: Significant for: 1. Transurethral resection of the prostate. 2. Right inguinal hernia repair. CURRENT MEDICATIONS: 1. Allopurinol 100 mg p.o. daily. 2. Amiodarone 200 mg one tablet p.o. twice daily. 3. Apixaban 5 mg p.o. twice daily. 4. Aspirin 81 mg one tablet p.o. daily. 5. Atorvastatin 10 mg p.o. nightly. 6. Fenofibrate 43 mg p.o. daily. 7. Lasix 40 mg p.o. daily. 8. Hydralazine 50 mg p.o. q.8 h. 9. Isosorbide mononitrate 30 mg p.o. daily. 10. Metoprolol 50 mg p.o. twice daily. 11. Tamsulosin 0.4 mg p.o. daily. ALLERGIES: No known drug allergies. SOCIAL HISTORY: The patient is single. The patient admits to tobacco use of one-half pack per day. The patient denies alcohol use. PHYSICAL EXAMINATION: VITAL SIGNS: Temperature 97.5, respirations 16, pulse 55, and blood pressure 145/82. GENERAL: The patient is a well-developed and well-nourished male, in no apparent distress. HEENT: Eyes, pupils are equal and responsive to light and accommodation. Extraocular movements are intact. NECK: Supple without lymphadenopathy. CHEST: Lungs are clear to auscultation bilaterally without wheezes or rales. CARDIOVASCULAR: Regular rhythm and rate. S1, S2 normal without murmurs, rubs, or gallops. ABDOMEN: Soft, nontender, and nondistended. Positive bowel sounds. No evidence of hepatosplenomegaly. Currently, no rebound or guarding noted. EXTREMITIES: Negative for clubbing, cyanosis, or edema. RECTAL/GENITAL: Not performed. NEUROLOGICAL: Cranial nerves II through XII are grossly intact without focal deficits. Motor strength is 5/5 bilaterally. Deep tendon reflexes are 2+ plantar. LABORATORY STUDIES: WBC 10.2, hemoglobin 15.2, hematocrit 42.4, and platelets 266,000. Sodium 146, potassium 3.3, chloride 109, CO2 21, BUN , and creatinine 2.9. Glucose 113. Troponin 0.0. BNP elevated at 2306. EKG demonstrated atrial flutter with ventricular rate of approximately 89 beats per minute. ASSESSMENT: This is a 74-year-old male with: 1. Shortness of breath. 2. Ataxia. 3. Atrial flutter. 4. Congestive heart failure. 5. Cardiomyopathy. 6. Chronic renal failure. 7. Hypertension. 8. Benign prostatic hypertrophy. 9. Gout. 10. Hypercholesterolemia. TREATMENT: 1. Shortness of breath/ataxia. This may be secondary to atrial flutter. 2. Atrial flutter. Initial ventricular rate was between 55 and 89. A Cardiology consultation has been obtained with Dr. Silverio. Continue amiodarone as above. We will follow recommendations of Cardiology. 3. Acute on chronic congestive heart failure. As above, a Cardiology consultation has been obtained with Dr. Epifanio Silverio. Continue Lasix as above. 4. Cardiomyopathy. Previous ejection fraction was 35% to 40%. 5. Chronic renal failure. A Nephrology consultation has been obtained with Dr. Sandy. We will follow recommendations of Nephrology. 6. Hypertension. Continue hydralazine as above. 7. Benign prostatic hypertrophy. Continue Flomax as above. 8. Gout. Continue allopurinol as above. 9. Hypercholesteremia. Continue Lipitor as above. Leroy Zimmer M.D. DR: KAYLIE JOB#: [id number] CC:
--- NOTE | 2019-11-15 19:30 | NUR ---
NURSE NOTES: Received report from TSERING Trevino. Patient is in bed, awake, alert, and responsive. Breathing regular and unlabored with no s/s of SOB noted at this time. Patient denies any pain or discomfort at this time. IV access intact and saline locked. Bed remains in lowest position, breaks engaged, and call light is within reach at all times. All others needs attended to, patient remains stable, will continue to monitor.
--- NOTE | 2019-11-15 19:30 | NUR ---
HAND-OFF: Report given to TSERING MOODY. PATIENT IN STABLE CONDITION. NO COMPLAINTS OF PAIN OR DISCOMFORT. BREATHING EVEN AND UNLABORED ON ROOM AIR- NO S/SX OF DISTRESS. PLAN OF CARE ENDORSED.
[2019-11-15 20:00] VITALS: BP 119/71
--- NOTE | 2019-11-15 22:15 | Consultation ---
DATE OF CONSULTATION: 11/15/2019 ADDENDUM The echocardiogram on the patient was performed on 10/21/2019 and showed ejection fraction of 35% to 40% with global hypokinesis, mild regurgitation and mitral aortic valve with trace tricuspid regurgitation. Pulmonary artery systolic pressure was only 36 at that time. ASSESSMENT AND PLAN: 1. Recurrent atrial flutter with history of the same on prior evaluation. 2. Left ventricular systolic dysfunction. 3. Probable elements of congestive heart failure. 4. Homelessness. 5. Systemic hypertension. 6. Renal insufficiency. 7. Questionable history of hyperthyroidism. 8. History of pericardial calcification. DISCUSSION: Dr. Rajput, this patient was seen in cardiac consultation. The patient has atrial flutter, I would recommend anticoagulation. I will resume the anticoagulation as I previously recommended, the patient does not wish to take and he may refuse, that will be for stroke prevention. I have explained to the patient on prior occasions, that should be continued again at this time. We will have the patient get some diuretics because of his symptoms of shortness of breath, likely related to component of heart failure in the setting of atrial flutter and left ventricular systolic dysfunction. Amiodarone will be continued at least for the time being for rate control, although that could be decreased down to 200 mg once a day. Eliquis will be continued on 5 mg twice a day. He is on Isordil and that will be continued. He is on metoprolol 50 mg q.12 h. for heart rate control. His last creatinine was 2.9, so the dose of diuretics if given should be very small. The patient followed by Dr. Sandy from Nephrology. Epifanio Silverio M.D. DR: JESSICA JOB#: [id number] CC:
[2019-11-16] VITALS: BP 122/76
[2019-11-16 04:00] VITALS: BP 120/67
[2019-11-16] MEDS: HydrALAZINE 50mg tab ORAL SCH ×3 (05:59→22:00)
--- NOTE | 2019-11-16 06:15 | NUR ---
NURSE NOTES: PATIENT TRANSFERRED FROM [facility] IN STABLE CONDITION, DENIES PAIN. NO SIGNS AND SYMPTOMS OF ACUTE CARDIO RESPIRATORY DISTRESS/SHORTNESS OF BREATH, DENIES CHEST PAIN. IV INTACT, NO REDNESS/SWELLING NOTED. NO REPORT OF GI DISCOMFORT, NO N/V/D, URINAL AT BEDSIDE. ASSIST WITH COMFORT CARE; RIGHT BUTTOCK STAGE2, ASSESSED BY WOUND CARE NURSE 11/15/19. SIDE RAILS UP X3/BED IN LOWEST POSITION FOR SAFETY, CALL LIGHT WITHIN REACH. NAD.
--- NOTE | 2019-11-16 06:20 | NUR ---
TRANSFER TO FLOOR: Patient transferred to Med-surg unit, per Dr. Purvis's orders. Report given to HAYDEN Mcdaniel. Belongings list given to the nurse. Orders transferred over. Patient remained in stable condition, plan of care endorsed.
[2019-11-16 06:34] LABS: BASOPHILS % (AUTO) 0.9 % (0.0-2.0); EOSINOPHILS % (AUTO) 1.6 % (0.0-3.0); HEMATOCRIT 41.8 % (42.0-52.0); LYMPHOCYTES % (AUTO) 28.2 % (20.0-45.0); MEAN CORPUSCULAR VOLUME 93 FL (80-99); MONOCYTES % (AUTO) 10.1 % (1.0-10.0); NEUTROPHILS % (AUTO) 59.3 % (45.0-75.0); PLATELET COUNT 181 K/UL (150-450); RED BLOOD COUNT 4.48 M/UL (4.70-6.10); WHITE BLOOD COUNT 7.5 K/UL (4.8-10.8)
[2019-11-16] MEDS ORDERED: Zolpidem 5mg tab ORAL PRN (06:36)
[2019-11-16 07:12] LABS: ALANINE AMINOTRANSFERASE 23 U/L (12-78); ALBUMIN 3.3 G/DL (3.4-5.0); ALKALINE PHOSPHATASE 82 U/L (46-116); ANION GAP 10 mmol/L (5-15); ASPARTATE AMINO TRANSFERASE 19 U/L (15-37); BILIRUBIN,TOTAL 0.5 MG/DL (0.2-1.0); BLOOD UREA NITROGEN 46 mg/dL (7-18); CALCIUM 8.3 MG/DL (8.5-10.1); CARBON DIOXIDE 24 MMOL/L (21-32); CHLORIDE 114 MMOL/L (98-107); CHOLESTEROL 102 MG/DL (< 200); CREATININE 2.7 MG/DL (0.55-1.30); GAMMA GLUTAMYL TRANSPEPTIDASE 17 U/L (5-85); HDL CHOLESTEROL 45 MG/DL (40-60); PHOSPHORUS 3.1 MG/DL (2.5-4.9); POTASSIUM 3.7 MMOL/L (3.5-5.1); SODIUM 148 MMOL/L (136-145); TRIGLYCERIDES 47 MG/DL (30-150)
[2019-11-16 08:00] VITALS: BP 137/67
[2019-11-16] MEDS: Eliquis 5mg tablet ORAL SCH ×2 (09:00→17:26)
[2019-11-16] MEDS ORDERED: Allopurinol 100mg Tab ORAL SCH (09:00)
[2019-11-16] MEDS ORDERED: Furosemide 40mg tab ORAL SCH (09:00)
--- NOTE | 2019-11-16 09:00 | Consultation ---
DATE OF CONSULTATION: 11/15/2019 NOTE: INCOMPLETE DICTATION CARDIOLOGY CONSULTATION CONSULTING PHYSICIAN: Epifanio Silverio M.D. REFERRING PHYSICIAN: Erma Rajput M.D. REASON FOR REFERRAL: Atrial fibrillation/flutter. HISTORY OF PRESENT ILLNESS: This is a 74-year-old gentleman who is known to me from prior hospitalization. In the patient's last hospitalization, he has had atrial flutter with rapid ventricular response. This was treated with medication. He spontaneously converted to sinus rhythm and was given medication to help control his rhythm and was discharged on that medication eventually with the recommendation to be on anticoagulation that he was started on here in the hospitalization. He states he has been compliant with the medication except for the blood thinners he told me and told others that he would not be compliant with blood thinners. Nevertheless he presented to the hospital because of increasing shortness of breath that he started noticing yesterday last time when he was walking from one block to another one tonight. Really no pain, pressure, tightness, heaviness in his chest. He does have just shortness of breath on exertion. He denies any palpitation. Denies any dizziness or lightheadedness on standing although he does so rapidly. PAST MEDICAL HISTORY: Positive for history of hypertension as well as episodes of atrial flutter that spontaneously converted, history of congestive heart failure, history of left ventricular systolic function, previously ejection fraction felt to be at 35% to 40%, mild diastolic relaxation abnormality, dilated IVC suggestive of increased right atrial pressure, renal insufficiency, questionable history of hypothyroidism, systemic hypertension, history of gout, pericardial calcification, history of benign prostatic hypertrophy, hyperlipidemia, right inguinal hernia status post TURP, chronic kidney disease, alcoholism in the past, history of heel fracture nondisplaced, dehydration, hypovolemia, anemia, history of melanoma. ALLERGIES: He is not allergic to any medications. SOCIAL HISTORY: He drinks some. Denies any drug use. REVIEW OF SYSTEMS: GASTROINTESTINAL: He had some diarrhea recently. GENITOURINARY: Negative. PULMONARY: He has had some coughing before that he thinks the coughing is actually got a little better but waxes and wanes. CONSTITUTIONAL: Denies any fever, chills, or night sweats. NEUROLOGIC: Negative. PHYSICAL EXAMINATION: GENERAL: Shows to be elderly gentleman, in no respiratory distress. NECK: Supple. No jugular venous distention. LUNGS: Relatively clear to auscultation and percussion. CARDIAC: Somewhat irregular, not tachycardic, not bradycardic. No heaves, thrills, gallops, or rubs noted. ABDOMEN: Soft, nontender. Positive bowel sounds. EXTREMITIES: There is no clubbing, cyanosis, nor is there any edema. NEUROLOGICAL: He is awake, alert, responsive. LABORATORY AND DIAGNOSTIC DATA: EKG shows atrial flutter, ventricular response is well controlled 89 range. His blood tests show white count of 10.2, hemoglobin 15.2, and platelets 266. Sodium is 142, potassium 3.1, chloride 109, bicarb 21, BUN of 50, creatinine 2.9, glucose of 113. Calcium is 9.2. ProBNP is 2306 down from 7746 that he has had on prior admission here. Troponin 0.001. Coags, INR 1.1 and PTT of 30. Urinalysis fairly unremarkable. Tox screen was negative. X-rays performed yesterday in the emergency room shows no acute processes. CT scan of the head that was performed was negative. ASSESSMENT AND PLAN: Recurrent atrial flutter, ventricular response is controlled. His echocardiogram was last performed INCOMPLETE DICTATION Epifanio Silverio M.D. DR: Harrison JOB#: [id number] CC:
[2019-11-16] MEDS: Imdur 30mg tab ORAL SCH (09:11)
[2019-11-16] MEDS: Amiodarone 200mg tab ORAL SCH ×2 (09:11→20:45)
[2019-11-16] MEDS: Metoprolol Tartrate 50mg tab ORAL SCH ×2 (09:11→20:48)
[2019-11-16] MEDS: Tamsulosin 0.4mg cap ORAL SCH ×2 (09:11→17:26)
--- NOTE | 2019-11-16 09:38 | NUR ---
NURSE NOTES Hand-off received from Violeta CAGLE. Patient seen on rounds. AxOx4, not in distress. Denies chest pain. Bilateral radial pulses are strong and equal. Patient informed of procedures today including need for urine specimen sample for labs. Patient is continent. Instructed patient to call nurse for assistance to bathroom. Bed low and locked, siderails up x 2, call light in place. Will continue to monitor.
--- NOTE | 2019-11-16 09:42 | NUR ---
NURSE NOTES: Patient refused Eliquis tablet in AM. States he "does not want any blood thinners". Educated of risks and benefits and patient vebalized understanding. Dr. Silverio is aware of patient's refusal and has documented it in his notes.
--- NOTE | 2019-11-16 11:08 | NUR ---
NURSE NOTES: Primary MD Dr. Purvis made aware that patient is refusing Eliquis. No new orders at this time.
[2019-11-16 12:00] VITALS: BP 129/70
--- NOTE | 2019-11-16 13:18 | Nephrology Progress Note ---
Assessment/Plan Problem List: (1) Renal failure (ARF), acute on chronic Assessment: Serum creatinine lowering (2) Atrial flutter with rapid ventricular response (3) CKD (chronic kidney disease) Assessment: Stage to be determined when creatinine stabilizes (4) Cardiomyopathy Assessment 1. The patient's renal impression is acute on chronic renal failure. Other conditions atrial flutter with periodic rapid ventricular response. 2. Hypertension. 3. History of gout. 4. Pericardial calcification. 5. The patient is homeless. Plan Discontinue Lasix Add stool softener and Protonix 1 L of D5W Monitor renal parameters Optimize pulmonary and cardiac status Nephrotoxic's will be avoided. Urine studies will be ordered. We will continue on Flomax. Keep the blood pressure and blood sugar in check Subjective ROS Limited/Unobtainable: No Constitutional: Reports: malaise Objective Objective Last 24 Hour Vital Signs Date Time Temp Pulse Resp B/P (MAP) Pulse Ox O2 Delivery O2 Flow Rate FiO2 11/16/19 12:00 97.8 69 18 129/70 (89) 98 11/16/19 09:11 62 137/67 11/16/19 09:11 137/67 11/16/19 09:00 Room Air 11/16/19 08:00 97.9 62 17 137/67 (90) 97 11/16/19 05:59 122/78 11/16/19 04:00 97.0 111 17 120/67 (84) 97 11/16/19 04:00 92 11/16/19 00:00 72 11/16/19 00:00 98.3 64 19 122/76 (91) 96 11/15/19 21:14 82 119/71 11/15/19 21:14 119/71 11/15/19 21:00 Room Air 11/15/19 20:00 98.1 82 19 119/71 (87) 97 11/15/19 20:00 96 11/15/19 16:00 81 11/15/19 16:00 97.5 78 20 116/61 (79) 97 11/15/19 15:13 131/75 Intake and Output 11/15/19 11/16/19 19:00 07:00 Intake Total 140 ml 800 ml Output Total 250 ml Balance 140 ml 550 ml Intake Oral 140 ml 800 ml Output Urine Total 250 ml # Voids 1 # Bowel Movements 1 1 Current Medications Medications (Trade) Dose Ordered Sig/Catrina Route PRN Reason Start Time Stop Time Status Last Admin Dose Admin Acetaminophen (Tylenol) 650 mg Q4H PRN ORAL fever 11/16/19 06:35 12/16/19 06:34 Allopurinol (Zyloprim) 100 mg DAILY ORAL 11/16/19 09:00 12/15/19 08:59 11/16/19 09:10 Amiodarone HCl (Cordarone) 200 mg EVERY 12 HOURS ORAL 11/16/19 09:00 12/15/19 08:59 11/16/19 09:11 Apixaban (Eliquis) 5 mg BID ORAL 11/16/19 09:00 12/15/19 08:59 Atorvastatin Calcium (Lipitor) 10 mg BEDTIME ORAL 11/16/19 21:00 12/15/19 20:59 Dextrose 1,000 ml @ 100 mls/hr Q10H IV 11/16/19 13:15 12/16/19 13:14 UNV Furosemide (Lasix) 40 mg DAILY ORAL 11/16/19 09:00 12/15/19 08:59 11/16/19 09:11 Hydralazine HCl (Apresoline) 50 mg Q8HR ORAL 11/16/19 14:00 12/14/19 23:58 Isosorbide Mononitrate (Imdur) 30 mg DAILY ORAL 11/16/19 09:00 12/15/19 08:59 11/16/19 09:11 Metoprolol Tartrate (Lopressor) 50 mg Q12HR ORAL 11/16/19 09:00 12/15/19 08:59 11/16/19 09:11 Ondansetron HCl (Zofran) 4 mg Q6H PRN IVP Nausea & Vomiting 11/16/19 06:36 12/16/19 06:35 Tamsulosin HCl (Flomax) 0.4 mg BID ORAL 11/16/19 09:00 12/15/19 08:59 11/16/19 09:11 Zolpidem Tartrate (Ambien) 5 mg HSPRN PRN ORAL Insomnia 11/16/19 06:36 11/23/19 06:35 Laboratory Tests 11/16/19 06:05: White Blood Count 7.5, Red Blood Count 4.48L, Hemoglobin 14.0L, Hematocrit 41.8L , Mean Corpuscular Volume 93, Mean Corpuscular Hemoglobin 31.3H, Mean Corpuscular Hemoglobin Concent 33.5, Red Cell Distribution Width 13.0, Platelet Count 181, Mean Platelet Volume 6.5, Neutrophils (%) (Auto) 59.3, Lymphocytes (% ) (Auto) 28.2, Monocytes (%) (Auto) 10.1H, Eosinophils (%) (Auto) 1.6, Basophils (%) (Auto) 0.9, Sodium Level 148H, Potassium Level 3.7, Chloride Level 114H, Carbon Dioxide Level 24, Anion Gap 10, Blood Urea Nitrogen 46H, Creatinine 2.7H, Estimat Glomerular Filtration Rate 23.2, Glucose Level 99, Hemoglobin A1c 5.5, Uric Acid 7.4H, Calcium Level 8.3L, Phosphorus Level 3.1, Magnesium Level 2.0, Total Bilirubin 0.5, Gamma Glutamyl Transpeptidase 17, Aspartate Amino Transf (AST/SGOT) 19, Alanine Aminotransferase (ALT/SGPT) 23, Alkaline Phosphatase 82, C-Reactive Protein, Quantitative 1.7H, Pro-B-Type Natriuretic Peptide 2550H, Total Protein 6.7, Albumin 3.3L, Globulin 3.4, Albumin/Globulin Ratio 1.0, Triglycerides Level 47, Cholesterol Level 102, LDL Cholesterol 44, HDL Cholesterol 45, Cholesterol/HDL Ratio 2.3L, Thyroid Stimulating Hormone (TSH) 0.094L Height (Feet): 5 Height (Inches): 10.00 Weight (Pounds): 187 General Appearance: no apparent distress Cardiovascular: normal rate Respiratory/Chest: decreased breath sounds Abdomen: soft Avila Sandy MD Nov 16, 2019 13:18
--- NOTE | 2019-11-16 14:38 | Pulmonology Progress Note ---
Assessment/Plan Problems: (1) Atrial flutter with rapid ventricular response (2) Pericardial calcification (3) Chronic renal insufficiency, stage II (mild) (4) Cardiomyopathy (5) History of gout (6) History of hypertension Assessment/Plan heart rate controlled iv fluids check electrolytes monitor BP f/u renal recommendations Subjective ROS Limited/Unobtainable: No Interval Events: feeling better Allergies: Uncoded Allergies: red meat (Adverse Reaction, Unknown, 11/15/19) patient has gout and does not eat red meat Objective Last 24 Hour Vital Signs Date Time Temp Pulse Resp B/P (MAP) Pulse Ox O2 Delivery O2 Flow Rate FiO2 11/16/19 14:16 129/70 11/16/19 12:00 97.8 69 18 129/70 (89) 98 11/16/19 09:11 62 137/67 11/16/19 09:11 137/67 11/16/19 09:00 Room Air 11/16/19 08:00 97.9 62 17 137/67 (90) 97 11/16/19 05:59 122/78 11/16/19 04:00 97.0 111 17 120/67 (84) 97 11/16/19 04:00 92 11/16/19 00:00 72 11/16/19 00:00 98.3 64 19 122/76 (91) 96 11/15/19 21:14 82 119/71 11/15/19 21:14 119/71 11/15/19 21:00 Room Air 11/15/19 20:00 98.1 82 19 119/71 (87) 97 11/15/19 20:00 96 11/15/19 16:00 81 11/15/19 16:00 97.5 78 20 116/61 (79) 97 11/15/19 15:13 131/75 Intake and Output 11/15/19 11/16/19 19:00 07:00 Intake Total 140 ml 800 ml Output Total 250 ml Balance 140 ml 550 ml Intake Oral 140 ml 800 ml Output Urine Total 250 ml # Voids 1 # Bowel Movements 1 1 General Appearance: cachetic HEENT: normocephalic, atraumatic Respiratory/Chest: chest wall non-tender, lungs clear Cardiovascular: normal peripheral pulses, normal rate Abdomen: normal bowel sounds, soft, non tender Genitourinary: normal external genitalia Extremities: no clubbing Neurologic/Psychiatric: no motor/sensory deficits Lymphatic: no neck adenopathy Laboratory Tests 11/16/19 06:05: White Blood Count 7.5, Red Blood Count 4.48L, Hemoglobin 14.0L, Hematocrit 41.8L , Mean Corpuscular Volume 93, Mean Corpuscular Hemoglobin 31.3H, Mean Corpuscular Hemoglobin Concent 33.5, Red Cell Distribution Width 13.0, Platelet Count 181, Mean Platelet Volume 6.5, Neutrophils (%) (Auto) 59.3, Lymphocytes (% ) (Auto) 28.2, Monocytes (%) (Auto) 10.1H, Eosinophils (%) (Auto) 1.6, Basophils (%) (Auto) 0.9, Sodium Level 148H, Potassium Level 3.7, Chloride Level 114H, Carbon Dioxide Level 24, Anion Gap 10, Blood Urea Nitrogen 46H, Creatinine 2.7H, Estimat Glomerular Filtration Rate 23.2, Glucose Level 99, Hemoglobin A1c 5.5, Uric Acid 7.4H, Calcium Level 8.3L, Phosphorus Level 3.1, Magnesium Level 2.0, Total Bilirubin 0.5, Gamma Glutamyl Transpeptidase 17, Aspartate Amino Transf (AST/SGOT) 19, Alanine Aminotransferase (ALT/SGPT) 23, Alkaline Phosphatase 82, C-Reactive Protein, Quantitative 1.7H, Pro-B-Type Natriuretic Peptide 2550H, Total Protein 6.7, Albumin 3.3L, Globulin 3.4, Albumin/Globulin Ratio 1.0, Triglycerides Level 47, Cholesterol Level 102, LDL Cholesterol 44, HDL Cholesterol 45, Cholesterol/HDL Ratio 2.3L, Thyroid Stimulating Hormone (TSH) 0.094L Current Medications Medications (Trade) Dose Ordered Sig/Catrina Route PRN Reason Start Time Stop Time Status Last Admin Dose Admin Acetaminophen (Tylenol) 650 mg Q4H PRN ORAL fever 11/16/19 06:35 12/16/19 06:34 Allopurinol (Zyloprim) 200 mg DAILY ORAL 11/17/19 09:00 12/15/19 08:59 Amiodarone HCl (Cordarone) 200 mg EVERY 12 HOURS ORAL 11/16/19 09:00 12/15/19 08:59 11/16/19 09:11 Apixaban (Eliquis) 5 mg BID ORAL 3/18/20 09:00 12/15/19 08:59 Atorvastatin Calcium (Lipitor) 10 mg BEDTIME ORAL 11/16/19 21:00 12/15/19 20:59 Dextrose 1,000 ml @ 100 mls/hr Q10H IV 11/16/19 13:15 12/16/19 13:14 11/16/19 14:17 Docusate Sodium (Colace) 100 mg THREE TIMES A DAY ORAL 11/16/19 18:00 12/16/19 17:59 Hydralazine HCl (Apresoline) 50 mg Q8HR ORAL 11/16/19 14:00 12/14/19 23:58 11/16/19 14:16 Isosorbide Mononitrate (Imdur) 30 mg DAILY ORAL 11/16/19 09:00 12/15/19 08:59 11/16/19 09:11 Metoprolol Tartrate (Lopressor) 50 mg Q12HR ORAL 11/16/19 09:00 12/15/19 08:59 11/16/19 09:11 Ondansetron HCl (Zofran) 4 mg Q6H PRN IVP Nausea & Vomiting 11/16/19 06:36 12/16/19 06:35 Pantoprazole (Protonix) 40 mg EVERY 12 HOURS ORAL 11/16/19 21:00 12/16/19 20:59 Tamsulosin HCl (Flomax) 0.4 mg BID ORAL 11/16/19 09:00 12/15/19 08:59 11/16/19 09:11 Zolpidem Tartrate (Ambien) 5 mg HSPRN PRN ORAL Insomnia 11/16/19 06:36 11/23/19 06:35 Erma Rajput MD Nov 16, 2019 14:38
--- NOTE | 2019-11-16 14:58 | NUR ---
CASE MANAGEMENT:REVIEW SI;DYSPNEA. CHF. ATRIAL FLUTTER. 97.0 111 19 137/67 96% ON RA NA 148 CL 114 BU 46 CR 2.7 URIC ACID 7.4 CA 8.3 CRP 1.7 IS;ALLOPURINOL PO QD PROTONIX PO BID HYDRALAZINE PO TID IVF D5 @ 100 ML/HR LASIX PO AMIODARONE PO BID MED SURG STATUS DCP;HOMELESS PLAN;IVF CHECK ELECTROLYTES FOLLOW UP RENAL
[2019-11-16 16:00] VITALS: BP 121/73
--- NOTE | 2019-11-16 17:32 | Internal Med Progress Note ---
Subjective Date of Service: Nov 16, 2019 Physician Name ZimmerLeroy Attending Physician Yonas Purvis MD Current Medications Medications (Trade) Dose Ordered Sig/Catrina Route PRN Reason Start Time Stop Time Status Last Admin Dose Admin Acetaminophen (Tylenol) 650 mg Q4H PRN ORAL fever 11/16/19 06:35 12/16/19 06:34 Allopurinol (Zyloprim) 200 mg DAILY ORAL 11/17/19 09:00 12/15/19 08:59 Amiodarone HCl (Cordarone) 200 mg EVERY 12 HOURS ORAL 11/16/19 09:00 12/15/19 08:59 11/16/19 09:11 Apixaban (Eliquis) 5 mg BID ORAL 11/16/19 09:00 12/15/19 08:59 Atorvastatin Calcium (Lipitor) 10 mg BEDTIME ORAL 11/16/19 21:00 12/15/19 20:59 Dextrose 1,000 ml @ 100 mls/hr Q10H IV 11/16/19 13:15 12/16/19 13:14 11/16/19 14:17 Docusate Sodium (Colace) 100 mg THREE TIMES A DAY ORAL 11/16/19 18:00 12/16/19 17:59 Hydralazine HCl (Apresoline) 50 mg Q8HR ORAL 11/16/19 14:00 12/14/19 23:58 11/16/19 14:16 Isosorbide Mononitrate (Imdur) 30 mg DAILY ORAL 11/16/19 09:00 12/15/19 08:59 11/16/19 09:11 Metoprolol Tartrate (Lopressor) 50 mg Q12HR ORAL 11/16/19 09:00 12/15/19 08:59 11/16/19 09:11 Ondansetron HCl (Zofran) 4 mg Q6H PRN IVP Nausea & Vomiting 11/16/19 06:36 12/16/19 06:35 Pantoprazole (Protonix) 40 mg EVERY 12 HOURS ORAL 11/16/19 21:00 12/16/19 20:59 Tamsulosin HCl (Flomax) 0.4 mg BID ORAL 11/16/19 09:00 12/15/19 08:59 11/16/19 17:26 Zolpidem Tartrate (Ambien) 5 mg HSPRN PRN ORAL Insomnia 11/16/19 06:36 11/23/19 06:35 Allergies: Uncoded Allergies: red meat (Adverse Reaction, Unknown, 11/15/19) patient has gout and does not eat red meat ROS Limited/Unobtainable: No Constitutional: Reports: no symptoms HEENT: Reports: no symptoms Cardiovascular: Reports: no symptoms Respiratory: Reports: shortness of breath Gastrointestinal/Abdominal: Reports: no symptoms Genitourinary: Reports: no symptoms Neurologic/Psychiatric: Reports: no symptoms Subjective 74 YO M admitted with shortness of breath. Cover for Int Arnaldo-DR Purvis Objective Last Vital Signs Date Time Temp Pulse Resp B/P (MAP) Pulse Ox O2 Delivery O2 Flow Rate FiO2 11/16/19 16:00 97.4 63 18 121/73 (89) 98 11/16/19 09:00 Room Air Laboratory Tests Test 11/16/19 06:05 White Blood Count 7.5 K/UL (4.8-10.8) Red Blood Count 4.48 M/UL (4.70-6.10) L Hemoglobin 14.0 G/DL (14.2-18.0) L Hematocrit 41.8 % (42.0-52.0) L Mean Corpuscular Volume 93 FL (80-99) Mean Corpuscular Hemoglobin 31.3 PG (27.0-31.0) H Mean Corpuscular Hemoglobin Concent 33.5 G/DL (32.0-36.0) Red Cell Distribution Width 13.0 % (11.6-14.8) Platelet Count 181 K/UL (150-450) Mean Platelet Volume 6.5 FL (6.5-10.1) Neutrophils (%) (Auto) 59.3 % (45.0-75.0) Lymphocytes (%) (Auto) 28.2 % (20.0-45.0) Monocytes (%) (Auto) 10.1 % (1.0-10.0) H Eosinophils (%) (Auto) 1.6 % (0.0-3.0) Basophils (%) (Auto) 0.9 % (0.0-2.0) Sodium Level 148 MMOL/L (136-145) H Potassium Level 3.7 MMOL/L (3.5-5.1) Chloride Level 114 MMOL/L (98-107) H Carbon Dioxide Level 24 MMOL/L (21-32) Anion Gap 10 mmol/L (5-15) Blood Urea Nitrogen 46 mg/dL (7-18) H Creatinine 2.7 MG/DL (0.55-1.30) H Estimat Glomerular Filtration Rate 23.2 mL/min (>60) Glucose Level 99 MG/DL (74-106) Hemoglobin A1c 5.5 % (4.3-6.0) Uric Acid 7.4 MG/DL (2.6-7.2) H Calcium Level 8.3 MG/DL (8.5-10.1) L Phosphorus Level 3.1 MG/DL (2.5-4.9) Magnesium Level 2.0 MG/DL (1.8-2.4) Total Bilirubin 0.5 MG/DL (0.2-1.0) Gamma Glutamyl Transpeptidase 17 U/L (5-85) Aspartate Amino Transf (AST/SGOT) 19 U/L (15-37) Alanine Aminotransferase (ALT/SGPT) 23 U/L (12-78) Alkaline Phosphatase 82 U/L (46-116) C-Reactive Protein, Quantitative 1.7 mg/dL (0.00-0.90) H Pro-B-Type Natriuretic Peptide 2550 pg/mL (0-125) H Total Protein 6.7 G/DL (6.4-8.2) Albumin 3.3 G/DL (3.4-5.0) L Globulin 3.4 g/dL Albumin/Globulin Ratio 1.0 (1.0-2.7) Triglycerides Level 47 MG/DL (30-150) Cholesterol Level 102 MG/DL (< 200) LDL Cholesterol 44 mg/dL (<100) HDL Cholesterol 45 MG/DL (40-60) Cholesterol/HDL Ratio 2.3 (3.3-4.4) L Thyroid Stimulating Hormone (TSH) 0.094 uiU/mL (0.358-3.740) Intake and Output 11/15/19 11/16/19 19:00 07:00 Intake Total 140 ml 800 ml Output Total 250 ml Balance 140 ml 550 ml Intake Oral 140 ml 800 ml Output Urine Total 250 ml # Voids 1 # Bowel Movements 1 1 Objective PHYSICAL EXAMINATION: GENERAL: The patient is a well-developed and well-nourished male, in no apparent distress. HEENT: Eyes, pupils are equal and responsive to light and accommodation. Extraocular movements are intact. NECK: Supple without lymphadenopathy. CHEST: Lungs are clear to auscultation bilaterally without wheezes or rales. CARDIOVASCULAR: Regular rhythm and rate. S1, S2 normal without murmurs, rubs, or gallops. ABDOMEN: Soft, nontender, and nondistended. Positive bowel sounds. No evidence of hepatosplenomegaly. Currently, no rebound or guarding noted. EXTREMITIES: Negative for clubbing, cyanosis, or edema. RECTAL/GENITAL: Not performed. NEUROLOGICAL: Cranial nerves II through XII are grossly intact without focal deficits. Motor strength is 5/5 bilaterally. Deep tendon reflexes are 2+ plantar. Assessment/Plan Assessment/Plan ASSESSMENT: This is a 74-year-old male with: 1. Shortness of breath. 2. Ataxia. 3. Atrial flutter. 4. Congestive heart failure. 5. Cardiomyopathy. 6. Chronic renal failure. 7. Hypertension. 8. Benign prostatic hypertrophy. 9. Gout. 10. Hypercholesterolemia. TREATMENT: 1. Shortness of breath/ataxia. This may be secondary to atrial flutter. 2. Atrial flutter. Initial ventricular rate was between 55 and 89. A Cardiology consultation has been obtained with Dr. Silverio. Continue amiodarone as above. We will follow recommendations of Cardiology. 3. Acute on chronic congestive heart failure. As above, a Cardiology consultation has been obtained with Dr. Epifanio Silverio. Continue Lasix as above. 4. Cardiomyopathy. Previous ejection fraction was 35% to 40%. 5. Chronic renal failure. A Nephrology consultation has been obtained with Dr. Sandy. We will follow recommendations of Nephrology. 6. Hypertension. Continue hydralazine as above. 7. Benign prostatic hypertrophy. Continue Flomax as above. 8. Gout. Continue allopurinol as above. 9. Hypercholesteremia. Continue Lipitor as above. Leroy Zimmer MD Nov 16, 2019 17:32
[2019-11-16] MEDS ORDERED: Docusate 100mg cap ORAL SCH (18:00)
--- NOTE | 2019-11-16 19:31 | NUR ---
HAND-OFF: Report given to Kendy CAGLE.
--- NOTE | 2019-11-16 19:36 | NUR ---
NURSE NOTES: Patient awake in bed, alert and oriented x4, not in respiratory distress. No complaints of pain at this time. Encouraged the use of call light for assistance. Bed in lowest and lock engaged. Will continue plan of care.
[2019-11-16 20:00] VITALS: BP 116/65
--- NOTE | 2019-11-16 22:30 | NUR ---
NURSE NOTES: Patient reported of diarrhea x6. Spoke with Dr. Purvis, obtained orders to dc colace and protonix and collect stool specimen. Instructed patient about stool specimen collection. Patient verbalized understanding.
[2019-11-17] VITALS: BP 119/69
[2019-11-17 04:00] VITALS: BP 126/78
[2019-11-17] MEDS: HydrALAZINE 50mg tab ORAL SCH ×3 (05:02→21:46)
[2019-11-17 06:31] LABS: HEMATOCRIT 38.4 % (42.0-52.0); HEMOGLOBIN 12.9 G/DL (14.2-18.0); LYMPHOCYTES % (AUTO) 24.2 % (20.0-45.0); MEAN CORPUSCULAR VOLUME 93 FL (80-99); NEUTROPHILS % (AUTO) 61.8 % (45.0-75.0); PLATELET COUNT 166 K/UL (150-450); RED BLOOD COUNT 4.14 M/UL (4.70-6.10); RED CELL DISTRIBUTION WIDTH 12.7 % (11.6-14.8); WHITE BLOOD COUNT 7.4 K/UL (4.8-10.8)
[2019-11-17 06:55] LABS: ANION GAP 12 mmol/L (5-15); BLOOD UREA NITROGEN 37 mg/dL (7-18); CALCIUM 9.1 MG/DL (8.5-10.1); CARBON DIOXIDE 24 MMOL/L (21-32); CHLORIDE 111 MMOL/L (98-107); CREATININE 2.1 MG/DL (0.55-1.30); POTASSIUM 3.4 MMOL/L (3.5-5.1); SODIUM 147 MMOL/L (136-145)
--- NOTE | 2019-11-17 07:24 | NUR ---
NURSE NOTES: Patient refused triad cream on his St[address] wound.
--- NOTE | 2019-11-17 07:31 | NUR ---
NURSE NOTES: Patient sitting up in bed, awake and alert, on room air, talkative, bed in lowest position, call light within reach, no c/o pain, no SOB, in no apparent distress.
--- NOTE | 2019-11-17 07:42 | NUR ---
HAND-OFF: Report given to TSERING Young.
[2019-11-17 08:00] VITALS: BP 130/80
[2019-11-17] MEDS: Eliquis 5mg tablet ORAL SCH ×2 (09:00→17:12)
[2019-11-17] MEDS: Allopurinol 100mg Tab ORAL SCH (09:33)
[2019-11-17] MEDS: Tamsulosin 0.4mg cap ORAL SCH ×2 (09:33→17:17)
[2019-11-17] MEDS: Metoprolol Tartrate 50mg tab ORAL SCH ×2 (09:33→21:00)
[2019-11-17] MEDS: Imdur 30mg tab ORAL SCH (09:34)
[2019-11-17] MEDS: Amiodarone 200mg tab ORAL SCH (09:34)
--- NOTE | 2019-11-17 10:56 | Nephrology Progress Note ---
Assessment/Plan Problem List: (1) Renal failure (ARF), acute on chronic Assessment: Serum creatinine lowering (2) Atrial flutter with rapid ventricular response (3) CKD (chronic kidney disease) Assessment: Stage to be determined when creatinine stabilizes (4) Cardiomyopathy Assessment 1. The patient's renal impression is acute on chronic renal failure. Other conditions atrial flutter with periodic rapid ventricular response. 2. Hypertension. 3. History of gout. 4. Pericardial calcification. 5. The patient is homeless. Plan Discontinue Lasix Add stool softener and Protonix 1 L of D5W Monitor renal parameters Optimize pulmonary and cardiac status Nephrotoxic's will be avoided. Urine studies will be ordered. We will continue on Flomax. Keep the blood pressure and blood sugar in check Subjective ROS Limited/Unobtainable: No Objective Objective Last 24 Hour Vital Signs Date Time Temp Pulse Resp B/P (MAP) Pulse Ox O2 Delivery O2 Flow Rate FiO2 11/17/19 09:34 130/80 11/17/19 09:33 71 130/80 11/17/19 08:00 98.0 71 18 130/80 (97) 99 11/17/19 04:00 98.1 69 18 126/78 (94) 98 11/17/19 00:00 98.0 71 18 119/69 (86) 96 11/16/19 21:00 Room Air 11/16/19 20:00 98.2 75 18 116/65 (82) 96 11/16/19 16:00 97.4 63 18 121/73 (89) 98 11/16/19 14:16 129/70 11/16/19 12:00 97.8 69 18 129/70 (89) 98 Intake and Output 11/16/19 11/17/19 19:00 07:00 Intake Total 2300 ml Balance 2300 ml IV Total 500 ml Other 1800 ml # Voids 3 # Bowel Movements 6 Laboratory Tests 11/17/19 06:16: White Blood Count 7.4, Red Blood Count 4.14L, Hemoglobin 12.9L, Hematocrit 38.4L , Mean Corpuscular Volume 93, Mean Corpuscular Hemoglobin 31.2H, Mean Corpuscular Hemoglobin Concent 33.6, Red Cell Distribution Width 12.7, Platelet Count 166, Mean Platelet Volume 6.3L, Neutrophils (%) (Auto) 61.8, Lymphocytes ( %) (Auto) 24.2, Monocytes (%) (Auto) 10.0, Eosinophils (%) (Auto) 3.0, Basophils (%) (Auto) 1.0, Sodium Level 147H, Potassium Level 3.4L, Chloride Level 111H, Carbon Dioxide Level 24, Anion Gap 12, Blood Urea Nitrogen 37H, Creatinine 2.1H, Estimat Glomerular Filtration Rate 30.9, Glucose Level 102, Calcium Level 9.1 Height (Feet): 5 Height (Inches): 10.00 Weight (Pounds): 187 General Appearance: no apparent distress Respiratory/Chest: lungs clear Abdomen: soft Objective No change Avila Sandy MD Nov 17, 2019 10:56
[2019-11-17 12:00] VITALS: BP 133/71
--- NOTE | 2019-11-17 12:21 | Pulmonology Progress Note ---
Assessment/Plan Problems: (1) Atrial flutter with rapid ventricular response (2) Pericardial calcification (3) Chronic renal insufficiency, stage II (mild) (4) Cardiomyopathy (5) History of gout (6) History of hypertension Assessment/Plan creatinine improved heart rate controlled iv fluids decreased to 50 CC /hour check electrolytes monitor BP f/u renal recommendations Subjective ROS Limited/Unobtainable: No Constitutional: Reports: no symptoms HEENT: Repors: no symptoms Respiratory: Reports: no symptoms Allergies: Uncoded Allergies: red meat (Adverse Reaction, Unknown, 11/15/19) patient has gout and does not eat red meat Objective Last 24 Hour Vital Signs Date Time Temp Pulse Resp B/P (MAP) Pulse Ox O2 Delivery O2 Flow Rate FiO2 11/17/19 09:34 130/80 11/17/19 09:33 71 130/80 11/17/19 09:00 Room Air 11/17/19 08:00 98.0 71 18 130/80 (97) 99 11/17/19 04:00 98.1 69 18 126/78 (94) 98 11/17/19 00:00 98.0 71 18 119/69 (86) 96 11/16/19 21:00 Room Air 11/16/19 20:00 98.2 75 18 116/65 (82) 96 11/16/19 16:00 97.4 63 18 121/73 (89) 98 11/16/19 14:16 129/70 Intake and Output 11/16/19 11/17/19 19:00 07:00 Intake Total 2300 ml 100 ml Balance 2300 ml 100 ml IV Total 500 ml 100 ml Other 1800 ml # Voids 3 # Bowel Movements 6 General Appearance: WD/WN HEENT: normocephalic, atraumatic Respiratory/Chest: chest wall non-tender, normal breath sounds Cardiovascular: normal peripheral pulses, normal rate Genitourinary: normal external genitalia Skin: no rash 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 Complete 11/14/19 22:40 Rectum - Final NO CARBAPENEM-RESISTANT ENTEROBACTERI... Complete 11/14/19 22:40 Rectum VRE Culture - Final NO VANCOMYCIN RESISTANT ENTEROCOCCUS ... Complete Laboratory Tests 11/17/19 06:16: White Blood Count 7.4, Red Blood Count 4.14L, Hemoglobin 12.9L, Hematocrit 38.4L , Mean Corpuscular Volume 93, Mean Corpuscular Hemoglobin 31.2H, Mean Corpuscular Hemoglobin Concent 33.6, Red Cell Distribution Width 12.7, Platelet Count 166, Mean Platelet Volume 6.3L, Neutrophils (%) (Auto) 61.8, Lymphocytes ( %) (Auto) 24.2, Monocytes (%) (Auto) 10.0, Eosinophils (%) (Auto) 3.0, Basophils (%) (Auto) 1.0, Sodium Level 147H, Potassium Level 3.4L, Chloride Level 111H, Carbon Dioxide Level 24, Anion Gap 12, Blood Urea Nitrogen 37H, Creatinine 2.1H, Estimat Glomerular Filtration Rate 30.9, Glucose Level 102, Calcium Level 9.1 Current Medications Medications (Trade) Dose Ordered Sig/Catrina Route PRN Reason Start Time Stop Time Status Last Admin Dose Admin Acetaminophen (Tylenol) 650 mg Q4H PRN ORAL fever 11/16/19 06:35 12/16/19 06:34 Allopurinol (Zyloprim) 200 mg DAILY ORAL 11/17/19 09:00 12/15/19 08:59 11/17/19 09:33 Amiodarone HCl (Cordarone) 200 mg EVERY 12 HOURS ORAL 11/16/19 09:00 12/15/19 08:59 11/17/19 09:34 Apixaban (Eliquis) 5 mg BID ORAL 11/16/19 09:00 12/15/19 08:59 Atorvastatin Calcium (Lipitor) 10 mg BEDTIME ORAL 11/16/19 21:00 12/15/19 20:59 11/16/19 20:45 Dextrose 1,000 ml @ 50 mls/hr Q20H IV 11/17/19 09:07 12/17/19 09:06 11/17/19 09:35 Hydralazine HCl (Apresoline) 50 mg Q8HR ORAL 11/16/19 14:00 12/14/19 23:58 11/16/19 14:16 Isosorbide Mononitrate (Imdur) 30 mg DAILY ORAL 11/16/19 09:00 12/15/19 08:59 11/17/19 09:34 Metoprolol Tartrate (Lopressor) 50 mg Q12HR ORAL 11/16/19 09:00 12/15/19 08:59 11/17/19 09:33 Ondansetron HCl (Zofran) 4 mg Q6H PRN IVP Nausea & Vomiting 11/16/19 06:36 12/16/19 06:35 Tamsulosin HCl (Flomax) 0.4 mg BID ORAL 11/16/19 09:00 12/15/19 08:59 11/17/19 09:33 Zolpidem Tartrate (Ambien) 5 mg HSPRN PRN ORAL Insomnia 11/16/19 06:36 11/23/19 06:35 Erma Rajput MD Nov 17, 2019 12:21
--- NOTE | 2019-11-17 14:30 | NUR ---
NURSE NOTES: Patient refusing to take blood thinnersAnali.
[2019-11-17 16:00] VITALS: BP 140/80
--- NOTE | 2019-11-17 16:32 | Cardiology Progress Note ---
Assessment/Plan Assessment/Plan 1. Recurrent atrial flutter with history of the same on prior evaluation. 2. Left ventricular systolic dysfunction. 3. Probable elements of congestive heart failure. 4. Homelessness. 5. Systemic hypertension. 6. Renal insufficiency with and acute component 7. Questionable history of hyperthyroidism. 8. History of pericardial calcification. diarrhea resolved hr seem controlled bp is ok cr imporved on eliquis for stroke prevention repeat ekg in am Subjective Cardiovascular: Denies: chest pain Respiratory: Denies: shortness of breath Gastrointestinal/Abdominal: Denies: abdominal pain, diarrhea Genitourinary: Denies: burning Objective Last 24 Hour Vital Signs Date Time Temp Pulse Resp B/P (MAP) Pulse Ox O2 Delivery O2 Flow Rate FiO2 11/17/19 14:26 133/71 11/17/19 12:00 97.6 71 19 133/71 (91) 98 11/17/19 09:34 130/80 11/17/19 09:33 71 130/80 11/17/19 09:00 Room Air 11/17/19 08:00 98.0 71 18 130/80 (97) 99 11/17/19 04:00 98.1 69 18 126/78 (94) 98 11/17/19 00:00 98.0 71 18 119/69 (86) 96 11/16/19 21:00 Room Air 11/16/19 20:00 98.2 75 18 116/65 (82) 96 General Appearance: alert Neck: supple Cardiovascular: irregularly irregular Respiratory/Chest: lungs clear Abdomen: normal bowel sounds, non tender, soft Extremities: no swelling Intake and Output 11/16/19 11/17/19 19:00 07:00 Intake Total 2300 ml 100 ml Balance 2300 ml 100 ml IV Total 500 ml 100 ml Other 1800 ml # Voids 3 # Bowel Movements 6 Laboratory Tests Test 11/17/19 06:16 White Blood Count 7.4 K/UL (4.8-10.8) Red Blood Count 4.14 M/UL (4.70-6.10) L Hemoglobin 12.9 G/DL (14.2-18.0) L Hematocrit 38.4 % (42.0-52.0) L Mean Corpuscular Volume 93 FL (80-99) Mean Corpuscular Hemoglobin 31.2 PG (27.0-31.0) H Mean Corpuscular Hemoglobin Concent 33.6 G/DL (32.0-36.0) Red Cell Distribution Width 12.7 % (11.6-14.8) Platelet Count 166 K/UL (150-450) Mean Platelet Volume 6.3 FL (6.5-10.1) L Neutrophils (%) (Auto) 61.8 % (45.0-75.0) Lymphocytes (%) (Auto) 24.2 % (20.0-45.0) Monocytes (%) (Auto) 10.0 % (1.0-10.0) Eosinophils (%) (Auto) 3.0 % (0.0-3.0) Basophils (%) (Auto) 1.0 % (0.0-2.0) Sodium Level 147 MMOL/L (136-145) H Potassium Level 3.4 MMOL/L (3.5-5.1) L Chloride Level 111 MMOL/L (98-107) H Carbon Dioxide Level 24 MMOL/L (21-32) Anion Gap 12 mmol/L (5-15) Blood Urea Nitrogen 37 mg/dL (7-18) H Creatinine 2.1 MG/DL (0.55-1.30) H Estimat Glomerular Filtration Rate 30.9 mL/min (>60) Glucose Level 102 MG/DL (74-106) Calcium Level 9.1 MG/DL (8.5-10.1) Microbiology Date/Time Source Procedure Growth Status 11/14/19 22:40 Nasal Nares MRSA Culture - Final NO METHICILLIN RESISTANT STAPH AUREUS... Complete 11/14/19 22:40 Rectum - Final NO CARBAPENEM-RESISTANT ENTEROBACTERI... Complete 11/14/19 22:40 Rectum VRE Culture - Final NO VANCOMYCIN RESISTANT ENTEROCOCCUS ... Complete Epifanio Silverio MD Nov 17, 2019 16:32
--- NOTE | 2019-11-17 16:36 | Internal Med Progress Note ---
Subjective Date of Service: Nov 17, 2019 Physician Name ZimmerLeroy Attending Physician Yonas Purvis MD Current Medications Medications (Trade) Dose Ordered Sig/Catrina Route PRN Reason Start Time Stop Time Status Last Admin Dose Admin Acetaminophen (Tylenol) 650 mg Q4H PRN ORAL fever 11/16/19 06:35 12/16/19 06:34 Allopurinol (Zyloprim) 200 mg DAILY ORAL 11/17/19 09:00 12/15/19 08:59 11/17/19 09:33 Amiodarone HCl (Cordarone) 200 mg QD ORAL 11/18/19 09:00 02/16/20 08:59 UNV Apixaban (Eliquis) 5 mg BID ORAL 11/16/19 09:00 12/15/19 08:59 Atorvastatin Calcium (Lipitor) 10 mg BEDTIME ORAL 11/16/19 21:00 12/15/19 20:59 11/16/19 20:45 Dextrose 1,000 ml @ 50 mls/hr Q20H IV 11/17/19 09:07 12/17/19 09:06 11/17/19 09:35 Hydralazine HCl (Apresoline) 50 mg Q8HR ORAL 11/16/19 14:00 12/14/19 23:58 11/17/19 14:26 Isosorbide Mononitrate (Imdur) 30 mg DAILY ORAL 11/16/19 09:00 12/15/19 08:59 11/17/19 09:34 Metoprolol Tartrate (Lopressor) 50 mg Q12HR ORAL 11/16/19 09:00 12/15/19 08:59 11/17/19 09:33 Ondansetron HCl (Zofran) 4 mg Q6H PRN IVP Nausea & Vomiting 11/16/19 06:36 12/16/19 06:35 Tamsulosin HCl (Flomax) 0.4 mg BID ORAL 11/16/19 09:00 12/15/19 08:59 11/17/19 09:33 Zolpidem Tartrate (Ambien) 5 mg HSPRN PRN ORAL Insomnia 11/16/19 06:36 11/23/19 06:35 Allergies: Uncoded Allergies: red meat (Adverse Reaction, Unknown, 11/15/19) patient has gout and does not eat red meat ROS Limited/Unobtainable: No Constitutional: Reports: no symptoms HEENT: Reports: no symptoms Cardiovascular: Reports: no symptoms Respiratory: Reports: shortness of breath Gastrointestinal/Abdominal: Reports: no symptoms Genitourinary: Reports: no symptoms Neurologic/Psychiatric: Reports: no symptoms Subjective 74 YO M admitted with shortness of breath. Cover for Int Arnaldo-DR Purvis Objective Last Vital Signs Date Time Temp Pulse Resp B/P (MAP) Pulse Ox O2 Delivery O2 Flow Rate FiO2 11/17/19 14:26 133/71 11/17/19 12:00 97.6 71 19 98 11/17/19 09:00 Room Air Laboratory Tests Test 11/17/19 06:16 White Blood Count 7.4 K/UL (4.8-10.8) Red Blood Count 4.14 M/UL (4.70-6.10) L Hemoglobin 12.9 G/DL (14.2-18.0) L Hematocrit 38.4 % (42.0-52.0) L Mean Corpuscular Volume 93 FL (80-99) Mean Corpuscular Hemoglobin 31.2 PG (27.0-31.0) H Mean Corpuscular Hemoglobin Concent 33.6 G/DL (32.0-36.0) Red Cell Distribution Width 12.7 % (11.6-14.8) Platelet Count 166 K/UL (150-450) Mean Platelet Volume 6.3 FL (6.5-10.1) L Neutrophils (%) (Auto) 61.8 % (45.0-75.0) Lymphocytes (%) (Auto) 24.2 % (20.0-45.0) Monocytes (%) (Auto) 10.0 % (1.0-10.0) Eosinophils (%) (Auto) 3.0 % (0.0-3.0) Basophils (%) (Auto) 1.0 % (0.0-2.0) Sodium Level 147 MMOL/L (136-145) H Potassium Level 3.4 MMOL/L (3.5-5.1) L Chloride Level 111 MMOL/L (98-107) H Carbon Dioxide Level 24 MMOL/L (21-32) Anion Gap 12 mmol/L (5-15) Blood Urea Nitrogen 37 mg/dL (7-18) H Creatinine 2.1 MG/DL (0.55-1.30) H Estimat Glomerular Filtration Rate 30.9 mL/min (>60) Glucose Level 102 MG/DL (74-106) Calcium Level 9.1 MG/DL (8.5-10.1) Microbiology Date/Time Source Procedure Growth Status 11/14/19 22:40 Nasal Nares MRSA Culture - Final NO METHICILLIN RESISTANT STAPH AUREUS... Complete 11/14/19 22:40 Rectum - Final NO CARBAPENEM-RESISTANT ENTEROBACTERI... Complete 11/14/19 22:40 Rectum VRE Culture - Final NO VANCOMYCIN RESISTANT ENTEROCOCCUS ... Complete Intake and Output 11/16/19 11/17/19 19:00 07:00 Intake Total 2300 ml 100 ml Balance 2300 ml 100 ml IV Total 500 ml 100 ml Other 1800 ml # Voids 3 # Bowel Movements 6 Objective PHYSICAL EXAMINATION: GENERAL: The patient is a well-developed and well-nourished male, in no apparent distress. HEENT: Eyes, pupils are equal and responsive to light and accommodation. Extraocular movements are intact. NECK: Supple without lymphadenopathy. CHEST: Lungs are clear to auscultation bilaterally without wheezes or rales. CARDIOVASCULAR: Regular rhythm and rate. S1, S2 normal without murmurs, rubs, or gallops. ABDOMEN: Soft, nontender, and nondistended. Positive bowel sounds. No evidence of hepatosplenomegaly. Currently, no rebound or guarding noted. EXTREMITIES: Negative for clubbing, cyanosis, or edema. RECTAL/GENITAL: Not performed. NEUROLOGICAL: Cranial nerves II through XII are grossly intact without focal deficits. Motor strength is 5/5 bilaterally. Deep tendon reflexes are 2+ plantar. Assessment/Plan Assessment/Plan ASSESSMENT: This is a 74-year-old male with: 1. Shortness of breath. 2. Ataxia. 3. Atrial flutter. 4. Congestive heart failure. 5. Cardiomyopathy. 6. Chronic renal failure. 7. Hypertension. 8. Benign prostatic hypertrophy. 9. Gout. 10. Hypercholesterolemia. TREATMENT: 1. Shortness of breath/ataxia. This may be secondary to atrial flutter. 2. Atrial flutter. Initial ventricular rate was between 55 and 89. A Cardiology consultation has been obtained with Dr. Silverio. Continue amiodarone as above. We will follow recommendations of Cardiology. 3. Acute on chronic congestive heart failure. As above, a Cardiology consultation has been obtained with Dr. Epifanio Silverio. Continue Lasix as above. 4. Cardiomyopathy. Previous ejection fraction was 35% to 40%. 5. Chronic renal failure. A Nephrology consultation has been obtained with Dr. Sandy. We will follow recommendations of Nephrology. 6. Hypertension. Continue hydralazine as above. 7. Benign prostatic hypertrophy. Continue Flomax as above. 8. Gout. Continue allopurinol as above. 9. Hypercholesteremia. Continue Lipitor as above. Leroy Zimmer MD Nov 17, 2019 16:36
--- NOTE | 2019-11-17 17:37 | NUR ---
NURSE NOTES: Reported EKG result to Dr. Epifanio Silverio, no new orders.
--- NOTE | 2019-11-17 19:25 | NUR ---
HAND-OFF: Report given to Joana Jorgensen RN. Patient in supine position, awake and alert to name, on room air, bed in lowest position, call light within reach, IV running D5W at 50 cc/hour into left forearm 20 gauge, bed in lowest position, call light within reach, no c/o pain, no SOB.
[2019-11-17 20:00] VITALS: BP 120/65
[2019-11-17] MEDS ORDERED: METOPROLOL TART25 MG ORAL (20:05)
[2019-11-17] MEDS ORDERED: HYDRALAZINE HCL25 M1 ORAL (20:08)
[2019-11-17] MEDS ORDERED: METOPROLOL TART50 M1 ORAL (20:08)
[2019-11-18] VITALS: BP 128/69
[2019-11-18 04:00] VITALS: BP 129/73
[2019-11-18] MEDS: HydrALAZINE 50mg tab ORAL SCH ×3 (05:14→22:00)
[2019-11-18 06:39] LABS: BASOPHILS % (AUTO) 0.9 % (0.0-2.0); EOSINOPHILS % (AUTO) 2.9 % (0.0-3.0); HEMOGLOBIN 12.8 G/DL (14.2-18.0); LYMPHOCYTES % (AUTO) 22.8 % (20.0-45.0); MEAN CORPUSCULAR VOLUME 94 FL (80-99); MONOCYTES % (AUTO) 9.8 % (1.0-10.0); NEUTROPHILS % (AUTO) 63.6 % (45.0-75.0); PLATELET COUNT 141 K/UL (150-450); RED BLOOD COUNT 3.95 M/UL (4.70-6.10); WHITE BLOOD COUNT 7.9 K/UL (4.8-10.8)
--- NOTE | 2019-11-18 07:10 | NUR ---
NURSE NOTES: Received report from TSERING Huang. Patient A&Ox4. On room air, no signs of distress or labored breathing. IV intact, patent, and infusing IV fluids. Bed in lowest position with call light in reach. Will continue with plan of care.
[2019-11-18 07:15] LABS: ALANINE AMINOTRANSFERASE 13 U/L (12-78); ALBUMIN/GLOBULIN RATIO 0.9 (1.0-2.7); ALKALINE PHOSPHATASE 75 U/L (46-116); ANION GAP 9 mmol/L (5-15); ASPARTATE AMINO TRANSFERASE 13 U/L (15-37); BILIRUBIN,TOTAL 0.3 MG/DL (0.2-1.0); BLOOD UREA NITROGEN 32 mg/dL (7-18); CALCIUM 8.3 MG/DL (8.5-10.1); CARBON DIOXIDE 26 MMOL/L (21-32); CHLORIDE 113 MMOL/L (98-107); CREATININE 2.1 MG/DL (0.55-1.30); PHOSPHORUS 2.7 MG/DL (2.5-4.9); POTASSIUM 4.2 MMOL/L (3.5-5.1); SODIUM 148 MMOL/L (136-145)
--- NOTE | 2019-11-18 07:28 | NUR ---
HAND-OFF: Report given to TSERING De La Paz.
[2019-11-18 08:00] VITALS: BP 131/74
[2019-11-18] MEDS: Eliquis 5mg tablet ORAL SCH ×2 (09:00→18:00)
[2019-11-18] MEDS: Imdur 30mg tab ORAL SCH (09:50)
[2019-11-18] MEDS: Tamsulosin 0.4mg cap ORAL SCH ×2 (09:51→18:12)
[2019-11-18] MEDS: Allopurinol 100mg Tab ORAL SCH (09:51)
[2019-11-18] MEDS: Metoprolol Tartrate 50mg tab ORAL SCH ×2 (09:52→20:14)
[2019-11-18] MEDS: Amiodarone 200mg tab ORAL SCH (09:52)
--- NOTE | 2019-11-18 10:00 | NUR ---
NURSE NOTES: Patient refused to take Eliquis medication. RN educated the patient about risks and benefits and patient still declined.
[2019-11-18 12:00] VITALS: BP 133/76
--- NOTE | 2019-11-18 12:12 | Nephrology Progress Note ---
Assessment/Plan Problem List: (1) Renal failure (ARF), acute on chronic Assessment: Serum creatinine lowering (2) Atrial flutter with rapid ventricular response (3) CKD (chronic kidney disease) Assessment: Stage to be determined when creatinine stabilizes (4) Cardiomyopathy Assessment 1. The patient's renal impression is acute on chronic renal failure. Other conditions atrial flutter with periodic rapid ventricular response. 2. Hypertension. 3. History of gout. 4. Pericardial calcification. 5. The patient is homeless. Plan Discontinue Lasix Add stool softener and Protonix 1 L of D5W Monitor renal parameters Optimize pulmonary and cardiac status Nephrotoxic's will be avoided. Urine studies will be ordered. We will continue on Flomax. Keep the blood pressure and blood sugar in check Subjective ROS Limited/Unobtainable: No Constitutional: Reports: malaise Objective Objective Last 24 Hour Vital Signs Date Time Temp Pulse Resp B/P (MAP) Pulse Ox O2 Delivery O2 Flow Rate FiO2 11/18/19 09:52 77 131/74 11/18/19 09:50 131/74 11/18/19 09:00 Room Air 11/18/19 08:00 97.2 77 18 131/74 (93) 97 11/18/19 05:14 140/74 11/18/19 04:00 98.1 71 20 129/73 (91) 98 11/18/19 00:00 98.2 73 20 128/69 (88) 97 11/17/19 21:00 Room Air 11/17/19 21:00 70 120/65 11/17/19 20:00 98.0 70 20 120/65 (83) 96 11/17/19 16:00 97.8 76 20 140/80 (100) 97 11/17/19 14:26 133/71 Intake and Output 11/17/19 11/18/19 19:00 07:00 Intake Total 272 ml Balance 272 ml IV Total 272 ml # Voids 3 # Bowel Movements 1 Current Medications Medications (Trade) Dose Ordered Sig/Catrina Route PRN Reason Start Time Stop Time Status Last Admin Dose Admin Acetaminophen (Tylenol) 650 mg Q4H PRN ORAL fever 11/16/19 06:35 12/16/19 06:34 Allopurinol (Zyloprim) 200 mg DAILY ORAL 11/17/19 09:00 12/15/19 08:59 11/18/19 09:51 Amiodarone HCl (Cordarone) 200 mg DAILY ORAL 11/18/19 09:00 02/16/20 08:59 11/18/19 09:52 Apixaban (Eliquis) 5 mg BID ORAL 11/16/19 09:00 12/15/19 08:59 Atorvastatin Calcium (Lipitor) 10 mg BEDTIME ORAL 11/16/19 21:00 12/15/19 20:59 11/17/19 21:14 Dextrose 1,000 ml @ 50 mls/hr Q20H IV 11/17/19 09:07 12/17/19 09:06 11/18/19 01:23 Hydralazine HCl (Apresoline) 50 mg Q8HR ORAL 11/16/19 14:00 12/14/19 23:58 11/18/19 05:14 Isosorbide Mononitrate (Imdur) 30 mg DAILY ORAL 11/16/19 09:00 12/15/19 08:59 11/18/19 09:50 Metoprolol Tartrate (Lopressor) 50 mg Q12HR ORAL 11/16/19 09:00 12/15/19 08:59 11/18/19 09:52 Ondansetron HCl (Zofran) 4 mg Q6H PRN IVP Nausea & Vomiting 11/16/19 06:36 12/16/19 06:35 Tamsulosin HCl (Flomax) 0.4 mg BID ORAL 11/16/19 09:00 12/15/19 08:59 11/18/19 09:51 Zolpidem Tartrate (Ambien) 5 mg HSPRN PRN ORAL Insomnia 11/16/19 06:36 11/23/19 06:35 Laboratory Tests 11/18/19 05:35: White Blood Count 7.9, Red Blood Count 3.95L, Hemoglobin 12.8L, Hematocrit 37.0L , Mean Corpuscular Volume 94, Mean Corpuscular Hemoglobin 32.4H, Mean Corpuscular Hemoglobin Concent 34.6, Red Cell Distribution Width 13.0, Platelet Count 141L, Mean Platelet Volume 6.4L, Neutrophils (%) (Auto) 63.6, Lymphocytes (%) (Auto) 22.8, Monocytes (%) (Auto) 9.8, Eosinophils (%) (Auto) 2.9, Basophils (%) (Auto) 0.9, Sodium Level 148H, Potassium Level 4.2, Chloride Level 113H, Carbon Dioxide Level 26, Anion Gap 9, Blood Urea Nitrogen 32H, Creatinine 2.1H, Estimat Glomerular Filtration Rate 30.9, Glucose Level 94, Uric Acid 6.1, Calcium Level 8.3L, Phosphorus Level 2.7, Magnesium Level 1.8, Total Bilirubin 0.3, Aspartate Amino Transf (AST/SGOT) 13L, Alanine Aminotransferase (ALT/SGPT) 13, Alkaline Phosphatase 75, C-Reactive Protein, Quantitative 0.9, Pro-B-Type Natriuretic Peptide 2610H, Total Protein 6.2L, Albumin 3.0L, Globulin 3.2, Albumin/Globulin Ratio 0.9L Height (Feet): 5 Height (Inches): 10.00 Weight (Pounds): 187 General Appearance: no apparent distress Objective No change Avila Sandy MD Nov 18, 2019 12:12
--- NOTE | 2019-11-18 13:54 | Pulmonology Progress Note ---
Assessment/Plan Problems: (1) Atrial flutter with rapid ventricular response (2) Pericardial calcification (3) Chronic renal insufficiency, stage II (mild) (4) Cardiomyopathy (5) History of gout (6) History of hypertension Assessment/Plan creatinine stable heart rate controlled iv fluids 50 CC /hour check electrolytes monitor BP f/u renal recommendations dc planning soon. Subjective ROS Limited/Unobtainable: No Constitutional: Reports: no symptoms HEENT: Repors: no symptoms Respiratory: Reports: no symptoms Allergies: Uncoded Allergies: red meat (Adverse Reaction, Unknown, 11/15/19) patient has gout and does not eat red meat Objective Last 24 Hour Vital Signs Date Time Temp Pulse Resp B/P (MAP) Pulse Ox O2 Delivery O2 Flow Rate FiO2 11/18/19 09:52 77 131/74 11/18/19 09:50 131/74 11/18/19 09:00 Room Air 11/18/19 08:00 97.2 77 18 131/74 (93) 97 11/18/19 05:14 140/74 11/18/19 04:00 98.1 71 20 129/73 (91) 98 11/18/19 00:00 98.2 73 20 128/69 (88) 97 11/17/19 21:00 Room Air 11/17/19 21:00 70 120/65 11/17/19 20:00 98.0 70 20 120/65 (83) 96 11/17/19 16:00 97.8 76 20 140/80 (100) 97 11/17/19 14:26 133/71 Intake and Output 11/17/19 11/18/19 19:00 07:00 Intake Total 272 ml Balance 272 ml IV Total 272 ml # Voids 3 # Bowel Movements 1 General Appearance: WD/WN HEENT: normocephalic, atraumatic Respiratory/Chest: chest wall non-tender, lungs clear Cardiovascular: normal peripheral pulses, normal rate Abdomen: normal bowel sounds, soft, non tender, no scars Extremities: no cyanosis, no clubbing Skin: no lesions 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 Microbiology Date/Time Source Procedure Growth Status 11/17/19 10:16 Stool Clostridium difficile Toxin Assay - Final Complete Laboratory Tests 11/18/19 05:35: White Blood Count 7.9, Red Blood Count 3.95L, Hemoglobin 12.8L, Hematocrit 37.0L , Mean Corpuscular Volume 94, Mean Corpuscular Hemoglobin 32.4H, Mean Corpuscular Hemoglobin Concent 34.6, Red Cell Distribution Width 13.0, Platelet Count 141L, Mean Platelet Volume 6.4L, Neutrophils (%) (Auto) 63.6, Lymphocytes (%) (Auto) 22.8, Monocytes (%) (Auto) 9.8, Eosinophils (%) (Auto) 2.9, Basophils (%) (Auto) 0.9, Sodium Level 148H, Potassium Level 4.2, Chloride Level 113H, Carbon Dioxide Level 26, Anion Gap 9, Blood Urea Nitrogen 32H, Creatinine 2.1H, Estimat Glomerular Filtration Rate 30.9, Glucose Level 94, Uric Acid 6.1, Calcium Level 8.3L, Phosphorus Level 2.7, Magnesium Level 1.8, Total Bilirubin 0.3, Aspartate Amino Transf (AST/SGOT) 13L, Alanine Aminotransferase (ALT/SGPT) 13, Alkaline Phosphatase 75, C-Reactive Protein, Quantitative 0.9, Pro-B-Type Natriuretic Peptide 2610H, Total Protein 6.2L, Albumin 3.0L, Globulin 3.2, Albumin/Globulin Ratio 0.9L Current Medications Medications (Trade) Dose Ordered Sig/Catrina Route PRN Reason Start Time Stop Time Status Last Admin Dose Admin Acetaminophen (Tylenol) 650 mg Q4H PRN ORAL fever 11/16/19 06:35 12/16/19 06:34 Allopurinol (Zyloprim) 200 mg DAILY ORAL 11/17/19 09:00 12/15/19 08:59 11/18/19 09:51 Amiodarone HCl (Cordarone) 200 mg DAILY ORAL 11/18/19 09:00 02/16/20 08:59 11/18/19 09:52 Apixaban (Eliquis) 5 mg BID ORAL 11/16/19 09:00 12/15/19 08:59 Atorvastatin Calcium (Lipitor) 10 mg BEDTIME ORAL 11/16/19 21:00 12/15/19 20:59 11/17/19 21:14 Dextrose 1,000 ml @ 50 mls/hr Q20H IV 11/17/19 09:07 12/17/19 09:06 11/18/19 01:23 Hydralazine HCl (Apresoline) 50 mg Q8HR ORAL 11/16/19 14:00 12/14/19 23:58 11/18/19 05:14 Isosorbide Mononitrate (Imdur) 30 mg DAILY ORAL 11/16/19 09:00 12/15/19 08:59 11/18/19 09:50 Metoprolol Tartrate (Lopressor) 50 mg Q12HR ORAL 11/16/19 09:00 12/15/19 08:59 11/18/19 09:52 Ondansetron HCl (Zofran) 4 mg Q6H PRN IVP Nausea & Vomiting 11/16/19 06:36 12/16/19 06:35 Tamsulosin HCl (Flomax) 0.4 mg BID ORAL 11/16/19 09:00 12/15/19 08:59 11/18/19 09:51 Zolpidem Tartrate (Ambien) 5 mg HSPRN PRN ORAL Insomnia 11/16/19 06:36 11/23/19 06:35 Erma Rajput MD Nov 18, 2019 13:54
--- NOTE | 2019-11-18 14:14 | NUR ---
RD ASSESSMENT & RECOMMENDATIONS SEE CARE ACTIVITY FOR COMPLETE ASSESSMENT DAILY ESTIMATED NEEDS: Needs based on Cardiac 78.6 kg abw 25-30 kcals/kg 6716-2402 total kcals 1-1.2 g protein/kg 79-94 g total protein 25-30 mL/kg 2717-5745 total fluid mLs NUTRITION DIAGNOSIS: Decreased sodium intake needs r/t cardiac history and CKD as evidenced by CHF dx w/ elev BNP 2610, elev creat (2.1). CURRENT DIET: Regular PO DIET RECOMMENDATIONS: LOW NA ADDITIONAL RECOMMENDATIONS: 1) Obtain a standing weight 2) Monitor lytes, replete as needed 3) Skin integrity: add MVI x 1, Osvaldo 1pkt BID
--- NOTE | 2019-11-18 14:29 | NUR ---
CASE MANAGEMENT:REVIEW SI;CHF. DYSPNEA. ATRIAL FLUTTER. CARDIOMYOPATHY. GOUT. 98.1 80 18 140/74 96% ON RA NA 148 CL 113 BUN 32 CR 2.1 CA 8.3 BNP 2610 IS;IVF D5 @ 50 ML/HR HYDRALAZINE PO TID IMDUR PO QD ALLOPURINOL PO QD AMIODARONE PO WD ELIQUIS PO BID LOPRESSOR PO BID MED SURG STATUS DCP;HOMELESS
[2019-11-18 16:00] VITALS: BP 114/79
--- NOTE | 2019-11-18 19:11 | NUR ---
HAND-OFF: Report given to TSERING Huizar.
[2019-11-18] MEDS ORDERED: Guaifenesin/DM 10ml syrup ORAL PRN (19:45)
--- NOTE | 2019-11-18 19:51 | NUR ---
NURSE NOTES: Received patient in bed, awake, alert, oriented x4, able to verbalize his needs, IV site is clean dry and intact, call light is within reach, bed is lowered, locked, alarm is on. Will continue to monitor for comfort and safety.
[2019-11-18 20:00] VITALS: BP 105/64
--- NOTE | 2019-11-18 22:56 | Internal Med Progress Note ---
Subjective Physician Name Yonas Purvis Attending Physician Yonas Purvis MD Current Medications Medications (Trade) Dose Ordered Sig/Catrina Route PRN Reason Start Time Stop Time Status Last Admin Dose Admin Acetaminophen (Tylenol) 650 mg Q4H PRN ORAL fever 11/16/19 06:35 12/16/19 06:34 Allopurinol (Zyloprim) 200 mg DAILY ORAL 11/17/19 09:00 12/15/19 08:59 11/18/19 09:51 Amiodarone HCl (Cordarone) 200 mg DAILY ORAL 11/18/19 09:00 02/16/20 08:59 11/18/19 09:52 Apixaban (Eliquis) 5 mg BID ORAL 11/16/19 09:00 12/15/19 08:59 Atorvastatin Calcium (Lipitor) 10 mg BEDTIME ORAL 11/16/19 21:00 12/15/19 20:59 11/18/19 20:19 Dextrose 1,000 ml @ 50 mls/hr Q20H IV 11/17/19 09:07 12/17/19 09:06 11/18/19 01:23 Guaifenesin/ Dextromethorphan (Robitussin DM Syrup) 10 ml Q6H PRN ORAL For Cough 11/18/19 19:45 02/16/20 19:44 11/18/19 21:11 Hydralazine HCl (Apresoline) 50 mg Q8HR ORAL 11/16/19 14:00 12/14/19 23:58 11/18/19 15:04 Isosorbide Mononitrate (Imdur) 30 mg DAILY ORAL 11/16/19 09:00 12/15/19 08:59 11/18/19 09:50 Metoprolol Tartrate (Lopressor) 50 mg Q12HR ORAL 11/16/19 09:00 12/15/19 08:59 11/18/19 09:52 Ondansetron HCl (Zofran) 4 mg Q6H PRN IVP Nausea & Vomiting 11/16/19 06:36 12/16/19 06:35 Tamsulosin HCl (Flomax) 0.4 mg BID ORAL 11/16/19 09:00 12/15/19 08:59 11/18/19 18:12 Zolpidem Tartrate (Ambien) 5 mg HSPRN PRN ORAL Insomnia 11/16/19 06:36 11/23/19 06:35 Allergies: Uncoded Allergies: red meat (Adverse Reaction, Unknown, 11/15/19) patient has gout and does not eat red meat Subjective Awake, alert, responsive, No CP or SOB, + Cough. Objective Last Vital Signs Date Time Temp Pulse Resp B/P (MAP) Pulse Ox O2 Delivery O2 Flow Rate FiO2 11/18/19 22:00 100/66 11/18/19 21:30 Room Air 11/18/19 20:14 70 11/18/19 20:00 98.6 18 97 Laboratory Tests Test 11/18/19 05:35 White Blood Count 7.9 K/UL (4.8-10.8) Red Blood Count 3.95 M/UL (4.70-6.10) L Hemoglobin 12.8 G/DL (14.2-18.0) L Hematocrit 37.0 % (42.0-52.0) L Mean Corpuscular Volume 94 FL (80-99) Mean Corpuscular Hemoglobin 32.4 PG (27.0-31.0) H Mean Corpuscular Hemoglobin Concent 34.6 G/DL (32.0-36.0) Red Cell Distribution Width 13.0 % (11.6-14.8) Platelet Count 141 K/UL (150-450) L Mean Platelet Volume 6.4 FL (6.5-10.1) L Neutrophils (%) (Auto) 63.6 % (45.0-75.0) Lymphocytes (%) (Auto) 22.8 % (20.0-45.0) Monocytes (%) (Auto) 9.8 % (1.0-10.0) Eosinophils (%) (Auto) 2.9 % (0.0-3.0) Basophils (%) (Auto) 0.9 % (0.0-2.0) Sodium Level 148 MMOL/L (136-145) H Potassium Level 4.2 MMOL/L (3.5-5.1) Chloride Level 113 MMOL/L (98-107) H Carbon Dioxide Level 26 MMOL/L (21-32) Anion Gap 9 mmol/L (5-15) Blood Urea Nitrogen 32 mg/dL (7-18) H Creatinine 2.1 MG/DL (0.55-1.30) H Estimat Glomerular Filtration Rate 30.9 mL/min (>60) Glucose Level 94 MG/DL (74-106) Uric Acid 6.1 MG/DL (2.6-7.2) Calcium Level 8.3 MG/DL (8.5-10.1) L Phosphorus Level 2.7 MG/DL (2.5-4.9) Magnesium Level 1.8 MG/DL (1.8-2.4) Total Bilirubin 0.3 MG/DL (0.2-1.0) Aspartate Amino Transf (AST/SGOT) 13 U/L (15-37) L Alanine Aminotransferase (ALT/SGPT) 13 U/L (12-78) Alkaline Phosphatase 75 U/L (46-116) C-Reactive Protein, Quantitative 0.9 mg/dL (0.00-0.90) Pro-B-Type Natriuretic Peptide 2610 pg/mL (0-125) H Total Protein 6.2 G/DL (6.4-8.2) L Albumin 3.0 G/DL (3.4-5.0) L Globulin 3.2 g/dL Albumin/Globulin Ratio 0.9 (1.0-2.7) L Microbiology Date/Time Source Procedure Growth Status 11/17/19 10:16 Stool Clostridium difficile Toxin Assay - Final Complete Intake and Output 11/17/19 11/18/19 19:00 07:00 Intake Total 272 ml 50 ml Balance 272 ml 50 ml IV Total 272 ml 50 ml # Voids 3 # Bowel Movements 1 Objective General: No acute distress, awake and alert HEENT: NCAT, sclera anicteric, PERRL, EOMI. Neck: Supple, no significant jugular venous distention, Lungs: Good inspiratory effort, clear to auscultation bilaterally, no Wheeze or Rales. Heart: Regular rate and rhythm, normal S1/S2, no murmurs Abdomen: soft, nontender, nondistended. Normoactive bowel sounds, Mild obesity. / Rectal: Refused and deferred. Extremities: No Cyanosis , clubbing or edema. Neuro: A&O x 3, Able to move all extremities Skin: warm, no rashes or lesions Psych: Normal mood and affect Assessment/Plan Assessment/Plan ASSESSMENT: This is a 74-year-old male with: 1. Hyponatremia. 2. Cardiomyopathy 3. Atrial flutter. 4. Congestive heart failure. 5. Cardiomyopathy. 6. ODETTE on Chronic renal failure. 7. Hypertension. 8. Benign prostatic hypertrophy. 9. Gout. 10. Hypercholesterolemia. TREATMENT: 1. Shortness of breath secondary to atrial flutter. 2. Atrial flutter. Initial ventricular rate was between 55 and 89. A Cardiology consultation has been obtained with Dr. Silverio. Continue amiodarone as above. We will follow recommendations of Cardiology. 3. Acute on chronic congestive heart failure. As above, a Cardiology consultation has been obtained with Dr. Epifanio Silverio. Continue Lasix as above. 4. Cardiomyopathy. Previous ejection fraction was 35% to 40%. 5. Chronic renal failure. A Nephrology consultation has been obtained with Dr. Sandy. We will follow recommendations of Nephrology. 6. Hypertension. Continue hydralazine as above. 7. Benign prostatic hypertrophy. Continue Flomax as above. 8. Gout. Continue allopurinol as above. 9. Hypercholesteremia. Continue Lipitor as above. DC planning soon. Yonas Purvis MD Nov 18, 2019 22:56
[2019-11-19] VITALS: BP 112/80
[2019-11-19 04:00] VITALS: BP 133/77
[2019-11-19] MEDS: HydrALAZINE 50mg tab ORAL SCH ×3 (05:39→22:45)
--- NOTE | 2019-11-19 07:25 | NUR ---
NURSE NOTES: Received report from TSERING Cao (Rita). Patient A&Ox4. On room air, no signs of distress or labored breathing. IV intact, patent, and saline locked. Patient refusing to have IV fluids on. Will notify MD. Bed in lowest position with call light in reach. Side rails up x2. Will continue with plan of care.
--- NOTE | 2019-11-19 07:31 | NUR ---
HAND-OFF: Report given to Ana Cristina CAGLE.
--- NOTE | 2019-11-19 07:50 | NUR ---
NURSE NOTES: Notified Dr. Purvis of patient refusing IV fluids. Awaiting response. Addendum: 11/19/19 at 0849 by Ana Cristina Noel RN aware. Order to D/C IV fluid given.
[2019-11-19 08:00] VITALS: BP 134/77
[2019-11-19] MEDS: Eliquis 5mg tablet ORAL SCH ×2 (09:00→18:00)
[2019-11-19] MEDS: Metoprolol Tartrate 50mg tab ORAL SCH ×2 (10:04→21:32)
[2019-11-19] MEDS: Tamsulosin 0.4mg cap ORAL SCH ×2 (10:04→17:43)
[2019-11-19] MEDS: Allopurinol 100mg Tab ORAL SCH (10:04)
[2019-11-19] MEDS: Amiodarone 200mg tab ORAL SCH (10:04)
[2019-11-19] MEDS: Imdur 30mg tab ORAL SCH (10:06)
--- NOTE | 2019-11-19 10:19 | NUR ---
P.T Note: P.T evaluation completed. Received patient in supine position, alert, o x 4, pleasant and cooperative. Pt had no c/o pain nor discomfort during P.T evaluation. Based on P.T evaluation, pt is baseline independent in all areas of ADL/functional mobilities and gait/locomotion therefore current functional status does not warrant skilled P.T service at this time. Educated and encouraged patient importance of OOB activities i.e up yovani chair and ambulate as tolerate with nursing supervision VS bedrest during stay to prevent further deconditioning effect of hospital stay. Pt understood/agreed. RN notified. DC P.T service. Thank you for this referral.
--- NOTE | 2019-11-19 10:19 | Pulmonology Progress Note ---
Assessment/Plan Assessment/Plan ASSESSMENT Atrial flutter with rapid ventricular response Acute on chronic CHF CM with EF 35-40% Pericardial calcification ODETTE on CKD HTN BPH Gout Low TSH , ?hyperthyroidism Homeless PLAN OF CARE [place] floor rate control with BB and amiodarone a/coag with Eliquis s/p diuretic guideline directed medical therapy for CHF with hydralazine and nitrate, continue BP, status post Lasix, no ARB/ADAL due to renal failure O2 PRN keep sat above 92, HHN prn CT head negative urine tox negative continue Flomax and allopurinol monitor renal parameters, lytes , correct electrolytes as needed, avoid nephrotoxic's creat trending down check T4 and T3 and repeat TSH dc plan case discussed and evaluated by supervising physician Subjective Allergies: Uncoded Allergies: red meat (Adverse Reaction, Unknown, 11/15/19) patient has gout and does not eat red meat Subjective no signs of resp distress edema decreased no fevers, no leukocytosis Objective Last 24 Hour Vital Signs Date Time Temp Pulse Resp B/P (MAP) Pulse Ox O2 Delivery O2 Flow Rate FiO2 11/19/19 10:06 134/77 11/19/19 10:04 81 134/77 11/19/19 08:00 97.0 81 20 134/77 (96) 97 11/19/19 05:39 133/74 11/19/19 04:00 98.2 71 18 133/77 (95) 98 11/19/19 00:00 98.1 85 18 112/80 (91) 99 11/18/19 22:00 100/66 11/18/19 21:30 Room Air 11/18/19 20:14 70 105/64 11/18/19 20:00 98.6 70 18 105/64 (78) 97 11/18/19 16:00 97.7 81 18 114/79 (91) 97 11/18/19 15:04 133/76 11/18/19 12:00 97.6 80 18 133/76 (95) 98 Intake and Output 11/18/19 11/19/19 19:00 07:00 Intake Total 1550 ml Balance 1550 ml Intake Oral 1100 ml IV Total 450 ml # Voids 8 # Bowel Movements 2 General Appearance: WD/WN, other - A/A/O x 4 male in NAD HEENT: normocephalic, atraumatic, anicteric, mucous membranes moist, PERRL Respiratory/Chest: lungs clear, no respiratory distress, no accessory muscle use Cardiovascular: normal rate Abdomen: soft, non tender Extremities: pedal pulses normal, other - +trace to +1 BLE Neurologic/Psychiatric: no motor/sensory deficits, alert, oriented x 3, responsive Musculoskeletal: normal muscle bulk Microbiology Date/Time Source Procedure Growth Status 11/17/19 10:16 Stool Clostridium difficile Toxin Assay - Final Complete Current Medications Medications (Trade) Dose Ordered Sig/Catrina Route PRN Reason Start Time Stop Time Status Last Admin Dose Admin Acetaminophen (Tylenol) 650 mg Q4H PRN ORAL fever 11/16/19 06:35 12/16/19 06:34 Allopurinol (Zyloprim) 200 mg DAILY ORAL 11/17/19 09:00 12/15/19 08:59 11/19/19 10:04 Amiodarone HCl (Cordarone) 200 mg DAILY ORAL 11/18/19 09:00 02/16/20 08:59 11/19/19 10:04 Apixaban (Eliquis) 5 mg BID ORAL 11/16/19 09:00 12/15/19 08:59 Atorvastatin Calcium (Lipitor) 10 mg BEDTIME ORAL 11/16/19 21:00 12/15/19 20:59 11/18/19 20:19 Guaifenesin/ Dextromethorphan (Robitussin DM Syrup) 10 ml Q6H PRN ORAL For Cough 11/18/19 19:45 02/16/20 19:44 11/18/19 21:11 Hydralazine HCl (Apresoline) 50 mg Q8HR ORAL 11/16/19 14:00 12/14/19 23:58 11/19/19 05:39 Isosorbide Mononitrate (Imdur) 30 mg DAILY ORAL 11/16/19 09:00 12/15/19 08:59 11/19/19 10:06 Metoprolol Tartrate (Lopressor) 50 mg Q12HR ORAL 11/16/19 09:00 12/15/19 08:59 11/19/19 10:04 Ondansetron HCl (Zofran) 4 mg Q6H PRN IVP Nausea & Vomiting 11/16/19 06:36 12/16/19 06:35 Tamsulosin HCl (Flomax) 0.4 mg BID ORAL 11/16/19 09:00 12/15/19 08:59 11/19/19 10:04 Zolpidem Tartrate (Ambien) 5 mg HSPRN PRN ORAL Insomnia 11/16/19 06:36 11/23/19 06:35 Princess Elias NP Nov 19, 2019 10:19
--- NOTE | 2019-11-19 11:20 | Nephrology Progress Note ---
Assessment/Plan Problem List: (1) Renal failure (ARF), acute on chronic Assessment: Serum creatinine lowering (2) Atrial flutter with rapid ventricular response (3) CKD (chronic kidney disease) Assessment: Stage to be determined when creatinine stabilizes (4) Cardiomyopathy Assessment 1. The patient's renal impression is acute on chronic renal failure. Other conditions atrial flutter with periodic rapid ventricular response. 2. Hypertension. 3. History of gout. 4. Pericardial calcification. 5. The patient is homeless. Plan No blood work for today Discontinue Lasix Add stool softener and Protonix 1 L of D5W given previously Monitor renal parameters Optimize pulmonary and cardiac status Nephrotoxic's will be avoided. Urine studies will be ordered. We will continue on Flomax. Keep the blood pressure and blood sugar in check Subjective ROS Limited/Unobtainable: No Objective Objective Last 24 Hour Vital Signs Date Time Temp Pulse Resp B/P (MAP) Pulse Ox O2 Delivery O2 Flow Rate FiO2 11/19/19 10:06 134/77 11/19/19 10:04 81 134/77 11/19/19 08:00 97.0 81 20 134/77 (96) 97 11/19/19 05:39 133/74 11/19/19 04:00 98.2 71 18 133/77 (95) 98 11/19/19 00:00 98.1 85 18 112/80 (91) 99 11/18/19 22:00 100/66 11/18/19 21:30 Room Air 11/18/19 20:14 70 105/64 11/18/19 20:00 98.6 70 18 105/64 (78) 97 11/18/19 16:00 97.7 81 18 114/79 (91) 97 11/18/19 15:04 133/76 11/18/19 12:00 97.6 80 18 133/76 (95) 98 Intake and Output 11/18/19 11/19/19 19:00 07:00 Intake Total 1550 ml Balance 1550 ml Intake Oral 1100 ml IV Total 450 ml # Voids 8 # Bowel Movements 2 Height (Feet): 5 Height (Inches): 10.00 Weight (Pounds): 187 General Appearance: no apparent distress Objective No change Avila Sandy MD Nov 19, 2019 11:20
[2019-11-19 12:00] VITALS: BP 119/77
--- NOTE | 2019-11-19 14:45 | Internal Med Progress Note ---
Subjective Date of Service: Nov 19, 2019 Physician Name ZimmerLeroy Attending Physician Yonas Purvis MD Current Medications Medications (Trade) Dose Ordered Sig/Catrina Route PRN Reason Start Time Stop Time Status Last Admin Dose Admin Acetaminophen (Tylenol) 650 mg Q4H PRN ORAL fever 11/16/19 06:35 12/16/19 06:34 Allopurinol (Zyloprim) 200 mg DAILY ORAL 11/17/19 09:00 12/15/19 08:59 11/19/19 10:04 Amiodarone HCl (Cordarone) 200 mg DAILY ORAL 11/18/19 09:00 02/16/20 08:59 11/19/19 10:04 Apixaban (Eliquis) 5 mg BID ORAL 11/16/19 09:00 12/15/19 08:59 Atorvastatin Calcium (Lipitor) 10 mg BEDTIME ORAL 11/16/19 21:00 12/15/19 20:59 11/18/19 20:19 Guaifenesin/ Dextromethorphan (Robitussin DM Syrup) 10 ml Q6H PRN ORAL For Cough 11/18/19 19:45 02/16/20 19:44 11/18/19 21:11 Hydralazine HCl (Apresoline) 50 mg Q8HR ORAL 11/16/19 14:00 12/14/19 23:58 11/19/19 05:39 Isosorbide Mononitrate (Imdur) 30 mg DAILY ORAL 11/16/19 09:00 12/15/19 08:59 11/19/19 10:06 Metoprolol Tartrate (Lopressor) 50 mg Q12HR ORAL 11/16/19 09:00 12/15/19 08:59 11/19/19 10:04 Ondansetron HCl (Zofran) 4 mg Q6H PRN IVP Nausea & Vomiting 11/16/19 06:36 12/16/19 06:35 Tamsulosin HCl (Flomax) 0.4 mg BID ORAL 11/16/19 09:00 12/15/19 08:59 11/19/19 10:04 Zolpidem Tartrate (Ambien) 5 mg HSPRN PRN ORAL Insomnia 11/16/19 06:36 11/23/19 06:35 Allergies: Uncoded Allergies: red meat (Adverse Reaction, Unknown, 3/17/20) patient has gout and does not eat red meat ROS Limited/Unobtainable: No Constitutional: Reports: no symptoms HEENT: Reports: no symptoms Cardiovascular: Reports: no symptoms Respiratory: Reports: shortness of breath Gastrointestinal/Abdominal: Reports: no symptoms Genitourinary: Reports: no symptoms Neurologic/Psychiatric: Reports: no symptoms Subjective 74 YO M admitted with shortness of breath. Cover for Int Med-DR Purvis Objective Last Vital Signs Date Time Temp Pulse Resp B/P (MAP) Pulse Ox O2 Delivery O2 Flow Rate FiO2 11/19/19 12:00 97.9 72 20 119/77 (91) 98 11/19/19 09:00 Room Air Microbiology Date/Time Source Procedure Growth Status 11/17/19 10:16 Stool Clostridium difficile Toxin Assay - Final Complete Intake and Output 11/18/19 11/19/19 19:00 07:00 Intake Total 1550 ml Balance 1550 ml Intake Oral 1100 ml IV Total 450 ml # Voids 8 # Bowel Movements 2 Objective PHYSICAL EXAMINATION: GENERAL: The patient is a well-developed and well-nourished male, in no apparent distress. HEENT: Eyes, pupils are equal and responsive to light and accommodation. Extraocular movements are intact. NECK: Supple without lymphadenopathy. CHEST: Lungs are clear to auscultation bilaterally without wheezes or rales. CARDIOVASCULAR: Regular rhythm and rate. S1, S2 normal without murmurs, rubs, or gallops. ABDOMEN: Soft, nontender, and nondistended. Positive bowel sounds. No evidence of hepatosplenomegaly. Currently, no rebound or guarding noted. EXTREMITIES: Negative for clubbing, cyanosis, or edema. RECTAL/GENITAL: Not performed. NEUROLOGICAL: Cranial nerves II through XII are grossly intact without focal deficits. Motor strength is 5/5 bilaterally. Deep tendon reflexes are 2+ plantar. Assessment/Plan Assessment/Plan ASSESSMENT: This is a 74-year-old male with: 1. Shortness of breath. 2. Ataxia. 3. Atrial flutter. 4. Congestive heart failure. 5. Cardiomyopathy. 6. Chronic renal failure. 7. Hypertension. 8. Benign prostatic hypertrophy. 9. Gout. 10. Hypercholesterolemia. TREATMENT: 1. Shortness of breath/ataxia. This may be secondary to atrial flutter. 2. Atrial flutter. Initial ventricular rate was between 55 and 89. A Cardiology consultation has been obtained with Dr. Silverio. Continue amiodarone as above. We will follow recommendations of Cardiology. 3. Acute on chronic congestive heart failure. As above, a Cardiology consultation has been obtained with Dr. Epifanio Silverio. Continue Lasix as above. 4. Cardiomyopathy. Previous ejection fraction was 35% to 40%. 5. Chronic renal failure. A Nephrology consultation has been obtained with Dr. Sandy. We will follow recommendations of Nephrology. 6. Hypertension. Continue hydralazine as above. 7. Benign prostatic hypertrophy. Continue Flomax as above. 8. Gout. Continue allopurinol as above. 9. Hypercholesteremia. Continue Lipitor as above. Leroy Zimmer MD Nov 19, 2019 14:45
[2019-11-19 16:00] VITALS: BP 110/67
--- NOTE | 2019-11-19 19:27 | Cardiology Progress Note ---
Assessment/Plan Problem List: (1) Atrial flutter with rapid ventricular response (2) History of hypertension (3) Renal failure (ARF), acute on chronic Status: stable, progressing Status Narrative Cardiac status stable. He is in AFL, chronic, w/ controlled ventricular rates CHADS VASC score is 3 (age, hx of htn) Assessment/Plan Pt declines anticoagulation. He is on amiodarone and metoprolol. consider dc amiodarone if no plan for anticoagulation, cardioversion Subjective ROS Limited/Unobtainable: No Subjective Mr Puga denies palpitations or chest pain. Objective Last 24 Hour Vital Signs Date Time Temp Pulse Resp B/P (MAP) Pulse Ox O2 Delivery O2 Flow Rate FiO2 11/19/19 16:00 98.2 77 20 110/67 (81) 100 11/19/19 12:00 97.9 72 20 119/77 (91) 98 11/19/19 10:06 134/77 11/19/19 10:04 81 134/77 11/19/19 09:00 Room Air 11/19/19 08:00 97.0 81 20 134/77 (96) 97 11/19/19 05:39 133/74 11/19/19 04:00 98.2 71 18 133/77 (95) 98 11/19/19 00:00 98.1 85 18 112/80 (91) 99 11/18/19 22:00 100/66 11/18/19 21:30 Room Air 11/18/19 20:14 70 105/64 11/18/19 20:00 98.6 70 18 105/64 (78) 97 General Appearance: WD/WN, no apparent distress EENT: other - discolored,raised lesion , appx 1cm ,under R eyelid Neck: non-tender, supple, no JVD Rhythm: other - afl Cardiovascular: normal rate, irregularly irregular Respiratory/Chest: lungs clear Abdomen: non tender, soft, other - mild distension, poss ascites Extremities: normal range of motion, no swelling Intake and Output 11/18/19 11/19/19 19:00 07:00 Intake Total 1550 ml Balance 1550 ml Intake Oral 1100 ml IV Total 450 ml # Voids 8 # Bowel Movements 2 Microbiology Date/Time Source Procedure Growth Status 11/17/19 10:16 Stool Clostridium difficile Toxin Assay - Final Complete Christina Griffith MD 21, 2020 19:27
[2019-11-19 20:00] VITALS: BP 115/59
--- NOTE | 2019-11-19 20:00 | NUR ---
NURSE NOTES: Pt is in bed, awake and alert. No acute distress noted. Pt appears calm. No chest pain or SOB. Pt is a bit talkative. Fall precaution in place, bed alarm on. Bed locked low in position,side rails up and call light within reach.
[2019-11-20] VITALS: BP 126/66
[2019-11-20 04:00] VITALS: BP 146/89
--- NOTE | 2019-11-20 05:40 | NUR ---
NURSE NOTES: Pt is in bed asleep. No acute distress noted. Pt refuses to have sacral wound picture taken despite education and encouragement.
[2019-11-20] MEDS: HydrALAZINE 50mg tab ORAL SCH ×3 (06:46→21:32)
--- NOTE | 2019-11-20 07:15 | NUR ---
HAND-OFF: Report given to TSERING De La Paz.
--- NOTE | 2019-11-20 07:18 | NUR ---
NURSE NOTES: Received report from TSERING Mcmillan. Patient A&Ox4, sitting in bed eating breakfast. On room air, no signs of distress or labored breathing. IV intact, patent, and saline locked. Bed in lowest position with call light in reach. Side rails up x2. Will continue with plan of care.
[2019-11-20 08:00] VITALS: BP 117/67
[2019-11-20 08:38] LABS: EOSINOPHILS % (AUTO) 2.3 % (0.0-3.0); HEMATOCRIT 39.3 % (42.0-52.0); HEMOGLOBIN 13.2 G/DL (14.2-18.0); LYMPHOCYTES % (AUTO) 21.3 % (20.0-45.0); MEAN CORPUSCULAR VOLUME 94 FL (80-99); MONOCYTES % (AUTO) 6.3 % (1.0-10.0); NEUTROPHILS % (AUTO) 69.2 % (45.0-75.0); PLATELET COUNT 129 K/UL (150-450); RED CELL DISTRIBUTION WIDTH 12.9 % (11.6-14.8); WHITE BLOOD COUNT 8.1 K/UL (4.8-10.8)
[2019-11-20 08:54] LABS: PHOSPHORUS 2.3 MG/DL (2.5-4.9)
[2019-11-20] MEDS: Eliquis 5mg tablet ORAL SCH ×2 (08:54→18:00)
[2019-11-20] MEDS: Amiodarone 200mg tab ORAL SCH (08:54)
[2019-11-20] MEDS: Tamsulosin 0.4mg cap ORAL SCH ×2 (08:55→18:31)
[2019-11-20] MEDS: Metoprolol Tartrate 50mg tab ORAL SCH ×2 (08:55→20:39)
[2019-11-20] MEDS: Allopurinol 100mg Tab ORAL SCH (08:56)
[2019-11-20] MEDS: Imdur 30mg tab ORAL SCH (08:57)
[2019-11-20 09:08] LABS: ALANINE AMINOTRANSFERASE 11 U/L (12-78); ALBUMIN 3.1 G/DL (3.4-5.0); ALKALINE PHOSPHATASE 77 U/L (46-116); ANION GAP 12 mmol/L (5-15); ASPARTATE AMINO TRANSFERASE 12 U/L (15-37); BILIRUBIN,TOTAL 0.4 MG/DL (0.2-1.0); BLOOD UREA NITROGEN 30 mg/dL (7-18); CARBON DIOXIDE 22 MMOL/L (21-32); CHLORIDE 111 MMOL/L (98-107); POTASSIUM 3.9 MMOL/L (3.5-5.1); SODIUM 145 MMOL/L (136-145)
--- NOTE | 2019-11-20 10:22 | Pulmonology Progress Note ---
Assessment/Plan Assessment/Plan ASSESSMENT Atrial flutter with rapid ventricular response Acute on chronic CHF CM with EF 35-40% Pericardial calcification ODETTE on CKD HTN BPH Gout Low TSH , ?hyperthyroidism Homeless PLAN OF CARE [place] floor rate control with BB and amiodarone a/coag with Eliquis s/p diuretic guideline directed medical therapy for CHF with hydralazine and nitrate, continue BP, status post Lasix, no ARB/ADAL due to renal failure O2 PRN keep sat above 92, HHN prn CT head negative urine tox negative continue Flomax and allopurinol monitor renal parameters, lytes , correct electrolytes as needed, avoid nephrotoxic's creat trending down low P start phosphosoda check T4 and T3, both WNL and repeat TSH -low, subclinical hyperthyroidism; repeat TFT in 1 month dc plan case discussed and evaluated by supervising physician Subjective Allergies: Uncoded Allergies: red meat (Adverse Reaction, Unknown, 11/15/19) patient has gout and does not eat red meat Subjective no signs of resp distress edema decreased no fevers, no leukocytosis creat trending down, Objective Last 24 Hour Vital Signs Date Time Temp Pulse Resp B/P (MAP) Pulse Ox O2 Delivery O2 Flow Rate FiO2 11/20/19 08:57 117/67 11/20/19 08:55 74 117/67 11/20/19 08:00 97.7 74 18 117/67 (84) 94 11/20/19 06:46 146/89 11/20/19 04:00 97.7 67 20 146/89 (108) 98 11/20/19 00:00 97.7 69 20 126/66 (86) 98 11/19/19 22:45 115/59 11/19/19 21:32 70 115/59 11/19/19 21:00 Room Air 11/19/19 20:00 98.6 70 20 115/59 (77) 98 11/19/19 16:00 98.2 77 20 110/67 (81) 100 11/19/19 12:00 97.9 72 20 119/77 (91) 98 Intake and Output 11/19/19 11/20/19 19:00 07:00 Intake Total 1080 ml 480 ml Balance 1080 ml 480 ml Intake Oral 1080 ml 480 ml # Voids 4 2 Objective General Appearance: WD/WN, other - A/A/O x 4 male in NAD HEENT: normocephalic, atraumatic, anicteric, mucous membranes moist, PERRL Respiratory/Chest: lungs clear, no respiratory distress, no accessory muscle use Cardiovascular: normal rate Abdomen: soft, non tender Extremities: pedal pulses normal, trace edema BLE Neurologic/Psychiatric: no motor/sensory deficits, alert, oriented x 3, responsive Musculoskeletal: normal muscle bulk Laboratory Tests 11/20/19 07:53: White Blood Count 8.1, Red Blood Count 4.20L, Hemoglobin 13.2L, Hematocrit 39.3L , Mean Corpuscular Volume 94, Mean Corpuscular Hemoglobin 31.5H, Mean Corpuscular Hemoglobin Concent 33.6, Red Cell Distribution Width 12.9, Platelet Count 129L, Mean Platelet Volume 6.8, Neutrophils (%) (Auto) 69.2, Lymphocytes ( %) (Auto) 21.3, Monocytes (%) (Auto) 6.3, Eosinophils (%) (Auto) 2.3, Basophils (%) (Auto) 1.0, Sodium Level 145, Potassium Level 3.9, Chloride Level 111H, Carbon Dioxide Level 22, Anion Gap 12, Blood Urea Nitrogen 30H, Creatinine 2.0H , Estimat Glomerular Filtration Rate 32.7, Glucose Level 134H, Uric Acid 5.6, Calcium Level 9.0, Phosphorus Level 2.3L, Magnesium Level 1.9, Total Bilirubin 0.4, Aspartate Amino Transf (AST/SGOT) 12L, Alanine Aminotransferase (ALT/SGPT) 11L, Alkaline Phosphatase 77, Total Protein 6.3L, Albumin 3.1L, Globulin 3.2, Albumin/Globulin Ratio 1.0, Thyroid Stimulating Hormone (TSH) 0.048L, Free Thyroxine 1.44, Free Triiodothyronine 2.4 Current Medications Medications (Trade) Dose Ordered Sig/Catrina Route PRN Reason Start Time Stop Time Status Last Admin Dose Admin Acetaminophen (Tylenol) 650 mg Q4H PRN ORAL fever 11/16/19 06:35 12/16/19 06:34 Allopurinol (Zyloprim) 200 mg DAILY ORAL 11/17/19 09:00 12/15/19 08:59 11/20/19 08:56 Amiodarone HCl (Cordarone) 200 mg DAILY ORAL 11/18/19 09:00 02/16/20 08:59 11/20/19 08:54 Apixaban (Eliquis) 5 mg BID ORAL 11/16/19 09:00 12/15/19 08:59 Atorvastatin Calcium (Lipitor) 10 mg BEDTIME ORAL 11/16/19 21:00 12/15/19 20:59 11/19/19 21:33 Guaifenesin/ Dextromethorphan (Robitussin DM Syrup) 10 ml Q6H PRN ORAL For Cough 11/18/19 19:45 02/16/20 19:44 11/18/19 21:11 Hydralazine HCl (Apresoline) 50 mg Q8HR ORAL 11/16/19 14:00 12/14/19 23:58 11/20/19 06:46 Isosorbide Mononitrate (Imdur) 30 mg DAILY ORAL 11/16/19 09:00 12/15/19 08:59 11/20/19 08:57 Metoprolol Tartrate (Lopressor) 50 mg Q12HR ORAL 11/16/19 09:00 12/15/19 08:59 11/19/19 21:32 Ondansetron HCl (Zofran) 4 mg Q6H PRN IVP Nausea & Vomiting 11/16/19 06:36 12/16/19 06:35 Tamsulosin HCl (Flomax) 0.4 mg BID ORAL 11/16/19 09:00 12/15/19 08:59 11/20/19 08:55 Zolpidem Tartrate (Ambien) 5 mg HSPRN PRN ORAL Insomnia 11/16/19 06:36 11/23/19 06:35 Princess Elias [employer] Nov 20, 2019 10:22
[2019-11-20] MEDS ORDERED: Albuterol/Ipratropium 3ml neb HHN PRN (10:30)
--- NOTE | 2019-11-20 10:42 | Nephrology Progress Note ---
Assessment/Plan Problem List: (1) Renal failure (ARF), acute on chronic Assessment: Serum creatinine lowering (2) Atrial flutter with rapid ventricular response (3) CKD (chronic kidney disease) Assessment: Stage to be determined when creatinine stabilizes (4) Cardiomyopathy Assessment 1. The patient's renal impression is acute on chronic renal failure. Other conditions atrial flutter with periodic rapid ventricular response. 2. Hypertension. 3. History of gout. 4. Pericardial calcification. 5. The patient is homeless. Plan Discontinue Lasix Add stool softener and Protonix 1 L of D5W given previously Monitor renal parameters Optimize pulmonary and cardiac status Nephrotoxic's will be avoided. Urine studies will be ordered. We will continue on Flomax. Keep the blood pressure and blood sugar in check Subjective ROS Limited/Unobtainable: No Constitutional: Reports: weakness Objective Objective Last 24 Hour Vital Signs Date Time Temp Pulse Resp B/P (MAP) Pulse Ox O2 Delivery O2 Flow Rate FiO2 11/20/19 08:57 117/67 11/20/19 08:55 74 117/67 11/20/19 08:00 97.7 74 18 117/67 (84) 94 11/20/19 06:46 146/89 11/20/19 04:00 97.7 67 20 146/89 (108) 98 11/20/19 00:00 97.7 69 20 126/66 (86) 98 11/19/19 22:45 115/59 11/19/19 21:32 70 115/59 11/19/19 21:00 Room Air 11/19/19 20:00 98.6 70 20 115/59 (77) 98 11/19/19 16:00 98.2 77 20 110/67 (81) 100 11/19/19 12:00 97.9 72 20 119/77 (91) 98 Intake and Output 11/19/19 11/20/19 19:00 07:00 Intake Total 1080 ml 480 ml Balance 1080 ml 480 ml Intake Oral 1080 ml 480 ml # Voids 4 2 Current Medications Medications (Trade) Dose Ordered Sig/Catrina Route PRN Reason Start Time Stop Time Status Last Admin Dose Admin Acetaminophen (Tylenol) 650 mg Q4H PRN ORAL fever 11/16/19 06:35 12/16/19 06:34 Albuterol/ Ipratropium (Albuterol/ Ipratropium) 3 ml Q4HRT PRN HHN sob 11/20/19 10:30 11/25/19 10:29 Allopurinol (Zyloprim) 200 mg DAILY ORAL 11/17/19 09:00 12/15/19 08:59 11/20/19 08:56 Amiodarone HCl (Cordarone) 200 mg DAILY ORAL 11/18/19 09:00 02/16/20 08:59 11/20/19 08:54 Apixaban (Eliquis) 5 mg BID ORAL 11/16/19 09:00 12/15/19 08:59 Atorvastatin Calcium (Lipitor) 10 mg BEDTIME ORAL 11/16/19 21:00 12/15/19 20:59 11/19/19 21:33 Guaifenesin/ Dextromethorphan (Robitussin DM Syrup) 10 ml Q6H PRN ORAL For Cough 11/18/19 19:45 02/16/20 19:44 11/18/19 21:11 Hydralazine HCl (Apresoline) 50 mg Q8HR ORAL 11/16/19 14:00 12/14/19 23:58 11/20/19 06:46 Isosorbide Mononitrate (Imdur) 30 mg DAILY ORAL 11/16/19 09:00 12/15/19 08:59 11/20/19 08:57 Metoprolol Tartrate (Lopressor) 50 mg Q12HR ORAL 11/16/19 09:00 12/15/19 08:59 11/19/19 21:32 Ondansetron HCl (Zofran) 4 mg Q6H PRN IVP Nausea & Vomiting 11/16/19 06:36 12/16/19 06:35 Phosphorus (Phospha 250 Neutral) 250 mg THREE TIMES A DAY ORAL 11/20/19 13:00 11/21/19 09:01 Tamsulosin HCl (Flomax) 0.4 mg BID ORAL 11/16/19 09:00 12/15/19 08:59 11/20/19 08:55 Zolpidem Tartrate (Ambien) 5 mg HSPRN PRN ORAL Insomnia 11/16/19 06:36 11/23/19 06:35 Laboratory Tests 11/20/19 07:53: White Blood Count 8.1, Red Blood Count 4.20L, Hemoglobin 13.2L, Hematocrit 39.3L , Mean Corpuscular Volume 94, Mean Corpuscular Hemoglobin 31.5H, Mean Corpuscular Hemoglobin Concent 33.6, Red Cell Distribution Width 12.9, Platelet Count 129L, Mean Platelet Volume 6.8, Neutrophils (%) (Auto) 69.2, Lymphocytes ( %) (Auto) 21.3, Monocytes (%) (Auto) 6.3, Eosinophils (%) (Auto) 2.3, Basophils (%) (Auto) 1.0, Sodium Level 145, Potassium Level 3.9, Chloride Level 111H, Carbon Dioxide Level 22, Anion Gap 12, Blood Urea Nitrogen 30H, Creatinine 2.0H , Estimat Glomerular Filtration Rate 32.7, Glucose Level 134H, Uric Acid 5.6, Calcium Level 9.0, Phosphorus Level 2.3L, Magnesium Level 1.9, Total Bilirubin 0.4, Aspartate Amino Transf (AST/SGOT) 12L, Alanine Aminotransferase (ALT/SGPT) 11L, Alkaline Phosphatase 77, Total Protein 6.3L, Albumin 3.1L, Globulin 3.2, Albumin/Globulin Ratio 1.0, Thyroid Stimulating Hormone (TSH) 0.048L, Free Thyroxine 1.44, Free Triiodothyronine 2.4 Height (Feet): 5 Height (Inches): 10.00 Weight (Pounds): 187 General Appearance: no apparent distress Objective No change Avila Sandy MD Nov 20, 2019 10:42
[2019-11-20] MEDS ORDERED: Phospha 250 Neutral tab ORAL SCH (10:45)
[2019-11-20 12:00] VITALS: BP 125/66
[2019-11-20] MEDS: Phospha 250 Neutral tab ORAL SCH ×2 (13:46→18:31)
--- NOTE | 2019-11-20 15:57 | Internal Med Progress Note ---
Subjective Date of Service: Nov 20, 2019 Physician Name Leroy Zimmer Attending Physician Yonas Purvis MD Current Medications Medications (Trade) Dose Ordered Sig/Catrina Route PRN Reason Start Time Stop Time Status Last Admin Dose Admin Acetaminophen (Tylenol) 650 mg Q4H PRN ORAL fever 11/16/19 06:35 12/16/19 06:34 Albuterol/ Ipratropium (Albuterol/ Ipratropium) 3 ml Q4HRT PRN HHN sob 11/20/19 10:30 11/25/19 10:29 Allopurinol (Zyloprim) 200 mg DAILY ORAL 11/17/19 09:00 12/15/19 08:59 11/20/19 08:56 Amiodarone HCl (Cordarone) 200 mg DAILY ORAL 11/18/19 09:00 02/16/20 08:59 11/20/19 08:54 Apixaban (Eliquis) 5 mg BID ORAL 11/16/19 09:00 12/15/19 08:59 Atorvastatin Calcium (Lipitor) 10 mg BEDTIME ORAL 11/16/19 21:00 12/15/19 20:59 11/19/19 21:33 Guaifenesin/ Dextromethorphan (Robitussin DM Syrup) 10 ml Q6H PRN ORAL For Cough 11/18/19 19:45 02/16/20 19:44 11/18/19 21:11 Hydralazine HCl (Apresoline) 50 mg Q8HR ORAL 11/16/19 14:00 12/14/19 23:58 11/20/19 13:46 Isosorbide Mononitrate (Imdur) 30 mg DAILY ORAL 11/16/19 09:00 12/15/19 08:59 11/20/19 08:57 Metoprolol Tartrate (Lopressor) 50 mg Q12HR ORAL 11/16/19 09:00 12/15/19 08:59 11/19/19 21:32 Ondansetron HCl (Zofran) 4 mg Q6H PRN IVP Nausea & Vomiting 11/16/19 06:36 12/16/19 06:35 Phosphorus (Phospha 250 Neutral) 250 mg THREE TIMES A DAY ORAL 11/20/19 13:00 11/21/19 09:01 11/20/19 13:46 Tamsulosin HCl (Flomax) 0.4 mg BID ORAL 11/16/19 09:00 12/15/19 08:59 11/20/19 08:55 Zolpidem Tartrate (Ambien) 5 mg HSPRN PRN ORAL Insomnia 11/16/19 06:36 11/23/19 06:35 Allergies: Uncoded Allergies: red meat (Adverse Reaction, Unknown, 11/15/19) patient has gout and does not eat red meat ROS Limited/Unobtainable: No Constitutional: Reports: no symptoms HEENT: Reports: no symptoms Cardiovascular: Reports: no symptoms Respiratory: Reports: no symptoms Gastrointestinal/Abdominal: Reports: no symptoms Genitourinary: Reports: no symptoms Neurologic/Psychiatric: Reports: no symptoms Subjective 74 YO M admitted with shortness of breath. Cover for Int Arnaldo-DR Purvis Objective Last Vital Signs Date Time Temp Pulse Resp B/P (MAP) Pulse Ox O2 Delivery O2 Flow Rate FiO2 11/20/19 13:46 125/66 11/20/19 12:00 97.5 79 17 95 11/20/19 09:00 Room Air Laboratory Tests Test 11/20/19 07:53 White Blood Count 8.1 K/UL (4.8-10.8) Red Blood Count 4.20 M/UL (4.70-6.10) L Hemoglobin 13.2 G/DL (14.2-18.0) L Hematocrit 39.3 % (42.0-52.0) L Mean Corpuscular Volume 94 FL (80-99) Mean Corpuscular Hemoglobin 31.5 PG (27.0-31.0) H Mean Corpuscular Hemoglobin Concent 33.6 G/DL (32.0-36.0) Red Cell Distribution Width 12.9 % (11.6-14.8) Platelet Count 129 K/UL (150-450) L Mean Platelet Volume 6.8 FL (6.5-10.1) Neutrophils (%) (Auto) 69.2 % (45.0-75.0) Lymphocytes (%) (Auto) 21.3 % (20.0-45.0) Monocytes (%) (Auto) 6.3 % (1.0-10.0) Eosinophils (%) (Auto) 2.3 % (0.0-3.0) Basophils (%) (Auto) 1.0 % (0.0-2.0) Sodium Level 145 MMOL/L (136-145) Potassium Level 3.9 MMOL/L (3.5-5.1) Chloride Level 111 MMOL/L (98-107) H Carbon Dioxide Level 22 MMOL/L (21-32) Anion Gap 12 mmol/L (5-15) Blood Urea Nitrogen 30 mg/dL (7-18) H Creatinine 2.0 MG/DL (0.55-1.30) H Estimat Glomerular Filtration Rate 32.7 mL/min (>60) Glucose Level 134 MG/DL (74-106) H Uric Acid 5.6 MG/DL (2.6-7.2) Calcium Level 9.0 MG/DL (8.5-10.1) Phosphorus Level 2.3 MG/DL (2.5-4.9) L Magnesium Level 1.9 MG/DL (1.8-2.4) Total Bilirubin 0.4 MG/DL (0.2-1.0) Aspartate Amino Transf (AST/SGOT) 12 U/L (15-37) L Alanine Aminotransferase (ALT/SGPT) 11 U/L (12-78) L Alkaline Phosphatase 77 U/L (46-116) Total Protein 6.3 G/DL (6.4-8.2) L Albumin 3.1 G/DL (3.4-5.0) L Globulin 3.2 g/dL Albumin/Globulin Ratio 1.0 (1.0-2.7) Thyroid Stimulating Hormone (TSH) 0.048 uiU/mL (0.358-3.740) Free Thyroxine 1.44 NG/DL (0.76-1.46) Free Triiodothyronine 2.4 pg/mL (2.3-4.2) Intake and Output 11/19/19 11/20/19 19:00 07:00 Intake Total 1080 ml 480 ml Balance 1080 ml 480 ml Intake Oral 1080 ml 480 ml # Voids 4 2 Objective PHYSICAL EXAMINATION: GENERAL: The patient is a well-developed and well-nourished male, in no apparent distress. HEENT: Eyes, pupils are equal and responsive to light and accommodation. Extraocular movements are intact. NECK: Supple without lymphadenopathy. CHEST: Lungs are clear to auscultation bilaterally without wheezes or rales. CARDIOVASCULAR: Regular rhythm and rate. S1, S2 normal without murmurs, rubs, or gallops. ABDOMEN: Soft, nontender, and nondistended. Positive bowel sounds. No evidence of hepatosplenomegaly. Currently, no rebound or guarding noted. EXTREMITIES: Negative for clubbing, cyanosis, or edema. RECTAL/GENITAL: Not performed. NEUROLOGICAL: Cranial nerves II through XII are grossly intact without focal deficits. Motor strength is 5/5 bilaterally. Deep tendon reflexes are 2+ plantar. Assessment/Plan Assessment/Plan ASSESSMENT: This is a 74-year-old male with: 1. Shortness of breath. 2. Ataxia. 3. Atrial flutter. 4. Congestive heart failure. 5. Cardiomyopathy. 6. Chronic renal failure. 7. Hypertension. 8. Benign prostatic hypertrophy. 9. Gout. 10. Hypercholesterolemia. TREATMENT: 1. Shortness of breath/ataxia. This may be secondary to atrial flutter. 2. Atrial flutter. Initial ventricular rate was between 55 and 89. A Cardiology consultation has been obtained with Dr. Silverio. Continue amiodarone as above. We will follow recommendations of Cardiology. 3. Acute on chronic congestive heart failure. As above, a Cardiology consultation has been obtained with Dr. Epifanio Silverio. Continue Lasix as above. 4. Cardiomyopathy. Previous ejection fraction was 35% to 40%. 5. Chronic renal failure. A Nephrology consultation has been obtained with Dr. Sandy. We will follow recommendations of Nephrology. 6. Hypertension. Continue hydralazine as above. 7. Benign prostatic hypertrophy. Continue Flomax as above. 8. Gout. Continue allopurinol as above. 9. Hypercholesteremia. Continue Lipitor as above. Leroy Zimmer MD Nov 20, 2019 15:57
[2019-11-20 16:00] VITALS: BP 120/69
--- NOTE | 2019-11-20 18:30 | Cardiology Progress Note ---
Assessment/Plan Problem List: (1) Atrial flutter with rapid ventricular response (2) History of hypertension (3) Renal failure (ARF), acute on chronic (4) Chest pain Status: stable, progressing Status Narrative Chest pain - suspect noncardiac, based on hx, but will check EKG. hx of HTN AFL - persistent. CHADS VASC socre is 3 ( age, htn) Assessment/Plan Pt continues to refuse anticoagulation He is on amiodarone and metoprolol. consider dc amiodarone if no plan for anticoagulation, cardioversion Check EKG today Subjective ROS Limited/Unobtainable: No Subjective Mr Puga denies palpitations but has a mild, intermittent sticking sensation/ discomfort in L chest. Objective Last 24 Hour Vital Signs Date Time Temp Pulse Resp B/P (MAP) Pulse Ox O2 Delivery O2 Flow Rate FiO2 11/20/19 16:00 97.6 76 17 120/69 (86) 94 11/20/19 13:46 125/66 11/20/19 12:00 97.5 79 17 125/66 (85) 95 11/20/19 09:00 Room Air 11/20/19 08:57 117/67 11/20/19 08:55 74 117/67 11/20/19 08:00 97.7 74 18 117/67 (84) 94 11/20/19 06:46 146/89 11/20/19 04:00 97.7 67 20 146/89 (108) 98 11/20/19 00:00 97.7 69 20 126/66 (86) 98 11/19/19 22:45 115/59 11/19/19 21:32 70 115/59 11/19/19 21:00 Room Air 11/19/19 20:00 98.6 70 20 115/59 (77) 98 General Appearance: WD/WN, no apparent distress, alert EENT: PERRL/EOMI Neck: supple, no JVD Rhythm: other - afl Cardiovascular: normal rate, no gallop/murmur, irregularly irregular Respiratory/Chest: lungs clear Abdomen: non tender, soft Extremities: no swelling Intake and Output 11/19/19 11/20/19 19:00 07:00 Intake Total 1080 ml 480 ml Balance 1080 ml 480 ml Intake Oral 1080 ml 480 ml # Voids 4 2 Laboratory Tests Test 11/20/19 07:53 White Blood Count 8.1 K/UL (4.8-10.8) Red Blood Count 4.20 M/UL (4.70-6.10) L Hemoglobin 13.2 G/DL (14.2-18.0) L Hematocrit 39.3 % (42.0-52.0) L Mean Corpuscular Volume 94 FL (80-99) Mean Corpuscular Hemoglobin 31.5 PG (27.0-31.0) H Mean Corpuscular Hemoglobin Concent 33.6 G/DL (32.0-36.0) Red Cell Distribution Width 12.9 % (11.6-14.8) Platelet Count 129 K/UL (150-450) L Mean Platelet Volume 6.8 FL (6.5-10.1) Neutrophils (%) (Auto) 69.2 % (45.0-75.0) Lymphocytes (%) (Auto) 21.3 % (20.0-45.0) Monocytes (%) (Auto) 6.3 % (1.0-10.0) Eosinophils (%) (Auto) 2.3 % (0.0-3.0) Basophils (%) (Auto) 1.0 % (0.0-2.0) Sodium Level 145 MMOL/L (136-145) Potassium Level 3.9 MMOL/L (3.5-5.1) Chloride Level 111 MMOL/L (98-107) H Carbon Dioxide Level 22 MMOL/L (21-32) Anion Gap 12 mmol/L (5-15) Blood Urea Nitrogen 30 mg/dL (7-18) H Creatinine 2.0 MG/DL (0.55-1.30) H Estimat Glomerular Filtration Rate 32.7 mL/min (>60) Glucose Level 134 MG/DL (74-106) H Uric Acid 5.6 MG/DL (2.6-7.2) Calcium Level 9.0 MG/DL (8.5-10.1) Phosphorus Level 2.3 MG/DL (2.5-4.9) L Magnesium Level 1.9 MG/DL (1.8-2.4) Total Bilirubin 0.4 MG/DL (0.2-1.0) Aspartate Amino Transf (AST/SGOT) 12 U/L (15-37) L Alanine Aminotransferase (ALT/SGPT) 11 U/L (12-78) L Alkaline Phosphatase 77 U/L (46-116) Total Protein 6.3 G/DL (6.4-8.2) L Albumin 3.1 G/DL (3.4-5.0) L Globulin 3.2 g/dL Albumin/Globulin Ratio 1.0 (1.0-2.7) Thyroid Stimulating Hormone (TSH) 0.048 uiU/mL (0.358-3.740) Free Thyroxine 1.44 NG/DL (0.76-1.46) Free Triiodothyronine 2.4 pg/mL (2.3-4.2) Christina Griffith MD Nov 20, 2019 18:30
--- NOTE | 2019-11-20 19:21 | NUR ---
NURSE NOTES: Received report from Ana Cristina RN. Rounding is done with outgoing nurse. Patient in bed, a/o x4, and able to known his need. IV site is intact and patent. Denied any distress or pain at this time. Breathing is even and unlabored at this time. Bed is on alarm, locked, and lowest position. side rails up x2. Call light within reach. Will continue to monitor.
[2019-11-20 20:00] VITALS: BP 116/59
[2019-11-21] VITALS: BP 132/69
[2019-11-21 04:00] VITALS: BP 140/71
[2019-11-21] MEDS: HydrALAZINE 50mg tab ORAL SCH ×3 (05:05→21:56)
--- NOTE | 2019-11-21 07:03 | NUR ---
HAND-OFF: Report given to Chepe CAGLE. Patient in stable condition.
[2019-11-21 07:23] LABS: BASOPHILS % (AUTO) 0.8 % (0.0-2.0); EOSINOPHILS % (AUTO) 2.5 % (0.0-3.0); HEMOGLOBIN 12.8 G/DL (14.2-18.0); LYMPHOCYTES % (AUTO) 23.5 % (20.0-45.0); MEAN CORPUSCULAR VOLUME 93 FL (80-99); MONOCYTES % (AUTO) 10.4 % (1.0-10.0); NEUTROPHILS % (AUTO) 62.8 % (45.0-75.0); PLATELET COUNT 119 K/UL (150-450); RED BLOOD COUNT 3.96 M/UL (4.70-6.10); RED CELL DISTRIBUTION WIDTH 12.9 % (11.6-14.8); WHITE BLOOD COUNT 7.6 K/UL (4.8-10.8)
[2019-11-21 07:28] LABS: ANION GAP 11 mmol/L (5-15); BLOOD UREA NITROGEN 28 mg/dL (7-18); CALCIUM 8.6 MG/DL (8.5-10.1); CARBON DIOXIDE 25 MMOL/L (21-32); CHLORIDE 111 MMOL/L (98-107); CREATININE 1.8 MG/DL (0.55-1.30); PHOSPHORUS 3.5 MG/DL (2.5-4.9); SODIUM 147 MMOL/L (136-145)
[2019-11-21 08:00] VITALS: BP 126/72
--- NOTE | 2019-11-21 08:10 | NUR ---
NURSE NOTES: Patient seen on rounds, AxOx4, not in distress, no complaints of pain. No chest pain, vitals WNL. PIV patent and intact. Bed low and locked, side rails up x 2, call light within reach. Instructed to call nurse for assistance. Will continue to monitor.
[2019-11-21] MEDS: Allopurinol 100mg Tab ORAL SCH (08:42)
[2019-11-21] MEDS: Eliquis 5mg tablet ORAL SCH ×2 (08:43→17:34)
[2019-11-21] MEDS: Tamsulosin 0.4mg cap ORAL SCH ×2 (08:43→17:34)
[2019-11-21] MEDS: Amiodarone 200mg tab ORAL SCH (08:43)
[2019-11-21] MEDS: Metoprolol Tartrate 50mg tab ORAL SCH ×2 (08:43→20:47)
[2019-11-21] MEDS: Imdur 30mg tab ORAL SCH (08:43)
[2019-11-21] MEDS: Phospha 250 Neutral tab ORAL SCH (08:44)
--- NOTE | 2019-11-21 11:58 | Nephrology Progress Note ---
Assessment/Plan Problem List: (1) Renal failure (ARF), acute on chronic Assessment: Serum creatinine lowering (2) Atrial flutter with rapid ventricular response (3) CKD (chronic kidney disease) Assessment: Stage to be determined when creatinine stabilizes (4) Cardiomyopathy Assessment 1. The patient's renal impression is acute on chronic renal failure. Other conditions atrial flutter with periodic rapid ventricular response. 2. Hypertension. 3. History of gout. 4. Pericardial calcification. 5. The patient is homeless. Plan Discontinue Lasix Add stool softener and Protonix 1 L of D5W given previously Monitor renal parameters Optimize pulmonary and cardiac status Nephrotoxic's will be avoided. Urine studies will be ordered. We will continue on Flomax. Keep the blood pressure and blood sugar in check Subjective ROS Limited/Unobtainable: No Objective Objective Last 24 Hour Vital Signs Date Time Temp Pulse Resp B/P (MAP) Pulse Ox O2 Delivery O2 Flow Rate FiO2 11/21/19 09:22 85 20 98 Room Air 21 11/21/19 09:00 Room Air 11/21/19 08:43 96 126/72 11/21/19 08:43 126/72 11/21/19 08:00 97.6 96 18 126/72 (90) 99 11/21/19 05:05 140/71 11/21/19 04:00 97.9 73 19 140/71 (94) 96 11/21/19 00:00 97.9 78 19 132/69 (90) 96 11/20/19 21:32 116/60 11/20/19 21:00 Room Air 11/20/19 20:39 73 116/59 11/20/19 20:13 70 18 97 Room Air 21 11/20/19 20:00 98.7 73 19 116/59 (78) 95 11/20/19 16:00 97.6 76 17 120/69 (86) 94 11/20/19 13:46 125/66 11/20/19 12:00 97.5 79 17 125/66 (85) 95 Intake and Output 11/20/19 11/21/19 19:00 07:00 Intake Total 1500 ml 400 ml Balance 1500 ml 400 ml Intake Oral 1500 ml 400 ml # Voids 3 2 Current Medications Medications (Trade) Dose Ordered Sig/Catrina Route PRN Reason Start Time Stop Time Status Last Admin Dose Admin Acetaminophen (Tylenol) 650 mg Q4H PRN ORAL fever 11/16/19 06:35 12/16/19 06:34 Albuterol/ Ipratropium (Albuterol/ Ipratropium) 3 ml Q4HRT PRN HHN sob 11/20/19 10:30 11/25/19 10:29 Allopurinol (Zyloprim) 200 mg DAILY ORAL 11/17/19 09:00 12/15/19 08:59 11/21/19 08:42 Amiodarone HCl (Cordarone) 200 mg DAILY ORAL 11/18/19 09:00 02/16/20 08:59 11/21/19 08:43 Apixaban (Eliquis) 5 mg BID ORAL 11/16/19 09:00 12/15/19 08:59 Atorvastatin Calcium (Lipitor) 10 mg BEDTIME ORAL 11/16/19 21:00 12/15/19 20:59 11/20/19 20:39 Guaifenesin/ Dextromethorphan (Robitussin DM Syrup) 10 ml Q6H PRN ORAL For Cough 11/18/19 19:45 02/16/20 19:44 11/18/19 21:11 Hydralazine HCl (Apresoline) 50 mg Q8HR ORAL 11/16/19 14:00 12/14/19 23:58 11/21/19 05:05 Isosorbide Mononitrate (Imdur) 30 mg DAILY ORAL 11/16/19 09:00 12/15/19 08:59 11/21/19 08:43 Metoprolol Tartrate (Lopressor) 50 mg Q12HR ORAL 11/16/19 09:00 12/15/19 08:59 11/21/19 08:43 Ondansetron HCl (Zofran) 4 mg Q6H PRN IVP Nausea & Vomiting 11/16/19 06:36 12/16/19 06:35 Tamsulosin HCl (Flomax) 0.4 mg BID ORAL 11/16/19 09:00 12/15/19 08:59 11/21/19 08:43 Zolpidem Tartrate (Ambien) 5 mg HSPRN PRN ORAL Insomnia 11/16/19 06:36 11/23/19 06:35 Laboratory Tests 3/23/20 05:35: White Blood Count 7.6, Red Blood Count 3.96L, Hemoglobin 12.8L, Hematocrit 37.0L , Mean Corpuscular Volume 93, Mean Corpuscular Hemoglobin 32.4H, Mean Corpuscular Hemoglobin Concent 34.6, Red Cell Distribution Width 12.9, Platelet Count 119L, Mean Platelet Volume 7.5, Neutrophils (%) (Auto) 62.8, Lymphocytes ( %) (Auto) 23.5, Monocytes (%) (Auto) 10.4H, Eosinophils (%) (Auto) 2.5, Basophils (%) (Auto) 0.8, Sodium Level 147H, Potassium Level 4.0, Chloride Level 111H, Carbon Dioxide Level 25, Anion Gap 11, Blood Urea Nitrogen 28H, Creatinine 1.8H, Estimat Glomerular Filtration Rate 37.0, Glucose Level 87, Calcium Level 8.6, Phosphorus Level 3.5 Height (Feet): 5 Height (Inches): 10.00 Weight (Pounds): 187 General Appearance: no apparent distress Objective No change Avila Sandy MD Nov 21, 2019 11:58
[2019-11-21 12:00] VITALS: BP 124/73
--- NOTE | 2019-11-21 12:57 | NUR ---
Social Work This SW followed up with patient who would not disclose discharge location (patient is homeless). Patient admits to receiving income, but would not disclose this information as well. This Sw highly recommended Board and Care placement and provided the contact information (patient has a phone), along with group home, transitional housing information provided as well. Patient declined staying at a group home at this time. Patient signed Homeless Discharge Checklist (placed on front of patients chart). Nursing aware to arrange transportation, according address of choice. Patient explains he is appealing the discharge. This SW informed patient that his appeal would most likely be denied, due to there isn't medical criteria for patient to be in the hospital (it appears patient is now using further hospitalization for housing). Nursing and Case Management informed.
--- NOTE | 2019-11-21 14:23 | NUR ---
CASE MANAGEMENT:REVIEW SI;ATRIAL FLUTTER W/RVR. CHF. AC/CHR RENAL FAILURE. 97.8 96 20 126/72 97% ON RA NA 147 BUN 28 CR 1.8 IS;DUO NEB HHN Q4 HRT PRN ROBITUSSIN DM PO Q6 HRS PRN AMIODARONE PO QD HYDRALAZINE PO Q8 HRS IMDUR PO QD LOPRESSOR PO Q12 HRS MED SURG STATUS DCP;PATIENT IS HOMELESS PATIENT HAS APPEALED DISCHARGE
--- NOTE | 2019-11-21 14:25 | NUR ---
NURSE NOTES: RN SPOKE TO LANE, LYRIC AND PT WITH NO SNF DAYS. PT HAS DISCHARGE ORDER. PER CM, PT CAN GO TO [facility]. RN EDUCATED PT ON DISCHARGE AND OPTIONS FOR PLACEMENT. PER PT, HE DOES NOT WANT TO GO TO [facility] AND CARE AND WANTS TO APPEAL DISCHARGE. BAKERY CLERK LAMONT WAS AT BEDSIDE WITH PT AND PROVIDED PAPERWORKS WITH OPTIONS. PER LAMONT, SHE WILL LET PRINCIPAL ANDROID DEVELOPER KNOW PT IS REFUSING PLACEMENT AND WATS TO APPEAL DISCHARGE. RN MADE LANE AWARE PT WANTS TO APPEAL. WILL CONTINUE TO MONITOR.
--- NOTE | 2019-11-21 14:41 | NUR ---
.NET ARCHITECT NOTE CM INFORMED BY SW OF PATIENTS INTENT TO APPEAL DISCHARGE. THIS CM SPOKE TO PATIENT AT BEDSIDE. RIGHTS TO APPEAL EXPLAINED AND PROVIDED PATIENT WITH APPEAL INFORMATION.
[2019-11-21 16:00] VITALS: BP 120/84
--- NOTE | 2019-11-21 17:50 | Pulmonology Progress Note ---
Assessment/Plan Problems: (1) Atrial flutter with rapid ventricular response (2) Pericardial calcification (3) Chronic renal insufficiency, stage II (mild) (4) Cardiomyopathy (5) History of gout (6) History of hypertension Assessment/Plan creatinine stable heart rate controlled check electrolytes monitor BP f/u renal recommendations dc planning in process Subjective ROS Limited/Unobtainable: No Constitutional: Reports: no symptoms HEENT: Repors: no symptoms Allergies: Uncoded Allergies: red meat (Adverse Reaction, Unknown, 11/15/19) patient has gout and does not eat red meat Objective Last 24 Hour Vital Signs Date Time Temp Pulse Resp B/P (MAP) Pulse Ox O2 Delivery O2 Flow Rate FiO2 11/21/19 16:00 98.1 92 17 120/84 (96) 98 11/21/19 13:45 124/73 11/21/19 12:00 97.8 95 17 124/73 (90) 97 11/21/19 09:22 85 20 98 Room Air 21 11/21/19 09:00 Room Air 11/21/19 08:43 96 126/72 11/21/19 08:43 126/72 11/21/19 08:00 97.6 96 18 126/72 (90) 99 11/21/19 05:05 140/71 11/21/19 04:00 97.9 73 19 140/71 (94) 96 11/21/19 00:00 97.9 78 19 132/69 (90) 96 11/20/19 21:32 116/60 11/20/19 21:00 Room Air 11/20/19 20:39 73 116/59 11/20/19 20:13 70 18 97 Room Air 21 11/20/19 20:00 98.7 73 19 116/59 (78) 95 Intake and Output 11/20/19 11/21/19 19:00 07:00 Intake Total 1500 ml 400 ml Balance 1500 ml 400 ml Intake Oral 1500 ml 400 ml # Voids 3 2 Objective General Appearance: WD/WN HEENT: normocephalic, atraumatic Respiratory/Chest: chest wall non-tender, lungs clear Breasts: no masses Cardiovascular: normal peripheral pulses Abdomen: normal bowel sounds, soft, non tender Genitourinary: normal external genitalia Extremities: no cyanosis Skin: no rash Neurologic/Psychiatric: flaking roll operator II-XII grossly normal Laboratory Tests 3/23/20 05:35: White Blood Count 7.6, Red Blood Count 3.96L, Hemoglobin 12.8L, Hematocrit 37.0L , Mean Corpuscular Volume 93, Mean Corpuscular Hemoglobin 32.4H, Mean Corpuscular Hemoglobin Concent 34.6, Red Cell Distribution Width 12.9, Platelet Count 119L, Mean Platelet Volume 7.5, Neutrophils (%) (Auto) 62.8, Lymphocytes ( %) (Auto) 23.5, Monocytes (%) (Auto) 10.4H, Eosinophils (%) (Auto) 2.5, Basophils (%) (Auto) 0.8, Sodium Level 147H, Potassium Level 4.0, Chloride Level 111H, Carbon Dioxide Level 25, Anion Gap 11, Blood Urea Nitrogen 28H, Creatinine 1.8H, Estimat Glomerular Filtration Rate 37.0, Glucose Level 87, Calcium Level 8.6, Phosphorus Level 3.5 Current Medications Medications (Trade) Dose Ordered Sig/Catrina Route PRN Reason Start Time Stop Time Status Last Admin Dose Admin Acetaminophen (Tylenol) 650 mg Q4H PRN ORAL fever 11/16/19 06:35 12/16/19 06:34 Albuterol/ Ipratropium (Albuterol/ Ipratropium) 3 ml Q4HRT PRN HHN sob 11/20/19 10:30 11/25/19 10:29 Allopurinol (Zyloprim) 200 mg DAILY ORAL 11/17/19 09:00 12/15/19 08:59 11/21/19 08:42 Amiodarone HCl (Cordarone) 200 mg DAILY ORAL 11/18/19 09:00 02/16/20 08:59 11/21/19 08:43 Apixaban (Eliquis) 5 mg BID ORAL 11/16/19 09:00 12/15/19 08:59 Atorvastatin Calcium (Lipitor) 10 mg BEDTIME ORAL 11/16/19 21:00 12/15/19 20:59 11/20/19 20:39 Guaifenesin/ Dextromethorphan (Robitussin DM Syrup) 10 ml Q6H PRN ORAL For Cough 11/18/19 19:45 02/16/20 19:44 11/18/19 21:11 Hydralazine HCl (Apresoline) 50 mg Q8HR ORAL 11/16/19 14:00 12/14/19 23:58 11/21/19 13:45 Isosorbide Mononitrate (Imdur) 30 mg DAILY ORAL 11/16/19 09:00 12/15/19 08:59 11/21/19 08:43 Metoprolol Tartrate (Lopressor) 50 mg Q12HR ORAL 11/16/19 09:00 12/15/19 08:59 11/21/19 08:43 Ondansetron HCl (Zofran) 4 mg Q6H PRN IVP Nausea & Vomiting 11/16/19 06:36 12/16/19 06:35 Tamsulosin HCl (Flomax) 0.4 mg BID ORAL 11/16/19 09:00 12/15/19 08:59 11/21/19 17:34 Zolpidem Tartrate (Ambien) 5 mg HSPRN PRN ORAL Insomnia 11/16/19 06:36 11/23/19 06:35 Erma Rajput MD Nov 21, 2019 17:50
--- NOTE | 2019-11-21 19:03 | Internal Med Progress Note ---
Subjective Date of Service: Nov 21, 2019 Physician Name Leroy Zimmer Attending Physician Yonas Purvis MD Current Medications Medications (Trade) Dose Ordered Sig/Catrina Route PRN Reason Start Time Stop Time Status Last Admin Dose Admin Acetaminophen (Tylenol) 650 mg Q4H PRN ORAL fever 11/16/19 06:35 12/16/19 06:34 Albuterol/ Ipratropium (Albuterol/ Ipratropium) 3 ml Q4HRT PRN HHN sob 11/20/19 10:30 11/25/19 10:29 Allopurinol (Zyloprim) 200 mg DAILY ORAL 11/17/19 09:00 12/15/19 08:59 11/21/19 08:42 Amiodarone HCl (Cordarone) 200 mg DAILY ORAL 11/18/19 09:00 02/16/20 08:59 11/21/19 08:43 Apixaban (Eliquis) 5 mg BID ORAL 11/16/19 09:00 12/15/19 08:59 Atorvastatin Calcium (Lipitor) 10 mg BEDTIME ORAL 11/16/19 21:00 12/15/19 20:59 11/20/19 20:39 Guaifenesin/ Dextromethorphan (Robitussin DM Syrup) 10 ml Q6H PRN ORAL For Cough 11/18/19 19:45 02/16/20 19:44 11/18/19 21:11 Hydralazine HCl (Apresoline) 50 mg Q8HR ORAL 11/16/19 14:00 12/14/19 23:58 11/21/19 13:45 Isosorbide Mononitrate (Imdur) 30 mg DAILY ORAL 11/16/19 09:00 12/15/19 08:59 11/21/19 08:43 Metoprolol Tartrate (Lopressor) 50 mg Q12HR ORAL 11/16/19 09:00 12/15/19 08:59 11/21/19 08:43 Ondansetron HCl (Zofran) 4 mg Q6H PRN IVP Nausea & Vomiting 11/16/19 06:36 12/16/19 06:35 Tamsulosin HCl (Flomax) 0.4 mg BID ORAL 11/16/19 09:00 12/15/19 08:59 11/21/19 17:34 Zolpidem Tartrate (Ambien) 5 mg HSPRN PRN ORAL Insomnia 11/16/19 06:36 11/23/19 06:35 Allergies: Uncoded Allergies: red meat (Adverse Reaction, Unknown, 11/15/19) patient has gout and does not eat red meat ROS Limited/Unobtainable: No Constitutional: Reports: no symptoms HEENT: Reports: no symptoms Cardiovascular: Reports: no symptoms Respiratory: Reports: no symptoms Gastrointestinal/Abdominal: Reports: no symptoms Genitourinary: Reports: no symptoms Subjective 74 YO M admitted with shortness of breath. Cover for Int Arnaldo-DR Purvis Objective Last Vital Signs Date Time Temp Pulse Resp B/P (MAP) Pulse Ox O2 Delivery O2 Flow Rate FiO2 11/21/19 16:00 98.1 92 17 120/84 (96) 98 11/21/19 09:22 Room Air 21 Laboratory Tests Test 11/21/19 05:35 White Blood Count 7.6 K/UL (4.8-10.8) Red Blood Count 3.96 M/UL (4.70-6.10) L Hemoglobin 12.8 G/DL (14.2-18.0) L Hematocrit 37.0 % (42.0-52.0) L Mean Corpuscular Volume 93 FL (80-99) Mean Corpuscular Hemoglobin 32.4 PG (27.0-31.0) H Mean Corpuscular Hemoglobin Concent 34.6 G/DL (32.0-36.0) Red Cell Distribution Width 12.9 % (11.6-14.8) Platelet Count 119 K/UL (150-450) L Mean Platelet Volume 7.5 FL (6.5-10.1) Neutrophils (%) (Auto) 62.8 % (45.0-75.0) Lymphocytes (%) (Auto) 23.5 % (20.0-45.0) Monocytes (%) (Auto) 10.4 % (1.0-10.0) H Eosinophils (%) (Auto) 2.5 % (0.0-3.0) Basophils (%) (Auto) 0.8 % (0.0-2.0) Sodium Level 147 MMOL/L (136-145) H Potassium Level 4.0 MMOL/L (3.5-5.1) Chloride Level 111 MMOL/L (98-107) H Carbon Dioxide Level 25 MMOL/L (21-32) Anion Gap 11 mmol/L (5-15) Blood Urea Nitrogen 28 mg/dL (7-18) H Creatinine 1.8 MG/DL (0.55-1.30) H Estimat Glomerular Filtration Rate 37.0 mL/min (>60) Glucose Level 87 MG/DL (74-106) Calcium Level 8.6 MG/DL (8.5-10.1) Phosphorus Level 3.5 MG/DL (2.5-4.9) Intake and Output 11/20/19 11/21/19 19:00 07:00 Intake Total 1500 ml 400 ml Balance 1500 ml 400 ml Intake Oral 1500 ml 400 ml # Voids 3 2 Objective PHYSICAL EXAMINATION: GENERAL: The patient is a well-developed and well-nourished male, in no apparent distress. HEENT: Eyes, pupils are equal and responsive to light and accommodation. Extraocular movements are intact. NECK: Supple without lymphadenopathy. CHEST: Lungs are clear to auscultation bilaterally without wheezes or rales. CARDIOVASCULAR: Regular rhythm and rate. S1, S2 normal without murmurs, rubs, or gallops. ABDOMEN: Soft, nontender, and nondistended. Positive bowel sounds. No evidence of hepatosplenomegaly. Currently, no rebound or guarding noted. EXTREMITIES: Negative for clubbing, cyanosis, or edema. RECTAL/GENITAL: Not performed. NEUROLOGICAL: Cranial nerves II through XII are grossly intact without focal deficits. Motor strength is 5/5 bilaterally. Deep tendon reflexes are 2+ plantar. Assessment/Plan Assessment/Plan ASSESSMENT: This is a 74-year-old male with: 1. Shortness of breath. 2. Ataxia. 3. Atrial flutter. 4. Congestive heart failure. 5. Cardiomyopathy. 6. Chronic renal failure. 7. Hypertension. 8. Benign prostatic hypertrophy. 9. Gout. 10. Hypercholesterolemia. TREATMENT: 1. Shortness of breath/ataxia. This may be secondary to atrial flutter. 2. Atrial flutter. Initial ventricular rate was between 55 and 89. A Cardiology consultation has been obtained with Dr. Silverio. Continue amiodarone as above. We will follow recommendations of Cardiology. 3. Acute on chronic congestive heart failure. As above, a Cardiology consultation has been obtained with Dr. Epifanio Silverio. Continue Lasix as above. 4. Cardiomyopathy. Previous ejection fraction was 35% to 40%. 5. Chronic renal failure. A Nephrology consultation has been obtained with Dr. Sandy. We will follow recommendations of Nephrology. 6. Hypertension. Continue hydralazine as above. 7. Benign prostatic hypertrophy. Continue Flomax as above. 8. Gout. Continue allopurinol as above. 9. Hypercholesteremia. Continue Lipitor as above. 10. Await appeal of discharge with Medicare Leroy Zimmer MD Nov 21, 2019 19:03
--- NOTE | 2019-11-21 19:28 | NUR ---
HAND-OFF: Report given to Arunau RN.
--- NOTE | 2019-11-21 19:34 | NUR ---
NURSE NOTES: Patient a/a/o x 4, breathing unlabored on room air without distress. Ambulatory with steady gait. Denies pain or discomfort. IV noted on left forearm intact. Bed placed at the lowest with brake and siderails up for safety. Call light placed within reach. Will continue to monitor and provide care as ordered. Addendum: 11/21/19 at 1936 by Jefferson Ibrahim RN emptied 300 mls of yellow urine from urinal.
[2019-11-21 20:00] VITALS: BP 121/59
--- NOTE | 2019-11-21 22:04 | NUR ---
NURSE NOTES: Previous IV site in place more than 72hrs. Informed patient and offered new IV insertion x 3. Patient a/a/o x 4. Explained risk of having same IV site for more than 72 hrs. Patient refused new IV insertion at this time. Current IV site intact, dry, clean, and patent. Will continue to monitor.
[2019-11-22] VITALS (7 sets, daily range): BP systolic 121–140; BP diastolic 69–80
[2019-11-22] MEDS: HydrALAZINE 50mg tab ORAL SCH ×3 (05:51→22:08)
--- NOTE | 2019-11-22 06:00 | NUR ---
NURSE NOTES: Patient refused morning labs. Attempted explaining and encouraging patient to allow lab draw x 3, but patient refused.
--- NOTE | 2019-11-22 07:28 | NUR ---
HAND-OFF: Report given to TSERING Landis. Plan of care endorsed.
--- NOTE | 2019-11-22 07:59 | NUR ---
NURSE NOTES: awake/alert. no c/o pain . in no distress.
[2019-11-22] MEDS: Amiodarone 200mg tab ORAL SCH (09:00)
[2019-11-22] MEDS: Eliquis 5mg tablet ORAL SCH ×2 (09:00→17:48)
[2019-11-22] MEDS: Tamsulosin 0.4mg cap ORAL SCH ×2 (09:43→17:45)
[2019-11-22] MEDS: Allopurinol 100mg Tab ORAL SCH (09:44)
[2019-11-22] MEDS: Metoprolol Tartrate 50mg tab ORAL SCH ×2 (09:45→21:01)
[2019-11-22] MEDS: Imdur 30mg tab ORAL SCH (09:45)
--- NOTE | 2019-11-22 10:19 | NUR ---
*-* MEDICARE APPEAL *-* CASE MANAGEMENT DEPARTMENT HAS CALLED [facility] AND APPEALED PATIENT DISCHARGE ON PATIENTS BEHALF [facility] P: [phone] F: [phone] CASE# [id number] Addendum: 11/22/19 at 1132 by GIA GROSSMAN CM *-* MEDICAL RECORDS *-* COMPLETE MEDICAL RECORDS HAVE BEEN FAXED TO [facility] Addendum: 11/24/19 at 0859 by GIA GROSSMAN CM RECEIVED A CALL FROM [facility] STATING PATIENT HAS LOST HIS APPEAL AND IS FINANCIAL LIABLE OF 11/24/19
--- NOTE | 2019-11-22 10:30 | NUR ---
VENDING MACHINE REPAIRER NOTE SW received a call from pt's outpatient food sales clerk, Dr. Donny Reid [phone]. Per Dr. Reid, pt called him stated he only has a few dollars and asked him to lend money for housing. Per Dr. Reid, his office is currently closed d/t pandemic. SW explained the only housing option is an emergency jail offered by [facility]. Dr. Reid will talk to pt and encourage him to take such option. Signed: 11/22/19 at 1035 by CAIT CHAUHAN <Co-Signature Required>
--- NOTE | 2019-11-22 10:51 | NUR ---
ONLINE ADVERTISING ANALYST NOTE CM COORDINATOR FILED DISCHARGE APPEAL ON BEHALF OF PATIENTS BEHALF CASE #[id number] THIS CM SPOKE WITH PATIENT AT BEDSIDE AND INFORMED THAT APPEAL WAS SUBMITTED ON HIS BEHALF. PATIENT STATES HE MADE CALL TO [facility] ON 11/21/2019. WAS UNABLE TO SPEAK TO A LIVE PERSON AND LEFT VOICEMAIL. STATES HE HAS NOT RECEIVED A CALL BACK OF THIS MORNING. APPEAL CASE NUMBER PROVIDED TO PATIENT. PATIENT STATES HE DOES NOT WANT TO BE DISCHARGED DUE TO HOMELESSNESS AND FEAR OF THE CURRENT PANDEMIC. CM EXPLAINED TO PATIENT THAT SKILLED NURSING INFORMATION CAN BE PROVIDED TO HIM BY THE . PATIENT DECLINED SUCH OFFER. GISSEL COVARRUBIAS INFORMED.
--- NOTE | 2019-11-22 13:06 | Nephrology Progress Note ---
Assessment/Plan Problem List: (1) Renal failure (ARF), acute on chronic Assessment: Serum creatinine lowering (2) Atrial flutter with rapid ventricular response (3) CKD (chronic kidney disease) Assessment: Stage to be determined when creatinine stabilizes (4) Cardiomyopathy Assessment 1. The patient's renal impression is acute on chronic renal failure. Other conditions atrial flutter with periodic rapid ventricular response. 2. Hypertension. 3. History of gout. 4. Pericardial calcification. 5. The patient is homeless. Plan No labs today Discontinue Lasix Add stool softener and Protonix 1 L of D5W given previously Monitor renal parameters Optimize pulmonary and cardiac status Nephrotoxic's will be avoided. Urine studies will be ordered. We will continue on Flomax. Keep the blood pressure and blood sugar in check Subjective ROS Limited/Unobtainable: No - Patient Constitutional: Reports: malaise Objective Objective Last 24 Hour Vital Signs Date Time Temp Pulse Resp B/P (MAP) Pulse Ox O2 Delivery O2 Flow Rate FiO2 11/22/19 09:45 72 133/80 11/22/19 09:45 133/80 11/22/19 09:00 Room Air 11/22/19 08:00 98.6 72 18 133/80 (97) 97 11/22/19 07:38 77 20 95 Room Air 21 11/22/19 05:51 157/87 11/22/19 04:00 98.3 69 18 131/77 (95) 96 11/22/19 00:00 97.5 77 20 138/69 (92) 100 11/21/19 21:56 134/76 11/21/19 21:00 Room Air 11/21/19 20:47 81 121/59 11/21/19 20:31 81 20 96 Room Air 21 11/21/19 20:00 98.1 82 18 121/59 (79) 97 11/21/19 16:00 98.1 92 17 120/84 (96) 98 11/21/19 13:45 124/73 Intake and Output 11/21/19 11/22/19 19:00 07:00 Intake Total 800 ml Balance 800 ml Intake Oral 800 ml # Voids 4 Current Medications Medications (Trade) Dose Ordered Sig/Catrina Route PRN Reason Start Time Stop Time Status Last Admin Dose Admin Acetaminophen (Tylenol) 650 mg Q4H PRN ORAL fever 11/16/19 06:35 4/17/20 06:34 Albuterol/ Ipratropium (Albuterol/ Ipratropium) 3 ml Q4HRT PRN HHN sob 11/20/19 10:30 11/25/19 10:29 Allopurinol (Zyloprim) 200 mg DAILY ORAL 11/17/19 09:00 12/15/19 08:59 11/22/19 09:44 Amiodarone HCl (Cordarone) 200 mg DAILY ORAL 11/18/19 09:00 02/16/20 08:59 11/22/19 09:00 Apixaban (Eliquis) 5 mg BID ORAL 11/16/19 09:00 12/15/19 08:59 Atorvastatin Calcium (Lipitor) 10 mg BEDTIME ORAL 11/16/19 21:00 12/15/19 20:59 11/21/19 20:47 Guaifenesin/ Dextromethorphan (Robitussin DM Syrup) 10 ml Q6H PRN ORAL For Cough 11/18/19 19:45 02/16/20 19:44 11/18/19 21:11 Hydralazine HCl (Apresoline) 50 mg Q8HR ORAL 11/16/19 14:00 12/14/19 23:58 11/22/19 05:51 Isosorbide Mononitrate (Imdur) 30 mg DAILY ORAL 11/16/19 09:00 12/15/19 08:59 11/22/19 09:45 Metoprolol Tartrate (Lopressor) 50 mg Q12HR ORAL 11/16/19 09:00 12/15/19 08:59 11/22/19 09:45 Ondansetron HCl (Zofran) 4 mg Q6H PRN IVP Nausea & Vomiting 11/16/19 06:36 12/16/19 06:35 Tamsulosin HCl (Flomax) 0.4 mg BID ORAL 11/16/19 09:00 12/15/19 08:59 11/22/19 09:43 Zolpidem Tartrate (Ambien) 5 mg HSPRN PRN ORAL Insomnia 11/16/19 06:36 11/23/19 06:35 Height (Feet): 5 Height (Inches): 10.00 Weight (Pounds): 187 General Appearance: no apparent distress Respiratory/Chest: decreased breath sounds Abdomen: distended Objective No change Avila Sandy MD Nov 22, 2019 13:06
--- NOTE | 2019-11-22 15:44 | Cardiology Progress Note ---
Assessment/Plan Assessment/Plan 1. Recurrent atrial flutter with history of the same on prior evaluation. 2. Left ventricular systolic dysfunction. 3. Probable elements of congestive heart failure. 4. Homelessness. 5. Systemic hypertension. 6. Renal insufficiency with and acute component 7. Questionable history of hyperthyroidism. 8. History of pericardial calcification. diarrhea resolved hr seem controlled bp is ok cr improved on eliquis for stroke prevention i have discussed pt and he seem to understand the indication for anticoaguation and the potential riks of stroke and what stroke wound mean and be like , he feels priorattemtp in anticoagaulation led him to beel more with cutting himself and that he has fallen on nury side walk infrequently and feels he has made the correct dicision for 13 year off anticoagualtion and hudson not want to change his mind he has appealed his dc Subjective Cardiovascular: Denies: chest pain, lightheadedness, palpitations Respiratory: Denies: shortness of breath Gastrointestinal/Abdominal: Denies: abdominal pain Objective Last 24 Hour Vital Signs Date Time Temp Pulse Resp B/P (MAP) Pulse Ox O2 Delivery O2 Flow Rate FiO2 11/22/19 14:27 125/70 11/22/19 12:00 98.1 73 18 125/70 (88) 98 11/22/19 09:45 72 133/80 11/22/19 09:45 133/80 11/22/19 09:00 Room Air 11/22/19 08:00 98.6 72 18 133/80 (97) 97 11/22/19 07:38 77 20 95 Room Air 21 11/22/19 05:51 157/87 11/22/19 04:00 98.3 69 18 131/77 (95) 96 11/22/19 00:00 97.5 77 20 138/69 (92) 100 11/21/19 21:56 134/76 11/21/19 21:00 Room Air 11/21/19 20:47 81 121/59 11/21/19 20:31 81 20 96 Room Air 21 11/21/19 20:00 98.1 82 18 121/59 (79) 97 11/21/19 16:00 98.1 92 17 120/84 (96) 98 General Appearance: no apparent distress, alert Neck: supple Cardiovascular: irregularly irregular Respiratory/Chest: lungs clear Abdomen: normal bowel sounds, non tender, soft Extremities: no swelling Intake and Output 11/21/19 11/22/19 19:00 07:00 Intake Total 800 ml Balance 800 ml Intake Oral 800 ml # Voids 4 Epifanio Silverio MD Nov 22, 2019 15:44
--- NOTE | 2019-11-22 17:26 | Internal Med Progress Note ---
Subjective Date of Service: Nov 22, 2019 Physician Name Leroy Zimmer Attending Physician Yonas Purvis MD Current Medications Medications (Trade) Dose Ordered Sig/Catrina Route PRN Reason Start Time Stop Time Status Last Admin Dose Admin Acetaminophen (Tylenol) 650 mg Q4H PRN ORAL fever 11/16/19 06:35 12/16/19 06:34 Albuterol/ Ipratropium (Albuterol/ Ipratropium) 3 ml Q4HRT PRN HHN sob 11/20/19 10:30 11/25/19 10:29 Allopurinol (Zyloprim) 200 mg DAILY ORAL 11/17/19 09:00 12/15/19 08:59 11/22/19 09:44 Amiodarone HCl (Cordarone) 200 mg DAILY ORAL 11/18/19 09:00 02/16/20 08:59 11/22/19 09:00 Apixaban (Eliquis) 5 mg BID ORAL 11/16/19 09:00 12/15/19 08:59 Atorvastatin Calcium (Lipitor) 10 mg BEDTIME ORAL 11/16/19 21:00 12/15/19 20:59 11/21/19 20:47 Guaifenesin/ Dextromethorphan (Robitussin DM Syrup) 10 ml Q6H PRN ORAL For Cough 11/18/19 19:45 02/16/20 19:44 11/18/19 21:11 Hydralazine HCl (Apresoline) 50 mg Q8HR ORAL 11/16/19 14:00 12/14/19 23:58 11/22/19 14:27 Isosorbide Mononitrate (Imdur) 30 mg DAILY ORAL 11/16/19 09:00 12/15/19 08:59 11/22/19 09:45 Metoprolol Tartrate (Lopressor) 50 mg Q12HR ORAL 11/16/19 09:00 12/15/19 08:59 11/22/19 09:45 Ondansetron HCl (Zofran) 4 mg Q6H PRN IVP Nausea & Vomiting 11/16/19 06:36 12/16/19 06:35 Tamsulosin HCl (Flomax) 0.4 mg BID ORAL 11/16/19 09:00 12/15/19 08:59 11/22/19 09:43 Zolpidem Tartrate (Ambien) 5 mg HSPRN PRN ORAL Insomnia 11/16/19 06:36 11/23/19 06:35 Allergies: Uncoded Allergies: red meat (Adverse Reaction, Unknown, 11/15/19) patient has gout and does not eat red meat ROS Limited/Unobtainable: No Constitutional: Reports: no symptoms HEENT: Reports: no symptoms Cardiovascular: Reports: no symptoms Respiratory: Reports: shortness of breath Gastrointestinal/Abdominal: Reports: no symptoms Genitourinary: Reports: no symptoms Neurologic/Psychiatric: Reports: no symptoms Subjective 74 YO M admitted with shortness of breath. Cover for Int Med-DR Purvis Objective Last Vital Signs Date Time Temp Pulse Resp B/P (MAP) Pulse Ox O2 Delivery O2 Flow Rate FiO2 11/22/19 16:00 98.3 75 18 128/75 (92) 99 11/22/19 09:00 Room Air 11/22/19 07:38 21 Intake and Output 11/21/19 11/22/19 19:00 07:00 Intake Total 800 ml Balance 800 ml Intake Oral 800 ml # Voids 4 Objective PHYSICAL EXAMINATION: GENERAL: The patient is a well-developed and well-nourished male, in no apparent distress. HEENT: Eyes, pupils are equal and responsive to light and accommodation. Extraocular movements are intact. NECK: Supple without lymphadenopathy. CHEST: Lungs are clear to auscultation bilaterally without wheezes or rales. CARDIOVASCULAR: Regular rhythm and rate. S1, S2 normal without murmurs, rubs, or gallops. ABDOMEN: Soft, nontender, and nondistended. Positive bowel sounds. No evidence of hepatosplenomegaly. Currently, no rebound or guarding noted. EXTREMITIES: Negative for clubbing, cyanosis, or edema. RECTAL/GENITAL: Not performed. NEUROLOGICAL: Cranial nerves II through XII are grossly intact without focal deficits. Motor strength is 5/5 bilaterally. Deep tendon reflexes are 2+ plantar. Assessment/Plan Assessment/Plan ASSESSMENT: This is a 74-year-old male with: 1. Shortness of breath. 2. Ataxia. 3. Atrial flutter. 4. Congestive heart failure. 5. Cardiomyopathy. 6. Chronic renal failure. 7. Hypertension. 8. Benign prostatic hypertrophy. 9. Gout. 10. Hypercholesterolemia. TREATMENT: 1. Shortness of breath/ataxia. This may be secondary to atrial flutter. 2. Atrial flutter. Initial ventricular rate was between 55 and 89. A Cardiology consultation has been obtained with Dr. Silverio. Continue amiodarone as above. We will follow recommendations of Cardiology. 3. Acute on chronic congestive heart failure. As above, a Cardiology consultation has been obtained with Dr. Epifanio Silverio. Continue Lasix as above. 4. Cardiomyopathy. Previous ejection fraction was 35% to 40%. 5. Chronic renal failure. A Nephrology consultation has been obtained with Dr. Sandy. We will follow recommendations of Nephrology. 6. Hypertension. Continue hydralazine as above. 7. Benign prostatic hypertrophy. Continue Flomax as above. 8. Gout. Continue allopurinol as above. 9. Hypercholesteremia. Continue Lipitor as above. 10. Await appeal of discharge with Medicare Leroy Zimmer MD Nov 22, 2019 17:26
--- NOTE | 2019-11-22 19:00 | NUR ---
NURSE NOTES: QUIET IN BED, IN NO DISTRESS.
--- NOTE | 2019-11-22 19:38 | NUR ---
HAND-OFF: Report given to CARI CAGLE.
--- NOTE | 2019-11-22 19:48 | NUR ---
NURSE NOTES: Patient awake, alert, and verbally responsive. Breathing unlabored on room air without distress. Denies pain or discomfort at this time. IV noted on left forearm intact and patent. Refuses to insert new IV at this time. Explained that IV has been in for more than 72 hrs. Risk and benefit explained but patient refuses new IV insertion. Bed placed at the lowest with brake and siderails up for safety. Call light placed within reach and encouraged to call. Will continue to monitor and provide care as ordered.
--- NOTE | 2019-11-22 19:53 | Pulmonology Progress Note ---
Assessment/Plan Problems: (1) Atrial flutter with rapid ventricular response (2) Pericardial calcification (3) Chronic renal insufficiency, stage II (mild) (4) Cardiomyopathy (5) History of gout (6) History of hypertension Assessment/Plan creatinine stable heart rate controlled check electrolytes monitor BP f/u renal recommendations dc planning in process pt appealed his discharge Subjective ROS Limited/Unobtainable: No Constitutional: Reports: no symptoms HEENT: Repors: no symptoms Allergies: Uncoded Allergies: red meat (Adverse Reaction, Unknown, 11/15/19) patient has gout and does not eat red meat Objective Last 24 Hour Vital Signs Date Time Temp Pulse Resp B/P (MAP) Pulse Ox O2 Delivery O2 Flow Rate FiO2 11/22/19 16:00 98.3 75 18 128/75 (92) 99 11/22/19 14:27 125/70 11/22/19 12:00 98.1 73 18 125/70 (88) 98 11/22/19 09:45 72 133/80 11/22/19 09:45 133/80 11/22/19 09:00 Room Air 11/22/19 08:00 98.6 72 18 133/80 (97) 97 11/22/19 07:38 77 20 95 Room Air 21 11/22/19 05:51 157/87 11/22/19 04:00 98.3 69 18 131/77 (95) 96 11/22/19 00:00 97.5 77 20 138/69 (92) 100 11/21/19 21:56 134/76 11/21/19 21:00 Room Air 11/21/19 20:47 81 121/59 11/21/19 20:31 81 20 96 Room Air 21 11/21/19 20:00 98.1 82 18 121/59 (79) 97 Intake and Output 11/21/19 11/22/19 19:00 07:00 Intake Total 800 ml Balance 800 ml Intake Oral 800 ml # Voids 4 Objective General Appearance: WD/WN HEENT: normocephalic, atraumatic Respiratory/Chest: chest wall non-tender, lungs clear Breasts: no masses Cardiovascular: normal peripheral pulses Abdomen: normal bowel sounds, soft, non tender Genitourinary: normal external genitalia Extremities: no cyanosis Skin: no rash Neurologic/Psychiatric: client business manager II-XII grossly normal Current Medications Medications (Trade) Dose Ordered Sig/Catrina Route PRN Reason Start Time Stop Time Status Last Admin Dose Admin Acetaminophen (Tylenol) 650 mg Q4H PRN ORAL fever 11/16/19 06:35 12/16/19 06:34 Albuterol/ Ipratropium (Albuterol/ Ipratropium) 3 ml Q4HRT PRN HHN sob 11/20/19 10:30 11/25/19 10:29 Allopurinol (Zyloprim) 200 mg DAILY ORAL 11/17/19 09:00 12/15/19 08:59 11/22/19 09:44 Amiodarone HCl (Cordarone) 200 mg DAILY ORAL 11/18/19 09:00 02/16/20 08:59 11/22/19 09:00 Apixaban (Eliquis) 5 mg BID ORAL 11/16/19 09:00 12/15/19 08:59 Atorvastatin Calcium (Lipitor) 10 mg BEDTIME ORAL 11/16/19 21:00 12/15/19 20:59 11/21/19 20:47 Guaifenesin/ Dextromethorphan (Robitussin DM Syrup) 10 ml Q6H PRN ORAL For Cough 11/18/19 19:45 02/16/20 19:44 11/18/19 21:11 Hydralazine HCl (Apresoline) 50 mg Q8HR ORAL 11/16/19 14:00 12/14/19 23:58 11/22/19 14:27 Isosorbide Mononitrate (Imdur) 30 mg DAILY ORAL 11/16/19 09:00 12/15/19 08:59 11/22/19 09:45 Metoprolol Tartrate (Lopressor) 50 mg Q12HR ORAL 11/16/19 09:00 12/15/19 08:59 11/22/19 09:45 Ondansetron HCl (Zofran) 4 mg Q6H PRN IVP Nausea & Vomiting 11/16/19 06:36 12/16/19 06:35 Tamsulosin HCl (Flomax) 0.4 mg BID ORAL 11/16/19 09:00 12/15/19 08:59 11/22/19 17:45 Zolpidem Tartrate (Ambien) 5 mg HSPRN PRN ORAL Insomnia 11/16/19 06:36 11/23/19 06:35 Erma Rajput MD Nov 22, 2019 19:53
[2019-11-23 04:00] VITALS: BP 128/74
[2019-11-23] MEDS: HydrALAZINE 50mg tab ORAL SCH ×3 (05:26→22:37)
--- NOTE | 2019-11-23 07:38 | NUR ---
NURSE NOTES: Received patient in bed awake. No SOB or acute distress. IV line intact. HOB elevated. Bed locked in lowest position. Call light within reach. Will continue plan of care.
--- NOTE | 2019-11-23 07:40 | NUR ---
HAND-OFF: Report given to TSERING Curiel. Plan of care endorsed.
[2019-11-23 08:00] VITALS: BP 133/64
[2019-11-23] MEDS: Amiodarone 200mg tab ORAL SCH (08:57)
[2019-11-23] MEDS: Imdur 30mg tab ORAL SCH (08:58)
[2019-11-23] MEDS: Tamsulosin 0.4mg cap ORAL SCH ×2 (08:58→17:49)
[2019-11-23] MEDS: Metoprolol Tartrate 50mg tab ORAL SCH ×2 (08:58→21:08)
[2019-11-23] MEDS: Allopurinol 100mg Tab ORAL SCH (08:59)
[2019-11-23] MEDS: Eliquis 5mg tablet ORAL SCH ×2 (09:00→17:52)
--- NOTE | 2019-11-23 10:35 | Internal Med Progress Note ---
Subjective Date of Service: Nov 23, 2019 Physician Name Leroy Zimmer Attending Physician Yonas Purvis MD Current Medications Medications (Trade) Dose Ordered Sig/Catrina Route PRN Reason Start Time Stop Time Status Last Admin Dose Admin Acetaminophen (Tylenol) 650 mg Q4H PRN ORAL fever 11/16/19 06:35 12/16/19 06:34 Albuterol/ Ipratropium (Albuterol/ Ipratropium) 3 ml Q4HRT PRN HHN sob 11/20/19 10:30 11/25/19 10:29 Allopurinol (Zyloprim) 200 mg DAILY ORAL 11/17/19 09:00 12/15/19 08:59 11/23/19 08:59 Amiodarone HCl (Cordarone) 200 mg DAILY ORAL 11/18/19 09:00 02/16/20 08:59 11/23/19 08:57 Apixaban (Eliquis) 5 mg BID ORAL 11/16/19 09:00 12/15/19 08:59 Atorvastatin Calcium (Lipitor) 10 mg BEDTIME ORAL 11/16/19 21:00 12/15/19 20:59 11/22/19 21:00 Guaifenesin/ Dextromethorphan (Robitussin DM Syrup) 10 ml Q6H PRN ORAL For Cough 11/18/19 19:45 02/16/20 19:44 11/18/19 21:11 Hydralazine HCl (Apresoline) 50 mg Q8HR ORAL 11/16/19 14:00 12/14/19 23:58 11/23/19 05:26 Isosorbide Mononitrate (Imdur) 30 mg DAILY ORAL 11/16/19 09:00 12/15/19 08:59 11/23/19 08:58 Metoprolol Tartrate (Lopressor) 50 mg Q12HR ORAL 11/16/19 09:00 12/15/19 08:59 11/23/19 08:58 Ondansetron HCl (Zofran) 4 mg Q6H PRN IVP Nausea & Vomiting 11/16/19 06:36 12/16/19 06:35 Tamsulosin HCl (Flomax) 0.4 mg BID ORAL 11/16/19 09:00 12/15/19 08:59 11/23/19 08:58 Allergies: Uncoded Allergies: red meat (Adverse Reaction, Unknown, 11/15/19) patient has gout and does not eat red meat ROS Limited/Unobtainable: No Constitutional: Reports: no symptoms HEENT: Reports: no symptoms Cardiovascular: Reports: no symptoms Respiratory: Reports: no symptoms Gastrointestinal/Abdominal: Reports: no symptoms Genitourinary: Reports: no symptoms Subjective 74 YO M admitted with shortness of breath. Cover for Int Arnaldo-DR Purvis Objective Last Vital Signs Date Time Temp Pulse Resp B/P (MAP) Pulse Ox O2 Delivery O2 Flow Rate FiO2 11/23/19 08:58 81 133/64 11/23/19 08:00 97.9 19 97 11/22/19 21:00 Room Air 11/22/19 20:11 21 Intake and Output 11/22/19 11/23/19 19:00 07:00 Intake Total 850 ml 240 ml Output Total 350 ml 800 ml Balance 500 ml -560 ml Intake Oral 850 ml 240 ml Output Urine Total 350 ml 800 ml # Voids 2 3 Objective PHYSICAL EXAMINATION: GENERAL: The patient is a well-developed and well-nourished male, in no apparent distress. HEENT: Eyes, pupils are equal and responsive to light and accommodation. Extraocular movements are intact. NECK: Supple without lymphadenopathy. CHEST: Lungs are clear to auscultation bilaterally without wheezes or rales. CARDIOVASCULAR: Regular rhythm and rate. S1, S2 normal without murmurs, rubs, or gallops. ABDOMEN: Soft, nontender, and nondistended. Positive bowel sounds. No evidence of hepatosplenomegaly. Currently, no rebound or guarding noted. EXTREMITIES: Negative for clubbing, cyanosis, or edema. RECTAL/GENITAL: Not performed. NEUROLOGICAL: Cranial nerves II through XII are grossly intact without focal deficits. Motor strength is 5/5 bilaterally. Deep tendon reflexes are 2+ plantar. Assessment/Plan Assessment/Plan ASSESSMENT: This is a 74-year-old male with: 1. Shortness of breath. 2. Ataxia. 3. Atrial flutter. 4. Congestive heart failure. 5. Cardiomyopathy. 6. Chronic renal failure. 7. Hypertension. 8. Benign prostatic hypertrophy. 9. Gout. 10. Hypercholesterolemia. TREATMENT: 1. Shortness of breath/ataxia. This may be secondary to atrial flutter. 2. Atrial flutter. Initial ventricular rate was between 55 and 89. A Cardiology consultation has been obtained with Dr. Silverio. Continue amiodarone as above. We will follow recommendations of Cardiology. 3. Acute on chronic congestive heart failure. As above, a Cardiology consultation has been obtained with Dr. Epifanio Silverio. Continue Lasix as above. 4. Cardiomyopathy. Previous ejection fraction was 35% to 40%. 5. Chronic renal failure. A Nephrology consultation has been obtained with Dr. Sandy. We will follow recommendations of Nephrology. 6. Hypertension. Continue hydralazine as above. 7. Benign prostatic hypertrophy. Continue Flomax as above. 8. Gout. Continue allopurinol as above. 9. Hypercholesteremia. Continue Lipitor as above. 10. Await appeal of discharge with Medicare Leroy Zimmer MD Nov 23, 2019 10:35
[2019-11-23] MEDS ORDERED: ISOSORBIDE MONO30 M1 ORAL (10:47)
[2019-11-23] MEDS ORDERED: ELIQUIS5 MG ORAL (10:47)
[2019-11-23] MEDS ORDERED: APRESOLINE50 MG ORAL (10:47)
[2019-11-23] MEDS ORDERED: FLOMAX0.4 MG ORAL (10:47)
[2019-11-23 12:00] VITALS: BP 119/70
--- NOTE | 2019-11-23 12:04 | Nephrology Progress Note ---
Assessment/Plan Problem List: (1) Renal failure (ARF), acute on chronic Assessment: Serum creatinine lowering (2) Atrial flutter with rapid ventricular response (3) CKD (chronic kidney disease) Assessment: Stage to be determined when creatinine stabilizes (4) Cardiomyopathy Assessment 1. The patient's renal impression is acute on chronic renal failure. Other conditions atrial flutter with periodic rapid ventricular response. 2. Hypertension. 3. History of gout. 4. Pericardial calcification. 5. The patient is homeless. Plan No labs today Add stool softener and Protonix 1 L of D5W given previously Monitor renal parameters Optimize pulmonary and cardiac status Nephrotoxic's will be avoided. Urine studies will be ordered. We will continue on Flomax. Keep the blood pressure and blood sugar in check Subjective ROS Limited/Unobtainable: No Constitutional: Reports: malaise Objective Objective Last 24 Hour Vital Signs Date Time Temp Pulse Resp B/P (MAP) Pulse Ox O2 Delivery O2 Flow Rate FiO2 11/23/19 08:58 81 133/64 11/23/19 08:58 133/64 11/23/19 08:00 97.9 81 19 133/64 (87) 97 11/23/19 05:26 137/82 11/23/19 04:00 98.5 68 17 128/74 (92) 97 11/22/19 23:54 98.3 70 18 121/72 (88) 97 11/22/19 22:08 136/91 11/22/19 21:01 71 140/72 11/22/19 21:00 Room Air 11/22/19 20:11 79 20 97 Room Air 21 11/22/19 20:00 98.2 71 17 140/72 (94) 97 11/22/19 16:00 98.3 75 18 128/75 (92) 99 11/22/19 14:27 125/70 Intake and Output 11/22/19 11/23/19 19:00 07:00 Intake Total 850 ml 240 ml Output Total 350 ml 800 ml Balance 500 ml -560 ml Intake Oral 850 ml 240 ml Output Urine Total 350 ml 800 ml # Voids 2 3 Height (Feet): 5 Height (Inches): 10.00 Weight (Pounds): 187 General Appearance: no apparent distress Objective No change Avila Sandy MD Nov 23, 2019 12:04
--- NOTE | 2019-11-23 14:52 | NUR ---
CASE MANAGEMENT:REVIEW MEDICARE APPEAL PENDING SI;CHF. CHR RENAL FAILURE. HTN. ATAXIA. 98.5 81 19 137/82 97% ON RA NO LABS AVAILABLE IS;DUO NEB HHN Q4 HRT PRN ROBITUSSIN DM PO Q6 HRS PRN AMIODARONE PO QD HYDRALAZINE PO Q8 HRS IMDUR PO QD LOPRESSOR PO Q12 HRS MED SURG STATUS DCP; PATIENT IS HOMELESS-RESOURCES PROVIDED
--- NOTE | 2019-11-23 15:52 | Pulmonology Progress Note ---
Assessment/Plan Problems: (1) Atrial flutter with rapid ventricular response (2) Pericardial calcification (3) Chronic renal insufficiency, stage II (mild) (4) Cardiomyopathy (5) History of gout (6) History of hypertension Assessment/Plan creatinine stable heart rate controlled check electrolytes monitor BP f/u renal recommendations dc planning in process pt appealed his discharge Subjective ROS Limited/Unobtainable: No Constitutional: Reports: no symptoms HEENT: Repors: no symptoms Respiratory: Reports: no symptoms Allergies: Uncoded Allergies: red meat (Adverse Reaction, Unknown, 11/15/19) patient has gout and does not eat red meat Objective Last 24 Hour Vital Signs Date Time Temp Pulse Resp B/P (MAP) Pulse Ox O2 Delivery O2 Flow Rate FiO2 11/23/19 14:36 127/67 11/23/19 12:00 97.7 69 19 119/70 (86) 98 11/23/19 09:00 Room Air 11/23/19 08:58 81 133/64 11/23/19 08:58 133/64 11/23/19 08:00 97.9 81 19 133/64 (87) 97 11/23/19 05:26 137/82 11/23/19 04:00 98.5 68 17 128/74 (92) 97 11/22/19 23:54 98.3 70 18 121/72 (88) 97 11/22/19 22:08 136/91 11/22/19 21:01 71 140/72 11/22/19 21:00 Room Air 11/22/19 20:11 79 20 97 Room Air 21 11/22/19 20:00 98.2 71 17 140/72 (94) 97 11/22/19 16:00 98.3 75 18 128/75 (92) 99 Intake and Output 11/22/19 11/23/19 19:00 07:00 Intake Total 850 ml 240 ml Output Total 350 ml 800 ml Balance 500 ml -560 ml Intake Oral 850 ml 240 ml Output Urine Total 350 ml 800 ml # Voids 2 3 Objective General Appearance: WD/WN HEENT: normocephalic, atraumatic Respiratory/Chest: chest wall non-tender, lungs clear Breasts: no masses Cardiovascular: normal peripheral pulses Abdomen: normal bowel sounds, soft, non tender Genitourinary: normal external genitalia Extremities: no cyanosis Skin: no rash Neurologic/Psychiatric: tagman II-XII grossly normal Current Medications Medications (Trade) Dose Ordered Sig/Catrina Route PRN Reason Start Time Stop Time Status Last Admin Dose Admin Acetaminophen (Tylenol) 650 mg Q4H PRN ORAL fever 11/16/19 06:35 12/16/19 06:34 Albuterol/ Ipratropium (Albuterol/ Ipratropium) 3 ml Q4HRT PRN HHN sob 11/20/19 10:30 11/25/19 10:29 Allopurinol (Zyloprim) 200 mg DAILY ORAL 11/17/19 09:00 12/15/19 08:59 11/23/19 08:59 Amiodarone HCl (Cordarone) 200 mg DAILY ORAL 11/18/19 09:00 02/16/20 08:59 11/23/19 08:57 Apixaban (Eliquis) 5 mg BID ORAL 11/16/19 09:00 12/15/19 08:59 Atorvastatin Calcium (Lipitor) 10 mg BEDTIME ORAL 11/16/19 21:00 12/15/19 20:59 11/22/19 21:00 Guaifenesin/ Dextromethorphan (Robitussin DM Syrup) 10 ml Q6H PRN ORAL For Cough 11/18/19 19:45 02/16/20 19:44 11/18/19 21:11 Hydralazine HCl (Apresoline) 50 mg Q8HR ORAL 11/16/19 14:00 12/14/19 23:58 11/23/19 14:36 Isosorbide Mononitrate (Imdur) 30 mg DAILY ORAL 11/16/19 09:00 12/15/19 08:59 11/23/19 08:58 Metoprolol Tartrate (Lopressor) 50 mg Q12HR ORAL 11/16/19 09:00 12/15/19 08:59 11/23/19 08:58 Ondansetron HCl (Zofran) 4 mg Q6H PRN IVP Nausea & Vomiting 11/16/19 06:36 12/16/19 06:35 Tamsulosin HCl (Flomax) 0.4 mg BID ORAL 11/16/19 09:00 12/15/19 08:59 11/23/19 08:58 Erma Rajput MD Nov 23, 2019 15:52
--- NOTE | 2019-11-23 18:28 | CDS Physician Query ---
Clarification is required for compliance, coding accuracy, and to reflect severity of illness for this patient Dear ____Vika Date: 11/22/19 CDS Name: Emory Matias "Renal Failure" documented in Progress note 11/21 Clinical Indicators: Date 11/13 11/15 11/16 11/17 Cr 2.9 2.7 2.1 2.0 BUN/Cr 17 17 17 Urine Pro 3+ GFR 21 23 30 Please Clarify the type of renal failure below: Etiology [] Acute Renal Failure w/ Tubular Necrosis [] Acute Renal Failure w/ Cortical Necrosis [] Acute Renal Failure w/ Medullary Necrosis [] Acute Renal Failure w/ Vasoneuropathy [*] Other: acute renal failure, due to dehydration , superimposed on chronic renal insufficiency If Chronic, please specify the stage: [] CKD Stage 1 [] CKD Stage 2 [] CKD Stage 3 [] CKD Stage 4 [] CKD Stage 5 [] ESRD [*] Not applicable Present on Admission: [*] Yes [] No [] Clinically Undetermined Physician signature Date Please also document in your Progress Notes and/or Discharge Summary and indicate if the condition was present on admission. MAGO
--- NOTE | 2019-11-23 19:25 | NUR ---
HAND-OFF: Report given to karla.
--- NOTE | 2019-11-23 19:42 | NUR ---
NURSE NOTES: Patient awake and alert x4. No signs of distress. IV intact. Bed locked and in lowest position. Call light in reach. Will continue to monitor.
[2019-11-23 20:00] VITALS: BP 126/76
--- NOTE | 2019-11-23 23:05 | NUR ---
NURSE NOTES: Pt received from TSERING Salazar in stable condition. Vitals stable. Pt appears to be resting in bed comfortably. Bed locked low in position,side rails up and call light within reach. Pt will be monitored.
--- NOTE | 2019-11-23 23:10 | NUR ---
HAND-OFF: Report given to TSERING Mcmillan.
--- NOTE | 2019-11-23 23:10 | NUR ---
NURSE NOTES: Patient became agitated when taking his vitals prior to administering his BP medication. Calmly tried to deescalate and explain the purpose of the procedure but patient remained agitated. Patient then complained he was not warned that RN was switching the call light with bed B and requested a new nurse. continuous conveyor screen drier made aware. Endorsed to TSERING Mcmillan.
[2019-11-23 23:22] VITALS: BP 140/72
[2019-11-24 04:15] VITALS: BP 151/78
--- NOTE | 2019-11-24 04:22 | NUR ---
NURSE NOTES: Patient refused vital sign
--- NOTE | 2019-11-24 05:39 | NUR ---
NURSE NOTES: Pt refused blood draw for labs.
[2019-11-24] MEDS: HydrALAZINE 50mg tab ORAL SCH (06:27)
--- NOTE | 2019-11-24 07:18 | NUR ---
HAND-OFF: Report given to TSERING Curiel.
[2019-11-24 08:00] VITALS: BP 145/75
[2019-11-24] MEDS: Eliquis 5mg tablet ORAL SCH (09:00)
[2019-11-24] MEDS: Allopurinol 100mg Tab ORAL SCH (09:10)
[2019-11-24] MEDS: Imdur 30mg tab ORAL SCH (09:10)
[2019-11-24] MEDS: Metoprolol Tartrate 50mg tab ORAL SCH (09:10)
[2019-11-24] MEDS: Amiodarone 200mg tab ORAL SCH (09:11)
[2019-11-24] MEDS: Tamsulosin 0.4mg cap ORAL SCH (09:11)
--- NOTE | 2019-11-24 10:41 | NUR ---
SENIOR CORPORATE RECRUITER NOTE MET WITH PATIENT AT BEDSIDE WITH CHARGE NURSE ALYSSA. INFORMED PATIENT MEDICARE APPEAL HAD BEEN DENIED AND DISCHARGE WAS DEEMED VALID. INFORMED PATIENT HE WOULD NEED TO DISCHARGE FROM [facility] TODAY. PATIENT VISIBLY UPSET STATING,"I AM NOT LEAVING THIS BUILDING AND PUTTING MYSELF AT RISK OUT THERE". PATIENT INFORMED BY CM, SKILLED NURSING INFORMATION CAN BE PROVIDED TO HIM AND TRANSPORTATION ARRANGED TO HIS CHOICE OF LOCATION. PATIENT REFUSED STATING, "I WILL NOT VOLUNTARILY LEAVE THIS HOSPITAL. YOU CAN PHYSICALLY REMOVE ME BUT I AM NOT LEAVING VOLUNTARILY". PATIENT PROCEEDED TO STATE THAT HE PLACED CALL TO [facility], LEFT A MESSAGE AND HAD NOT RECEIVED A CALL BACK. CM EXPLAINED TO PATIENT THAT HE WAS PROVIDED INFO TO INITIATE THE DISCHARGE APPEAL ON Thu11/21/2019. HE CONFIRMED RECEIPT OF INFO PROVIDED AND STATED HE LEFT A VOICEMAIL WITH NO CALL BACK. PATIENT INFORMED THAT THE HOSPITAL FILED THE DISCHARGE APPEAL ON HIS BEHALF HE HAD VERBALIZED HIS INTENT TO APPEAL TO THE AND THIS CM. PATIENT ASLO INFORMED THAT OF MORNING ON 11/22/2019, APPEAL REQUEST HAD NOT BEEN COMPLETED AND CASE MANAGEMENT PROCEEDED TO FILE THE APPEAL ON HIS BEHALF.
[2019-11-24 12:00] VITALS: BP 126/76
--- NOTE | 2019-11-24 13:33 | NUR ---
NURSING TALENT SOLUTIONS MANAGER NOTE: Spoke to patient regarding his discharge from the hospital. Case Management has already informed him that his Medicare Appeal was denied. Explained to patient that I will retrieve his items from the safe once he finishes his lunch and dresses. Patient stated that he "shouldn't have been discharged in the first place" I explained to patient that this was his physician's decision.
--- NOTE | 2019-11-24 13:35 | Nephrology Progress Note ---
Assessment/Plan Problem List: (1) Renal failure (ARF), acute on chronic Assessment: Serum creatinine lowering (2) Atrial flutter with rapid ventricular response (3) CKD (chronic kidney disease) Assessment: Stage to be determined when creatinine stabilizes (4) Cardiomyopathy Assessment 1. The patient's renal impression is acute on chronic renal failure. Other conditions atrial flutter with periodic rapid ventricular response. 2. Hypertension. 3. History of gout. 4. Pericardial calcification. 5. The patient is homeless. Plan No labs today Stable from renal standpoint of view for discharge Previously Add stool softener and Protonix 1 L of D5W given previously Monitor renal parameters Optimize pulmonary and cardiac status Nephrotoxic's will be avoided. Urine studies will be ordered. We will continue on Flomax. Keep the blood pressure and blood sugar in check Subjective ROS Limited/Unobtainable: No Objective Objective Last 24 Hour Vital Signs Date Time Temp Pulse Resp B/P (MAP) Pulse Ox O2 Delivery O2 Flow Rate FiO2 11/24/19 12:00 98.1 72 20 126/76 (93) 96 11/24/19 09:10 72 145/75 11/24/19 09:10 145/75 11/24/19 09:00 Room Air 11/24/19 08:00 97.9 72 19 145/75 (98) 97 11/24/19 06:27 151/78 11/24/19 04:15 98.1 74 18 151/78 (102) 97 11/23/19 23:22 98.1 74 18 140/72 (94) 97 11/23/19 22:37 140/72 11/23/19 21:08 69 126/76 11/23/19 21:00 Room Air 11/23/19 20:00 98.3 69 18 126/76 (93) 95 11/23/19 19:35 84 18 96 Room Air 21 11/23/19 14:36 127/67 Intake and Output 11/23/19 11/24/19 19:00 07:00 Intake Total 840 ml 240 ml Output Total 1150 ml 600 ml Balance -310 ml -360 ml Intake Oral 840 ml 240 ml Output Urine Total 1150 ml 600 ml # Voids 3 Current Medications Medications (Trade) Dose Ordered Sig/Catrina Route PRN Reason Start Time Stop Time Status Last Admin Dose Admin Acetaminophen (Tylenol) 650 mg Q4H PRN ORAL fever 11/16/19 06:35 12/16/19 06:34 Albuterol/ Ipratropium (Albuterol/ Ipratropium) 3 ml Q4HRT PRN HHN sob 11/20/19 10:30 11/25/19 10:29 Allopurinol (Zyloprim) 200 mg DAILY ORAL 11/17/19 09:00 12/15/19 08:59 11/24/19 09:10 Amiodarone HCl (Cordarone) 200 mg DAILY ORAL 11/18/19 09:00 02/16/20 08:59 11/24/19 09:11 Apixaban (Eliquis) 5 mg BID ORAL 11/16/19 09:00 12/15/19 08:59 Atorvastatin Calcium (Lipitor) 10 mg BEDTIME ORAL 11/16/19 21:00 12/15/19 20:59 11/23/19 21:09 Guaifenesin/ Dextromethorphan (Robitussin DM Syrup) 10 ml Q6H PRN ORAL For Cough 11/18/19 19:45 02/16/20 19:44 11/18/19 21:11 Hydralazine HCl (Apresoline) 50 mg Q8HR ORAL 11/16/19 14:00 12/14/19 23:58 11/24/19 06:27 Isosorbide Mononitrate (Imdur) 30 mg DAILY ORAL 11/16/19 09:00 12/15/19 08:59 11/24/19 09:10 Metoprolol Tartrate (Lopressor) 50 mg Q12HR ORAL 11/16/19 09:00 12/15/19 08:59 11/24/19 09:10 Ondansetron HCl (Zofran) 4 mg Q6H PRN IVP Nausea & Vomiting 11/16/19 06:36 12/16/19 06:35 Tamsulosin HCl (Flomax) 0.4 mg BID ORAL 11/16/19 09:00 12/15/19 08:59 11/24/19 09:11 Height (Feet): 5 Height (Inches): 10.00 Weight (Pounds): 187 General Appearance: no apparent distress Objective No change Avila Sandy MD Nov 24, 2019 13:35
--- NOTE | 2019-11-24 14:00 | NUR ---
NURSE NOTES: Patient was offered various shelters but kept refusing to be discharged. An appeal to defer discharge was not granted. charge nurse and supervisor/port director spoke with patient to explain situation, patient verbalized understanding. Prescriptions were filled by [facility], patient refused to take home eliquis and flomax. Casual clothes and transportation were provided to the patient.
--- NOTE | 2019-11-24 14:25 | Pulmonology Progress Note ---
Assessment/Plan Problems: (1) Atrial flutter with rapid ventricular response (2) Pericardial calcification (3) Chronic renal insufficiency, stage II (mild) (4) Cardiomyopathy (5) History of gout (6) History of hypertension Assessment/Plan creatinine stable heart rate controlled check electrolytes monitor BP f/u renal recommendations dc planning in process pt appealed his discharge. Appeal was denied Subjective ROS Limited/Unobtainable: No Constitutional: Reports: no symptoms HEENT: Repors: no symptoms Respiratory: Reports: no symptoms Allergies: Uncoded Allergies: red meat (Adverse Reaction, Unknown, 11/15/19) patient has gout and does not eat red meat Objective Last 24 Hour Vital Signs Date Time Temp Pulse Resp B/P (MAP) Pulse Ox O2 Delivery O2 Flow Rate FiO2 11/24/19 12:00 98.1 72 20 126/76 (93) 96 11/24/19 09:10 72 145/75 11/24/19 09:10 145/75 11/24/19 09:00 Room Air 11/24/19 08:00 97.9 72 19 145/75 (98) 97 11/24/19 06:27 151/78 11/24/19 04:15 98.1 74 18 151/78 (102) 97 11/23/19 23:22 98.1 74 18 140/72 (94) 97 11/23/19 22:37 140/72 11/23/19 21:08 69 126/76 11/23/19 21:00 Room Air 11/23/19 20:00 98.3 69 18 126/76 (93) 95 11/23/19 19:35 84 18 96 Room Air 21 11/23/19 14:36 127/67 Intake and Output 11/23/19 11/24/19 19:00 07:00 Intake Total 840 ml 240 ml Output Total 1150 ml 600 ml Balance -310 ml -360 ml Intake Oral 840 ml 240 ml Output Urine Total 1150 ml 600 ml # Voids 3 Objective General Appearance: WD/WN HEENT: normocephalic, atraumatic Respiratory/Chest: chest wall non-tender, lungs clear Breasts: no masses Cardiovascular: normal peripheral pulses Abdomen: normal bowel sounds, soft, non tender Genitourinary: normal external genitalia Extremities: no cyanosis Skin: no rash Neurologic/Psychiatric: edge worker II-XII grossly normal HEENT: normocephalic, atraumatic Respiratory/Chest: chest wall non-tender, lungs clear Cardiovascular: normal peripheral pulses, normal rate Abdomen: normal bowel sounds, soft, non tender Extremities: no cyanosis Skin: no rash Current Medications Medications (Trade) Dose Ordered Sig/Catrina Route PRN Reason Start Time Stop Time Status Last Admin Dose Admin Acetaminophen (Tylenol) 650 mg Q4H PRN ORAL fever 11/16/19 06:35 12/16/19 06:34 Albuterol/ Ipratropium (Albuterol/ Ipratropium) 3 ml Q4HRT PRN HHN sob 11/20/19 10:30 11/25/19 10:29 Allopurinol (Zyloprim) 200 mg DAILY ORAL 11/17/19 09:00 12/15/19 08:59 11/24/19 09:10 Amiodarone HCl (Cordarone) 200 mg DAILY ORAL 11/18/19 09:00 02/16/20 08:59 11/24/19 09:11 Apixaban (Eliquis) 5 mg BID ORAL 11/16/19 09:00 12/15/19 08:59 Atorvastatin Calcium (Lipitor) 10 mg BEDTIME ORAL 11/16/19 21:00 12/15/19 20:59 11/23/19 21:09 Guaifenesin/ Dextromethorphan (Robitussin DM Syrup) 10 ml Q6H PRN ORAL For Cough 11/18/19 19:45 02/16/20 19:44 11/18/19 21:11 Hydralazine HCl (Apresoline) 50 mg Q8HR ORAL 11/16/19 14:00 12/14/19 23:58 11/24/19 06:27 Isosorbide Mononitrate (Imdur) 30 mg DAILY ORAL 11/16/19 09:00 12/15/19 08:59 11/24/19 09:10 Metoprolol Tartrate (Lopressor) 50 mg Q12HR ORAL 11/16/19 09:00 12/15/19 08:59 11/24/19 09:10 Ondansetron HCl (Zofran) 4 mg Q6H PRN IVP Nausea & Vomiting 11/16/19 06:36 12/16/19 06:35 Tamsulosin HCl (Flomax) 0.4 mg BID ORAL 11/16/19 09:00 12/15/19 08:59 11/24/19 09:11 Erma Rajput MD Nov 24, 2019 14:25
--- NOTE | 2019-11-24 14:56 | NUR ---
CHARGE NURSE NOTE: Received patient meds from [facility] (across the street). Pt refused to take Flomax, Eliquis upon discharge, pt was informed of importance to take these medications. Pt is refusing. Pt will be discharge to [facility] today by taxi (taxi voucher will be provided).
--- NOTE | 2019-11-24 15:31 | NUR ---
NURSE NOTES: Patient discharged in stable condition. ID band removed. IV line removed. Discharge instructions given, verbalized understanding. Refused to take home Flomax and Eliquis, charge nurse aware. Taxi voucher provided to address of choice. Accoumpanied by nurse to lobby, ambulatory with steady gait.
--- NOTE | 2019-11-26 15:33 | Discharge Summary ---
Discharge Summary Discharge Summary _ DATE OF ADMISSION: 11/14/2019 DATE OF DISCHARGE: 11/24/2019 DISCHARGED BY: Dr. Purvis REASON FOR ADMISSION: 74 years old male past medical history of hypertension, chronic renal insufficiency, gout, presented to emergency department with chief complaint of increased generalized weakness. Upon presentation EKG revealed atrial flutter with heart rate of 150. Patient received Cardizem and labetalol IV. Heart rate slowed down , but patient remained in atrial flutter. Patient subsequently admitted to telemetry floor for further management. Additional laboratory work-up revealed no leukocytosis, stable hemoglobin and hematocrit. BUN 50, creatinine 2.9. Sodium 146, potassium 3.3. Troponin negative. pro BNP 2610. Urinalysis revealed +3 protein , but no evidence of urinary tract infection. Urine toxicology screen was negative. CT of the head revealed no acute intracranial pathology. Chest x-ray demonstrated no acute cardiopulmonary pathology. CONSULTANTS: plant controller Dr. Silverio pulmonary Dr. Rajput pinsetter mechanic helper Dr. Sandy HOSPITAL COURSE: Patient admitted to telemetry floor. Anticoagulation with Eliquis for stroke prevention provided. Heart rate was controlled with beta-tino and amiodarone. Patient initially received diuretic. Echocardiogram on previous admission was done and revealed ejection fraction of 35 to 40% with mild global left ventricular hypokinesis. Moderately elevated left atrial pressure grade 2, right ventricular systolic pressure 36. Guideline directed medical therapy provided as per plant controller recommendation with hydralazine and isosorbide. Beta-tino continued. Initially started Lasix,m subsequently was stopped due to worsening creatinine. No ARB or ADAL inhibitor provided, given renal failure. Renal parameters and electrolytes were closely monitored and electrolyte corrected as needed . Nephrotoxins were avoided as possible. Patient was continued on Flomax and allopurinol. Creatinine trending down. Prior to discharge creatinine from the highest reading 2.9 down to 1.8. Supplemental oxygen provided and titrated to keep oximetry above 92%. Pulmonary toilet with bronchodilator provided as needed. TSH noted to be low with stable free T4 and T3. Patient likely had a subclinical hyperthyroidism. Recommended to repeat thyroid function test in 1 month. Urine culture revealed Positive organism Blood cultures were negative. Stool for C. difficile was negative. Cardiac and pulmonary status were optimized. Supportive care provided. Bowel regimen instituted. The treating physician and consultants assessed and agreed that patient was medically stable for discharge to outpatient disposition. 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 DISCHARGE INSTRUCTIONS: Patient was discharged to outpatient disposition. Follow-up with a primary care provider in 1 week. Princess Elias NP Nov 26, 2019 15:33
== END 2019-11-24 15:23 | disposition home or self-care (01) | DRG 308 ==
LOC: EDUNIT# 21:18 → EDBD 21:18 → EMR 21:45 → 2E 22:23 → EDBEDREQ 23:07 → 4E 11-16 06:20
DX: I48.92 Unspecified atrial flutter (principal); I50.23 Acute on chronic systolic (congestive) heart failure; I31.8 Other specified diseases of pericardium; I13.0 Hypertensive heart and chronic kidney disease with heart failure and stage 1 through stage 4 chronic kidney disease, or unspecified chronic kidney disease; N17.9 Acute kidney failure, unspecified; E87.1 Hypo-osmolality and hyponatremia; I42.9 Cardiomyopathy, unspecified; N18.2 Chronic kidney disease, stage 2 (mild); N40.0 Benign prostatic hyperplasia without lower urinary tract symptoms; Z79.82 Long term (current) use of aspirin; M10.9 Gout, unspecified; E78.00 Pure hypercholesterolemia, unspecified; Z59.0 Homelessness; R27.0 Ataxia, unspecified
CPT/HCPCS: 36415; 70450; 71045; 80048; 80053; 80061; 80307; 81003; 82977; 83036; 83735; 83880; 84100; 84300; 84439; 84443; 84481; 84484; 84550; 85025; 85610; 85730; 86140; 87081; 87324; 93005; 94664; 96374; 99285; C9399; J8499

== ENCOUNTER 2019-12-10 23:16 | Inpatient (IN) | payer MEDICARE, MEDICAID ==
[~2019-12-10] VITALS: Ht 177.8 cm; Wt 81.7 kg
[~2019-12-10 23:16] MED LIST changes: +HYDRALAZINE HCL25 M1 ORAL; +METOPROLOL TART25 MG ORAL; +METOPROLOL TART50 M1 ORAL
--- NOTE | 2019-12-10 23:53 | Emergency Room Report ---
History of Present Illness General Chief Complaint: Palpitations Source: Patient, Medical Record Present Illness HPI This is a 74-year-old male with a history of A. fib/a flutter. He was on Coumadin before and was switched to Eliquis. He did not like blood thinner so he is currently not take any blood thinner. He presents with chief complaint of palpitation. He said this occur several times a day where he felt his heart rate was fast. Similar symptom in the past. He was admitted here last month and was at [facility] for several hours couple weeks later. He denies any chest pain. No nausea no vomiting. No fever chills. No shortness of breath. Nothing made it better. Nothing made it worse. The fast heart rate is intermittently and last for a few minutes. Denies any other complaint. Allergies: Uncoded Allergies: red meat (Adverse Reaction, Unknown, 11/15/19) patient has gout and does not eat red meat COVID-19 Screening Contact w/high risk pt: No Recent Travel to affected area: No Experienced COVID-19 symptoms?: No Patient History Past Medical History: see triage record, old chart reviewed, HTN, CAD, CHF, AFib Past Surgical History: other Pertinent Family History: none Social History: Denies: smoking Immunizations: other Reviewed Nursing Documentation: PMH: Agreed; PSxH: Agreed Nursing Documentation-PMH Past Medical History: No History, Except For Hx Cardiac Problems: Yes - HYPERLIPIDEMIA, AFIB/AFLUTTER Hx Hypertension: Yes Hx Cancer: No Hx Gastrointestinal Problems: No Hx Neurological Problems: No Review of Systems Eye: Denies: eye pain, blurred vision ENT: Denies: ear pain, nose congestion, throat swelling Respiratory: Denies: cough, shortness of breath Cardiovascular: Reports: palpitations; Denies: chest pain Gastrointestinal: Denies: abdominal pain, diarrhea, nausea, vomiting Musculoskeletal: Denies: back pain, joint pain Skin: Denies: rash Neurological: Denies: headache, numbness Endocrine: Denies: increased thirst, increased urine Hematologic/Lymphatic: Denies: easy bruising All Other Systems: negative except mentioned in HPI Physical Exam Vital Signs Date Time Temp Pulse Resp B/P (MAP) Pulse Ox O2 Delivery O2 Flow Rate FiO2 12/10/19 23:30 97.7 139 20 167/102 (123) 97 Room Air Vitals with tachycardia and high blood pressure Sp02 EP Interpretation: reviewed, normal General Appearance: well appearing, no apparent distress, alert Head: normocephalic, atraumatic Eyes: bilateral eye PERRL, bilateral eye EOMI ENT: hearing grossly normal, normal pharynx Neck: full range of motion, supple, no meningismus Respiratory: chest non-tender, lungs clear, normal breath sounds Cardiovascular #1: no murmur, irregularly irregular - Rate in the 90s Gastrointestinal: normal bowel sounds, non tender, no mass, no organomegaly, no bruit, non-distended Musculoskeletal: back normal, normal range of motion, gait/station normal Psychiatric: mood/affect normal Medical Decision Making Diagnostic Impression: Primary Impression: Atrial flutter with rapid ventricular response Additional Impression: Hypertension, essential ER Course Patient presents with atrial flutter with rapid ventricular response. Rate was controlled with labetalol initially and then it spiked up to 130s again. Was given Cardizem a couple times. Right now heart rates in the 70s. No evidence of ACS, PE, dissection to name a few. Will admit patient for monitoring and further work-up. I discussed the case with Dr. Purvis who will admit. EKG Diagnostic Results Rate: normal Rhythm: other - aflutter ST Segments: other - NSST changes Rhythm Strip Diag. Results EP Interpretation: yes Rate: 93 Rhythm: no PVC's, no ectopy, other - aflutter Chest X-Ray Diagnostic Results Chest X-Ray Diagnostic Results : Chest X-Ray Ordered: Yes # of Views/Limited/Complete: 1 View Indication: Chest Pain EP Interpretation: Yes Interpretation: no consolidation, no effusion, no pneumothorax, other - No acute change Impression: No acute disease Electronically Signed by: Jamie Handley MD Last Vital Signs Date Time Temp Pulse Resp B/P (MAP) Pulse Ox O2 Delivery O2 Flow Rate FiO2 12/10/19 23:30 97.7 139 20 167/102 (123) 97 Room Air Status: improved Disposition: ADMITTED INPATIENT Condition: Serious Jamie Handley MD Dec 10, 2019 23:53
[2019-12-11] VITALS (12 sets, daily range): BP systolic 128–167; BP diastolic 72–105
[2019-12-11] MEDS ORDERED: Atenolol 25mg tab ORAL ONE (00:45)
[2019-12-11] MEDS ORDERED: Labetalol 5mg/ml 20ml vial IV ONE ×2 (00:45)
[2019-12-11 00:51] LABS: EOSINOPHILS % (AUTO) 0.5 % (0.0-3.0); HEMATOCRIT 40.4 % (42.0-52.0); HEMOGLOBIN 14.1 G/DL (14.2-18.0); LYMPHOCYTES % (AUTO) 22.2 % (20.0-45.0); MEAN CORPUSCULAR VOLUME 92 FL (80-99); MONOCYTES % (AUTO) 11.3 % (1.0-10.0); NEUTROPHILS % (AUTO) 65.1 % (45.0-75.0); PLATELET COUNT 212 K/UL (150-450); RED BLOOD COUNT 4.38 M/UL (4.70-6.10); RED CELL DISTRIBUTION WIDTH 12.8 % (11.6-14.8); WHITE BLOOD COUNT 9.7 K/UL (4.8-10.8)
[2019-12-11 00:55] LABS: ANION GAP 14 mmol/L (5-15); BLOOD UREA NITROGEN 26 mg/dL (7-18); CALCIUM 9.6 MG/DL (8.5-10.1); CARBON DIOXIDE 24 MMOL/L (21-32); CHLORIDE 106 MMOL/L (98-107); CREATININE 1.8 MG/DL (0.55-1.30); POTASSIUM 3.9 MMOL/L (3.5-5.1); SODIUM 144 MMOL/L (136-145)
[2019-12-11 01:00] LABS: ALANINE AMINOTRANSFERASE 18 U/L (12-78); ALBUMIN 3.9 G/DL (3.4-5.0); ALKALINE PHOSPHATASE 114 U/L (46-116); ASPARTATE AMINO TRANSFERASE 19 U/L (15-37); BILIRUBIN,TOTAL 0.8 MG/DL (0.2-1.0)
[2019-12-11] MEDS ORDERED: dilTIAZem HCl 25mg/5ml Inj IVP ONE ×2 (01:30→04:15)
--- NOTE | 2019-12-11 02:30 | Diagnostic Imaging Report ---
EXAM: XR Chest, 1 View CLINICAL HISTORY: SOB TECHNIQUE: Frontal view of the chest. COMPARISON: 10/28/2019 IMPRESSION: Unchanged heart size. No consolidation or pleural effusion. Extensive left humeral fixation.
[2019-12-11] MEDS ORDERED: Heparin 5000 units/ml inj SUBQ SCH (14:00)
--- NOTE | 2019-12-11 14:01 | History & Physical ---
History and Physical History & Physicial Dictated for Int Med-Dr Purvis no. [id number] Leroy Zimmer MD Dec 11, 2019 14:01
[2019-12-11] MEDS ORDERED: DiphenhydrAMINE 25mg Tab ORAL PRN (14:15)
[2019-12-11] MEDS ORDERED: LORazepam 1mg tab ORAL PRN (14:15)
[2019-12-11] MEDS ORDERED: Nitroglycerin Subl 0.4mg tab SL PRN (14:15)
--- NOTE | 2019-12-11 18:30 | History and Physical Report ---
DATE OF ADMISSION: 12/11/2019 CHIEF COMPLAINT: The patient is a 74-year-old male who presents with chief complaint of palpitations. HISTORY OF PRESENT ILLNESS: The patient was admitted to [facility] from November 14, 2019 to November 24, 2019. Please see history and physical and discharge summary dictated at that time. The patient has a history of atrial flutter with rapid ventricular rate. The patient was on Coumadin which was switched to Eliquis. The patient discontinued Eliquis on his own. The patient presented to [facility] complaining of palpitations. The patient was found to be in atrial flutter with rapid ventricular rate. The patient was admitted with atrial flutter with rapid ventricular rate. REVIEW OF SYSTEMS: CONSTITUTIONAL: The patient denies weight loss or weight gain. The patient denies fevers or chills. HEENT: The patient denies ear or throat pain. The patient denies headache. CARDIOVASCULAR: The patient complains of palpitations as above. The patient denies chest pain. ABDOMEN: The patient denies nausea, vomiting, diarrhea, or constipation. GENITOURINARY: The patient denies dysuria or increased frequency of urination. NEUROMUSCULAR: The patient denies seizures or generalized weakness. PAST MEDICAL HISTORY: Significant for: 1. Atrial flutter. 2. Hypercholesterolemia. 3. Hypertension. 4. Congestive heart failure, systolic and diastolic. 5. Cardiomyopathy with ejection fraction of 35 to 40 percent. 6. Chronic renal failure. 7. Benign prostatic hypertrophy. 8. Gout. 9. Subclinical hypothyroidism. PAST SURGICAL HISTORY: Significant for: 1. Transurethral resection of the prostate. 2. Right inguinal hernia repair. CURRENT MEDICATIONS: 1. Allopurinol 100 mg p.o. daily. 2. Hydralazine 50 mg p.o. daily. 3. Isosorbide mononitrate 30 mg p.o. daily. 4. Metoprolol 50 mg p.o. twice daily. 5. Nitroglycerin 0.4 milligrams sublingual p.r.n. ALLERGIES: No known drug allergies. SOCIAL HISTORY: The patient is single and has had on and off homelessness. The patient admits to tobacco use 1/2 pack per day. The patient denies alcohol use. PHYSICAL EXAMINATION: VITAL SIGNS: Temperature 97.7, respirations 18, pulse 85, blood pressure 142/87 . GENERALLY: The patient is a well-developed and well-nourished male no apparent distress. HEENT: Eyes, pupils are equal and responsive to light and accommodation. Extraocular movements are intact. NECK: Supple without lymphadenopathy. CHEST: Lungs are clear to auscultation bilaterally without wheezes or rales. CARDIOVASCULAR: Irregular rhythm and irregular rate. S1 and S2 normal without murmurs, rubs, or gallops. ABDOMEN: Soft, nontender, and nondistended. Positive bowel sounds. No evidence of hepatosplenomegaly. Currently, no rebound or guarding noted. EXTREMITIES: Negative for clubbing, cyanosis, or edema. RECTAL/GENITAL: Not performed. NEUROLOGIC: Cranial nerves II through XII are grossly intact without focal deficits. Motor strength is 5/5 bilaterally. Deep tendon reflexes are 2+ plantar. LABORATORY AND DIAGNOSTIC DATA: EKG demonstrated atrial flutter with rapid ventricular rate up to 130s. WBC 9.7, hemoglobin 14.1, hematocrit 40.4 platelets 212,000. Sodium 144, potassium 3.9, chloride 104, CO2 24, BUN 26, creatinine 1.8, glucose 85. Troponin 0.0. Chest x-ray was reported as cardiomegaly without acute disease. ASSESSMENT: This is a 74-year-old male. 1. Atrial flutter with rapid ventricular rate. 2. Congestive heart failure, diastolic and systolic. 3. Cardiomyopathy. 4. Chronic renal failure. 5. Hypertension. 6. Benign prostatic hypertrophy. 7. Gout. 8. Hypercholesterolemia. 9. Subclinical hypothyroidism. TREATMENT: 1. Atrial flutter. Cardiology consultation has been obtained with Dr. Epifanio Silverio. The patient received Cardizem in the emergency room. We will follow recommendation of Cardiology. 2. Hypercholesterolemia. The patient is currently off anti-lipidemic medication. 3. Hypertension. Continue metoprolol and Cardizem as above. 4. Congestive heart failure. As above, a Cardiology consultation has been obtained with Dr. Epifanio Silverio. Congestive heart failure is systolic and diastolic in nature. 5. Cardiomyopathy with an ejection fraction 35 to 40%. 6. Chronic renal failure. 7. Benign prostatic hypertrophy. 8. Gout. 9. Subclinical hypothyroidism. Leroy Zimmer M.D. DR: Hector JOB#: [id number] CC:
[2019-12-11] MEDS: Metoprolol Tartrate 50mg tab ORAL SCH (20:16)
[2019-12-11] MEDS: Heparin 5000 units/ml inj SUBQ SCH (21:00)
[2019-12-11] MEDS: HydrALAZINE 50mg tab ORAL SCH (21:53)
[2019-12-12] VITALS: BP 141/87
[2019-12-12 04:00] VITALS: BP 160/89
[2019-12-12] MEDS: HydrALAZINE 50mg tab ORAL SCH ×3 (06:13→22:08)
[2019-12-12 08:00] VITALS: BP 129/70
[2019-12-12 08:50] LABS: EOSINOPHILS % (AUTO) 1.5 % (0.0-3.0); HEMATOCRIT 38.3 % (42.0-52.0); HEMOGLOBIN 13.5 G/DL (14.2-18.0); LYMPHOCYTES % (AUTO) 19.4 % (20.0-45.0); MEAN CORPUSCULAR VOLUME 93 FL (80-99); MONOCYTES % (AUTO) 9.5 % (1.0-10.0); NEUTROPHILS % (AUTO) 68.6 % (45.0-75.0); PLATELET COUNT 190 K/UL (150-450); RED CELL DISTRIBUTION WIDTH 13.2 % (11.6-14.8); WHITE BLOOD COUNT 7.5 K/UL (4.8-10.8)
[2019-12-12 08:58] LABS: ALANINE AMINOTRANSFERASE 15 U/L (12-78); ALBUMIN 3.3 G/DL (3.4-5.0); ALBUMIN/GLOBULIN RATIO 0.9 (1.0-2.7); ALKALINE PHOSPHATASE 96 U/L (46-116); ANION GAP 9 mmol/L (5-15); ASPARTATE AMINO TRANSFERASE 18 U/L (15-37); BILIRUBIN,TOTAL 0.7 MG/DL (0.2-1.0); BLOOD UREA NITROGEN 22 mg/dL (7-18); CARBON DIOXIDE 26 MMOL/L (21-32); CHLORIDE 110 MMOL/L (98-107); CHOLESTEROL 115 MG/DL (< 200); CREATININE 1.7 MG/DL (0.55-1.30); HDL CHOLESTEROL 46 MG/DL (40-60); POTASSIUM 4.1 MMOL/L (3.5-5.1); SODIUM 145 MMOL/L (136-145); TRIGLYCERIDES 59 MG/DL (30-150)
[2019-12-12] MEDS: Heparin 5000 units/ml inj SUBQ SCH ×2 (09:00→21:00)
[2019-12-12] MEDS: Metoprolol Tartrate 50mg tab ORAL SCH ×2 (09:19→22:08)
[2019-12-12] MEDS: Imdur 30mg tab ORAL SCH (09:20)
--- NOTE | 2019-12-12 13:23 | Consultation ---
History of Present Illness General Date patient seen: Dec 12, 2019 Chief Complaint: Palpitations Present Illness HPI 74 year old male with hx of HTN, Gout, chronic mild renal insufficiency, presented to ER with CC of increasing weakness. He was in a-flutter of 150 and SBP was 190 and he got Cardizem and Labetolol IV and his heart rate slowed. He is admitted to telemetry for further management. Allergies: Uncoded Allergies: red meat (Adverse Reaction, Unknown, 11/15/19) patient has gout and does not eat red meat Medication History Scheduled Allopurinol* (Allopurinol*), 300 MG ORAL DAILY Hydralazine HCl (Hydralazine HCl), 50 MG ORAL Q8HR Isosorbide Mononitrate (Isosorbide Mononitrate Er), 30 MG ORAL DAILY Metoprolol Tartrate* (Metoprolol Tartrate*), 50 MG ORAL EVERY 12 HOURS, ( Reported) Scheduled PRN Nitroglycerin 0.4MG table* (Nitroglycerin*), 0.4 MG SL Q5M PRN Discontinued Medications Amiodarone Hcl* (Pacerone*), 200 MG ORAL EVERY 12 HOURS Discontinued Reason: Therapy completed Apixaban (Eliquis), 5 MG ORAL BID Discontinued Reason: Therapy completed Atorvastatin Calcium* (Lipitor*), 10 MG ORAL BEDTIME Discontinued Reason: Pt had allergic rxn Tamsulosin HCl (Flomax), 0.4 MG ORAL BID Discontinued Reason: Therapy completed Patient History Healthcare decision maker Resuscitation status Full Code Advanced Directive on File Past Medical/Surgical History Past Medical/Surgical History: (1) Homelessness (2) Chronic renal insufficiency, stage II (mild) (3) History of hypertension (4) History of gout (5) Hypertension, essential Review of Systems All Other Systems: negative except mentioned in HPI Physical Exam General Appearance: WD/WN Lines, tubes and drains: peripheral HEENT: normocephalic, atraumatic Neck: non-tender, normal alignment Respiratory/Chest: chest wall non-tender, normal breath sounds, decreased breath sounds Cardiovascular/Chest: normal peripheral pulses, tachycardia Abdomen: normal bowel sounds, non tender Genitourinary/Rectal: normal genital exam Extremities: normal range of motion, non-tender Last 24 Hour Vital Signs Date Time Temp Pulse Resp B/P (MAP) Pulse Ox O2 Delivery O2 Flow Rate FiO2 12/12/19 09:20 129/70 12/12/19 09:19 94 129/70 12/12/19 09:00 Room Air 12/12/19 08:00 98.1 94 20 129/70 (89) 95 12/12/19 08:00 101 12/12/19 06:13 152/84 12/12/19 04:00 98.5 72 18 160/89 (112) 96 12/12/19 04:00 Room Air 12/12/19 04:00 101 12/12/19 00:00 97 12/12/19 00:00 98.5 72 18 141/87 (105) 96 12/12/19 00:00 Room Air 12/11/19 21:53 150/90 12/11/19 21:00 Room Air 12/11/19 20:16 121 163/101 12/11/19 20:00 97.9 121 18 163/101 (121) 99 12/11/19 20:00 89 12/11/19 16:00 Room Air 12/11/19 15:47 98 12/11/19 15:36 98.5 123 18 166/86 (112) 98 Intake and Output 12/11/19 12/12/19 19:00 07:00 Intake Total 240 ml 480 ml Balance 240 ml 480 ml Intake Oral 240 ml 480 ml # Voids 1 Laboratory Tests Test 12/12/19 07:10 White Blood Count 7.5 K/UL (4.8-10.8) Red Blood Count 4.10 M/UL (4.70-6.10) L Hemoglobin 13.5 G/DL (14.2-18.0) L Hematocrit 38.3 % (42.0-52.0) L Mean Corpuscular Volume 93 FL (80-99) Mean Corpuscular Hemoglobin 32.9 PG (27.0-31.0) H Mean Corpuscular Hemoglobin Concent 35.2 G/DL (32.0-36.0) Red Cell Distribution Width 13.2 % (11.6-14.8) Platelet Count 190 K/UL (150-450) Mean Platelet Volume 5.8 FL (6.5-10.1) L Neutrophils (%) (Auto) 68.6 % (45.0-75.0) Lymphocytes (%) (Auto) 19.4 % (20.0-45.0) L Monocytes (%) (Auto) 9.5 % (1.0-10.0) Eosinophils (%) (Auto) 1.5 % (0.0-3.0) Basophils (%) (Auto) 1.0 % (0.0-2.0) Prothrombin Time 11.0 SEC (9.30-11.50) Prothromb Time International Ratio 1.0 (0.9-1.1) Activated Partial Thromboplast Time 29 SEC (23-33) Sodium Level 145 MMOL/L (136-145) Potassium Level 4.1 MMOL/L (3.5-5.1) Chloride Level 110 MMOL/L (98-107) H Carbon Dioxide Level 26 MMOL/L (21-32) Anion Gap 9 mmol/L (5-15) Blood Urea Nitrogen 22 mg/dL (7-18) H Creatinine 1.7 MG/DL (0.55-1.30) H Estimat Glomerular Filtration Rate 39.5 mL/min (>60) Glucose Level 87 MG/DL (74-106) Calcium Level 9.0 MG/DL (8.5-10.1) Phosphorus Level 3.0 MG/DL (2.5-4.9) Magnesium Level 1.9 MG/DL (1.8-2.4) Total Bilirubin 0.7 MG/DL (0.2-1.0) Aspartate Amino Transf (AST/SGOT) 18 U/L (15-37) Alanine Aminotransferase (ALT/SGPT) 15 U/L (12-78) Alkaline Phosphatase 96 U/L (46-116) Pro-B-Type Natriuretic Peptide 5681 pg/mL (0-125) H Total Protein 6.8 G/DL (6.4-8.2) Albumin 3.3 G/DL (3.4-5.0) L Globulin 3.5 g/dL Albumin/Globulin Ratio 0.9 (1.0-2.7) L Triglycerides Level 59 MG/DL (30-150) Cholesterol Level 115 MG/DL (< 200) LDL Cholesterol 59 mg/dL (<100) HDL Cholesterol 46 MG/DL (40-60) Cholesterol/HDL Ratio 2.5 (3.3-4.4) L Thyroid Stimulating Hormone (TSH) < 0.010 uiU/mL (0.358-3.740) Height (Feet): 5 Height (Inches): 10.00 Weight (Pounds): 185 Medications Current Medications Medications (Trade) Dose Ordered Sig/Catrina Route PRN Reason Start Time Stop Time Status Last Admin Dose Admin Acetaminophen (Tylenol) 650 mg Q4H PRN ORAL Mild Pain (Pain Scale 1-3) 12/11/19 14:15 01/10/20 14:14 Acetaminophen (Tylenol) 650 mg Q4H PRN ORAL fever 12/11/19 14:15 01/10/20 14:14 Allopurinol (allopurinoL) 300 mg DAILY ORAL 12/12/19 09:00 01/11/20 08:59 Dextrose (Dextrose 50%) 25 ml Q30M PRN IV Hypoglycemia 12/11/19 14:15 03/10/20 14:14 Dextrose (Dextrose 50%) 50 ml Q30M PRN IV Hypoglycemia 12/11/19 14:15 03/10/20 14:14 Diphenhydramine HCl (Benadryl) 25 mg Q6H PRN ORAL Itching/Pruritis 12/11/19 14:15 01/10/20 14:14 Heparin Sodium (Porcine) (Heparin 5000 units/ml) 5,000 units EVERY 12 HOURS SUBQ 12/11/19 21:00 01/25/20 20:59 Hydralazine HCl (Apresoline) 50 mg Q8HR ORAL 12/11/19 22:00 03/10/20 21:59 12/12/19 06:13 Isosorbide Mononitrate (Imdur) 30 mg DAILY ORAL 12/12/19 09:00 01/11/20 08:59 12/12/19 09:20 Lorazepam (Ativan) 1 mg Q4H PRN ORAL For Anxiety 12/11/19 14:15 12/18/19 14:14 Metoprolol Tartrate (Lopressor) 50 mg EVERY 12 HOURS ORAL 12/11/19 21:00 03/10/20 20:59 12/12/19 09:19 Nitroglycerin (Ntg) 0.4 mg Q5M PRN SL Prn Chest Pain 12/11/19 14:15 01/10/20 14:14 Ondansetron HCl (Zofran) 4 mg Q4H PRN IVP Nausea & Vomiting 12/11/19 14:15 01/10/20 14:14 Pantoprazole (Protonix) 40 mg DAILY ORAL 12/12/19 09:00 01/11/20 08:59 12/12/19 09:08 Temazepam (Restoril) 15 mg DAILYPRN PRN ORAL Insomnia 12/11/19 14:15 12/18/19 14:14 Assessment/Plan Problem List: (1) Atrial flutter with rapid ventricular response ICD Codes: I48.92 - Unspecified atrial flutter SNOMED: 1474986, 5881993 (2) Uncontrolled hypertension ICD Codes: I10 - Essential (primary) hypertension SNOMED: 93720898, 92904603 (3) Pericardial calcification ICD Codes: I31.8 - Other specified diseases of pericardium SNOMED: 72978300 (4) History of hypertension ICD Codes: Z86.79 - Personal history of other diseases of the circulatory system SNOMED: 482494907 (5) History of gout ICD Codes: Z87.39 - Personal history of other diseases of the musculoskeletal system and connective tissue SNOMED: 576945662 Assessment/Plan: cardiac monitoring adjust cardiac meds monitor BP and heart rate check electrolytes pt wants to see a mental hygienist. Erma Rajput MD Dec 12, 2019 13:23
[2019-12-12 16:00] VITALS: BP 140/89
--- NOTE | 2019-12-12 18:11 | Internal Med Progress Note ---
Subjective Date of Service: Dec 12, 2019 Physician Name Leroy Zimmer Attending Physician Yonas Purvis MD Current Medications Medications (Trade) Dose Ordered Sig/Catrina Route PRN Reason Start Time Stop Time Status Last Admin Dose Admin Acetaminophen (Tylenol) 650 mg Q4H PRN ORAL Mild Pain (Pain Scale 1-3) 12/11/19 14:15 01/10/20 14:14 Acetaminophen (Tylenol) 650 mg Q4H PRN ORAL fever 12/11/19 14:15 01/10/20 14:14 Allopurinol (allopurinoL) 300 mg DAILY ORAL 12/12/19 09:00 01/11/20 08:59 Dextrose (Dextrose 50%) 25 ml Q30M PRN IV Hypoglycemia 12/11/19 14:15 03/10/20 14:14 Dextrose (Dextrose 50%) 50 ml Q30M PRN IV Hypoglycemia 12/11/19 14:15 03/10/20 14:14 Diphenhydramine HCl (Benadryl) 25 mg Q6H PRN ORAL Itching/Pruritis 12/11/19 14:15 01/10/20 14:14 Heparin Sodium (Porcine) (Heparin 5000 units/ml) 5,000 units EVERY 12 HOURS SUBQ 12/11/19 21:00 01/25/20 20:59 Hydralazine HCl (Apresoline) 50 mg Q8HR ORAL 12/11/19 22:00 03/10/20 21:59 12/12/19 15:53 Isosorbide Mononitrate (Imdur) 30 mg DAILY ORAL 12/12/19 09:00 01/11/20 08:59 12/12/19 09:20 Lorazepam (Ativan) 1 mg Q4H PRN ORAL For Anxiety 12/11/19 14:15 12/18/19 14:14 Metoprolol Tartrate (Lopressor) 50 mg EVERY 12 HOURS ORAL 12/11/19 21:00 03/10/20 20:59 12/12/19 09:19 Nitroglycerin (Ntg) 0.4 mg Q5M PRN SL Prn Chest Pain 12/11/19 14:15 01/10/20 14:14 Ondansetron HCl (Zofran) 4 mg Q4H PRN IVP Nausea & Vomiting 12/11/19 14:15 01/10/20 14:14 Pantoprazole (Protonix) 40 mg DAILY ORAL 12/12/19 09:00 01/11/20 08:59 12/12/19 09:08 Temazepam (Restoril) 15 mg DAILYPRN PRN ORAL Insomnia 12/11/19 14:15 12/18/19 14:14 Allergies: Uncoded Allergies: red meat (Adverse Reaction, Unknown, 11/15/19) patient has gout and does not eat red meat ROS Limited/Unobtainable: No Constitutional: Reports: no symptoms HEENT: Reports: no symptoms Cardiovascular: Reports: irregular heart rate, palpitations Respiratory: Reports: no symptoms Gastrointestinal/Abdominal: Reports: no symptoms Genitourinary: Reports: no symptoms Neurologic/Psychiatric: Reports: no symptoms Subjective 74 YO M admitted with palpitations. Now atrial flutter with rapid ventricular rate and congestive heart failure. Cover for Int Arnaldo-DR Purvis Objective Last Vital Signs Date Time Temp Pulse Resp B/P (MAP) Pulse Ox O2 Delivery O2 Flow Rate FiO2 12/12/19 15:53 140/89 12/12/19 09:19 94 12/12/19 09:00 Room Air 12/12/19 08:00 98.1 20 95 Laboratory Tests Test 12/12/19 07:10 White Blood Count 7.5 K/UL (4.8-10.8) Red Blood Count 4.10 M/UL (4.70-6.10) L Hemoglobin 13.5 G/DL (14.2-18.0) L Hematocrit 38.3 % (42.0-52.0) L Mean Corpuscular Volume 93 FL (80-99) Mean Corpuscular Hemoglobin 32.9 PG (27.0-31.0) H Mean Corpuscular Hemoglobin Concent 35.2 G/DL (32.0-36.0) Red Cell Distribution Width 13.2 % (11.6-14.8) Platelet Count 190 K/UL (150-450) Mean Platelet Volume 5.8 FL (6.5-10.1) L Neutrophils (%) (Auto) 68.6 % (45.0-75.0) Lymphocytes (%) (Auto) 19.4 % (20.0-45.0) L Monocytes (%) (Auto) 9.5 % (1.0-10.0) Eosinophils (%) (Auto) 1.5 % (0.0-3.0) Basophils (%) (Auto) 1.0 % (0.0-2.0) Prothrombin Time 11.0 SEC (9.30-11.50) Prothromb Time International Ratio 1.0 (0.9-1.1) Activated Partial Thromboplast Time 29 SEC (23-33) Sodium Level 145 MMOL/L (136-145) Potassium Level 4.1 MMOL/L (3.5-5.1) Chloride Level 110 MMOL/L (98-107) H Carbon Dioxide Level 26 MMOL/L (21-32) Anion Gap 9 mmol/L (5-15) Blood Urea Nitrogen 22 mg/dL (7-18) H Creatinine 1.7 MG/DL (0.55-1.30) H Estimat Glomerular Filtration Rate 39.5 mL/min (>60) Glucose Level 87 MG/DL (74-106) Calcium Level 9.0 MG/DL (8.5-10.1) Phosphorus Level 3.0 MG/DL (2.5-4.9) Magnesium Level 1.9 MG/DL (1.8-2.4) Total Bilirubin 0.7 MG/DL (0.2-1.0) Aspartate Amino Transf (AST/SGOT) 18 U/L (15-37) Alanine Aminotransferase (ALT/SGPT) 15 U/L (12-78) Alkaline Phosphatase 96 U/L (46-116) Pro-B-Type Natriuretic Peptide 5681 pg/mL (0-125) H Total Protein 6.8 G/DL (6.4-8.2) Albumin 3.3 G/DL (3.4-5.0) L Globulin 3.5 g/dL Albumin/Globulin Ratio 0.9 (1.0-2.7) L Triglycerides Level 59 MG/DL (30-150) Cholesterol Level 115 MG/DL (< 200) LDL Cholesterol 59 mg/dL (<100) HDL Cholesterol 46 MG/DL (40-60) Cholesterol/HDL Ratio 2.5 (3.3-4.4) L Thyroid Stimulating Hormone (TSH) < 0.010 uiU/mL (0.358-3.740) Intake and Output 12/11/19 12/12/19 19:00 07:00 Intake Total 240 ml 480 ml Balance 240 ml 480 ml Intake Oral 240 ml 480 ml # Voids 1 Objective PHYSICAL EXAMINATION: GENERALLY: The patient is a well-developed and well-nourished male no apparent distress. HEENT: Eyes, pupils are equal and responsive to light and accommodation. Extraocular movements are intact. NECK: Supple without lymphadenopathy. CHEST: Lungs are clear to auscultation bilaterally without wheezes or rales. CARDIOVASCULAR: Irregular rhythm and irregular rate. S1 and S2 normal without murmurs, rubs, or gallops. ABDOMEN: Soft, nontender, and nondistended. Positive bowel sounds. No evidence of hepatosplenomegaly. Currently, no rebound or guarding noted. EXTREMITIES: Negative for clubbing, cyanosis, or edema. RECTAL/GENITAL: Not performed. NEUROLOGIC: Cranial nerves II through XII are grossly intact without focal deficits. Motor strength is 5/5 bilaterally. Deep tendon reflexes are 2+ plantar. Assessment/Plan Assessment/Plan ASSESSMENT: This is a 74-year-old male. 1. Atrial flutter with rapid ventricular rate. 2. Congestive heart failure, diastolic and systolic. 3. Cardiomyopathy. 4. Chronic renal failure. 5. Hypertension. 6. Benign prostatic hypertrophy. 7. Gout. 8. Hypercholesterolemia. 9. Subclinical hypothyroidism. TREATMENT: 1. Atrial flutter. Cardiology consultation has been obtained with Dr. Epifanio Silverio. The patient received Cardizem in the emergency room. We will follow recommendation of Cardiology. Off anticoagulation-needs echo to R/O mural thrombus prior to re-starting Xarelto. 2. Hypercholesterolemia. The patient is currently off anti-lipidemic medication. 3. Hypertension. Continue metoprolol and Cardizem as above. 4. Congestive heart failure. As above, a Cardiology consultation has been obtained with Dr. Epifanio Silverio. Congestive heart failure is systolic and diastolic in nature. 5. Cardiomyopathy with an ejection fraction 35 to 40%. 6. Chronic renal failure. 7. Benign prostatic hypertrophy. 8. Gout. 9. Subclinical hypothyroidism. 10. DVT prophylaxis=SQ heparin 11. Full code Leroy Zimmer MD Dec 12, 2019 18:11
[2019-12-12 20:00] VITALS: BP 137/85
[2019-12-13 04:00] VITALS: BP 146/81
[2019-12-13] MEDS: HydrALAZINE 50mg tab ORAL SCH ×3 (06:34→21:35)
[2019-12-13 06:38] VITALS: BP 162/103
[2019-12-13 08:00] VITALS: BP 137/71
[2019-12-13 08:57] LABS: BASOPHILS % (AUTO) 1.2 % (0.0-2.0); EOSINOPHILS % (AUTO) 1.3 % (0.0-3.0); HEMATOCRIT 42.8 % (42.0-52.0); HEMOGLOBIN 14.3 G/DL (14.2-18.0); LYMPHOCYTES % (AUTO) 21.5 % (20.0-45.0); MEAN CORPUSCULAR VOLUME 94 FL (80-99); MONOCYTES % (AUTO) 8.2 % (1.0-10.0); NEUTROPHILS % (AUTO) 67.9 % (45.0-75.0); PLATELET COUNT 219 K/UL (150-450); RED BLOOD COUNT 4.53 M/UL (4.70-6.10); RED CELL DISTRIBUTION WIDTH 12.9 % (11.6-14.8); WHITE BLOOD COUNT 8.7 K/UL (4.8-10.8)
[2019-12-13] MEDS: Heparin 5000 units/ml inj SUBQ SCH ×3 (09:00→21:35)
[2019-12-13 09:25] LABS: ANION GAP 13 mmol/L (5-15); BLOOD UREA NITROGEN 27 mg/dL (7-18); CARBON DIOXIDE 23 MMOL/L (21-32); CHLORIDE 110 MMOL/L (98-107); POTASSIUM 4.2 MMOL/L (3.5-5.1); SODIUM 146 MMOL/L (136-145)
[2019-12-13 09:30] LABS: CALCIUM 8.8 MG/DL (8.5-10.1)
--- NOTE | 2019-12-13 09:33 | Cardiology Progress Note ---
Assessment/Plan Assessment/Plan [id number] 1. Atrial flutter, with intermittent tachy 2. History of congestive heart failure. 3. LV systolic dysfunction, ejection fraction reported 35% to 40%. 4. Mild diastolic dysfunction 5. Renal insufficiency. 6. Questionable hyperthyroidism. 7. Hypertension. 8. History of gout. 9. Pericardial calcification 10. Medication non compliance or adherence not want to take amio or anticoagulation despite recommendation understand risk of stroke and parlaysis will focu on bp control will add norvasc will increase metoprolol a bit to see if better outpt control importance of compliance d/w pt he has nto been takin amio , lasix or flomax as out pt nto seem to have sx of chf so use lasix prn all torp await input of tfts Objective Last 24 Hour Vital Signs Date Time Temp Pulse Resp B/P (MAP) Pulse Ox O2 Delivery O2 Flow Rate FiO2 12/13/19 08:00 98.4 69 18 137/71 (93) 98 12/13/19 06:38 162/103 (122) 12/13/19 06:34 146/81 12/13/19 04:00 99.5 74 20 146/81 (102) 97 74 12/13/19 03:41 91 12/12/19 23:30 92 12/12/19 22:08 94 137/85 12/12/19 22:08 137/85 12/12/19 21:00 Room Air 12/12/19 20:00 97.9 74 20 137/85 (102) 96 12/12/19 20:00 94 12/12/19 16:00 70 12/12/19 16:00 98.1 70 20 140/89 (106) 96 12/12/19 15:53 140/89 Intake and Output 12/12/19 12/13/19 19:00 07:00 Intake Total 120 ml Balance 120 ml Intake Oral 120 ml # Voids 3 3 Laboratory Tests Test 12/13/19 07:45 White Blood Count 8.7 K/UL (4.8-10.8) Red Blood Count 4.53 M/UL (4.70-6.10) L Hemoglobin 14.3 G/DL (14.2-18.0) Hematocrit 42.8 % (42.0-52.0) Mean Corpuscular Volume 94 FL (80-99) Mean Corpuscular Hemoglobin 31.6 PG (27.0-31.0) H Mean Corpuscular Hemoglobin Concent 33.5 G/DL (32.0-36.0) Red Cell Distribution Width 12.9 % (11.6-14.8) Platelet Count 219 K/UL (150-450) Mean Platelet Volume 5.5 FL (6.5-10.1) L Neutrophils (%) (Auto) 67.9 % (45.0-75.0) Lymphocytes (%) (Auto) 21.5 % (20.0-45.0) Monocytes (%) (Auto) 8.2 % (1.0-10.0) Eosinophils (%) (Auto) 1.3 % (0.0-3.0) Basophils (%) (Auto) 1.2 % (0.0-2.0) Sodium Level 146 MMOL/L (136-145) H Potassium Level 4.2 MMOL/L (3.5-5.1) Chloride Level 110 MMOL/L (98-107) H Carbon Dioxide Level 23 MMOL/L (21-32) Anion Gap 13 mmol/L (5-15) Blood Urea Nitrogen 27 mg/dL (7-18) H Creatinine 2.0 MG/DL (0.55-1.30) H Estimat Glomerular Filtration Rate 32.7 mL/min (>60) Glucose Level 107 MG/DL (74-106) H Calcium Level 8.8 MG/DL (8.5-10.1) Troponin I 0.000 ng/mL (0.000-0.056) Pro-B-Type Natriuretic Peptide 5036 pg/mL (0-125) H Free Thyroxine Pending Triiodothyonine (T3) Pending Free Triiodothyronine 3.9 pg/mL (2.3-4.2) Triiodothyronine (T3) Uptake Pending Epifanio Silverio MD Dec 13, 2019 09:33
[2019-12-13] MEDS ORDERED: Amiodarone 200mg tab ORAL SCH (10:00)
[2019-12-13] MEDS: Imdur 30mg tab ORAL SCH (10:41)
[2019-12-13] MEDS: Allopurinol 100mg Tab ORAL SCH (10:41)
[2019-12-13] MEDS: Metoprolol Tartrate 50mg tab ORAL SCH ×2 (10:42→21:32)
[2019-12-13 12:00] VITALS: BP 127/72
--- NOTE | 2019-12-13 12:41 | Pulmonology Progress Note ---
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 consult appreciated Subjective ROS Limited/Unobtainable: No Constitutional: Reports: no symptoms HEENT: Repors: no symptoms Allergies: Uncoded Allergies: red meat (Adverse Reaction, Unknown, 11/15/19) patient has gout and does not eat red meat Objective Last 24 Hour Vital Signs Date Time Temp Pulse Resp B/P (MAP) Pulse Ox O2 Delivery O2 Flow Rate FiO2 12/13/19 10:42 69 137/71 12/13/19 10:41 69 137/71 12/13/19 10:41 137/71 12/13/19 08:00 98.4 69 18 137/71 (93) 98 12/13/19 06:38 162/103 (122) 12/13/19 06:34 146/81 12/13/19 04:00 99.5 74 20 146/81 (102) 97 74 12/13/19 03:41 91 12/12/19 23:30 92 12/12/19 22:08 94 137/85 12/12/19 22:08 137/85 12/12/19 21:00 Room Air 12/12/19 20:00 97.9 74 20 137/85 (102) 96 12/12/19 20:00 94 12/12/19 16:00 70 12/12/19 16:00 98.1 70 20 140/89 (106) 96 12/12/19 15:53 140/89 Intake and Output 12/12/19 12/13/19 19:00 07:00 Intake Total 120 ml Balance 120 ml Intake Oral 120 ml # Voids 3 3 General Appearance: WD/WN HEENT: normocephalic, atraumatic Respiratory/Chest: chest wall non-tender, lungs clear Cardiovascular: normal peripheral pulses, normal rate Abdomen: normal bowel sounds, soft, non tender Extremities: no cyanosis, no clubbing Neurologic/Psychiatric: miner II-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 grossly normal Lymphatic: no neck adenopathy Laboratory Tests 12/13/19 07:45: White Blood Count 8.7, Red Blood Count 4.53L, Hemoglobin 14.3, Hematocrit 42.8, Mean Corpuscular Volume 94, Mean Corpuscular Hemoglobin 31.6H, Mean Corpuscular Hemoglobin Concent 33.5, Red Cell Distribution Width 12.9, Platelet Count 219, Mean Platelet Volume 5.5L, Neutrophils (%) (Auto) 67.9, Lymphocytes (%) (Auto) 21.5, Monocytes (%) (Auto) 8.2, Eosinophils (%) (Auto) 1.3, Basophils (%) (Auto ) 1.2, Sodium Level 146H, Potassium Level 4.2, Chloride Level 110H, Carbon Dioxide Level 23, Anion Gap 13, Blood Urea Nitrogen 27H, Creatinine 2.0H, Estimat Glomerular Filtration Rate 32.7, Glucose Level 107H, Calcium Level 8.8, Troponin I 0.000, Pro-B-Type Natriuretic Peptide 5036H, Free Thyroxine 2.31H, Triiodothyonine (T3) [Pending], Free Triiodothyronine 3.9, Triiodothyronine (T3 ) Uptake [Pending] Current Medications Medications (Trade) Dose Ordered Sig/Catrina Route PRN Reason Start Time Stop Time Status Last Admin Dose Admin Acetaminophen (Tylenol) 650 mg Q4H PRN ORAL Mild Pain (Pain Scale 1-3) 12/11/19 14:15 01/10/20 14:14 Acetaminophen (Tylenol) 650 mg Q4H PRN ORAL fever 12/11/19 14:15 01/10/20 14:14 Allopurinol (Zyloprim) 100 mg DAILY ORAL 12/13/19 09:00 01/11/20 08:59 12/13/19 10:41 Amlodipine Besylate (Norvasc) 5 mg DAILY ORAL 12/13/19 10:15 01/12/20 10:14 12/13/19 10:41 Dextrose (Dextrose 50%) 25 ml Q30M PRN IV Hypoglycemia 12/11/19 14:15 03/10/20 14:14 Dextrose (Dextrose 50%) 50 ml Q30M PRN IV Hypoglycemia 12/11/19 14:15 03/10/20 14:14 Diphenhydramine HCl (Benadryl) 25 mg Q6H PRN ORAL Itching/Pruritis 12/11/19 14:15 01/10/20 14:14 Heparin Sodium (Porcine) (Heparin 5000 units/ml) 5,000 units EVERY 12 HOURS SUBQ 12/11/19 21:00 01/25/20 20:59 Hydralazine HCl (Apresoline) 50 mg Q8HR ORAL 12/11/19 22:00 03/10/20 21:59 12/13/19 06:34 Isosorbide Mononitrate (Imdur) 30 mg DAILY ORAL 12/12/19 09:00 01/11/20 08:59 12/13/19 10:41 Lorazepam (Ativan) 1 mg Q4H PRN ORAL For Anxiety 12/11/19 14:15 12/18/19 14:14 Metoprolol Tartrate (Lopressor) 25 mg DAILY@1200 ORAL 12/13/19 12:00 03/12/20 11:59 Metoprolol Tartrate (Lopressor) 50 mg EVERY 12 HOURS ORAL 12/11/19 21:00 03/10/20 20:59 12/13/19 10:42 Nitroglycerin (Ntg) 0.4 mg Q5M PRN SL Prn Chest Pain 12/11/19 14:15 01/10/20 14:14 Ondansetron HCl (Zofran) 4 mg Q4H PRN IVP Nausea & Vomiting 12/11/19 14:15 01/10/20 14:14 Pantoprazole (Protonix) 40 mg DAILY ORAL 12/12/19 09:00 01/11/20 08:59 12/13/19 10:41 Temazepam (Restoril) 15 mg DAILYPRN PRN ORAL Insomnia 12/11/19 14:15 12/18/19 14:14 Erma Rajput MD Dec 13, 2019 12:41
[2019-12-13 16:00] VITALS: BP 144/88
--- NOTE | 2019-12-13 17:29 | Internal Med Progress Note ---
Subjective Date of Service: Dec 13, 2019 Physician Name Leroy Zimmer Attending Physician Yonas Purvis MD Current Medications Medications (Trade) Dose Ordered Sig/Catrina Route PRN Reason Start Time Stop Time Status Last Admin Dose Admin Acetaminophen (Tylenol) 650 mg Q4H PRN ORAL Mild Pain (Pain Scale 1-3) 12/11/19 14:15 01/10/20 14:14 Acetaminophen (Tylenol) 650 mg Q4H PRN ORAL fever 12/11/19 14:15 01/10/20 14:14 Allopurinol (Zyloprim) 100 mg DAILY ORAL 12/13/19 09:00 01/11/20 08:59 12/13/19 10:41 Amlodipine Besylate (Norvasc) 5 mg DAILY ORAL 12/13/19 10:15 01/12/20 10:14 12/13/19 10:41 Dextrose (Dextrose 50%) 25 ml Q30M PRN IV Hypoglycemia 12/11/19 14:15 03/10/20 14:14 Dextrose (Dextrose 50%) 50 ml Q30M PRN IV Hypoglycemia 12/11/19 14:15 03/10/20 14:14 Diphenhydramine HCl (Benadryl) 25 mg Q6H PRN ORAL Itching/Pruritis 12/11/19 14:15 01/10/20 14:14 Heparin Sodium (Porcine) (Heparin 5000 units/ml) 5,000 units EVERY 12 HOURS SUBQ 12/11/19 21:00 01/25/20 20:59 Hydralazine HCl (Apresoline) 50 mg Q8HR ORAL 12/11/19 22:00 03/10/20 21:59 12/13/19 06:34 Isosorbide Mononitrate (Imdur) 30 mg DAILY ORAL 12/12/19 09:00 01/11/20 08:59 12/13/19 10:41 Lorazepam (Ativan) 1 mg Q4H PRN ORAL For Anxiety 12/11/19 14:15 12/18/19 14:14 Methimazole (Tapazole) 20 mg DAILY ORAL 12/13/19 17:00 03/12/20 16:59 Metoprolol Tartrate (Lopressor) 25 mg DAILY@1200 ORAL 12/13/19 12:00 03/12/20 11:59 12/13/19 14:36 Metoprolol Tartrate (Lopressor) 50 mg EVERY 12 HOURS ORAL 12/11/19 21:00 03/10/20 20:59 12/13/19 10:42 Nitroglycerin (Ntg) 0.4 mg Q5M PRN SL Prn Chest Pain 12/11/19 14:15 01/10/20 14:14 Ondansetron HCl (Zofran) 4 mg Q4H PRN IVP Nausea & Vomiting 12/11/19 14:15 01/10/20 14:14 Pantoprazole (Protonix) 40 mg DAILY ORAL 12/12/19 09:00 01/11/20 08:59 12/13/19 10:41 Temazepam (Restoril) 15 mg DAILYPRN PRN ORAL Insomnia 12/11/19 14:15 12/18/19 14:14 Allergies: Uncoded Allergies: red meat (Adverse Reaction, Unknown, 11/15/19) patient has gout and does not eat red meat ROS Limited/Unobtainable: No Constitutional: Reports: no symptoms HEENT: Reports: no symptoms Cardiovascular: Reports: palpitations Respiratory: Reports: no symptoms Gastrointestinal/Abdominal: Reports: no symptoms Genitourinary: Reports: no symptoms Neurologic/Psychiatric: Reports: no symptoms Subjective 74 YO M admitted with palpitations. Now atrial flutter with rapid ventricular rate and congestive heart failure. Cover for Int Arnaldo-DR Purvis Objective Last Vital Signs Date Time Temp Pulse Resp B/P (MAP) Pulse Ox O2 Delivery O2 Flow Rate FiO2 12/13/19 14:36 71 126/70 12/13/19 08:00 98.4 18 98 12/12/19 21:00 Room Air Laboratory Tests Test 12/13/19 07:45 12/13/19 16:15 White Blood Count 8.7 K/UL (4.8-10.8) Red Blood Count 4.53 M/UL (4.70-6.10) L Hemoglobin 14.3 G/DL (14.2-18.0) Hematocrit 42.8 % (42.0-52.0) Mean Corpuscular Volume 94 FL (80-99) Mean Corpuscular Hemoglobin 31.6 PG (27.0-31.0) H Mean Corpuscular Hemoglobin Concent 33.5 G/DL (32.0-36.0) Red Cell Distribution Width 12.9 % (11.6-14.8) Platelet Count 219 K/UL (150-450) Mean Platelet Volume 5.5 FL (6.5-10.1) L Neutrophils (%) (Auto) 67.9 % (45.0-75.0) Lymphocytes (%) (Auto) 21.5 % (20.0-45.0) Monocytes (%) (Auto) 8.2 % (1.0-10.0) Eosinophils (%) (Auto) 1.3 % (0.0-3.0) Basophils (%) (Auto) 1.2 % (0.0-2.0) Sodium Level 146 MMOL/L (136-145) H Potassium Level 4.2 MMOL/L (3.5-5.1) Chloride Level 110 MMOL/L (98-107) H Carbon Dioxide Level 23 MMOL/L (21-32) Anion Gap 13 mmol/L (5-15) Blood Urea Nitrogen 27 mg/dL (7-18) H Creatinine 2.0 MG/DL (0.55-1.30) H Estimat Glomerular Filtration Rate 32.7 mL/min (>60) Glucose Level 107 MG/DL (74-106) H Calcium Level 8.8 MG/DL (8.5-10.1) Troponin I 0.000 ng/mL (0.000-0.056) Pro-B-Type Natriuretic Peptide 5036 pg/mL (0-125) H Free Thyroxine 2.31 NG/DL (0.76-1.46) H Triiodothyonine (T3) Pending Free Triiodothyronine 3.9 pg/mL (2.3-4.2) Triiodothyronine (T3) Uptake Pending Thyroid Stimulating Immunoglobulin Pending Thyroglobulin Antibody Pending Intake and Output 12/12/19 12/13/19 19:00 07:00 Intake Total 120 ml Balance 120 ml Intake Oral 120 ml # Voids 3 3 Objective PHYSICAL EXAMINATION: GENERALLY: The patient is a well-developed and well-nourished male no apparent distress. HEENT: Eyes, pupils are equal and responsive to light and accommodation. Extraocular movements are intact. NECK: Supple without lymphadenopathy. CHEST: Lungs are clear to auscultation bilaterally without wheezes or rales. CARDIOVASCULAR: Irregular rhythm and irregular rate. S1 and S2 normal without murmurs, rubs, or gallops. ABDOMEN: Soft, nontender, and nondistended. Positive bowel sounds. No evidence of hepatosplenomegaly. Currently, no rebound or guarding noted. EXTREMITIES: Negative for clubbing, cyanosis, or edema. RECTAL/GENITAL: Not performed. NEUROLOGIC: Cranial nerves II through XII are grossly intact without focal deficits. Motor strength is 5/5 bilaterally. Deep tendon reflexes are 2+ plantar. Assessment/Plan Assessment/Plan ASSESSMENT: This is a 74-year-old male. 1. Atrial flutter with rapid ventricular rate. 2. Congestive heart failure, diastolic and systolic. 3. Cardiomyopathy. 4. Chronic renal failure. 5. Hypertension. 6. Benign prostatic hypertrophy. 7. Gout. 8. Hypercholesterolemia. 9. Subclinical hyperthyroidism. 10. Non compliance with medical therapy TREATMENT: 1. Atrial flutter. Cardiology consultation has been obtained with Dr. Epifanio Silverio. The patient received Cardizem in the emergency room. We will follow recommendation of Cardiology. Off anticoagulation-needs echo to R/O mural thrombus prior to re-starting Xarelto. See cardiology note concerning patient refusal of anticoagulation 2. Hypercholesterolemia. The patient is currently off anti-lipidemic medication. 3. Hypertension. Continue metoprolol and Cardizem as above. 4. Congestive heart failure. As above, a Cardiology consultation has been obtained with Dr. Epifanio Silverio. Congestive heart failure is systolic and diastolic in nature. 5. Cardiomyopathy with an ejection fraction 35 to 40%. 6. Chronic renal failure. 7. Benign prostatic hypertrophy. 8. Gout. 9. Subclinical hyperthyroidism-await thyroid panel 10. DVT prophylaxis=SQ heparin 11. Full code Leroy Zimmer MD Dec 13, 2019 17:29
--- NOTE | 2019-12-13 18:30 | Consultation ---
DATE OF CONSULTATION: 12/13/2019 CARDIOLOGY CONSULTATION CONSULTING PHYSICIAN: Epifanio Silverio M.D. REFERRING PHYSICIAN: Yonas Purvis M.D. and Erma Rajput M.D. REASON FOR REFERRAL: Tachycardia, hypertension. HISTORY OF PRESENT ILLNESS: This is a middle-aged male who is known to me from prior hospitalization. Basically, he has history of atrial flutter and hypertension that has been relatively controlled with medication when he is here, but when he goes out, he is noncompliant with some of his medications. He comes back in because of tachycardia and hypertension. He came in again this time because of palpitation. He felt his heart rate be rapid on 3 separate occasions and was having some difficulty walking. He has been in a motel, but he just discharged about 12 hours from the motel and did not have a place to really sit because he is homeless and all the restaurants that he used to sit and rest are basically closed. Nevertheless, he does not now list any shortness of breath on exertion. He did, however, feel that it was different in terms of exertion when past few hours before he came into the hospital, he has had palpitation. No chest pain or pressure. No PND. No orthopnea. No dizziness on standing although he indicates that he stands up very slowly. PAST MEDICAL HISTORY: Positive for history of recurrent bouts of atrial flutter, which at some point, he has converted to sinus, left ventricular systolic dysfunction, congestive heart failure, homelessness, systemic hypertension, renal insufficiency, possible history of hypothyroidism, history of pericardial calcification. His ejection fraction was previously of 35% to 40%, but he did develop some worsening of his renal insufficiency with diuretics. He has had mild diastolic relaxation abnormalities with dilated IVC with increased right atrial pressure. He got a history of gout, prostatic hypertrophy, hyperlipidemia, right inguinal hernia, status post TURP, alcoholism in the past, history of heel fractures nondisplaced, dehydration, hypovolemia, anemia, and melanoma. ALLERGIES: Not allergic to any medications. SOCIAL HISTORY: He does drink some. Denies any drug use. REVIEW OF SYSTEMS: GASTROINTESTINAL: There has been some diarrhea intermittently. GENITOURINARY: Negative. PULMONARY: He has chronic cough that he has had since he stopped smoking. His cough has not worsened or changed. There is no sputum production. CONSTITUTIONAL: No fevers, chills, night sweats, or weight loss. PHYSICAL EXAMINATION: VITAL SIGNS: Blood pressure anywhere between 137/71 to 162/103, heart rate in the 69 to 74 range, temperature is 98.4. He had 199.5 at 4 o'clock this morning, otherwise everything else has been a fair process. GENERAL: Shows to be middle-aged gentleman, in no respiratory distress. NECK: Supple. There is jugular venous distention. LUNGS: Appear to be clear. CARDIAC: Irregularly irregular. Not tachycardic. Not bradycardic. No heaves or thrills. ABDOMEN: Soft, nontender. Positive bowel sounds. EXTREMITIES: There is really no clubbing, cyanosis, or edema. NEUROLOGICAL: He is awake, alert, responsive. LABORATORY AND DIAGNOSTIC DATA: White count of 8.7, hemoglobin 14.3, and platelet count of 219. Sodium 146, potassium 4.2, chloride 110, bicarb 23, BUN of 27, creatinine 2.0, glucose of 107, calcium is 8.8. Troponin 0.00. All other troponins have been negative. His proBNP is to 5000. His free T4 is 3.9. His last TSH was less than 0.01 and his T3 uptake and T3 are both pending at this time. His liver function tests are all normal and his total cholesterol is 115 with LDL of 59. His electrocardiogram shows atrial flutter. Telemetry shows atrial flutter with variable response. IMAGING: He did have a chest x-ray on 12/10/2019 when he first came in and showed no consolidation or pleural effusion extensive with normal fixation. ASSESSMENT AND PLAN: 1. History of congestive heart failure. 2. LV systolic dysfunction, previous ejection fraction 35 to 40%. 3. Mild diastolic dysfunction. 4. Increased right atrial pressure based on the jugular venous distention. 5. Renal insufficiency. 6. Questionable history of hypothyroidism. 7. Hypertension. 8. History of gout. 9. History of pericardial calcification. This patient was seen in cardiac consultation. In detailed discussion with patient, it appears that patient has not been compliant with amiodarone nor is wanting to take that medication. He does not want to be in any anticoagulation whatsoever even in the hospital and refuses to take it at all. His heart rate has been controlled on the combination of medications of 50 mg of metoprolol twice a day in addition to amiodarone, although his amiodarone really he has not been taking that for the past few days before he came into the hospital. He has been on simvastatin that he has been compliant with. He is on metoprolol. As much as I could tell, he is taking metoprolol 50 mg twice a day and he is on isosorbide mononitrate and he is on hydralazine 50 mg 3 times a day as well as allopurinol 100 mg a day. He has nitroglycerin, which he has not taken. He is also on Flomax, which he is noncompliant with and he has not had to take Lasix because he does not have any problems with that, so I think since he does want to take amiodarone, we will focus on controlling his heart rate with a combination of increased dose of metoprolol if possible. His blood pressure will tried to be maintained with Norvasc if possible while in-house hydralazine or maybe in combination with hydralazine depending on how he responds. His cardiac enzymes are negative. His thyroid needs to be re-evaluated. His TSH is low. If truly hypothyroidism, that may make the heart rate difficult to control although he does not seem to have that difficulty at this time as the heart rate seems to be controlled relatively well at this time. In either case, I hope to be able to discharge him home soon. Epifanio Silverio M.D. DR: ESTHER JOB#: [id number] CC:
[2019-12-13 20:00] VITALS: BP 174/105
--- NOTE | 2019-12-13 22:29 | Consultation ---
DATE OF CONSULTATION: 12/13/2019 ENDOCRINOLOGY CONSULTATION CONSULTING PHYSICIAN: Diilp Flores MD REFERRING PHYSICIAN: Yonas Purvis MD REASON FOR CONSULTATION: Hyperthyroidism. HISTORY OF PRESENT ILLNESS: The patient is a 74-year-old male with history of cardiac arrhythmia and recent admission to [facility] in October. He re-presented with same symptomatology, arrhythmia, shortness of breath. During previous admission, TSH was 0.4 with a normal free T4 and free T3, this was in October. At this time, the patient was noted to have undetectable TSH with T4 up to 2.3, free T3 2.9. Endocrinology was consulted in order to assist in the management of hyperthyroidism. PAST MEDICAL HISTORY: 1. Atrial flutter. 2. Dyslipidemia. 3. Hypertension. 4. CHF. 5. Cardiomyopathy. 6. Chronic kidney disease. 7. BPH. 8. Gout. 9. History of subclinical hyperthyroidism. PAST SURGICAL HISTORY: 1. TURP 2. Right inguinal hernia repair. MEDICATIONS: Reviewed and reconciled. The patient has not been exposed to amiodarone. ALLERGIES TO MEDICATION: None. SOCIAL HISTORY: The patient is single, is often homeless. Smokes half a pack a day. No smoking, alcohol, or drug use. PHYSICAL EXAMINATION: VITAL SIGNS: Blood pressure is 146/70, heart rate 71, temperature 98.4, respiratory rate of 18. HEENT: Pupils are reactive to light. NECK: goiter on neck exam HEART: Irregular. LUNGS: Clear. ABDOMEN: Positive bowel sounds. EXTREMITIES: Positive for tremor. LABORATORY VALUES: Sodium 146, potassium 4.2, chloride 110, bicarb 22, BUN 27, creatinine 2.0. BNP of 5000. Free T4 of 2.3, free T3 of 2.9, TSH is undetectable. DIAGNOSES: 1. Hyperthyroidism. 2. Goiter 3. Cardiac arrhythmia. PLAN: 1. Start the patient on methimazole 20 mg daily, first dose to be given now and then to continue with 20 mg every morning starting tomorrow. 2. Check thyroid peroxidase antibody as well as TSI in order to rule out underlying Graves. 3. Thyroid ultrasound. 4. Further adjustment according to the results. I will follow the patient closely during hospital stay. Thank you, Dr. Purvis, for the courtesy of this consultation. Dilip Flores M.D. DR: Luanne JOB#: [id number] CC: MAGO
[2019-12-14] MEDS: HydrALAZINE 50mg tab ORAL SCH ×3 (05:53→21:23)
[2019-12-14 06:20] LABS: BASOPHILS % (AUTO) 0.9 % (0.0-2.0); EOSINOPHILS % (AUTO) 1.8 % (0.0-3.0); MEAN CORPUSCULAR VOLUME 93 FL (80-99); MONOCYTES % (AUTO) 10.7 % (1.0-10.0); NEUTROPHILS % (AUTO) 60.7 % (45.0-75.0); PLATELET COUNT 197 K/UL (150-450); RED BLOOD COUNT 4.39 M/UL (4.70-6.10); RED CELL DISTRIBUTION WIDTH 12.6 % (11.6-14.8); WHITE BLOOD COUNT 7.1 K/UL (4.8-10.8)
[2019-12-14 07:06] LABS: ANION GAP 14 mmol/L (5-15); BLOOD UREA NITROGEN 32 mg/dL (7-18); CARBON DIOXIDE 23 MMOL/L (21-32); CHLORIDE 111 MMOL/L (98-107); CREATININE 1.9 MG/DL (0.55-1.30); POTASSIUM 4.1 MMOL/L (3.5-5.1); SODIUM 148 MMOL/L (136-145)
[2019-12-14 08:00] VITALS: BP 142/80
--- NOTE | 2019-12-14 08:55 | General Progress Note ---
Assessment/Plan Problem List: (1) Hyperthyroidism ICD Codes: E05.90 - Thyrotoxicosis, unspecified without thyrotoxic crisis or storm SNOMED: 73766986 (2) Hypertension, essential ICD Codes: I10 - Essential (primary) hypertension SNOMED: 25128271 Assessment/Plan: continue Tapazole 20 mg daily thyroid US pending ATPO and TSI pending Subjective Allergies: Uncoded Allergies: red meat (Adverse Reaction, Unknown, 11/15/19) patient has gout and does not eat red meat All Systems: reviewed and negative except above Subjective events noted interval notes reviewed Objective Last 24 Hour Vital Signs Date Time Temp Pulse Resp B/P (MAP) Pulse Ox O2 Delivery O2 Flow Rate FiO2 12/14/19 05:53 177/95 12/14/19 04:00 77 12/14/19 00:00 71 12/13/19 21:35 174/105 12/13/19 21:32 74 174/105 12/13/19 20:00 73 12/13/19 16:00 76 12/13/19 16:00 97.8 71 18 144/88 (106) 97 12/13/19 14:36 71 126/70 12/13/19 12:00 98.4 72 18 127/72 (90) 95 12/13/19 12:00 70 12/13/19 10:42 69 137/71 12/13/19 10:41 69 137/71 12/13/19 10:41 137/71 12/13/19 09:00 Room Air Intake and Output 12/13/19 12/14/19 19:00 07:00 Intake Total 260 ml Balance 260 ml Intake Oral 260 ml # Voids 3 Laboratory Tests 12/13/19 16:15: Thyroid Stimulating Immunoglobulin [Pending], Thyroglobulin Antibody <1.0 12/14/19 05:35: White Blood Count 7.1, Red Blood Count 4.39L, Hemoglobin 14.0L, Hematocrit 41.0L , Mean Corpuscular Volume 93, Mean Corpuscular Hemoglobin 31.9H, Mean Corpuscular Hemoglobin Concent 34.3, Red Cell Distribution Width 12.6, Platelet Count 197, Mean Platelet Volume 6.4L, Neutrophils (%) (Auto) 60.7, Lymphocytes ( %) (Auto) 26.0, Monocytes (%) (Auto) 10.7H, Eosinophils (%) (Auto) 1.8, Basophils (%) (Auto) 0.9, Sodium Level 148H, Potassium Level 4.1, Chloride Level 111H, Carbon Dioxide Level 23, Anion Gap 14, Blood Urea Nitrogen 32H, Creatinine 1.9H, Estimat Glomerular Filtration Rate 34.7, Glucose Level 94, Calcium Level 9.0, Pro-B-Type Natriuretic Peptide 5469H Height (Feet): 5 Height (Inches): 10.00 Weight (Pounds): 185 General Appearance: no apparent distress Neck: normal alignment Cardiovascular: no JVD, irregularly irregular Respiratory/Chest: decreased breath sounds Abdomen: normal bowel sounds Objective Current Medications Medications (Trade) Dose Ordered Sig/Catirna Route PRN Reason Start Time Stop Time Status Last Admin Dose Admin Acetaminophen (Tylenol) 650 mg Q4H PRN ORAL Mild Pain (Pain Scale 1-3) 12/11/19 14:15 01/10/20 14:14 Acetaminophen (Tylenol) 650 mg Q4H PRN ORAL fever 12/11/19 14:15 01/10/20 14:14 Allopurinol (Zyloprim) 100 mg DAILY ORAL 12/13/19 09:00 01/11/20 08:59 12/13/19 10:41 Amlodipine Besylate (Norvasc) 5 mg DAILY ORAL 12/13/19 10:15 01/12/20 10:14 12/13/19 10:41 Dextrose (Dextrose 50%) 25 ml Q30M PRN IV Hypoglycemia 12/11/19 14:15 03/10/20 14:14 Dextrose (Dextrose 50%) 50 ml Q30M PRN IV Hypoglycemia 12/11/19 14:15 03/10/20 14:14 Diphenhydramine HCl (Benadryl) 25 mg Q6H PRN ORAL Itching/Pruritis 12/11/19 14:15 01/10/20 14:14 Heparin Sodium (Porcine) (Heparin 5000 units/ml) 5,000 units EVERY 12 HOURS SUBQ 12/11/19 21:00 01/25/20 20:59 Hydralazine HCl (Apresoline) 50 mg Q8HR ORAL 12/11/19 22:00 03/10/20 21:59 12/14/19 05:53 Isosorbide Mononitrate (Imdur) 30 mg DAILY ORAL 12/12/19 09:00 01/11/20 08:59 12/13/19 10:41 Lorazepam (Ativan) 1 mg Q4H PRN ORAL For Anxiety 12/11/19 14:15 12/18/19 14:14 Methimazole (Tapazole) 20 mg DAILY ORAL 12/13/19 17:00 03/12/20 16:59 Metoprolol Tartrate (Lopressor) 25 mg DAILY@1200 ORAL 12/13/19 12:00 03/12/20 11:59 12/13/19 14:36 Metoprolol Tartrate (Lopressor) 50 mg EVERY 12 HOURS ORAL 12/11/19 21:00 03/10/20 20:59 12/13/19 21:32 Nitroglycerin (Ntg) 0.4 mg Q5M PRN SL Prn Chest Pain 12/11/19 14:15 01/10/20 14:14 Ondansetron HCl (Zofran) 4 mg Q4H PRN IVP Nausea & Vomiting 12/11/19 14:15 01/10/20 14:14 Pantoprazole (Protonix) 40 mg DAILY ORAL 12/12/19 09:00 01/11/20 08:59 12/13/19 10:41 Temazepam (Restoril) 15 mg DAILYPRN PRN ORAL Insomnia 12/11/19 14:15 12/18/19 14:14 Dilip Flores MD Dec 14, 2019 08:55
[2019-12-14] MEDS: Allopurinol 100mg Tab ORAL SCH (10:19)
[2019-12-14] MEDS: Metoprolol Tartrate 50mg tab ORAL SCH ×2 (10:20→21:23)
[2019-12-14] MEDS: Imdur 30mg tab ORAL SCH (10:21)
--- NOTE | 2019-12-14 11:55 | Internal Med Progress Note ---
Subjective Date of Service: Dec 14, 2019 Physician Name Leroy Zimmer Attending Physician Yonas Purvis MD Current Medications Medications (Trade) Dose Ordered Sig/Catrina Route PRN Reason Start Time Stop Time Status Last Admin Dose Admin Acetaminophen (Tylenol) 650 mg Q4H PRN ORAL Mild Pain (Pain Scale 1-3) 12/11/19 14:15 01/10/20 14:14 Acetaminophen (Tylenol) 650 mg Q4H PRN ORAL fever 12/11/19 14:15 01/10/20 14:14 Allopurinol (Zyloprim) 100 mg DAILY ORAL 12/13/19 09:00 01/11/20 08:59 12/14/19 10:19 Amlodipine Besylate (Norvasc) 5 mg DAILY ORAL 12/13/19 10:15 01/12/20 10:14 12/14/19 10:28 Dextrose (Dextrose 50%) 25 ml Q30M PRN IV Hypoglycemia 12/11/19 14:15 03/10/20 14:14 Dextrose (Dextrose 50%) 50 ml Q30M PRN IV Hypoglycemia 12/11/19 14:15 03/10/20 14:14 Diphenhydramine HCl (Benadryl) 25 mg Q6H PRN ORAL Itching/Pruritis 12/11/19 14:15 01/10/20 14:14 Heparin Sodium (Porcine) (Heparin 5000 units/ml) 5,000 units EVERY 12 HOURS SUBQ 12/11/19 21:00 01/25/20 20:59 Hydralazine HCl (Apresoline) 50 mg Q8HR ORAL 12/11/19 22:00 03/10/20 21:59 12/14/19 05:53 Isosorbide Mononitrate (Imdur) 30 mg DAILY ORAL 12/12/19 09:00 01/11/20 08:59 12/14/19 10:21 Lorazepam (Ativan) 1 mg Q4H PRN ORAL For Anxiety 12/11/19 14:15 12/18/19 14:14 Methimazole (Tapazole) 20 mg DAILY ORAL 12/13/19 17:00 03/12/20 16:59 12/14/19 10:20 Metoprolol Tartrate (Lopressor) 25 mg DAILY@1200 ORAL 12/13/19 12:00 03/12/20 11:59 12/13/19 14:36 Metoprolol Tartrate (Lopressor) 50 mg EVERY 12 HOURS ORAL 12/11/19 21:00 03/10/20 20:59 12/14/19 10:20 Nitroglycerin (Ntg) 0.4 mg Q5M PRN SL Prn Chest Pain 12/11/19 14:15 01/10/20 14:14 Ondansetron HCl (Zofran) 4 mg Q4H PRN IVP Nausea & Vomiting 12/11/19 14:15 01/10/20 14:14 Pantoprazole (Protonix) 40 mg DAILY ORAL 12/12/19 09:00 01/11/20 08:59 12/14/19 10:20 Temazepam (Restoril) 15 mg DAILYPRN PRN ORAL Insomnia 12/11/19 14:15 12/18/19 14:14 Allergies: Uncoded Allergies: red meat (Adverse Reaction, Unknown, 11/15/19) patient has gout and does not eat red meat ROS Limited/Unobtainable: No Constitutional: Reports: no symptoms HEENT: Reports: no symptoms Cardiovascular: Reports: no symptoms Respiratory: Reports: no symptoms Gastrointestinal/Abdominal: Reports: no symptoms Genitourinary: Reports: no symptoms Neurologic/Psychiatric: Reports: no symptoms Subjective 74 YO M admitted with palpitations. Now atrial flutter with rapid ventricular rate and congestive heart failure. Cover for Int Pita Purvis Objective Last Vital Signs Date Time Temp Pulse Resp B/P (MAP) Pulse Ox O2 Delivery O2 Flow Rate FiO2 12/14/19 10:28 80 153/83 12/14/19 08:00 Room Air 12/13/19 20:00 98.2 19 96 Laboratory Tests Test 12/13/19 16:15 12/14/19 05:35 Thyroid Stimulating Immunoglobulin Pending Thyroglobulin Antibody <1.0 IU/mL (0.0-0.9) White Blood Count 7.1 K/UL (4.8-10.8) Red Blood Count 4.39 M/UL (4.70-6.10) L Hemoglobin 14.0 G/DL (14.2-18.0) L Hematocrit 41.0 % (42.0-52.0) L Mean Corpuscular Volume 93 FL (80-99) Mean Corpuscular Hemoglobin 31.9 PG (27.0-31.0) H Mean Corpuscular Hemoglobin Concent 34.3 G/DL (32.0-36.0) Red Cell Distribution Width 12.6 % (11.6-14.8) Platelet Count 197 K/UL (150-450) Mean Platelet Volume 6.4 FL (6.5-10.1) L Neutrophils (%) (Auto) 60.7 % (45.0-75.0) Lymphocytes (%) (Auto) 26.0 % (20.0-45.0) Monocytes (%) (Auto) 10.7 % (1.0-10.0) H Eosinophils (%) (Auto) 1.8 % (0.0-3.0) Basophils (%) (Auto) 0.9 % (0.0-2.0) Sodium Level 148 MMOL/L (136-145) H Potassium Level 4.1 MMOL/L (3.5-5.1) Chloride Level 111 MMOL/L (98-107) H Carbon Dioxide Level 23 MMOL/L (21-32) Anion Gap 14 mmol/L (5-15) Blood Urea Nitrogen 32 mg/dL (7-18) H Creatinine 1.9 MG/DL (0.55-1.30) H Estimat Glomerular Filtration Rate 34.7 mL/min (>60) Glucose Level 94 MG/DL (74-106) Calcium Level 9.0 MG/DL (8.5-10.1) Pro-B-Type Natriuretic Peptide 5469 pg/mL (0-125) H Intake and Output 12/13/19 12/14/19 19:00 07:00 Intake Total 260 ml Balance 260 ml Intake Oral 260 ml # Voids 3 Objective PHYSICAL EXAMINATION: GENERALLY: The patient is a well-developed and well-nourished male no apparent distress. HEENT: Eyes, pupils are equal and responsive to light and accommodation. Extraocular movements are intact. NECK: Supple without lymphadenopathy. CHEST: Lungs are clear to auscultation bilaterally without wheezes or rales. CARDIOVASCULAR: Irregular rhythm and irregular rate. S1 and S2 normal without murmurs, rubs, or gallops. ABDOMEN: Soft, nontender, and nondistended. Positive bowel sounds. No evidence of hepatosplenomegaly. Currently, no rebound or guarding noted. EXTREMITIES: Negative for clubbing, cyanosis, or edema. RECTAL/GENITAL: Not performed. NEUROLOGIC: Cranial nerves II through XII are grossly intact without focal deficits. Motor strength is 5/5 bilaterally. Deep tendon reflexes are 2+ plantar. Assessment/Plan Assessment/Plan ASSESSMENT: This is a 74-year-old male. 1. Atrial flutter with rapid ventricular rate. 2. Congestive heart failure, diastolic and systolic. 3. Cardiomyopathy. 4. Chronic renal failure. 5. Hypertension. 6. Benign prostatic hypertrophy. 7. Gout. 8. Hypercholesterolemia. 9. Subclinical hyperthyroidism. 10. Non compliance with medical therapy TREATMENT: 1. Atrial flutter. Cardiology consultation has been obtained with Dr. Epifanio Silverio. The patient received Cardizem in the emergency room. We will follow recommendation of Cardiology. Off anticoagulation-needs echo to R/O mural thrombus prior to re-starting Xarelto. See cardiology note concerning patient refusal of anticoagulation 2. Hypercholesterolemia. The patient is currently off anti-lipidemic medication. 3. Hypertension. Continue metoprolol and Cardizem as above. 4. Congestive heart failure. As above, a Cardiology consultation has been obtained with Dr. Epifanio Silverio. Congestive heart failure is systolic and diastolic in nature. 5. Cardiomyopathy with an ejection fraction 35 to 40%. 6. Chronic renal failure. 7. Benign prostatic hypertrophy. 8. Gout. 9. Subclinical hyperthyroidism-thyroid panel WNL 10. DVT prophylaxis=SQ heparin 11. Full code Leroy Zimmer MD Dec 14, 2019 11:55
[2019-12-14 12:00] VITALS: BP 122/80
--- NOTE | 2019-12-14 12:44 | Pulmonology Progress Note ---
Assessment/Plan Problems: (1) Atrial flutter with rapid ventricular response (2) Uncontrolled hypertension (3) Pericardial calcification (4) History of hypertension (5) History of gout Assessment/Plan cardiac monitoring, still flutter, rate is controlled at 70-80's adjust cardiac meds pt refused US of thyroids cardio consult and f./u appreciated Subjective Interval Events: very defient Allergies: Uncoded Allergies: red meat (Adverse Reaction, Unknown, 11/15/19) patient has gout and does not eat red meat Objective Last 24 Hour Vital Signs Date Time Temp Pulse Resp B/P (MAP) Pulse Ox O2 Delivery O2 Flow Rate FiO2 12/14/19 12:00 133 76/61 12/14/19 10:28 80 153/83 12/14/19 10:21 153/83 12/14/19 10:20 80 153/83 12/14/19 08:00 Room Air 12/14/19 05:53 177/95 12/14/19 04:00 77 12/14/19 00:00 71 12/13/19 21:35 174/105 12/13/19 21:32 74 174/105 12/13/19 21:00 Room Air 12/13/19 20:00 98.2 19 174/105 (128) 96 12/13/19 20:00 73 12/13/19 16:00 76 12/13/19 16:00 97.8 71 18 144/88 (106) 97 12/13/19 14:36 71 126/70 Intake and Output 12/13/19 12/14/19 19:00 07:00 Intake Total 260 ml Balance 260 ml Intake Oral 260 ml # Voids 3 General Appearance: WD/WN HEENT: normocephalic Respiratory/Chest: chest wall non-tender, lungs clear Cardiovascular: normal peripheral pulses, normal rate Abdomen: normal bowel sounds, soft, non tender Genitourinary: normal external genitalia Neurologic/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 Laboratory Tests 12/13/19 16:15: Thyroid Stimulating Immunoglobulin [Pending], Thyroglobulin Antibody <1.0 12/14/19 05:35: White Blood Count 7.1, Red Blood Count 4.39L, Hemoglobin 14.0L, Hematocrit 41.0L , Mean Corpuscular Volume 93, Mean Corpuscular Hemoglobin 31.9H, Mean Corpuscular Hemoglobin Concent 34.3, Red Cell Distribution Width 12.6, Platelet Count 197, Mean Platelet Volume 6.4L, Neutrophils (%) (Auto) 60.7, Lymphocytes ( %) (Auto) 26.0, Monocytes (%) (Auto) 10.7H, Eosinophils (%) (Auto) 1.8, Basophils (%) (Auto) 0.9, Sodium Level 148H, Potassium Level 4.1, Chloride Level 111H, Carbon Dioxide Level 23, Anion Gap 14, Blood Urea Nitrogen 32H, Creatinine 1.9H, Estimat Glomerular Filtration Rate 34.7, Glucose Level 94, Calcium Level 9.0, Pro-B-Type Natriuretic Peptide 5469H Current Medications Medications (Trade) Dose Ordered Sig/Catrina Route PRN Reason Start Time Stop Time Status Last Admin Dose Admin Acetaminophen (Tylenol) 650 mg Q4H PRN ORAL Mild Pain (Pain Scale 1-3) 12/11/19 14:15 01/10/20 14:14 Acetaminophen (Tylenol) 650 mg Q4H PRN ORAL fever 12/11/19 14:15 01/10/20 14:14 Allopurinol (Zyloprim) 100 mg DAILY ORAL 12/13/19 09:00 01/11/20 08:59 12/14/19 10:19 Amlodipine Besylate (Norvasc) 5 mg DAILY ORAL 12/13/19 10:15 01/12/20 10:14 12/14/19 10:28 Dextrose (Dextrose 50%) 25 ml Q30M PRN IV Hypoglycemia 12/11/19 14:15 03/10/20 14:14 Dextrose (Dextrose 50%) 50 ml Q30M PRN IV Hypoglycemia 12/11/19 14:15 03/10/20 14:14 Diphenhydramine HCl (Benadryl) 25 mg Q6H PRN ORAL Itching/Pruritis 12/11/19 14:15 01/10/20 14:14 Heparin Sodium (Porcine) (Heparin 5000 units/ml) 5,000 units EVERY 12 HOURS SUBQ 12/11/19 21:00 01/25/20 20:59 Hydralazine HCl (Apresoline) 50 mg Q8HR ORAL 12/11/19 22:00 03/10/20 21:59 12/14/19 05:53 Isosorbide Mononitrate (Imdur) 30 mg DAILY ORAL 12/12/19 09:00 01/11/20 08:59 12/14/19 10:21 Lorazepam (Ativan) 1 mg Q4H PRN ORAL For Anxiety 12/11/19 14:15 12/18/19 14:14 Methimazole (Tapazole) 20 mg DAILY ORAL 12/13/19 17:00 03/12/20 16:59 12/14/19 10:20 Metoprolol Tartrate (Lopressor) 25 mg DAILY@1200 ORAL 12/13/19 12:00 03/12/20 11:59 12/13/19 14:36 Metoprolol Tartrate (Lopressor) 50 mg EVERY 12 HOURS ORAL 12/11/19 21:00 03/10/20 20:59 12/14/19 10:20 Nitroglycerin (Ntg) 0.4 mg Q5M PRN SL Prn Chest Pain 12/11/19 14:15 01/10/20 14:14 Ondansetron HCl (Zofran) 4 mg Q4H PRN IVP Nausea & Vomiting 12/11/19 14:15 01/10/20 14:14 Pantoprazole (Protonix) 40 mg DAILY ORAL 12/12/19 09:00 01/11/20 08:59 12/14/19 10:20 Temazepam (Restoril) 15 mg DAILYPRN PRN ORAL Insomnia 12/11/19 14:15 12/18/19 14:14 Erma Rajput MD Dec 14, 2019 12:43
[2019-12-14 16:00] VITALS: BP 132/80
[2019-12-14 20:00] VITALS: BP 143/100
--- NOTE | 2019-12-14 20:46 | Cardiology Progress Note ---
Assessment/Plan Assessment/Plan 1. Atrial flutter, with intermittent tachy 2. History of congestive heart failure. 3. LV systolic dysfunction, ejection fraction reported 35% to 40%. 4. Mild diastolic dysfunction 5. Renal insufficiency. 6. Questionable hyperthyroidism. 7. Hypertension. 8. History of gout. 9. Pericardial calcification 10. Medication non compliance or adherence not want to take amio or anticoagulation despite recommendation understand risk of stroke and parlaysis will focus on bp control will add [facility] jaimie increase bid , hydralazine to jimbo oliva for now unitl bp controlled by norvasc hr controlled importance of compliance d/w pt he has not been taking amio , lasix or flomax as out pt nto seem to have sx of chf so use lasix prn all torp neg await input of tfts he may have [facility] Objective Last 24 Hour Vital Signs Date Time Temp Pulse Resp B/P (MAP) Pulse Ox O2 Delivery O2 Flow Rate FiO2 12/14/19 16:00 Room Air 12/14/19 16:00 20 132/80 (97) 12/14/19 16:00 80 12/14/19 14:00 122/80 12/14/19 12:00 97.4 20 122/80 (94) 94 12/14/19 12:00 76 12/14/19 12:00 133 76/61 12/14/19 12:00 Room Air 12/14/19 10:28 80 153/83 12/14/19 10:21 153/83 12/14/19 10:20 80 153/83 12/14/19 08:00 87 12/14/19 08:00 97.3 20 142/80 (100) 93 12/14/19 08:00 Room Air 12/14/19 05:53 177/95 12/14/19 04:00 77 12/14/19 00:00 71 12/13/19 21:35 174/105 12/13/19 21:32 74 174/105 12/13/19 21:00 Room Air Intake and Output 12/13/19 12/14/19 19:00 07:00 Intake Total 260 ml Balance 260 ml Intake Oral 260 ml # Voids 3 Laboratory Tests Test 12/14/19 05:35 White Blood Count 7.1 K/UL (4.8-10.8) Red Blood Count 4.39 M/UL (4.70-6.10) L Hemoglobin 14.0 G/DL (14.2-18.0) L Hematocrit 41.0 % (42.0-52.0) L Mean Corpuscular Volume 93 FL (80-99) Mean Corpuscular Hemoglobin 31.9 PG (27.0-31.0) H Mean Corpuscular Hemoglobin Concent 34.3 G/DL (32.0-36.0) Red Cell Distribution Width 12.6 % (11.6-14.8) Platelet Count 197 K/UL (150-450) Mean Platelet Volume 6.4 FL (6.5-10.1) L Neutrophils (%) (Auto) 60.7 % (45.0-75.0) Lymphocytes (%) (Auto) 26.0 % (20.0-45.0) Monocytes (%) (Auto) 10.7 % (1.0-10.0) H Eosinophils (%) (Auto) 1.8 % (0.0-3.0) Basophils (%) (Auto) 0.9 % (0.0-2.0) Sodium Level 148 MMOL/L (136-145) H Potassium Level 4.1 MMOL/L (3.5-5.1) Chloride Level 111 MMOL/L (98-107) H Carbon Dioxide Level 23 MMOL/L (21-32) Anion Gap 14 mmol/L (5-15) Blood Urea Nitrogen 32 mg/dL (7-18) H Creatinine 1.9 MG/DL (0.55-1.30) H Estimat Glomerular Filtration Rate 34.7 mL/min (>60) Glucose Level 94 MG/DL (74-106) Calcium Level 9.0 MG/DL (8.5-10.1) Pro-B-Type Natriuretic Peptide 5469 pg/mL (0-125) H Epifanio Silverio MD Dec 14, 2019 20:46
[2019-12-14] MEDS: Heparin 5000 units/ml inj SUBQ SCH (21:00)
[2019-12-15 03:48] VITALS: BP 141/77
[2019-12-15 04:00] VITALS: BP 134/86
[2019-12-15] MEDS: HydrALAZINE 50mg tab ORAL SCH ×3 (06:10→21:01)
[2019-12-15 06:45] LABS: BASOPHILS % (AUTO) 1.4 % (0.0-2.0); EOSINOPHILS % (AUTO) 1.8 % (0.0-3.0); HEMATOCRIT 39.5 % (42.0-52.0); HEMOGLOBIN 13.5 G/DL (14.2-18.0); LYMPHOCYTES % (AUTO) 22.7 % (20.0-45.0); MEAN CORPUSCULAR VOLUME 94 FL (80-99); MONOCYTES % (AUTO) 11.4 % (1.0-10.0); NEUTROPHILS % (AUTO) 62.6 % (45.0-75.0); PLATELET COUNT 187 K/UL (150-450); RED BLOOD COUNT 4.22 M/UL (4.70-6.10); RED CELL DISTRIBUTION WIDTH 12.4 % (11.6-14.8); WHITE BLOOD COUNT 6.8 K/UL (4.8-10.8)
[2019-12-15 07:06] LABS: ANION GAP 9 mmol/L (5-15); BLOOD UREA NITROGEN 30 mg/dL (7-18); CALCIUM 9.1 MG/DL (8.5-10.1); CARBON DIOXIDE 25 MMOL/L (21-32); CHLORIDE 109 MMOL/L (98-107); CREATININE 1.8 MG/DL (0.55-1.30); SODIUM 143 MMOL/L (136-145)
[2019-12-15 08:00] VITALS: BP 160/96
[2019-12-15] MEDS: Metoprolol Tartrate 50mg tab ORAL SCH ×2 (08:57→20:50)
[2019-12-15] MEDS: Allopurinol 100mg Tab ORAL SCH (08:57)
[2019-12-15] MEDS: Imdur 30mg tab ORAL SCH (08:57)
[2019-12-15] MEDS: Heparin 5000 units/ml inj SUBQ SCH ×2 (09:00→21:00)
[2019-12-15 12:00] VITALS: BP 153/71
--- NOTE | 2019-12-15 12:15 | Pulmonology Progress Note ---
Assessment/Plan Problems: (1) Atrial flutter with rapid ventricular response (2) Uncontrolled hypertension (3) Pericardial calcification (4) History of hypertension (5) History of gout Assessment/Plan cardiac monitoring, still flutter, rate is controlled at 80-90's adjust cardiac meds social service note appreciated cardio consult and f./u appreciated Subjective ROS Limited/Unobtainable: No Constitutional: Reports: no symptoms HEENT: Repors: no symptoms Respiratory: Reports: no symptoms Allergies: Uncoded Allergies: red meat (Adverse Reaction, Unknown, 11/15/19) patient has gout and does not eat red meat Objective Last 24 Hour Vital Signs Date Time Temp Pulse Resp B/P (MAP) Pulse Ox O2 Delivery O2 Flow Rate FiO2 12/15/19 09:00 Room Air 12/15/19 08:57 79 160/96 12/15/19 08:57 86 160/96 12/15/19 08:57 160/96 12/15/19 08:00 75 12/15/19 08:00 97.7 87 18 160/96 (117) 92 12/15/19 06:10 137/56 12/15/19 04:00 97.6 18 134/86 (102) 83 12/15/19 04:00 79 12/15/19 03:48 97.7 18 141/77 (98) 82 12/15/19 00:00 82 12/14/19 21:23 84 143/100 12/14/19 21:23 143/100 12/14/19 21:00 Room Air 12/14/19 20:00 97.9 18 143/100 (114) 97 12/14/19 16:00 Room Air 12/14/19 16:00 20 132/80 (97) 12/14/19 16:00 80 12/14/19 14:00 122/80 Intake and Output 12/14/19 12/15/19 19:00 07:00 Intake Total 960 ml Balance 960 ml Intake Oral 960 ml # Voids 3 1 General Appearance: WD/WN HEENT: normocephalic, atraumatic Respiratory/Chest: chest wall non-tender, lungs clear Cardiovascular: normal peripheral pulses Abdomen: normal bowel sounds, soft, non tender Genitourinary: normal external genitalia Extremities: no cyanosis Skin: no lesions Neurologic/Psychiatric: inspector advanced composite II-XII grossly normal Lymphatic: no neck adenopathy Laboratory Tests 12/15/19 05:44: White Blood Count 6.8, Red Blood Count 4.22L, Hemoglobin 13.5L, Hematocrit 39.5L , Mean Corpuscular Volume 94, Mean Corpuscular Hemoglobin 31.9H, Mean Corpuscular Hemoglobin Concent 34.1, Red Cell Distribution Width 12.4, Platelet Count 187, Mean Platelet Volume 6.3L, Neutrophils (%) (Auto) 62.6, Lymphocytes ( %) (Auto) 22.7, Monocytes (%) (Auto) 11.4H, Eosinophils (%) (Auto) 1.8, Basophils (%) (Auto) 1.4, Sodium Level 143, Potassium Level 4.0, Chloride Level 109H, Carbon Dioxide Level 25, Anion Gap 9, Blood Urea Nitrogen 30H, Creatinine 1.8H, Estimat Glomerular Filtration Rate 37.0, Glucose Level 89, Calcium Level 9.1, Pro-B-Type Natriuretic Peptide 3779H Current Medications Medications (Trade) Dose Ordered Sig/Catrina Route PRN Reason Start Time Stop Time Status Last Admin Dose Admin Acetaminophen (Tylenol) 650 mg Q4H PRN ORAL Mild Pain (Pain Scale 1-3) 12/11/19 14:15 01/10/20 14:14 Acetaminophen (Tylenol) 650 mg Q4H PRN ORAL fever 12/11/19 14:15 01/10/20 14:14 Allopurinol (Zyloprim) 100 mg DAILY ORAL 12/13/19 09:00 01/11/20 08:59 12/15/19 08:57 Amlodipine Besylate (Norvasc) 5 mg BID ORAL 12/15/19 09:00 01/14/20 08:59 12/15/19 08:57 Dextrose (Dextrose 50%) 25 ml Q30M PRN IV Hypoglycemia 12/11/19 14:15 03/10/20 14:14 Dextrose (Dextrose 50%) 50 ml Q30M PRN IV Hypoglycemia 12/11/19 14:15 03/10/20 14:14 Diphenhydramine HCl (Benadryl) 25 mg Q6H PRN ORAL Itching/Pruritis 12/11/19 14:15 01/10/20 14:14 Heparin Sodium (Porcine) (Heparin 5000 units/ml) 5,000 units EVERY 12 HOURS SUBQ 12/11/19 21:00 01/25/20 20:59 Hydralazine HCl (Apresoline) 50 mg Q8HR ORAL 12/11/19 22:00 03/10/20 21:59 12/15/19 06:10 Isosorbide Mononitrate (Imdur) 30 mg DAILY ORAL 12/12/19 09:00 01/11/20 08:59 12/15/19 08:57 Lorazepam (Ativan) 1 mg Q4H PRN ORAL For Anxiety 12/11/19 14:15 12/18/19 14:14 Methimazole (Tapazole) 20 mg DAILY ORAL 12/13/19 17:00 03/12/20 16:59 12/14/19 10:20 Metoprolol Tartrate (Lopressor) 25 mg DAILY@1200 ORAL 12/13/19 12:00 03/12/20 11:59 12/13/19 14:36 Metoprolol Tartrate (Lopressor) 50 mg EVERY 12 HOURS ORAL 12/11/19 21:00 03/10/20 20:59 12/15/19 08:57 Nitroglycerin (Ntg) 0.4 mg Q5M PRN SL Prn Chest Pain 12/11/19 14:15 01/10/20 14:14 Ondansetron HCl (Zofran) 4 mg Q4H PRN IVP Nausea & Vomiting 12/11/19 14:15 01/10/20 14:14 Pantoprazole (Protonix) 40 mg DAILY ORAL 12/12/19 09:00 01/11/20 08:59 12/15/19 08:57 Temazepam (Restoril) 15 mg DAILYPRN PRN ORAL Insomnia 12/11/19 14:15 12/18/19 14:14 Erma Rajput MD Dec 15, 2019 12:15
[2019-12-15] MEDS ORDERED: LORazepam 1mg tab ORAL PRN (14:01)
[2019-12-15] MEDS ORDERED: DiphenhydrAMINE 25mg Tab ORAL PRN (14:01)
[2019-12-15] MEDS ORDERED: Nitroglycerin Subl 0.4mg tab SL PRN (14:02)
--- NOTE | 2019-12-15 14:37 | General Progress Note ---
Assessment/Plan Problem List: (1) Hyperthyroidism ICD Codes: E05.90 - Thyrotoxicosis, unspecified without thyrotoxic crisis or storm SNOMED: 97346007 (2) Hypertension, essential ICD Codes: I10 - Essential (primary) hypertension SNOMED: 99614494 Assessment/Plan: continue Tapazole 20 mg daily thyroid US pending ATPO and TSI pending Subjective Allergies: Uncoded Allergies: red meat (Adverse Reaction, Unknown, 11/15/19) patient has gout and does not eat red meat All Systems: reviewed and negative except above Subjective events noted interval notes reviewed Objective Last 24 Hour Vital Signs Date Time Temp Pulse Resp B/P (MAP) Pulse Ox O2 Delivery O2 Flow Rate FiO2 12/15/19 13:04 83 153/71 12/15/19 13:04 153/71 12/15/19 12:00 97.5 83 18 153/71 (98) 98 12/15/19 12:00 90 12/15/19 09:00 Room Air 12/15/19 08:57 79 160/96 12/15/19 08:57 86 160/96 12/15/19 08:57 160/96 12/15/19 08:00 75 12/15/19 08:00 97.7 87 18 160/96 (117) 92 12/15/19 06:10 137/56 12/15/19 04:00 97.6 18 134/86 (102) 83 12/15/19 04:00 79 12/15/19 03:48 97.7 18 141/77 (98) 82 12/15/19 00:00 82 12/14/19 21:23 84 143/100 12/14/19 21:23 143/100 12/14/19 21:00 Room Air 12/14/19 20:00 97.9 18 143/100 (114) 97 12/14/19 16:00 Room Air 12/14/19 16:00 20 132/80 (97) 12/14/19 16:00 80 Intake and Output 12/14/19 12/15/19 19:00 07:00 Intake Total 960 ml Balance 960 ml Intake Oral 960 ml # Voids 3 1 Laboratory Tests 12/15/19 05:44: White Blood Count 6.8, Red Blood Count 4.22L, Hemoglobin 13.5L, Hematocrit 39.5L , Mean Corpuscular Volume 94, Mean Corpuscular Hemoglobin 31.9H, Mean Corpuscular Hemoglobin Concent 34.1, Red Cell Distribution Width 12.4, Platelet Count 187, Mean Platelet Volume 6.3L, Neutrophils (%) (Auto) 62.6, Lymphocytes ( %) (Auto) 22.7, Monocytes (%) (Auto) 11.4H, Eosinophils (%) (Auto) 1.8, Basophils (%) (Auto) 1.4, Sodium Level 143, Potassium Level 4.0, Chloride Level 109H, Carbon Dioxide Level 25, Anion Gap 9, Blood Urea Nitrogen 30H, Creatinine 1.8H, Estimat Glomerular Filtration Rate 37.0, Glucose Level 89, Calcium Level 9.1, Pro-B-Type Natriuretic Peptide 3779H Height (Feet): 5 Height (Inches): 10.00 Weight (Pounds): 180 General Appearance: no apparent distress Neck: normal alignment Cardiovascular: arrhythmia Respiratory/Chest: lungs clear Abdomen: normal bowel sounds Objective Current Medications Medications (Trade) Dose Ordered Sig/Catrina Route PRN Reason Start Time Stop Time Status Last Admin Dose Admin Acetaminophen (Tylenol) 650 mg Q4H PRN ORAL Mild Pain (Pain Scale 1-3) 12/15/19 14:00 01/14/20 13:59 Acetaminophen (Tylenol) 650 mg Q4H PRN ORAL fever 12/15/19 14:00 01/14/20 13:59 Allopurinol (Zyloprim) 100 mg DAILY ORAL 12/16/19 09:00 01/11/20 08:59 Amlodipine Besylate (Norvasc) 5 mg BID ORAL 12/15/19 18:00 01/14/20 08:59 Dextrose (Dextrose 50%) 25 ml Q30M PRN IV Hypoglycemia 12/15/19 14:15 03/10/20 14:14 Dextrose (Dextrose 50%) 50 ml Q30M PRN IV Hypoglycemia 12/15/19 14:15 03/10/20 14:14 Diphenhydramine HCl (Benadryl) 25 mg Q6H PRN ORAL Itching/Pruritis 12/15/19 14:01 01/14/20 14:00 Heparin Sodium (Porcine) (Heparin 5000 units/ml) 5,000 units EVERY 12 HOURS SUBQ 12/15/19 21:00 01/25/20 20:59 Hydralazine HCl (Apresoline) 50 mg Q8HR ORAL 12/15/19 22:00 03/14/20 21:59 Isosorbide Mononitrate (Imdur) 30 mg DAILY ORAL 12/16/19 09:00 01/11/20 08:59 Lorazepam (Ativan) 1 mg Q4H PRN ORAL For Anxiety 12/15/19 14:01 12/22/19 14:00 Methimazole (Tapazole) 20 mg DAILY ORAL 12/16/19 09:00 03/12/20 16:59 Metoprolol Tartrate (Lopressor) 50 mg EVERY 12 HOURS ORAL 12/15/19 21:00 03/10/20 20:59 Nitroglycerin (Ntg) 0.4 mg Q5M PRN SL Prn Chest Pain 12/15/19 14:02 01/14/20 14:01 Ondansetron HCl (Zofran) 4 mg Q4H PRN IVP Nausea & Vomiting 12/15/19 14:15 01/10/20 14:14 Pantoprazole (Protonix) 40 mg DAILY ORAL 12/16/19 09:00 01/11/20 08:59 Temazepam (Restoril) 15 mg DAILYPRN PRN ORAL Insomnia 12/15/19 14:15 12/18/19 14:14 Dilip Flores MD Dec 15, 2019 14:37
[2019-12-15 16:00] VITALS: BP 117/69
--- NOTE | 2019-12-15 16:58 | Internal Med Progress Note ---
Subjective Date of Service: Dec 15, 2019 Physician Name Leroy Zimmer Attending Physician Yonas Purvis MD Current Medications Medications (Trade) Dose Ordered Sig/Catrina Route PRN Reason Start Time Stop Time Status Last Admin Dose Admin Acetaminophen (Tylenol) 650 mg Q4H PRN ORAL Mild Pain (Pain Scale 1-3) 12/15/19 14:00 01/14/20 13:59 Acetaminophen (Tylenol) 650 mg Q4H PRN ORAL fever 12/15/19 14:00 01/14/20 13:59 Allopurinol (Zyloprim) 100 mg DAILY ORAL 12/16/19 09:00 01/11/20 08:59 Amlodipine Besylate (Norvasc) 5 mg BID ORAL 12/15/19 18:00 01/14/20 08:59 Dextrose (Dextrose 50%) 25 ml Q30M PRN IV Hypoglycemia 12/15/19 14:15 03/10/20 14:14 Dextrose (Dextrose 50%) 50 ml Q30M PRN IV Hypoglycemia 12/15/19 14:15 03/10/20 14:14 Diphenhydramine HCl (Benadryl) 25 mg Q6H PRN ORAL Itching/Pruritis 12/15/19 14:01 01/14/20 14:00 Heparin Sodium (Porcine) (Heparin 5000 units/ml) 5,000 units EVERY 12 HOURS SUBQ 12/15/19 21:00 01/25/20 20:59 Hydralazine HCl (Apresoline) 50 mg Q8HR ORAL 12/15/19 22:00 03/14/20 21:59 Isosorbide Mononitrate (Imdur) 30 mg DAILY ORAL 12/16/19 09:00 01/11/20 08:59 Lorazepam (Ativan) 1 mg Q4H PRN ORAL For Anxiety 12/15/19 14:01 12/22/19 14:00 Methimazole (Tapazole) 20 mg DAILY ORAL 12/16/19 09:00 03/12/20 16:59 Metoprolol Tartrate (Lopressor) 50 mg EVERY 12 HOURS ORAL 12/15/19 21:00 03/10/20 20:59 Nitroglycerin (Ntg) 0.4 mg Q5M PRN SL Prn Chest Pain 12/15/19 14:02 01/14/20 14:01 Ondansetron HCl (Zofran) 4 mg Q4H PRN IVP Nausea & Vomiting 12/15/19 14:15 01/10/20 14:14 Pantoprazole (Protonix) 40 mg DAILY ORAL 12/16/19 09:00 01/11/20 08:59 Temazepam (Restoril) 15 mg DAILYPRN PRN ORAL Insomnia 12/15/19 14:15 12/18/19 14:14 Allergies: Uncoded Allergies: red meat (Adverse Reaction, Unknown, 11/15/19) patient has gout and does not eat red meat ROS Limited/Unobtainable: No Constitutional: Reports: no symptoms HEENT: Reports: no symptoms Cardiovascular: Reports: no symptoms Respiratory: Reports: no symptoms Gastrointestinal/Abdominal: Reports: no symptoms Genitourinary: Reports: no symptoms Neurologic/Psychiatric: Reports: no symptoms Subjective 74 YO M admitted with palpitations. Now atrial flutter with rapid ventricular rate and congestive heart failure. Cover for Int Arnaldo-DR Purvis Objective Last Vital Signs Date Time Temp Pulse Resp B/P (MAP) Pulse Ox O2 Delivery O2 Flow Rate FiO2 12/15/19 16:00 98.1 20 117/69 (85) 98 12/15/19 13:04 83 12/15/19 09:00 Room Air Laboratory Tests Test 12/15/19 05:44 White Blood Count 6.8 K/UL (4.8-10.8) Red Blood Count 4.22 M/UL (4.70-6.10) L Hemoglobin 13.5 G/DL (14.2-18.0) L Hematocrit 39.5 % (42.0-52.0) L Mean Corpuscular Volume 94 FL (80-99) Mean Corpuscular Hemoglobin 31.9 PG (27.0-31.0) H Mean Corpuscular Hemoglobin Concent 34.1 G/DL (32.0-36.0) Red Cell Distribution Width 12.4 % (11.6-14.8) Platelet Count 187 K/UL (150-450) Mean Platelet Volume 6.3 FL (6.5-10.1) L Neutrophils (%) (Auto) 62.6 % (45.0-75.0) Lymphocytes (%) (Auto) 22.7 % (20.0-45.0) Monocytes (%) (Auto) 11.4 % (1.0-10.0) H Eosinophils (%) (Auto) 1.8 % (0.0-3.0) Basophils (%) (Auto) 1.4 % (0.0-2.0) Sodium Level 143 MMOL/L (136-145) Potassium Level 4.0 MMOL/L (3.5-5.1) Chloride Level 109 MMOL/L (98-107) H Carbon Dioxide Level 25 MMOL/L (21-32) Anion Gap 9 mmol/L (5-15) Blood Urea Nitrogen 30 mg/dL (7-18) H Creatinine 1.8 MG/DL (0.55-1.30) H Estimat Glomerular Filtration Rate 37.0 mL/min (>60) Glucose Level 89 MG/DL (74-106) Calcium Level 9.1 MG/DL (8.5-10.1) Pro-B-Type Natriuretic Peptide 3779 pg/mL (0-125) H Microbiology Date/Time Source Procedure Growth Status 12/15/19 15:40 Rectum Received Intake and Output 12/14/19 12/15/19 19:00 07:00 Intake Total 960 ml Balance 960 ml Intake Oral 960 ml # Voids 3 1 Objective PHYSICAL EXAMINATION: GENERALLY: The patient is a well-developed and well-nourished male no apparent distress. HEENT: Eyes, pupils are equal and responsive to light and accommodation. Extraocular movements are intact. NECK: Supple without lymphadenopathy. CHEST: Lungs are clear to auscultation bilaterally without wheezes or rales. CARDIOVASCULAR: Irregular rhythm and irregular rate. S1 and S2 normal without murmurs, rubs, or gallops. ABDOMEN: Soft, nontender, and nondistended. Positive bowel sounds. No evidence of hepatosplenomegaly. Currently, no rebound or guarding noted. EXTREMITIES: Negative for clubbing, cyanosis, or edema. RECTAL/GENITAL: Not performed. NEUROLOGIC: Cranial nerves II through XII are grossly intact without focal deficits. Motor strength is 5/5 bilaterally. Deep tendon reflexes are 2+ plantar. Assessment/Plan Assessment/Plan ASSESSMENT: This is a 74-year-old male. 1. Atrial flutter with rapid ventricular rate. 2. Congestive heart failure, diastolic and systolic. 3. Cardiomyopathy. 4. Chronic renal failure. 5. Hypertension. 6. Benign prostatic hypertrophy. 7. Gout. 8. Hypercholesterolemia. 9. Subclinical hyperthyroidism. 10. Non compliance with medical therapy TREATMENT: 1. Atrial flutter. Cardiology consultation has been obtained with Dr. Epifanio Silverio. The patient received Cardizem in the emergency room. We will follow recommendation of Cardiology. Off anticoagulation-needs echo to R/O mural thrombus prior to re-starting Xarelto. See cardiology note concerning patient refusal of anticoagulation 2. Hypercholesterolemia. The patient is currently off anti-lipidemic medication. 3. Hypertension. Continue metoprolol and Cardizem as above. 4. Congestive heart failure. As above, a Cardiology consultation has been obtained with Dr. Epifanio Silverio. Congestive heart failure is systolic and diastolic in nature. 5. Cardiomyopathy with an ejection fraction 35 to 40%. 6. Chronic renal failure. 7. Benign prostatic hypertrophy. 8. Gout. 9. Subclinical hyperthyroidism-thyroid panel WNL 10. DVT prophylaxis=SQ heparin 11. Full code 12. Discharge planning: See soc work note Leroy Zimmer MD Dec 15, 2019 16:58
--- NOTE | 2019-12-15 17:50 | Cardiology Progress Note ---
Assessment/Plan Assessment/Plan 1. Atrial flutter, with intermittent tachy 2. History of congestive heart failure. 3. LV systolic dysfunction, ejection fraction reported 35% to 40%. 4. Mild diastolic dysfunction 5. Renal insufficiency. 6. Questionable hyperthyroidism. 7. Hypertension. 8. History of gout. 9. Pericardial calcification 10. Medication non compliance or adherence not want to take amio or anticoagulation despite recommendation understand risk of stroke and parlaysis will focus on bp control will add norvas jaimie increase bid , hydralazine to b e usee for now unitl bp controlled by norvasc hr controlled importance of compliance d/w pt he has not been taking amio , lasix or flomax as out pt nto seem to have sx of chf so use lasix prn all torp neg await input of tfts he may [facility] Subjective Cardiovascular: Denies: chest pain, lightheadedness, palpitations Respiratory: Denies: shortness of breath Gastrointestinal/Abdominal: Denies: abdominal pain Genitourinary: Denies: burning Objective Last 24 Hour Vital Signs Date Time Temp Pulse Resp B/P (MAP) Pulse Ox O2 Delivery O2 Flow Rate FiO2 12/15/19 16:00 98.1 20 117/69 (85) 98 12/15/19 13:04 83 153/71 12/15/19 13:04 153/71 12/15/19 12:00 97.5 83 18 153/71 (98) 98 12/15/19 12:00 90 12/15/19 09:00 Room Air 12/15/19 08:57 79 160/96 12/15/19 08:57 86 160/96 12/15/19 08:57 160/96 12/15/19 08:00 75 12/15/19 08:00 97.7 87 18 160/96 (117) 92 12/15/19 06:10 137/56 12/15/19 04:00 97.6 18 134/86 (102) 83 12/15/19 04:00 79 12/15/19 03:48 97.7 18 141/77 (98) 82 12/15/19 00:00 82 12/14/19 21:23 84 143/100 12/14/19 21:23 143/100 12/14/19 21:00 Room Air 12/14/19 20:00 97.9 18 143/100 (114) 97 General Appearance: no apparent distress, alert Neck: supple Cardiovascular: irregularly irregular Respiratory/Chest: lungs clear, decreased breath sounds Abdomen: normal bowel sounds, non tender Extremities: other Intake and Output 12/14/19 12/15/19 19:00 07:00 Intake Total 960 ml Balance 960 ml Intake Oral 960 ml # Voids 3 1 Laboratory Tests Test 12/15/19 05:44 White Blood Count 6.8 K/UL (4.8-10.8) Red Blood Count 4.22 M/UL (4.70-6.10) L Hemoglobin 13.5 G/DL (14.2-18.0) L Hematocrit 39.5 % (42.0-52.0) L Mean Corpuscular Volume 94 FL (80-99) Mean Corpuscular Hemoglobin 31.9 PG (27.0-31.0) H Mean Corpuscular Hemoglobin Concent 34.1 G/DL (32.0-36.0) Red Cell Distribution Width 12.4 % (11.6-14.8) Platelet Count 187 K/UL (150-450) Mean Platelet Volume 6.3 FL (6.5-10.1) L Neutrophils (%) (Auto) 62.6 % (45.0-75.0) Lymphocytes (%) (Auto) 22.7 % (20.0-45.0) Monocytes (%) (Auto) 11.4 % (1.0-10.0) H Eosinophils (%) (Auto) 1.8 % (0.0-3.0) Basophils (%) (Auto) 1.4 % (0.0-2.0) Sodium Level 143 MMOL/L (136-145) Potassium Level 4.0 MMOL/L (3.5-5.1) Chloride Level 109 MMOL/L (98-107) H Carbon Dioxide Level 25 MMOL/L (21-32) Anion Gap 9 mmol/L (5-15) Blood Urea Nitrogen 30 mg/dL (7-18) H Creatinine 1.8 MG/DL (0.55-1.30) H Estimat Glomerular Filtration Rate 37.0 mL/min (>60) Glucose Level 89 MG/DL (74-106) Calcium Level 9.1 MG/DL (8.5-10.1) Pro-B-Type Natriuretic Peptide 3779 pg/mL (0-125) H Microbiology Date/Time Source Procedure Growth Status 12/15/19 15:40 Rectum Received Epifanio Silverio MD Dec 15, 2019 17:50
[2019-12-15 20:00] VITALS: BP 148/86
[2019-12-16] VITALS: BP 135/71
[2019-12-16 04:00] VITALS: BP 139/80
[2019-12-16] MEDS: HydrALAZINE 50mg tab ORAL SCH ×3 (06:01→21:02)
[2019-12-16 08:00] VITALS: BP 141/73
[2019-12-16] MEDS: Metoprolol Tartrate 50mg tab ORAL SCH ×2 (08:59→21:02)
[2019-12-16] MEDS: Imdur 30mg tab ORAL SCH (08:59)
[2019-12-16] MEDS: Allopurinol 100mg Tab ORAL SCH (09:00)
[2019-12-16] MEDS: Heparin 5000 units/ml inj SUBQ SCH ×2 (09:00→21:00)
[2019-12-16 12:00] VITALS: BP 150/75
--- NOTE | 2019-12-16 13:01 | General Progress Note ---
Assessment/Plan Problem List: (1) Hyperthyroidism ICD Codes: E05.90 - Thyrotoxicosis, unspecified without thyrotoxic crisis or storm SNOMED: 38133519 (2) Hypertension, essential ICD Codes: I10 - Essential (primary) hypertension SNOMED: [id number] Assessment/Plan: reduce Tapazole to 10 mg daily thyroid US pending ATPO and TSI pending Subjective Allergies: Uncoded Allergies: red meat (Adverse Reaction, Unknown, 11/15/19) patient has gout and does not eat red meat All Systems: reviewed and negative except above Subjective events noted interval notes reviewed Objective Last 24 Hour Vital Signs Date Time Temp Pulse Resp B/P (MAP) Pulse Ox O2 Delivery O2 Flow Rate FiO2 12/16/19 12:00 98.2 71 18 150/75 (100) 96 12/16/19 08:59 70 141/73 12/16/19 08:59 141/73 12/16/19 08:59 70 141/73 12/16/19 08:43 Room Air 12/16/19 08:00 98.1 70 18 141/73 (95) 96 12/16/19 06:01 141/75 12/16/19 04:00 98.2 18 139/80 (99) 95 12/16/19 00:00 98.0 20 135/71 (92) 98 12/15/19 21:01 148/86 12/15/19 21:00 Room Air 12/15/19 20:50 80 148/86 12/15/19 20:00 98.2 18 148/86 (106) 97 12/15/19 17:58 73 132/70 12/15/19 16:00 98.1 20 117/69 (85) 98 12/15/19 13:04 83 153/71 12/15/19 13:04 153/71 Intake and Output 12/15/19 12/16/19 19:00 07:00 Intake Total 600 ml Balance 600 ml Intake Oral 600 ml # Voids 4 Height (Feet): 5 Height (Inches): 10.00 Weight (Pounds): 180 General Appearance: no apparent distress Neck: normal alignment Cardiovascular: arrhythmia Respiratory/Chest: lungs clear Abdomen: normal bowel sounds Objective Current Medications Medications (Trade) Dose Ordered Sig/Catrina Route PRN Reason Start Time Stop Time Status Last Admin Dose Admin Acetaminophen (Tylenol) 650 mg Q4H PRN ORAL Mild Pain (Pain Scale 1-3) 12/15/19 14:00 01/14/20 13:59 Acetaminophen (Tylenol) 650 mg Q4H PRN ORAL fever 12/15/19 14:00 01/14/20 13:59 Allopurinol (Zyloprim) 100 mg DAILY ORAL 12/16/19 09:00 01/11/20 08:59 12/16/19 09:00 Amlodipine Besylate (Norvasc) 5 mg BID ORAL 12/15/19 18:00 01/14/20 08:59 12/16/19 08:59 Dextrose (Dextrose 50%) 25 ml Q30M PRN IV Hypoglycemia 12/15/19 14:15 03/10/20 14:14 Dextrose (Dextrose 50%) 50 ml Q30M PRN IV Hypoglycemia 12/15/19 14:15 03/10/20 14:14 Diphenhydramine HCl (Benadryl) 25 mg Q6H PRN ORAL Itching/Pruritis 12/15/19 14:01 01/14/20 14:00 Heparin Sodium (Porcine) (Heparin 5000 units/ml) 5,000 units EVERY 12 HOURS SUBQ 12/15/19 21:00 01/25/20 20:59 Hydralazine HCl (Apresoline) 50 mg Q8HR ORAL 12/15/19 22:00 03/14/20 21:59 12/16/19 06:01 Isosorbide Mononitrate (Imdur) 30 mg DAILY ORAL 12/16/19 09:00 01/11/20 08:59 12/16/19 08:59 Lorazepam (Ativan) 1 mg Q4H PRN ORAL For Anxiety 12/15/19 14:01 12/22/19 14:00 Methimazole (Tapazole) 20 mg DAILY ORAL 12/16/19 09:00 03/12/20 16:59 12/16/19 08:59 Metoprolol Tartrate (Lopressor) 50 mg EVERY 12 HOURS ORAL 12/15/19 21:00 03/10/20 20:59 12/16/19 08:59 Nitroglycerin (Ntg) 0.4 mg Q5M PRN SL Prn Chest Pain 12/15/19 14:02 01/14/20 14:01 Ondansetron HCl (Zofran) 4 mg Q4H PRN IVP Nausea & Vomiting 12/15/19 14:15 01/10/20 14:14 Pantoprazole (Protonix) 40 mg DAILY ORAL 12/16/19 09:00 01/11/20 08:59 12/16/19 08:59 Temazepam (Restoril) 15 mg DAILYPRN PRN ORAL Insomnia 12/15/19 14:15 12/18/19 14:14 Dilip Flores MD Dec 16, 2019 13:01
[2019-12-16 16:00] VITALS: BP 133/83
--- NOTE | 2019-12-16 16:17 | Cardiology Progress Note ---
Assessment/Plan Assessment/Plan 1. Atrial flutter, with intermittent tachy 2. History of congestive heart failure. 3. LV systolic dysfunction, ejection fraction reported 35% to 40%. 4. Mild diastolic dysfunction 5. Renal insufficiency. 6. Questionable hyperthyroidism. 7. Hypertension. 8. History of gout. 9. Pericardial calcification 10. Medication non compliance or adherence not want to take amio or anticoagulation despite recommendation understand risk of stroke and parlaysis will focus on bp control will add norvasc bid , hydralazine tid hr almost controlled increae metoprolol to 62.5 mg bid importance of compliance d/w pt he has not been taking amio , lasix or flomax as out pt nto seem to have sx of chf so use lasix prn now on tapazole of hyperthyroid await input of tfts he may have aplace to stay [facility] Subjective Cardiovascular: Denies: chest pain, lightheadedness, palpitations Respiratory: Denies: cough, shortness of breath Gastrointestinal/Abdominal: Denies: abdominal pain Genitourinary: Denies: burning Objective Last 24 Hour Vital Signs Date Time Temp Pulse Resp B/P (MAP) Pulse Ox O2 Delivery O2 Flow Rate FiO2 12/16/19 14:34 144/76 12/16/19 12:00 98.2 71 18 150/75 (100) 96 12/16/19 08:59 70 141/73 12/16/19 08:59 141/73 12/16/19 08:59 70 141/73 12/16/19 08:43 Room Air 12/16/19 08:00 98.1 70 18 141/73 (95) 96 12/16/19 06:01 141/75 12/16/19 04:00 98.2 18 139/80 (99) 95 12/16/19 00:00 98.0 20 135/71 (92) 98 12/15/19 21:01 148/86 12/15/19 21:00 Room Air 12/15/19 20:50 80 148/86 12/15/19 20:00 98.2 18 148/86 (106) 97 12/15/19 17:58 73 132/70 General Appearance: no apparent distress, alert Neck: supple Cardiovascular: tachycardia - mildly , irregularly irregular Respiratory/Chest: lungs clear Abdomen: normal bowel sounds, non tender, soft Extremities: no swelling Intake and Output 12/15/19 12/16/19 19:00 07:00 Intake Total 600 ml Balance 600 ml Intake Oral 600 ml # Voids 4 Microbiology Date/Time Source Procedure Growth Status 12/15/19 15:40 Rectum Received Epifanio Silverio MD Dec 16, 2019 16:17
[2019-12-16 20:00] VITALS: BP 144/80
[2019-12-16] MEDS: Metoprolol Tartrate 12.5mg TAB ORAL SCH (21:02)
--- NOTE | 2019-12-16 22:13 | Internal Med Progress Note ---
Subjective Physician Name Yonas Purvis Attending Physician Yonas Purvis MD Current Medications Medications (Trade) Dose Ordered Sig/Catrina Route PRN Reason Start Time Stop Time Status Last Admin Dose Admin Acetaminophen (Tylenol) 650 mg Q4H PRN ORAL Mild Pain (Pain Scale 1-3) 12/15/19 14:00 01/14/20 13:59 Acetaminophen (Tylenol) 650 mg Q4H PRN ORAL fever 12/15/19 14:00 01/14/20 13:59 Allopurinol (Zyloprim) 100 mg DAILY ORAL 12/16/19 09:00 01/11/20 08:59 12/16/19 09:00 Amlodipine Besylate (Norvasc) 5 mg BID ORAL 12/15/19 18:00 01/14/20 08:59 12/16/19 18:17 Dextrose (Dextrose 50%) 25 ml Q30M PRN IV Hypoglycemia 12/15/19 14:15 03/10/20 14:14 Dextrose (Dextrose 50%) 50 ml Q30M PRN IV Hypoglycemia 12/15/19 14:15 03/10/20 14:14 Diphenhydramine HCl (Benadryl) 25 mg Q6H PRN ORAL Itching/Pruritis 12/15/19 14:01 01/14/20 14:00 Heparin Sodium (Porcine) (Heparin 5000 units/ml) 5,000 units EVERY 12 HOURS SUBQ 12/15/19 21:00 01/25/20 20:59 Hydralazine HCl (Apresoline) 50 mg Q8HR ORAL 12/15/19 22:00 03/14/20 21:59 12/16/19 21:02 Isosorbide Mononitrate (Imdur) 30 mg DAILY ORAL 12/16/19 09:00 01/11/20 08:59 12/16/19 08:59 Lorazepam (Ativan) 1 mg Q4H PRN ORAL For Anxiety 12/15/19 14:01 12/22/19 14:00 Methimazole (Tapazole) 10 mg DAILY ORAL 12/17/19 09:00 03/12/20 16:59 Metoprolol Tartrate (Lopressor) 12.5 mg EVERY 12 HOURS ORAL 12/16/19 21:00 03/15/20 20:59 12/16/19 21:02 Metoprolol Tartrate (Lopressor) 50 mg EVERY 12 HOURS ORAL 12/16/19 21:00 03/15/20 20:59 12/16/19 21:02 Nitroglycerin (Ntg) 0.4 mg Q5M PRN SL Prn Chest Pain 12/15/19 14:02 01/14/20 14:01 Ondansetron HCl (Zofran) 4 mg Q4H PRN IVP Nausea & Vomiting 12/15/19 14:15 01/10/20 14:14 Pantoprazole (Protonix) 40 mg DAILY ORAL 12/16/19 09:00 01/11/20 08:59 12/16/19 08:59 Temazepam (Restoril) 15 mg DAILYPRN PRN ORAL Insomnia 12/15/19 14:15 12/18/19 14:14 Allergies: Uncoded Allergies: red meat (Adverse Reaction, Unknown, 11/15/19) patient has gout and does not eat red meat Subjective awake, alert, responsive, Denies any chest pain or SOB. Objective Last Vital Signs Date Time Temp Pulse Resp B/P (MAP) Pulse Ox O2 Delivery O2 Flow Rate FiO2 12/16/19 21:02 70 144/80 12/16/19 21:00 Room Air 12/16/19 20:00 98.0 18 97 Microbiology Date/Time Source Procedure Growth Status 12/15/19 15:40 Rectum Received Intake and Output 12/15/19 12/16/19 19:00 07:00 Intake Total 600 ml Balance 600 ml Intake Oral 600 ml # Voids 4 Objective General: No acute distress, awake and alert HEENT: NCAT, sclera anicteric, PERRL, EOMI, right eye Low eyelid melanoma lesion. Neck: Supple, no significant jugular venous distention, Lungs: Good inspiratory effort, clear to auscultation bilaterally, no Wheeze or Rales. Heart: Regular rate and rhythm, normal S1/S2, no murmurs Abdomen: soft, nontender, nondistended. Normoactive bowel sounds. / Rectal: Refused and deferred. Extremities: No Cyanosis , clubbing or edema. Neuro: A&O x 3, Able to move all extremities Skin: warm, no rashes or lesions Psych: Normal mood and affect Assessment/Plan Assessment/Plan ASSESSMENT: This is a 74-year-old male. 1. Atrial flutter with rapid ventricular rate. 2. Congestive heart failure, diastolic and systolic. 3. Cardiomyopathy. 4. Chronic renal failure. 5. Hypertension. 6. Benign prostatic hypertrophy. 7. Gout. 8. Hypercholesterolemia. 9. Subclinical hyperthyroidism. 10. Non compliance with medical therapy TREATMENT: 1. Atrial flutter. Cardiology consultation has been obtained with Dr. Epifanio Silverio. The patient received Cardizem in the emergency room. We will follow recommendation of Cardiology. Off anticoagulation-needs echo to R/O mural thrombus prior to re-starting Xarelto. See cardiology note concerning patient refusal of anticoagulation 2. Hypercholesterolemia. The patient is currently off anti-lipidemic medication. 3. Hypertension. Continue metoprolol and Cardizem as above. 4. Congestive heart failure. As above, a Cardiology consultation has been obtained with Dr. Epifanio Silverio. Congestive heart failure is systolic and diastolic in nature. 5. Cardiomyopathy with an ejection fraction 35 to 40%. 6. Chronic renal failure. 7. Benign prostatic hypertrophy. 8. Gout. 9. Subclinical hyperthyroidism- 10. DVT prophylaxis=SQ heparin 11. Full code 12. Discharge planning: F/U with social science manager recommendations. Yonas Purvis MD Dec 16, 2019 22:13
[2019-12-17] VITALS: BP 136/69
[2019-12-17 04:00] VITALS: BP 133/69
[2019-12-17] MEDS: HydrALAZINE 50mg tab ORAL SCH ×3 (06:03→21:03)
--- NOTE | 2019-12-17 07:57 | Pulmonology Progress Note ---
Assessment/Plan Assessment/Plan ASSESSMENT Atrial flutter with RVR CHF systolic and mild diastolic Cardiomyopathy Chronic renal disease Hypertension Hyperthyroidism BPH Hypercholesterolemia Noncompliance with medication regimen PLAN OF CARE MS floor HR controlled with BB declined a/coagulation, aware of risk of stroke ECHO with EF 45% no need for diuretics at this time as per cardio BP management with CCB, hydralazine, BB lipid panel stable thyroid ultrasound pending endo follows Tapazole dose decreased TFT noted avoid nephrotoxic ,creatinine at baseline DVT ,GI prophylaxis need placement case discussed and evaluated by supervising physician Subjective Allergies: Uncoded Allergies: red meat (Adverse Reaction, Unknown, 11/15/19) patient has gout and does not eat red meat Subjective eating breakfast no signs of resp distress pulse ox stable on RA Objective Last 24 Hour Vital Signs Date Time Temp Pulse Resp B/P (MAP) Pulse Ox O2 Delivery O2 Flow Rate FiO2 12/17/19 06:03 133/69 12/17/19 04:00 98.3 66 18 133/69 (90) 99 12/17/19 00:00 98.0 71 16 136/69 (91) 97 12/16/19 21:02 70 144/80 12/16/19 21:02 70 144/80 12/16/19 21:02 144/80 12/16/19 21:00 Room Air 12/16/19 20:00 98.0 70 18 144/80 (101) 97 12/16/19 18:17 80 160/90 12/16/19 16:00 98.4 72 20 133/83 (100) 98 12/16/19 14:34 144/76 12/16/19 12:00 98.2 71 18 150/75 (100) 96 12/16/19 08:59 70 141/73 12/16/19 08:59 141/73 12/16/19 08:59 70 141/73 12/16/19 08:43 Room Air 12/16/19 08:00 98.1 70 18 141/73 (95) 96 Intake and Output 12/16/19 12/17/19 19:00 07:00 Intake Total 540 ml Balance 540 ml Intake Oral 540 ml # Voids 3 General Appearance: other - WD/WN male in NAD HEENT: normocephalic, atraumatic, anicteric, mucous membranes moist Respiratory/Chest: lungs clear, no respiratory distress, no accessory muscle use Cardiovascular: normal rate Abdomen: normal bowel sounds, soft, non tender Extremities: no edema, pedal pulses normal Neurologic/Psychiatric: no motor/sensory deficits, alert, oriented x 3, responsive Musculoskeletal: normal muscle bulk Microbiology Date/Time Source Procedure Growth Status 12/15/19 15:40 Nasal Nares MRSA Culture - Final NO METHICILLIN RESISTANT STAPH AUREUS... Complete 12/15/19 15:40 Rectum Received Current Medications Medications (Trade) Dose Ordered Sig/Catrina Route PRN Reason Start Time Stop Time Status Last Admin Dose Admin Acetaminophen (Tylenol) 650 mg Q4H PRN ORAL Mild Pain (Pain Scale 1-3) 12/15/19 14:00 01/14/20 13:59 Acetaminophen (Tylenol) 650 mg Q4H PRN ORAL fever 12/15/19 14:00 01/14/20 13:59 Allopurinol (Zyloprim) 100 mg DAILY ORAL 12/16/19 09:00 01/11/20 08:59 12/16/19 09:00 Amlodipine Besylate (Norvasc) 5 mg BID ORAL 12/15/19 18:00 01/14/20 08:59 12/16/19 18:17 Dextrose (Dextrose 50%) 25 ml Q30M PRN IV Hypoglycemia 12/15/19 14:15 03/10/20 14:14 Dextrose (Dextrose 50%) 50 ml Q30M PRN IV Hypoglycemia 12/15/19 14:15 03/10/20 14:14 Diphenhydramine HCl (Benadryl) 25 mg Q6H PRN ORAL Itching/Pruritis 12/15/19 14:01 01/14/20 14:00 Heparin Sodium (Porcine) (Heparin 5000 units/ml) 5,000 units EVERY 12 HOURS SUBQ 12/15/19 21:00 01/25/20 20:59 Hydralazine HCl (Apresoline) 50 mg Q8HR ORAL 12/15/19 22:00 03/14/20 21:59 12/17/19 06:03 Isosorbide Mononitrate (Imdur) 30 mg DAILY ORAL 12/16/19 09:00 01/11/20 08:59 12/16/19 08:59 Lorazepam (Ativan) 1 mg Q4H PRN ORAL For Anxiety 12/15/19 14:01 12/22/19 14:00 Methimazole (Tapazole) 10 mg DAILY ORAL 12/17/19 09:00 03/12/20 16:59 Metoprolol Tartrate (Lopressor) 12.5 mg EVERY 12 HOURS ORAL 12/16/19 21:00 03/15/20 20:59 12/16/19 21:02 Metoprolol Tartrate (Lopressor) 50 mg EVERY 12 HOURS ORAL 12/16/19 21:00 03/15/20 20:59 12/16/19 21:02 Nitroglycerin (Ntg) 0.4 mg Q5M PRN SL Prn Chest Pain 12/15/19 14:02 01/14/20 14:01 Ondansetron HCl (Zofran) 4 mg Q4H PRN IVP Nausea & Vomiting 12/15/19 14:15 01/10/20 14:14 Pantoprazole (Protonix) 40 mg DAILY ORAL 12/16/19 09:00 01/11/20 08:59 12/16/19 08:59 Temazepam (Restoril) 15 mg DAILYPRN PRN ORAL Insomnia 12/15/19 14:15 12/18/19 14:14 Princess Elias SENIOR INSPECTOR Dec 17, 2019 07:57
[2019-12-17 08:00] VITALS: BP 128/64
[2019-12-17] MEDS: Heparin 5000 units/ml inj SUBQ SCH ×2 (09:00→21:00)
[2019-12-17] MEDS: Metoprolol Tartrate 50mg tab ORAL SCH ×2 (09:07→21:02)
[2019-12-17] MEDS: Metoprolol Tartrate 12.5mg TAB ORAL SCH ×2 (09:07→21:02)
[2019-12-17] MEDS: Imdur 30mg tab ORAL SCH (09:07)
[2019-12-17] MEDS: Allopurinol 100mg Tab ORAL SCH (09:08)
--- NOTE | 2019-12-17 11:07 | Internal Med Progress Note ---
Subjective Date of Service: Dec 17, 2019 Physician Name Leroy Zimmer Attending Physician Yonas Purvis MD Current Medications Medications (Trade) Dose Ordered Sig/Catrina Route PRN Reason Start Time Stop Time Status Last Admin Dose Admin Acetaminophen (Tylenol) 650 mg Q4H PRN ORAL Mild Pain (Pain Scale 1-3) 12/15/19 14:00 01/14/20 13:59 Acetaminophen (Tylenol) 650 mg Q4H PRN ORAL fever 12/15/19 14:00 01/14/20 13:59 Allopurinol (Zyloprim) 100 mg DAILY ORAL 12/16/19 09:00 01/11/20 08:59 12/17/19 09:08 Amlodipine Besylate (Norvasc) 5 mg BID ORAL 12/15/19 18:00 01/14/20 08:59 12/17/19 09:08 Dextrose (Dextrose 50%) 25 ml Q30M PRN IV Hypoglycemia 12/15/19 14:15 03/10/20 14:14 Dextrose (Dextrose 50%) 50 ml Q30M PRN IV Hypoglycemia 12/15/19 14:15 03/10/20 14:14 Diphenhydramine HCl (Benadryl) 25 mg Q6H PRN ORAL Itching/Pruritis 12/15/19 14:01 01/14/20 14:00 Heparin Sodium (Porcine) (Heparin 5000 units/ml) 5,000 units EVERY 12 HOURS SUBQ 12/15/19 21:00 01/25/20 20:59 Hydralazine HCl (Apresoline) 50 mg Q8HR ORAL 12/15/19 22:00 03/14/20 21:59 12/17/19 06:03 Isosorbide Mononitrate (Imdur) 30 mg DAILY ORAL 12/16/19 09:00 01/11/20 08:59 12/17/19 09:07 Lorazepam (Ativan) 1 mg Q4H PRN ORAL For Anxiety 12/15/19 14:01 12/22/19 14:00 Methimazole (Tapazole) 10 mg DAILY ORAL 12/17/19 09:00 03/12/20 16:59 12/17/19 09:08 Metoprolol Tartrate (Lopressor) 12.5 mg EVERY 12 HOURS ORAL 12/16/19 21:00 03/15/20 20:59 12/17/19 09:07 Metoprolol Tartrate (Lopressor) 50 mg EVERY 12 HOURS ORAL 12/16/19 21:00 03/15/20 20:59 12/17/19 09:07 Nitroglycerin (Ntg) 0.4 mg Q5M PRN SL Prn Chest Pain 12/15/19 14:02 01/14/20 14:01 Ondansetron HCl (Zofran) 4 mg Q4H PRN IVP Nausea & Vomiting 12/15/19 14:15 01/10/20 14:14 Pantoprazole (Protonix) 40 mg DAILY ORAL 12/16/19 09:00 01/11/20 08:59 12/17/19 09:08 Temazepam (Restoril) 15 mg DAILYPRN PRN ORAL Insomnia 12/15/19 14:15 12/18/19 14:14 Allergies: Uncoded Allergies: red meat (Adverse Reaction, Unknown, 11/15/19) patient has gout and does not eat red meat ROS Limited/Unobtainable: No Constitutional: Reports: no symptoms HEENT: Reports: no symptoms Cardiovascular: Reports: no symptoms Respiratory: Reports: no symptoms Gastrointestinal/Abdominal: Reports: no symptoms Genitourinary: Reports: no symptoms Neurologic/Psychiatric: Reports: no symptoms Subjective 74 YO M admitted with palpitations. Now atrial flutter with rapid ventricular rate and congestive heart failure. Cover for [facility] Arnaldo-DR Purvis Objective Last Vital Signs Date Time Temp Pulse Resp B/P (MAP) Pulse Ox O2 Delivery O2 Flow Rate FiO2 12/17/19 09:08 70 128/64 12/17/19 08:00 98.1 16 97 12/16/19 21:00 Room Air Microbiology Date/Time Source Procedure Growth Status 12/15/19 15:40 Nasal Nares MRSA Culture - Final NO METHICILLIN RESISTANT STAPH AUREUS... Complete 12/15/19 15:40 Rectum - Final NO CARBAPENEM-RESISTANT ENTEROBACTERI... Complete 12/15/19 15:40 Rectum VRE Culture - Final NO VANCOMYCIN RESISTANT ENTEROCOCCUS ... Complete Intake and Output 12/16/19 12/17/19 19:00 07:00 Intake Total 540 ml Balance 540 ml Intake Oral 540 ml # Voids 3 Objective PHYSICAL EXAMINATION: GENERALLY: The patient is a well-developed and well-nourished male no apparent distress. HEENT: Eyes, pupils are equal and responsive to light and accommodation. Extraocular movements are intact. NECK: Supple without lymphadenopathy. CHEST: Lungs are clear to auscultation bilaterally without wheezes or rales. CARDIOVASCULAR: Irregular rhythm and irregular rate. S1 and S2 normal without murmurs, rubs, or gallops. ABDOMEN: Soft, nontender, and nondistended. Positive bowel sounds. No evidence of hepatosplenomegaly. Currently, no rebound or guarding noted. EXTREMITIES: Negative for clubbing, cyanosis, or edema. RECTAL/GENITAL: Not performed. NEUROLOGIC: Cranial nerves II through XII are grossly intact without focal deficits. Motor strength is 5/5 bilaterally. Deep tendon reflexes are 2+ plantar. Assessment/Plan Assessment/Plan ASSESSMENT: This is a 74-year-old male. 1. Atrial flutter with rapid ventricular rate. 2. Congestive heart failure, diastolic and systolic. 3. Cardiomyopathy. 4. Chronic renal failure. 5. Hypertension. 6. Benign prostatic hypertrophy. 7. Gout. 8. Hypercholesterolemia. 9. Subclinical hyperthyroidism. 10. Non compliance with medical therapy TREATMENT: 1. Atrial flutter. Cardiology consultation has been obtained with Dr. Epifanio Silverio. The patient received Cardizem in the emergency room. We will follow recommendation of Cardiology. Off anticoagulation-needs echo to R/O mural thrombus prior to re-starting Xarelto. See cardiology note concerning patient refusal of anticoagulation 2. Hypercholesterolemia. The patient is currently off anti-lipidemic medication. 3. Hypertension. Continue metoprolol and Cardizem as above. 4. Congestive heart failure. As above, a Cardiology consultation has been obtained with Dr. Epfianio Silverio. Congestive heart failure is systolic and diastolic in nature. 5. Cardiomyopathy with an ejection fraction 35 to 40%. 6. Chronic renal failure. 7. Benign prostatic hypertrophy. 8. Gout. 9. Subclinical hyperthyroidism-thyroid panel WNL 10. DVT prophylaxis=SQ heparin 11. Full code 12. Discharge planning: See soc work note; may [facility] Leroy Zimmer MD Dec 17, 2019 11:07
[2019-12-17 12:00] VITALS: BP 155/71
[2019-12-17] MEDS ORDERED: 1/2 NS 1000ml IV ONE (13:54)
--- NOTE | 2019-12-17 15:41 | Cardiology Progress Note ---
Assessment/Plan Assessment/Plan 1. Atrial flutter, with intermittent tachy 2. History of congestive heart failure. 3. LV systolic dysfunction, ejection fraction reported 35% to 40%. 4. Mild diastolic dysfunction 5. Renal insufficiency. 6. Questionable hyperthyroidism. 7. Hypertension. 8. History of gout. 9. Pericardial calcification 10. Medication non compliance or adherence not want to take amio or anticoagulation despite recommendation understand risk of stroke and parlaysis will focus on bp control will add norvasc bid , hydralazine tid hr controlled importance of compliance d/w pt he has not been taking amio , lasix or flomax as out pt nto seem to have sx of chf so use lasix prn now on tapazole of hyperthyroid he may [facility] stay [facility] Subjective Cardiovascular: Denies: chest pain, lightheadedness, palpitations Respiratory: Denies: shortness of breath Gastrointestinal/Abdominal: Denies: abdominal pain Genitourinary: Denies: burning Objective Last 24 Hour Vital Signs Date Time Temp Pulse Resp B/P (MAP) Pulse Ox O2 Delivery O2 Flow Rate FiO2 12/17/19 14:22 155/71 12/17/19 12:00 98.2 73 18 155/71 (99) 96 12/17/19 09:08 70 128/64 12/17/19 09:07 70 128/64 12/17/19 09:07 70 128/64 12/17/19 09:07 128/64 12/17/19 09:00 Room Air 12/17/19 08:00 98.1 70 16 128/64 (85) 97 12/17/19 06:03 133/69 12/17/19 04:00 98.3 66 18 133/69 (90) 99 12/17/19 00:00 98.0 71 16 136/69 (91) 97 12/16/19 21:02 70 144/80 12/16/19 21:02 70 144/80 12/16/19 21:02 144/80 12/16/19 21:00 Room Air 12/16/19 20:00 98.0 70 18 144/80 (101) 97 12/16/19 18:17 80 160/90 12/16/19 16:00 98.4 72 20 133/83 (100) 98 General Appearance: no apparent distress, alert Neck: supple Cardiovascular: normal rate Respiratory/Chest: lungs clear Abdomen: normal bowel sounds, non tender, soft Extremities: no swelling Intake and Output 12/16/19 12/17/19 19:00 07:00 Intake Total 540 ml Balance 540 ml Intake Oral 540 ml # Voids 3 Microbiology Date/Time Source Procedure Growth Status 12/15/19 15:40 Nasal Nares MRSA Culture - Final NO METHICILLIN RESISTANT STAPH AUREUS... Complete 12/15/19 15:40 Rectum - Final NO CARBAPENEM-RESISTANT ENTEROBACTERI... Complete 12/15/19 15:40 Rectum VRE Culture - Final NO VANCOMYCIN RESISTANT ENTEROCOCCUS ... Complete Epifanio Silverio MD Dec 17, 2019 15:41
[2019-12-17 16:00] VITALS: BP 115/73
[2019-12-17 20:00] VITALS: BP 137/77
[2019-12-18 00:45] VITALS: BP 137/73
[2019-12-18 04:30] VITALS: BP 137/71
[2019-12-18] MEDS: HydrALAZINE 50mg tab ORAL SCH ×3 (06:03→21:11)
[2019-12-18 07:56] LABS: BASOPHILS % (AUTO) 1.1 % (0.0-2.0); HEMATOCRIT 42.2 % (42.0-52.0); HEMOGLOBIN 14.3 G/DL (14.2-18.0); LYMPHOCYTES % (AUTO) 25.1 % (20.0-45.0); MEAN CORPUSCULAR VOLUME 94 FL (80-99); MONOCYTES % (AUTO) 10.5 % (1.0-10.0); NEUTROPHILS % (AUTO) 62.2 % (45.0-75.0); PLATELET COUNT 203 K/UL (150-450); RED BLOOD COUNT 4.51 M/UL (4.70-6.10); WHITE BLOOD COUNT 8.1 K/UL (4.8-10.8)
[2019-12-18 08:00] VITALS: BP 143/81
--- NOTE | 2019-12-18 08:13 | Pulmonology Progress Note ---
Assessment/Plan Assessment/Plan ASSESSMENT Atrial flutter with RVR CHF systolic and mild diastolic Cardiomyopathy Chronic renal disease Hypertension Hyperthyroidism BPH Hypercholesterolemia Noncompliance with medication regimen PLAN OF CARE MS floor HR controlled with BB declined a/coagulation, aware of risk of stroke ECHO with EF 45% no need for diuretics at this time as per cardio BP management with CCB, hydralazine, BB lipid panel stable thyroid ultrasound pending endo follows Tapazole dose decreased TFT noted avoid nephrotoxic ,creatinine at baseline DVT ,GI prophylaxis awaiting for placement case discussed and evaluated by supervising physician Subjective Allergies: Uncoded Allergies: red meat (Adverse Reaction, Unknown, 11/15/19) patient has gout and does not eat red meat Subjective afebrile no signs of resp distress pulse ox stable on RA Objective Last 24 Hour Vital Signs Date Time Temp Pulse Resp B/P (MAP) Pulse Ox O2 Delivery O2 Flow Rate FiO2 12/18/19 06:03 137/71 12/18/19 04:30 97.8 72 18 137/71 (93) 97 12/18/19 00:45 97.6 70 18 137/73 (94) 95 12/17/19 21:03 137/77 12/17/19 21:02 68 137/77 12/17/19 21:02 68 137/77 12/17/19 21:00 Room Air 12/17/19 20:00 97.9 68 17 137/77 (97) 97 12/17/19 18:21 68 115/73 12/17/19 16:00 97.7 68 18 115/73 (87) 97 12/17/19 14:22 155/71 12/17/19 12:00 98.2 73 18 155/71 (99) 96 12/17/19 09:08 70 128/64 12/17/19 09:07 70 128/64 12/17/19 09:07 70 128/64 12/17/19 09:07 128/64 12/17/19 09:00 Room Air Intake and Output 12/17/19 12/18/19 19:00 07:00 Intake Total 800 ml 300 ml Balance 800 ml 300 ml Intake Oral 800 ml 300 ml # Voids 2 3 Objective General Appearance: WD/WN male in NAD HEENT: normocephalic, atraumatic, anicteric, mucous membranes moist Respiratory/Chest: lungs clear, no respiratory distress, no accessory muscle use Cardiovascular: normal rate Abdomen: normal bowel sounds, soft, non tender Extremities: no edema, pedal pulses normal Neurologic/Psychiatric: no motor/sensory deficits, alert, oriented x 3, responsive Musculoskeletal: normal muscle bulk Microbiology Date/Time Source Procedure Growth Status 12/15/19 15:40 Nasal Nares MRSA Culture - Final NO METHICILLIN RESISTANT STAPH AUREUS... Complete 12/15/19 15:40 Rectum - Final NO CARBAPENEM-RESISTANT ENTEROBACTERI... Complete 12/15/19 15:40 Rectum VRE Culture - Final NO VANCOMYCIN RESISTANT ENTEROCOCCUS ... Complete Laboratory Tests 12/18/19 07:35: White Blood Count 8.1, Red Blood Count 4.51L, Hemoglobin 14.3, Hematocrit 42.2, Mean Corpuscular Volume 94, Mean Corpuscular Hemoglobin 31.6H, Mean Corpuscular Hemoglobin Concent 33.7, Red Cell Distribution Width 13.0, Platelet Count 203, Mean Platelet Volume 6.0L, Neutrophils (%) (Auto) 62.2, Lymphocytes (%) (Auto) 25.1, Monocytes (%) (Auto) 10.5H, Eosinophils (%) (Auto) 1.0, Basophils (%) ( Auto) 1.1, Sodium Level [Pending], Potassium Level [Pending], Chloride Level [ Pending], Carbon Dioxide Level [Pending], Blood Urea Nitrogen [Pending], Creatinine [Pending], Estimat Glomerular Filtration Rate [Pending], Glucose Level [Pending], Calcium Level [Pending], Pro-B-Type Natriuretic Peptide [ Pending] Current Medications Medications (Trade) Dose Ordered Sig/Catrina Route PRN Reason Start Time Stop Time Status Last Admin Dose Admin Acetaminophen (Tylenol) 650 mg Q4H PRN ORAL Mild Pain (Pain Scale 1-3) 12/15/19 14:00 01/14/20 13:59 Acetaminophen (Tylenol) 650 mg Q4H PRN ORAL fever 12/15/19 14:00 01/14/20 13:59 Allopurinol (Zyloprim) 100 mg DAILY ORAL 12/16/19 09:00 01/11/20 08:59 12/17/19 09:08 Amlodipine Besylate (Norvasc) 5 mg BID ORAL 12/15/19 18:00 01/14/20 08:59 12/17/19 18:21 Dextrose (Dextrose 50%) 25 ml Q30M PRN IV Hypoglycemia 12/15/19 14:15 03/10/20 14:14 Dextrose (Dextrose 50%) 50 ml Q30M PRN IV Hypoglycemia 12/15/19 14:15 03/10/20 14:14 Diphenhydramine HCl (Benadryl) 25 mg Q6H PRN ORAL Itching/Pruritis 12/15/19 14:01 01/14/20 14:00 Heparin Sodium (Porcine) (Heparin 5000 units/ml) 5,000 units EVERY 12 HOURS SUBQ 12/15/19 21:00 01/25/20 20:59 Hydralazine HCl (Apresoline) 50 mg Q8HR ORAL 12/15/19 22:00 03/14/20 21:59 12/18/19 06:03 Isosorbide Mononitrate (Imdur) 30 mg DAILY ORAL 12/16/19 09:00 01/11/20 08:59 12/17/19 09:07 Lorazepam (Ativan) 1 mg Q4H PRN ORAL For Anxiety 12/15/19 14:01 12/22/19 14:00 Methimazole (Tapazole) 10 mg DAILY ORAL 12/17/19 09:00 03/12/20 16:59 12/17/19 09:08 Metoprolol Tartrate (Lopressor) 12.5 mg EVERY 12 HOURS ORAL 12/16/19 21:00 03/15/20 20:59 12/17/19 21:02 Metoprolol Tartrate (Lopressor) 50 mg EVERY 12 HOURS ORAL 12/16/19 21:00 03/15/20 20:59 12/17/19 21:02 Nitroglycerin (Ntg) 0.4 mg Q5M PRN SL Prn Chest Pain 12/15/19 14:02 01/14/20 14:01 Ondansetron HCl (Zofran) 4 mg Q4H PRN IVP Nausea & Vomiting 12/15/19 14:15 01/10/20 14:14 Pantoprazole (Protonix) 40 mg DAILY ORAL 12/16/19 09:00 01/11/20 08:59 12/17/19 09:08 Temazepam (Restoril) 15 mg DAILYPRN PRN ORAL Insomnia 12/15/19 14:15 12/18/19 14:14 Princess Elias NP Dec 18, 2019 08:13
[2019-12-18 08:44] LABS: ANION GAP 13 mmol/L (5-15); BLOOD UREA NITROGEN 36 mg/dL (7-18); CALCIUM 9.2 MG/DL (8.5-10.1); CARBON DIOXIDE 22 MMOL/L (21-32); CHLORIDE 112 MMOL/L (98-107); CREATININE 2.1 MG/DL (0.55-1.30); POTASSIUM 4.5 MMOL/L (3.5-5.1); SODIUM 147 MMOL/L (136-145)
--- NOTE | 2019-12-18 08:45 | General Progress Note ---
Assessment/Plan Problem List: (1) Hyperthyroidism ICD Codes: E05.90 - Thyrotoxicosis, unspecified without thyrotoxic crisis or storm SNOMED: 19898561 (2) Hypertension, essential ICD Codes: I10 - Essential (primary) hypertension SNOMED: 87629430 Assessment/Plan: continue Tapazole to 10 mg daily thyroid US pending ATPO and TSI pending Subjective Allergies: Uncoded Allergies: red meat (Adverse Reaction, Unknown, 11/15/19) patient has gout and does not eat red meat Subjective events noted interval notes reviewed Objective Last 24 Hour Vital Signs Date Time Temp Pulse Resp B/P (MAP) Pulse Ox O2 Delivery O2 Flow Rate FiO2 12/18/19 08:00 97.8 67 18 143/81 (101) 99 12/18/19 06:03 137/71 12/18/19 04:30 97.8 72 18 137/71 (93) 97 12/18/19 00:45 97.6 70 18 137/73 (94) 95 12/17/19 21:03 137/77 12/17/19 21:02 68 137/77 12/17/19 21:02 68 137/77 12/17/19 21:00 Room Air 12/17/19 20:00 97.9 68 17 137/77 (97) 97 12/17/19 18:21 68 115/73 12/17/19 16:00 97.7 68 18 115/73 (87) 97 12/17/19 14:22 155/71 12/17/19 12:00 98.2 73 18 155/71 (99) 96 12/17/19 09:08 70 128/64 12/17/19 09:07 70 128/64 12/17/19 09:07 70 128/64 12/17/19 09:07 128/64 12/17/19 09:00 Room Air Intake and Output 12/17/19 12/18/19 19:00 07:00 Intake Total 800 ml 300 ml Balance 800 ml 300 ml Intake Oral 800 ml 300 ml # Voids 2 3 Laboratory Tests 12/18/19 07:35: White Blood Count 8.1, Red Blood Count 4.51L, Hemoglobin 14.3, Hematocrit 42.2, Mean Corpuscular Volume 94, Mean Corpuscular Hemoglobin 31.6H, Mean Corpuscular Hemoglobin Concent 33.7, Red Cell Distribution Width 13.0, Platelet Count 203, Mean Platelet Volume 6.0L, Neutrophils (%) (Auto) 62.2, Lymphocytes (%) (Auto) 25.1, Monocytes (%) (Auto) 10.5H, Eosinophils (%) (Auto) 1.0, Basophils (%) ( Auto) 1.1, Sodium Level [Pending], Potassium Level [Pending], Chloride Level [ Pending], Carbon Dioxide Level [Pending], Blood Urea Nitrogen [Pending], Creatinine [Pending], Estimat Glomerular Filtration Rate [Pending], Glucose Level [Pending], Calcium Level [Pending], Pro-B-Type Natriuretic Peptide [ Pending] Height (Feet): 5 Height (Inches): 10.00 Weight (Pounds): 180 General Appearance: no apparent distress Neck: normal alignment Cardiovascular: irregularly irregular Respiratory/Chest: lungs clear Abdomen: normal bowel sounds Objective Current Medications Medications (Trade) Dose Ordered Sig/Catrina Route PRN Reason Start Time Stop Time Status Last Admin Dose Admin Acetaminophen (Tylenol) 650 mg Q4H PRN ORAL Mild Pain (Pain Scale 1-3) 12/15/19 14:00 01/14/20 13:59 Acetaminophen (Tylenol) 650 mg Q4H PRN ORAL fever 12/15/19 14:00 01/14/20 13:59 Allopurinol (Zyloprim) 100 mg DAILY ORAL 12/16/19 09:00 01/11/20 08:59 12/17/19 09:08 Amlodipine Besylate (Norvasc) 5 mg BID ORAL 12/15/19 18:00 01/14/20 08:59 12/17/19 18:21 Dextrose (Dextrose 50%) 25 ml Q30M PRN IV Hypoglycemia 12/15/19 14:15 03/10/20 14:14 Dextrose (Dextrose 50%) 50 ml Q30M PRN IV Hypoglycemia 12/15/19 14:15 03/10/20 14:14 Diphenhydramine HCl (Benadryl) 25 mg Q6H PRN ORAL Itching/Pruritis 12/15/19 14:01 01/14/20 14:00 Heparin Sodium (Porcine) (Heparin 5000 units/ml) 5,000 units EVERY 12 HOURS SUBQ 12/15/19 21:00 01/25/20 20:59 Hydralazine HCl (Apresoline) 50 mg Q8HR ORAL 12/15/19 22:00 03/14/20 21:59 12/18/19 06:03 Isosorbide Mononitrate (Imdur) 30 mg DAILY ORAL 12/16/19 09:00 01/11/20 08:59 12/17/19 09:07 Lorazepam (Ativan) 1 mg Q4H PRN ORAL For Anxiety 12/15/19 14:01 12/22/19 14:00 Methimazole (Tapazole) 10 mg DAILY ORAL 12/17/19 09:00 03/12/20 16:59 12/17/19 09:08 Metoprolol Tartrate (Lopressor) 12.5 mg EVERY 12 HOURS ORAL 12/16/19 21:00 03/15/20 20:59 12/17/19 21:02 Metoprolol Tartrate (Lopressor) 50 mg EVERY 12 HOURS ORAL 12/16/19 21:00 03/15/20 20:59 12/17/19 21:02 Nitroglycerin (Ntg) 0.4 mg Q5M PRN SL Prn Chest Pain 12/15/19 14:02 01/14/20 14:01 Ondansetron HCl (Zofran) 4 mg Q4H PRN IVP Nausea & Vomiting 12/15/19 14:15 01/10/20 14:14 Pantoprazole (Protonix) 40 mg DAILY ORAL 12/16/19 09:00 01/11/20 08:59 12/17/19 09:08 Temazepam (Restoril) 15 mg DAILYPRN PRN ORAL Insomnia 12/15/19 14:15 12/18/19 14:14 Dilip Flores MD Dec 18, 2019 08:45
[2019-12-18] MEDS: Imdur 30mg tab ORAL SCH (08:54)
[2019-12-18] MEDS: Metoprolol Tartrate 12.5mg TAB ORAL SCH ×2 (08:54→21:11)
[2019-12-18] MEDS: Allopurinol 100mg Tab ORAL SCH (08:54)
[2019-12-18] MEDS: Metoprolol Tartrate 50mg tab ORAL SCH ×2 (08:55→21:11)
[2019-12-18] MEDS: Heparin 5000 units/ml inj SUBQ SCH ×2 (08:56→21:00)
[2019-12-18 12:00] VITALS: BP 143/84
--- NOTE | 2019-12-18 14:21 | Internal Med Progress Note ---
Subjective Date of Service: Dec 18, 2019 Physician Name MeshaLeroy Attending Physician Yonas Purvis MD Current Medications Medications (Trade) Dose Ordered Sig/Catrina Route PRN Reason Start Time Stop Time Status Last Admin Dose Admin Acetaminophen (Tylenol) 650 mg Q4H PRN ORAL Mild Pain (Pain Scale 1-3) 12/15/19 14:00 01/14/20 13:59 Acetaminophen (Tylenol) 650 mg Q4H PRN ORAL fever 12/15/19 14:00 01/14/20 13:59 Allopurinol (Zyloprim) 100 mg DAILY ORAL 12/16/19 09:00 01/11/20 08:59 12/18/19 08:54 Amlodipine Besylate (Norvasc) 5 mg BID ORAL 12/15/19 18:00 01/14/20 08:59 12/18/19 08:54 Dextrose (Dextrose 50%) 25 ml Q30M PRN IV Hypoglycemia 12/15/19 14:15 03/10/20 14:14 Dextrose (Dextrose 50%) 50 ml Q30M PRN IV Hypoglycemia 12/15/19 14:15 03/10/20 14:14 Diphenhydramine HCl (Benadryl) 25 mg Q6H PRN ORAL Itching/Pruritis 12/15/19 14:01 01/14/20 14:00 Heparin Sodium (Porcine) (Heparin 5000 units/ml) 5,000 units EVERY 12 HOURS SUBQ 12/15/19 21:00 01/25/20 20:59 Hydralazine HCl (Apresoline) 50 mg Q8HR ORAL 12/15/19 22:00 03/14/20 21:59 12/18/19 13:33 Isosorbide Mononitrate (Imdur) 30 mg DAILY ORAL 12/16/19 09:00 01/11/20 08:59 12/18/19 08:54 Lorazepam (Ativan) 1 mg Q4H PRN ORAL For Anxiety 12/15/19 14:01 12/22/19 14:00 Methimazole (Tapazole) 10 mg DAILY ORAL 12/17/19 09:00 03/12/20 16:59 12/18/19 08:54 Metoprolol Tartrate (Lopressor) 12.5 mg EVERY 12 HOURS ORAL 12/16/19 21:00 03/15/20 20:59 12/18/19 08:54 Metoprolol Tartrate (Lopressor) 50 mg EVERY 12 HOURS ORAL 12/16/19 21:00 03/15/20 20:59 12/18/19 08:55 Nitroglycerin (Ntg) 0.4 mg Q5M PRN SL Prn Chest Pain 12/15/19 14:02 01/14/20 14:01 Ondansetron HCl (Zofran) 4 mg Q4H PRN IVP Nausea & Vomiting 12/15/19 14:15 01/10/20 14:14 Pantoprazole (Protonix) 40 mg DAILY ORAL 12/16/19 09:00 01/11/20 08:59 12/18/19 08:54 Allergies: Uncoded Allergies: red meat (Adverse Reaction, Unknown, 11/15/19) patient has gout and does not eat red meat ROS Limited/Unobtainable: No Constitutional: Reports: no symptoms HEENT: Reports: no symptoms Cardiovascular: Reports: no symptoms Respiratory: Reports: no symptoms Gastrointestinal/Abdominal: Reports: no symptoms Genitourinary: Reports: no symptoms Neurologic/Psychiatric: Reports: no symptoms Subjective 74 YO M admitted with palpitations. Now atrial flutter with rapid ventricular rate and congestive heart failure. Cover for Int Arnaldo-DR Purvis Objective Last Vital Signs Date Time Temp Pulse Resp B/P (MAP) Pulse Ox O2 Delivery O2 Flow Rate FiO2 12/18/19 13:33 143/84 12/18/19 12:00 97.5 65 18 97 12/18/19 09:00 Room Air Laboratory Tests Test 12/18/19 07:35 White Blood Count 8.1 K/UL (4.8-10.8) Red Blood Count 4.51 M/UL (4.70-6.10) L Hemoglobin 14.3 G/DL (14.2-18.0) Hematocrit 42.2 % (42.0-52.0) Mean Corpuscular Volume 94 FL (80-99) Mean Corpuscular Hemoglobin 31.6 PG (27.0-31.0) H Mean Corpuscular Hemoglobin Concent 33.7 G/DL (32.0-36.0) Red Cell Distribution Width 13.0 % (11.6-14.8) Platelet Count 203 K/UL (150-450) Mean Platelet Volume 6.0 FL (6.5-10.1) L Neutrophils (%) (Auto) 62.2 % (45.0-75.0) Lymphocytes (%) (Auto) 25.1 % (20.0-45.0) Monocytes (%) (Auto) 10.5 % (1.0-10.0) H Eosinophils (%) (Auto) 1.0 % (0.0-3.0) Basophils (%) (Auto) 1.1 % (0.0-2.0) Sodium Level 147 MMOL/L (136-145) H Potassium Level 4.5 MMOL/L (3.5-5.1) Chloride Level 112 MMOL/L (98-107) H Carbon Dioxide Level 22 MMOL/L (21-32) Anion Gap 13 mmol/L (5-15) Blood Urea Nitrogen 36 mg/dL (7-18) H Creatinine 2.1 MG/DL (0.55-1.30) H Estimat Glomerular Filtration Rate 30.9 mL/min (>60) Glucose Level 99 MG/DL (74-106) Calcium Level 9.2 MG/DL (8.5-10.1) Pro-B-Type Natriuretic Peptide 2695 pg/mL (0-125) H Microbiology Date/Time Source Procedure Growth Status 12/15/19 15:40 Nasal Nares MRSA Culture - Final NO METHICILLIN RESISTANT STAPH AUREUS... Complete 12/15/19 15:40 Rectum - Final NO CARBAPENEM-RESISTANT ENTEROBACTERI... Complete 12/15/19 15:40 Rectum VRE Culture - Final NO VANCOMYCIN RESISTANT ENTEROCOCCUS ... Complete Intake and Output 12/17/19 12/18/19 19:00 07:00 Intake Total 800 ml 300 ml Balance 800 ml 300 ml Intake Oral 800 ml 300 ml # Voids 2 3 Objective PHYSICAL EXAMINATION: GENERALLY: The patient is a well-developed and well-nourished male no apparent distress. HEENT: Eyes, pupils are equal and responsive to light and accommodation. Extraocular movements are intact. NECK: Supple without lymphadenopathy. CHEST: Lungs are clear to auscultation bilaterally without wheezes or rales. CARDIOVASCULAR: Irregular rhythm and irregular rate. S1 and S2 normal without murmurs, rubs, or gallops. ABDOMEN: Soft, nontender, and nondistended. Positive bowel sounds. No evidence of hepatosplenomegaly. Currently, no rebound or guarding noted. EXTREMITIES: Negative for clubbing, cyanosis, or edema. RECTAL/GENITAL: Not performed. NEUROLOGIC: Cranial nerves II through XII are grossly intact without focal deficits. Motor strength is 5/5 bilaterally. Deep tendon reflexes are 2+ plantar. Assessment/Plan Assessment/Plan ASSESSMENT: This is a 74-year-old male. 1. Atrial flutter with rapid ventricular rate. 2. Congestive heart failure, diastolic and systolic. 3. Cardiomyopathy. 4. Chronic renal failure. 5. Hypertension. 6. Benign prostatic hypertrophy. 7. Gout. 8. Hypercholesterolemia. 9. Thyrotoxicosis 10. Non compliance with medical therapy TREATMENT: 1. Atrial flutter. Cardiology consultation has been obtained with Dr. Epifanio Silverio. The patient received Cardizem in the emergency room. We will follow recommendation of Cardiology. Off anticoagulation-needs echo to R/O mural thrombus prior to re-starting Xarelto. See cardiology note concerning patient refusal of anticoagulation 2. Hypercholesterolemia. The patient is currently off anti-lipidemic medication. 3. Hypertension. Continue metoprolol and Cardizem as above. 4. Congestive heart failure. As above, a Cardiology consultation has been obtained with Dr. Epifanio Silverio. Congestive heart failure is systolic and diastolic in nature. 5. Cardiomyopathy with an ejection fraction 35 to 40%. 6. Chronic renal failure. 7. Benign prostatic hypertrophy. 8. Gout. 9. Continue tapazole per endocrinolgy=DR Flores 10. DVT prophylaxis=SQ heparin 11. Full code 12. Discharge planning: See soc work note; placement via [facility] Leroy Zimmer MD Dec 18, 2019 14:21
--- NOTE | 2019-12-18 15:48 | Cardiology Progress Note ---
Assessment/Plan Assessment/Plan 1. Atrial flutter, with intermittent tachy 2. History of congestive heart failure. 3. LV systolic dysfunction, ejection fraction reported 35% to 40%. 4. Mild diastolic dysfunction 5. Renal insufficiency. 6. Questionable hyperthyroidism. 7. Hypertension. 8. History of gout. 9. Pericardial calcification 10. Medication non compliance or adherence not want to take amio or anticoagulation despite recommendation understand risk of stroke and parlaysis will focus on bp control will add norvasc bid , hydralazine tid hr controlled importance of compliance d/w pt he has not been taking amio , lasix or flomax as out pt nto seem to have sx of chf so use lasix prn now on tapazole of hyperthyroid but has been refusing to take he may have aplace to stay through the [place] service anticipate dc tomorrow cardaic meds on dc: metoprolol 50 mg 1.5 tab in am and 1 tab qpm norvasc 5 mg bid hydralazine 50 mg tid imdur 30 mg daily Subjective Cardiovascular: Denies: chest pain, palpitations Respiratory: Denies: shortness of breath Gastrointestinal/Abdominal: Denies: abdominal pain Genitourinary: Denies: burning Objective Last 24 Hour Vital Signs Date Time Temp Pulse Resp B/P (MAP) Pulse Ox O2 Delivery O2 Flow Rate FiO2 12/18/19 13:33 143/84 12/18/19 12:00 97.5 65 18 143/84 (103) 97 12/18/19 09:00 Room Air 12/18/19 08:55 67 143/81 12/18/19 08:54 67 143/81 12/18/19 08:54 143/81 12/18/19 08:54 67 143/81 12/18/19 08:00 97.8 67 18 143/81 (101) 99 12/18/19 06:03 137/71 12/18/19 04:30 97.8 72 18 137/71 (93) 97 12/18/19 00:45 97.6 70 18 137/73 (94) 95 12/17/19 21:03 137/77 12/17/19 21:02 68 137/77 12/17/19 21:02 68 137/77 12/17/19 21:00 Room Air 12/17/19 20:00 97.9 68 17 137/77 (97) 97 12/17/19 18:21 68 115/73 12/17/19 16:00 97.7 68 18 115/73 (87) 97 General Appearance: no apparent distress, alert Neck: supple Cardiovascular: normal rate, regular rhythm Respiratory/Chest: lungs clear Abdomen: normal bowel sounds, non tender, soft Extremities: no swelling Intake and Output 12/17/19 12/18/19 19:00 07:00 Intake Total 800 ml 300 ml Balance 800 ml 300 ml Intake Oral 800 ml 300 ml # Voids 2 3 Laboratory Tests Test 12/18/19 07:35 White Blood Count 8.1 K/UL (4.8-10.8) Red Blood Count 4.51 M/UL (4.70-6.10) L Hemoglobin 14.3 G/DL (14.2-18.0) Hematocrit 42.2 % (42.0-52.0) Mean Corpuscular Volume 94 FL (80-99) Mean Corpuscular Hemoglobin 31.6 PG (27.0-31.0) H Mean Corpuscular Hemoglobin Concent 33.7 G/DL (32.0-36.0) Red Cell Distribution Width 13.0 % (11.6-14.8) Platelet Count 203 K/UL (150-450) Mean Platelet Volume 6.0 FL (6.5-10.1) L Neutrophils (%) (Auto) 62.2 % (45.0-75.0) Lymphocytes (%) (Auto) 25.1 % (20.0-45.0) Monocytes (%) (Auto) 10.5 % (1.0-10.0) H Eosinophils (%) (Auto) 1.0 % (0.0-3.0) Basophils (%) (Auto) 1.1 % (0.0-2.0) Sodium Level 147 MMOL/L (136-145) H Potassium Level 4.5 MMOL/L (3.5-5.1) Chloride Level 112 MMOL/L (98-107) H Carbon Dioxide Level 22 MMOL/L (21-32) Anion Gap 13 mmol/L (5-15) Blood Urea Nitrogen 36 mg/dL (7-18) H Creatinine 2.1 MG/DL (0.55-1.30) H Estimat Glomerular Filtration Rate 30.9 mL/min (>60) Glucose Level 99 MG/DL (74-106) Calcium Level 9.2 MG/DL (8.5-10.1) Pro-B-Type Natriuretic Peptide 2695 pg/mL (0-125) H Epifanio Silverio MD Dec 18, 2019 15:48
[2019-12-18 20:00] VITALS: BP 124/65
[2019-12-19] VITALS (7 sets, daily range): BP systolic 109–142; BP diastolic 59–78
[2019-12-19] MEDS: HydrALAZINE 50mg tab ORAL SCH ×3 (05:21→21:01)
[2019-12-19 07:10] LABS: ANION GAP 13 mmol/L (5-15); BLOOD UREA NITROGEN 39 mg/dL (7-18); CALCIUM 8.9 MG/DL (8.5-10.1); CARBON DIOXIDE 22 MMOL/L (21-32); CHLORIDE 112 MMOL/L (98-107); CREATININE 2.1 MG/DL (0.55-1.30); POTASSIUM 4.2 MMOL/L (3.5-5.1); SODIUM 147 MMOL/L (136-145)
[2019-12-19 07:15] LABS: BASOPHILS % (AUTO) 0.8 % (0.0-2.0); EOSINOPHILS % (AUTO) 1.3 % (0.0-3.0); HEMATOCRIT 36.5 % (42.0-52.0); LYMPHOCYTES % (AUTO) 23.2 % (20.0-45.0); MEAN CORPUSCULAR VOLUME 93 FL (80-99); MONOCYTES % (AUTO) 9.5 % (1.0-10.0); NEUTROPHILS % (AUTO) 65.3 % (45.0-75.0); PLATELET COUNT 203 K/UL (150-450); RED BLOOD COUNT 3.91 M/UL (4.70-6.10); RED CELL DISTRIBUTION WIDTH 13.3 % (11.6-14.8); WHITE BLOOD COUNT 8.2 K/UL (4.8-10.8)
--- NOTE | 2019-12-19 08:12 | General Progress Note ---
Assessment/Plan Problem List: (1) Hyperthyroidism ICD Codes: E05.90 - Thyrotoxicosis, unspecified without thyrotoxic crisis or storm SNOMED: 54737250 (2) Hypertension, essential ICD Codes: I10 - Essential (primary) hypertension SNOMED: [id number] Assessment/Plan: continue Tapazole to 10 mg daily repeat thyroid function in 3 weeks Subjective Allergies: Uncoded Allergies: red meat (Adverse Reaction, Unknown, 11/15/19) patient has gout and does not eat red meat Subjective events noted interval notes reviewed Objective Last 24 Hour Vital Signs Date Time Temp Pulse Resp B/P (MAP) Pulse Ox O2 Delivery O2 Flow Rate FiO2 12/19/19 05:21 138/78 12/19/19 04:00 98.2 68 18 132/78 (96) 97 12/19/19 00:00 98.3 67 17 112/59 (76) 97 12/18/19 21:11 67 124/65 12/18/19 21:11 67 124/65 12/18/19 21:11 124/65 12/18/19 21:00 Room Air 12/18/19 20:00 98.3 67 16 124/65 (84) 96 12/18/19 17:44 69 124/74 12/18/19 13:33 143/84 12/18/19 12:00 97.5 65 18 143/84 (103) 97 12/18/19 09:00 Room Air 12/18/19 08:55 67 143/81 12/18/19 08:54 67 143/81 12/18/19 08:54 143/81 12/18/19 08:54 67 143/81 Intake and Output 12/18/19 12/19/19 19:00 07:00 Intake Total 400 ml Balance 400 ml Intake Oral 400 ml # Voids 2 Laboratory Tests 12/19/19 05:05: White Blood Count 8.2, Red Blood Count 3.91L, Hemoglobin 13.0L, Hematocrit 36.5L , Mean Corpuscular Volume 93, Mean Corpuscular Hemoglobin 33.2H, Mean Corpuscular Hemoglobin Concent 35.6, Red Cell Distribution Width 13.3, Platelet Count 203, Mean Platelet Volume 6.1L, Neutrophils (%) (Auto) 65.3, Lymphocytes ( %) (Auto) 23.2, Monocytes (%) (Auto) 9.5, Eosinophils (%) (Auto) 1.3, Basophils (%) (Auto) 0.8, Sodium Level 147H, Potassium Level 4.2, Chloride Level 112H, Carbon Dioxide Level 22, Anion Gap 13, Blood Urea Nitrogen 39H, Creatinine 2.1H , Estimat Glomerular Filtration Rate 30.9, Glucose Level 87, Calcium Level 8.9 Height (Feet): 5 Height (Inches): 10.00 Weight (Pounds): 180 General Appearance: no apparent distress Neck: normal alignment Cardiovascular: irregularly irregular Respiratory/Chest: lungs clear Abdomen: normal bowel sounds Pelvis: normal external exam Objective Current Medications Medications (Trade) Dose Ordered Sig/Catrina Route PRN Reason Start Time Stop Time Status Last Admin Dose Admin Acetaminophen (Tylenol) 650 mg Q4H PRN ORAL Mild Pain (Pain Scale 1-3) 12/15/19 14:00 01/14/20 13:59 Acetaminophen (Tylenol) 650 mg Q4H PRN ORAL fever 12/15/19 14:00 01/14/20 13:59 Allopurinol (Zyloprim) 100 mg DAILY ORAL 12/16/19 09:00 01/11/20 08:59 12/18/19 08:54 Amlodipine Besylate (Norvasc) 5 mg BID ORAL 12/15/19 18:00 01/14/20 08:59 12/18/19 17:44 Dextrose (Dextrose 50%) 25 ml Q30M PRN IV Hypoglycemia 12/15/19 14:15 03/10/20 14:14 Dextrose (Dextrose 50%) 50 ml Q30M PRN IV Hypoglycemia 12/15/19 14:15 03/10/20 14:14 Diphenhydramine HCl (Benadryl) 25 mg Q6H PRN ORAL Itching/Pruritis 12/15/19 14:01 01/14/20 14:00 Heparin Sodium (Porcine) (Heparin 5000 units/ml) 5,000 units EVERY 12 HOURS SUBQ 12/15/19 21:00 01/25/20 20:59 Hydralazine HCl (Apresoline) 50 mg Q8HR ORAL 12/15/19 22:00 03/14/20 21:59 12/19/19 05:21 Isosorbide Mononitrate (Imdur) 30 mg DAILY ORAL 12/16/19 09:00 01/11/20 08:59 12/18/19 08:54 Lorazepam (Ativan) 1 mg Q4H PRN ORAL For Anxiety 12/15/19 14:01 12/22/19 14:00 Methimazole (Tapazole) 10 mg DAILY ORAL 12/17/19 09:00 03/12/20 16:59 12/18/19 08:54 Metoprolol Tartrate (Lopressor) 12.5 mg EVERY 12 HOURS ORAL 12/16/19 21:00 03/15/20 20:59 12/18/19 21:11 Metoprolol Tartrate (Lopressor) 50 mg EVERY 12 HOURS ORAL 12/16/19 21:00 03/15/20 20:59 12/18/19 21:11 Nitroglycerin (Ntg) 0.4 mg Q5M PRN SL Prn Chest Pain 12/15/19 14:02 01/14/20 14:01 Ondansetron HCl (Zofran) 4 mg Q4H PRN IVP Nausea & Vomiting 12/15/19 14:15 01/10/20 14:14 Pantoprazole (Protonix) 40 mg DAILY ORAL 12/16/19 09:00 01/11/20 08:59 12/18/19 08:54 Dilip Flores MD Dec 19, 2019 08:12
[2019-12-19] MEDS: Imdur 30mg tab ORAL SCH (08:25)
[2019-12-19] MEDS: Metoprolol Tartrate 12.5mg TAB ORAL SCH ×2 (08:26→21:01)
[2019-12-19] MEDS: Metoprolol Tartrate 50mg tab ORAL SCH ×2 (08:27→21:01)
[2019-12-19] MEDS: Allopurinol 100mg Tab ORAL SCH (08:27)
[2019-12-19] MEDS: Heparin 5000 units/ml inj SUBQ SCH ×2 (08:33→21:00)
[2019-12-19] MEDS ORDERED: PANTOPRAZOLE SO40 MG ORAL (12:57)
[2019-12-19] MEDS ORDERED: ISOSORBIDE MONO30 M1 ORAL (12:57)
[2019-12-19] MEDS ORDERED: METOPROLOL TART50 MG ORAL (12:57)
[2019-12-19] MEDS ORDERED: ALLOPURINOL100 M1 ORAL (12:57)
[2019-12-19] MEDS ORDERED: NORVASC5 MG ORAL (12:57)
[2019-12-19] MEDS ORDERED: TAPAZOLE5 MG ORAL (12:57)
[2019-12-19] MEDS ORDERED: APRESOLINE50 MG ORAL (12:57)
--- NOTE | 2019-12-19 12:58 | Pulmonology Progress Note ---
Assessment/Plan Problems: (1) Atrial flutter with rapid ventricular response (2) Uncontrolled hypertension (3) Pericardial calcification (4) History of hypertension (5) History of gout Assessment/Plan rate is controlled at 80-90's adjust cardiac meds all meds reviewed social service note appreciated all prescription written Subjective ROS Limited/Unobtainable: No Constitutional: Reports: no symptoms HEENT: Repors: no symptoms Allergies: Uncoded Allergies: red meat (Adverse Reaction, Unknown, 11/15/19) patient has gout and does not eat red meat Objective Last 24 Hour Vital Signs Date Time Temp Pulse Resp B/P (MAP) Pulse Ox O2 Delivery O2 Flow Rate FiO2 12/19/19 12:00 98.1 69 20 142/66 (91) 95 12/19/19 09:00 Room Air 12/19/19 08:27 67 132/77 12/19/19 08:27 67 132/77 12/19/19 08:26 67 132/77 12/19/19 08:25 132/77 12/19/19 08:00 97.7 67 18 132/77 (95) 98 12/19/19 05:21 138/78 12/19/19 04:00 98.2 68 18 132/78 (96) 97 12/19/19 00:00 98.3 67 17 112/59 (76) 97 12/18/19 21:11 67 124/65 12/18/19 21:11 67 124/65 12/18/19 21:11 124/65 12/18/19 21:00 Room Air 12/18/19 20:00 98.3 67 16 124/65 (84) 96 12/18/19 17:44 69 124/74 12/18/19 13:33 143/84 Intake and Output 12/18/19 12/19/19 19:00 07:00 Intake Total 400 ml Balance 400 ml Intake Oral 400 ml # Voids 2 General Appearance: WD/WN HEENT: normocephalic, atraumatic Respiratory/Chest: chest wall non-tender, lungs clear Cardiovascular: normal peripheral pulses, regular rhythm Abdomen: soft, non tender, no scars Extremities: no cyanosis Skin: no rash Laboratory Tests 12/19/19 05:05: White Blood Count 8.2, Red Blood Count 3.91L, Hemoglobin 13.0L, Hematocrit 36.5L , Mean Corpuscular Volume 93, Mean Corpuscular Hemoglobin 33.2H, Mean Corpuscular Hemoglobin Concent 35.6, Red Cell Distribution Width 13.3, Platelet Count 203, Mean Platelet Volume 6.1L, Neutrophils (%) (Auto) 65.3, Lymphocytes ( %) (Auto) 23.2, Monocytes (%) (Auto) 9.5, Eosinophils (%) (Auto) 1.3, Basophils (%) (Auto) 0.8, Sodium Level 147H, Potassium Level 4.2, Chloride Level 112H, Carbon Dioxide Level 22, Anion Gap 13, Blood Urea Nitrogen 39H, Creatinine 2.1H , Estimat Glomerular Filtration Rate 30.9, Glucose Level 87, Calcium Level 8.9 Current Medications Medications (Trade) Dose Ordered Sig/Catrina Route PRN Reason Start Time Stop Time Status Last Admin Dose Admin Acetaminophen (Tylenol) 650 mg Q4H PRN ORAL Mild Pain (Pain Scale 1-3) 12/15/19 14:00 01/14/20 13:59 Acetaminophen (Tylenol) 650 mg Q4H PRN ORAL fever 12/15/19 14:00 01/14/20 13:59 Allopurinol (Zyloprim) 100 mg DAILY ORAL 12/16/19 09:00 01/11/20 08:59 12/19/19 08:27 Amlodipine Besylate (Norvasc) 5 mg BID ORAL 12/15/19 18:00 01/14/20 08:59 12/19/19 08:27 Dextrose (Dextrose 50%) 25 ml Q30M PRN IV Hypoglycemia 12/15/19 14:15 03/10/20 14:14 Dextrose (Dextrose 50%) 50 ml Q30M PRN IV Hypoglycemia 12/15/19 14:15 03/10/20 14:14 Diphenhydramine HCl (Benadryl) 25 mg Q6H PRN ORAL Itching/Pruritis 12/15/19 14:01 01/14/20 14:00 Heparin Sodium (Porcine) (Heparin 5000 units/ml) 5,000 units EVERY 12 HOURS SUBQ 12/15/19 21:00 01/25/20 20:59 Hydralazine HCl (Apresoline) 50 mg Q8HR ORAL 12/15/19 22:00 03/14/20 21:59 12/19/19 05:21 Isosorbide Mononitrate (Imdur) 30 mg DAILY ORAL 12/16/19 09:00 01/11/20 08:59 12/19/19 08:25 Lorazepam (Ativan) 1 mg Q4H PRN ORAL For Anxiety 12/15/19 14:01 12/22/19 14:00 Methimazole (Tapazole) 10 mg DAILY ORAL 12/17/19 09:00 03/12/20 16:59 12/19/19 08:26 Metoprolol Tartrate (Lopressor) 12.5 mg EVERY 12 HOURS ORAL 12/16/19 21:00 03/15/20 20:59 12/19/19 08:26 Metoprolol Tartrate (Lopressor) 50 mg EVERY 12 HOURS ORAL 12/16/19 21:00 03/15/20 20:59 12/19/19 08:27 Nitroglycerin (Ntg) 0.4 mg Q5M PRN SL Prn Chest Pain 12/15/19 14:02 01/14/20 14:01 Ondansetron HCl (Zofran) 4 mg Q4H PRN IVP Nausea & Vomiting 12/15/19 14:15 01/10/20 14:14 Pantoprazole (Protonix) 40 mg DAILY ORAL 12/16/19 09:00 01/11/20 08:59 12/19/19 08:26 Erma Rajput MD Dec 19, 2019 12:58
--- NOTE | 2019-12-19 13:24 | Internal Med Progress Note ---
Subjective Date of Service: Dec 19, 2019 Physician Name Leroy Zimmer Attending Physician Yonas Purvis MD Current Medications Medications (Trade) Dose Ordered Sig/Catrina Route PRN Reason Start Time Stop Time Status Last Admin Dose Admin Acetaminophen (Tylenol) 650 mg Q4H PRN ORAL Mild Pain (Pain Scale 1-3) 12/15/19 14:00 01/14/20 13:59 Acetaminophen (Tylenol) 650 mg Q4H PRN ORAL fever 12/15/19 14:00 01/14/20 13:59 Allopurinol (Zyloprim) 100 mg DAILY ORAL 12/16/19 09:00 01/11/20 08:59 12/19/19 08:27 Amlodipine Besylate (Norvasc) 5 mg BID ORAL 12/15/19 18:00 01/14/20 08:59 12/19/19 08:27 Dextrose (Dextrose 50%) 25 ml Q30M PRN IV Hypoglycemia 12/15/19 14:15 03/10/20 14:14 Dextrose (Dextrose 50%) 50 ml Q30M PRN IV Hypoglycemia 12/15/19 14:15 03/10/20 14:14 Diphenhydramine HCl (Benadryl) 25 mg Q6H PRN ORAL Itching/Pruritis 12/15/19 14:01 01/14/20 14:00 Heparin Sodium (Porcine) (Heparin 5000 units/ml) 5,000 units EVERY 12 HOURS SUBQ 12/15/19 21:00 01/25/20 20:59 Hydralazine HCl (Apresoline) 50 mg Q8HR ORAL 12/15/19 22:00 03/14/20 21:59 12/19/19 05:21 Isosorbide Mononitrate (Imdur) 30 mg DAILY ORAL 12/16/19 09:00 01/11/20 08:59 12/19/19 08:25 Lorazepam (Ativan) 1 mg Q4H PRN ORAL For Anxiety 12/15/19 14:01 12/22/19 14:00 Methimazole (Tapazole) 10 mg DAILY ORAL 12/17/19 09:00 03/12/20 16:59 12/19/19 08:26 Metoprolol Tartrate (Lopressor) 12.5 mg EVERY 12 HOURS ORAL 12/16/19 21:00 03/15/20 20:59 12/19/19 08:26 Metoprolol Tartrate (Lopressor) 50 mg EVERY 12 HOURS ORAL 12/16/19 21:00 03/15/20 20:59 12/19/19 08:27 Nitroglycerin (Ntg) 0.4 mg Q5M PRN SL Prn Chest Pain 12/15/19 14:02 01/14/20 14:01 Ondansetron HCl (Zofran) 4 mg Q4H PRN IVP Nausea & Vomiting 12/15/19 14:15 01/10/20 14:14 Pantoprazole (Protonix) 40 mg DAILY ORAL 12/16/19 09:00 01/11/20 08:59 12/19/19 08:26 Allergies: Uncoded Allergies: red meat (Adverse Reaction, Unknown, 11/15/19) patient has gout and does not eat red meat ROS Limited/Unobtainable: No Constitutional: Reports: no symptoms HEENT: Reports: no symptoms Cardiovascular: Reports: no symptoms Respiratory: Reports: no symptoms Gastrointestinal/Abdominal: Reports: no symptoms Genitourinary: Reports: no symptoms Neurologic/Psychiatric: Reports: no symptoms Subjective 74 YO M admitted with palpitations. Now atrial flutter with rapid ventricular rate and congestive heart failure. Cover for Int Arnaldo-DR Purvis Objective Last Vital Signs Date Time Temp Pulse Resp B/P (MAP) Pulse Ox O2 Delivery O2 Flow Rate FiO2 12/19/19 12:00 98.1 69 20 142/66 (91) 95 12/19/19 09:00 Room Air Laboratory Tests Test 12/19/19 05:05 White Blood Count 8.2 K/UL (4.8-10.8) Red Blood Count 3.91 M/UL (4.70-6.10) L Hemoglobin 13.0 G/DL (14.2-18.0) L Hematocrit 36.5 % (42.0-52.0) L Mean Corpuscular Volume 93 FL (80-99) Mean Corpuscular Hemoglobin 33.2 PG (27.0-31.0) H Mean Corpuscular Hemoglobin Concent 35.6 G/DL (32.0-36.0) Red Cell Distribution Width 13.3 % (11.6-14.8) Platelet Count 203 K/UL (150-450) Mean Platelet Volume 6.1 FL (6.5-10.1) L Neutrophils (%) (Auto) 65.3 % (45.0-75.0) Lymphocytes (%) (Auto) 23.2 % (20.0-45.0) Monocytes (%) (Auto) 9.5 % (1.0-10.0) Eosinophils (%) (Auto) 1.3 % (0.0-3.0) Basophils (%) (Auto) 0.8 % (0.0-2.0) Sodium Level 147 MMOL/L (136-145) H Potassium Level 4.2 MMOL/L (3.5-5.1) Chloride Level 112 MMOL/L (98-107) H Carbon Dioxide Level 22 MMOL/L (21-32) Anion Gap 13 mmol/L (5-15) Blood Urea Nitrogen 39 mg/dL (7-18) H Creatinine 2.1 MG/DL (0.55-1.30) H Estimat Glomerular Filtration Rate 30.9 mL/min (>60) Glucose Level 87 MG/DL (74-106) Calcium Level 8.9 MG/DL (8.5-10.1) Intake and Output 12/18/19 12/19/19 19:00 07:00 Intake Total 400 ml Balance 400 ml Intake Oral 400 ml # Voids 2 Objective PHYSICAL EXAMINATION: GENERALLY: The patient is a well-developed and well-nourished male no apparent distress. HEENT: Eyes, pupils are equal and responsive to light and accommodation. Extraocular movements are intact. NECK: Supple without lymphadenopathy. CHEST: Lungs are clear to auscultation bilaterally without wheezes or rales. CARDIOVASCULAR: Irregular rhythm and irregular rate. S1 and S2 normal without murmurs, rubs, or gallops. ABDOMEN: Soft, nontender, and nondistended. Positive bowel sounds. No evidence of hepatosplenomegaly. Currently, no rebound or guarding noted. EXTREMITIES: Negative for clubbing, cyanosis, or edema. RECTAL/GENITAL: Not performed. NEUROLOGIC: Cranial nerves II through XII are grossly intact without focal deficits. Motor strength is 5/5 bilaterally. Deep tendon reflexes are 2+ plantar. Assessment/Plan Assessment/Plan ASSESSMENT: This is a 74-year-old male. 1. Atrial flutter with rapid ventricular rate. 2. Congestive heart failure, diastolic and systolic. 3. Cardiomyopathy. 4. Chronic renal failure. 5. Hypertension. 6. Benign prostatic hypertrophy. 7. Gout. 8. Hypercholesterolemia. 9. Thyrotoxicosis 10. Non compliance with medical therapy TREATMENT: 1. Atrial flutter. Cardiology consultation has been obtained with Dr. Epifanio Silverio. The patient received Cardizem in the emergency room. We will follow recommendation of Cardiology. Off anticoagulation-needs echo to R/O mural thrombus prior to re-starting Xarelto. See cardiology note concerning patient refusal of anticoagulation 2. Hypercholesterolemia. The patient is currently off anti-lipidemic medication. 3. Hypertension. Continue metoprolol and Cardizem as above. 4. Congestive heart failure. As above, a Cardiology consultation has been obtained with Dr. Epifanio Silverio. Congestive heart failure is systolic and diastolic in nature. 5. Cardiomyopathy with an ejection fraction 35 to 40%. 6. Chronic renal failure. 7. Benign prostatic hypertrophy. 8. Gout. 9. Continue tapazole per endocrinolgy=DR Flores 10. DVT prophylaxis=SQ heparin 11. Full code 12. Discharge planning: See soc work note; placement via [facility] Leroy Zimmer MD Dec 19, 2019 13:24
--- NOTE | 2019-12-19 14:16 | History & Physical ---
History and Physical History & Physicial Error Avila Sandy MD Dec 19, 2019 14:16
--- NOTE | 2019-12-19 14:19 | Consultation ---
Consult Note Consult Note I am asked to evaluate the patient at the request of Dr. Zimmer for rising serum creatinine Patient is known to me from his previous admission here at [facility] in October 2019 Patient is admitted 8 days ago at that time his serum creatinine was 1.7 which is his baseline Today he is serum creatinine is 2.1 Emergency room note on December 09: This is a 74-year-old male with a history of A. fib/a flutter. He was on Coumadin before and was switched to Eliquis. He did not like blood thinner so he is currently not take any blood thinner. He presents with chief complaint of palpitation. He said this occur several times a day where he felt his heart rate was fast. Similar symptom in the past. He was admitted here last month and was at [facility] for several hours couple weeks later. He denies any chest pain. No nausea no vomiting. No fever chills. No shortness of breath. Nothing made it better. Nothing made it worse. The fast heart rate is intermittently and last for a few minutes. Denies any other complaint. Allergies: red meat (Adverse Reaction, Unknown, 11/15/19) patient has gout and does not eat red meat COVID-19 Screening Contact w/high risk pt: No Recent Travel to affected area: No Experienced COVID-19 symptoms?: No Past Medical History: see triage record, old chart reviewed, HTN, CAD, CHF, AFib Past Surgical History: other Past Medical History: No History, Except For Hx Cardiac Problems: Yes - HYPERLIPIDEMIA, AFIB/AFLUTTER Hx Hypertension: Yes His current conditions are as follow 1. Atrial flutter with rapid ventricular rate. 2. Congestive heart failure, diastolic and systolic. 3. Cardiomyopathy. 4. Chronic renal failure. 5. Hypertension. 6. Benign prostatic hypertrophy. 7. Gout. 8. Hypercholesterolemia. 9. Thyrotoxicosis 10. Non compliance with medical therapy Assessment/Plan Acute on chronic renal failure Atrial flutter with rapid ventricular response Chronic kidney disease Cardiomyopathy, LV systolic dysfunction, ejection fraction reported 35% to 40%. Hypertension Hyperthyroidism History of gout History of pericardial calcification Patient is homeless Adjust blood pressure medication Anti-thyroid medications Urine studies, urine analysis Keep the blood pressure in check Monitor renal parameters Per consultants Avila Sandy MD Dec 19, 2019 14:19
--- NOTE | 2019-12-19 18:39 | Cardiology Progress Note ---
Assessment/Plan Assessment/Plan 1. Atrial flutter, with intermittent tachy 2. History of congestive heart failure. 3. LV systolic dysfunction, ejection fraction reported 35% to 40%. 4. Mild diastolic dysfunction 5. Renal insufficiency. 6. Questionable hyperthyroidism. 7. Hypertension. 8. History of gout. 9. Pericardial calcification 10. Medication non compliance or adherence not want to take amio or anticoagulation despite recommendation understand risk of stroke and parlaysis will focus on bp control will add norvasc bid , hydralazine tid hr controlled importance of compliance d/w pt he has not been taking amio , lasix or flomax as out pt nto seem to have sx of chf so use lasix prn now on tapazole of hyperthyroid but has been refusing to take he may have aplace to stay through [facility] anticipate dc soon cardaic meds on dc: metoprolol 50 mg 1.5 tab in am and 1 tab qpm norvasc 5 mg bid hydralazine 50 mg tid imdur 30 mg daily Subjective Cardiovascular: Denies: chest pain, lightheadedness, palpitations Respiratory: Denies: shortness of breath Gastrointestinal/Abdominal: Denies: abdominal pain Genitourinary: Denies: burning Objective Last 24 Hour Vital Signs Date Time Temp Pulse Resp B/P (MAP) Pulse Ox O2 Delivery O2 Flow Rate FiO2 12/19/19 17:10 67 121/73 12/19/19 16:00 98.1 67 18 121/73 (89) 97 12/19/19 13:54 142/66 12/19/19 12:00 98.1 69 20 142/66 (91) 95 12/19/19 09:00 Room Air 12/19/19 08:27 67 132/77 12/19/19 08:27 67 132/77 12/19/19 08:26 67 132/77 12/19/19 08:25 132/77 12/19/19 08:00 97.7 67 18 132/77 (95) 98 12/19/19 05:21 138/78 12/19/19 04:00 98.2 68 18 132/78 (96) 97 12/19/19 00:00 98.3 67 17 112/59 (76) 97 12/18/19 21:11 67 124/65 4/19/20 21:11 67 124/65 12/18/19 21:11 124/65 12/18/19 21:00 Room Air 12/18/19 20:00 98.3 67 16 124/65 (84) 96 General Appearance: no apparent distress, alert Neck: supple Cardiovascular: normal rate Respiratory/Chest: lungs clear Abdomen: normal bowel sounds, non tender, soft Extremities: no swelling Intake and Output 12/18/19 12/19/19 19:00 07:00 Intake Total 400 ml Balance 400 ml Intake Oral 400 ml # Voids 2 Laboratory Tests Test 12/19/19 05:05 White Blood Count 8.2 K/UL (4.8-10.8) Red Blood Count 3.91 M/UL (4.70-6.10) L Hemoglobin 13.0 G/DL (14.2-18.0) L Hematocrit 36.5 % (42.0-52.0) L Mean Corpuscular Volume 93 FL (80-99) Mean Corpuscular Hemoglobin 33.2 PG (27.0-31.0) H Mean Corpuscular Hemoglobin Concent 35.6 G/DL (32.0-36.0) Red Cell Distribution Width 13.3 % (11.6-14.8) Platelet Count 203 K/UL (150-450) Mean Platelet Volume 6.1 FL (6.5-10.1) L Neutrophils (%) (Auto) 65.3 % (45.0-75.0) Lymphocytes (%) (Auto) 23.2 % (20.0-45.0) Monocytes (%) (Auto) 9.5 % (1.0-10.0) Eosinophils (%) (Auto) 1.3 % (0.0-3.0) Basophils (%) (Auto) 0.8 % (0.0-2.0) Sodium Level 147 MMOL/L (136-145) H Potassium Level 4.2 MMOL/L (3.5-5.1) Chloride Level 112 MMOL/L (98-107) H Carbon Dioxide Level 22 MMOL/L (21-32) Anion Gap 13 mmol/L (5-15) Blood Urea Nitrogen 39 mg/dL (7-18) H Creatinine 2.1 MG/DL (0.55-1.30) H Estimat Glomerular Filtration Rate 30.9 mL/min (>60) Glucose Level 87 MG/DL (74-106) Calcium Level 8.9 MG/DL (8.5-10.1) Epifanio Silverio MD Dec 19, 2019 18:39
[2019-12-19] MEDS: Tamsulosin 0.4mg cap ORAL SCH ×2 (21:00→21:02)
[2019-12-20 00:04] VITALS: BP 116/68
[2019-12-20 04:00] VITALS: BP 141/78
[2019-12-20] MEDS: HydrALAZINE 50mg tab ORAL SCH (05:49)
[2019-12-20 06:28] LABS: BASOPHILS % (AUTO) 0.8 % (0.0-2.0); EOSINOPHILS % (AUTO) 1.2 % (0.0-3.0); HEMATOCRIT 39.7 % (42.0-52.0); HEMOGLOBIN 13.1 G/DL (14.2-18.0); LYMPHOCYTES % (AUTO) 20.9 % (20.0-45.0); MEAN CORPUSCULAR VOLUME 93 FL (80-99); MONOCYTES % (AUTO) 10.3 % (1.0-10.0); NEUTROPHILS % (AUTO) 66.9 % (45.0-75.0); PLATELET COUNT 199 K/UL (150-450); RED BLOOD COUNT 4.26 M/UL (4.70-6.10); RED CELL DISTRIBUTION WIDTH 12.6 % (11.6-14.8); WHITE BLOOD COUNT 8.3 K/UL (4.8-10.8)
[2019-12-20 07:40] LABS: ALANINE AMINOTRANSFERASE 19 U/L (12-78); ALBUMIN 3.4 G/DL (3.4-5.0); ALBUMIN/GLOBULIN RATIO 0.9 (1.0-2.7); ALKALINE PHOSPHATASE 91 U/L (46-116); ANION GAP 12 mmol/L (5-15); ASPARTATE AMINO TRANSFERASE 10 U/L (15-37); BILIRUBIN,TOTAL 0.5 MG/DL (0.2-1.0); BLOOD UREA NITROGEN 39 mg/dL (7-18); CALCIUM 9.1 MG/DL (8.5-10.1); CARBON DIOXIDE 22 MMOL/L (21-32); CHLORIDE 110 MMOL/L (98-107); CREATININE 2.3 MG/DL (0.55-1.30); GAMMA GLUTAMYL TRANSPEPTIDASE 36 U/L (5-85); PHOSPHORUS 3.3 MG/DL (2.5-4.9); POTASSIUM 4.3 MMOL/L (3.5-5.1); SODIUM 144 MMOL/L (136-145)
[2019-12-20 08:00] VITALS: BP 132/71
[2019-12-20] MEDS: Heparin 5000 units/ml inj SUBQ SCH (09:00)
[2019-12-20] MEDS ORDERED: Allopurinol 100mg Tab ORAL SCH (09:00)
[2019-12-20] MEDS: Imdur 30mg tab ORAL SCH (09:01)
[2019-12-20] MEDS: Metoprolol Tartrate 12.5mg TAB ORAL SCH (09:01)
[2019-12-20] MEDS: Metoprolol Tartrate 50mg tab ORAL SCH (09:01)
--- NOTE | 2019-12-20 10:55 | Nephrology Progress Note ---
Assessment/Plan Problem List: (1) Renal failure (ARF), acute on chronic (2) Hyperthyroidism (3) History of gout (4) History of hypertension (5) Atrial flutter with rapid ventricular response (6) Cardiomyopathy Assessment Acute on chronic renal failure Atrial flutter with rapid ventricular response Chronic kidney disease Cardiomyopathy, LV systolic dysfunction, ejection fraction reported 35% to 40%. Hypertension Hyperthyroidism History of gout History of pericardial calcification Patient is homeless Plan Adjust blood pressure medication Anti-thyroid medications Urine studies, urine analysis Keep the blood pressure in check Monitor renal parameters Per consultants Subjective ROS Limited/Unobtainable: No Constitutional: Reports: malaise Objective Objective Last 24 Hour Vital Signs Date Time Temp Pulse Resp B/P (MAP) Pulse Ox O2 Delivery O2 Flow Rate FiO2 12/20/19 09:02 83 132/71 12/20/19 09:01 83 132/71 12/20/19 09:01 83 132/71 12/20/19 09:01 132/71 12/20/19 08:00 98.1 83 20 132/71 (91) 98 12/20/19 05:49 141/78 12/20/19 04:00 97.0 77 18 141/78 (99) 96 12/20/19 00:04 98.4 71 18 116/68 (84) 97 12/19/19 21:01 67 117/65 12/19/19 21:01 67 117/65 12/19/19 21:01 117/65 12/19/19 20:59 117/65 (82) 12/19/19 20:00 Room Air 12/19/19 19:58 98.2 67 18 109/66 (80) 96 12/19/19 17:10 67 121/73 12/19/19 16:00 98.1 67 18 121/73 (89) 97 12/19/19 13:54 142/66 12/19/19 12:00 98.1 69 20 142/66 (91) 95 Intake and Output 12/19/19 12/20/19 19:00 07:00 Intake Total 400 ml 600 ml Balance 400 ml 600 ml Intake Oral 400 ml 600 ml # Voids 3 2 # Bowel Movements 3 Current Medications Medications (Trade) Dose Ordered Sig/Catrina Route PRN Reason Start Time Stop Time Status Last Admin Dose Admin Acetaminophen (Tylenol) 650 mg Q4H PRN ORAL Mild Pain (Pain Scale 1-3) 12/15/19 14:00 01/14/20 13:59 Acetaminophen (Tylenol) 650 mg Q4H PRN ORAL fever 12/15/19 14:00 01/14/20 13:59 Allopurinol (Zyloprim) 200 mg DAILY ORAL 12/20/19 09:00 01/11/20 08:59 12/20/19 09:02 Amlodipine Besylate (Norvasc) 5 mg BID ORAL 12/15/19 18:00 01/14/20 08:59 12/20/19 09:02 Dextrose (Dextrose 50%) 25 ml Q30M PRN IV Hypoglycemia 12/15/19 14:15 03/10/20 14:14 Dextrose (Dextrose 50%) 50 ml Q30M PRN IV Hypoglycemia 12/15/19 14:15 03/10/20 14:14 Diphenhydramine HCl (Benadryl) 25 mg Q6H PRN ORAL Itching/Pruritis 12/15/19 14:01 01/14/20 14:00 Heparin Sodium (Porcine) (Heparin 5000 units/ml) 5,000 units EVERY 12 HOURS SUBQ 12/15/19 21:00 01/25/20 20:59 Hydralazine HCl (Apresoline) 50 mg Q8HR ORAL 12/15/19 22:00 03/14/20 21:59 12/20/19 05:49 Isosorbide Mononitrate (Imdur) 30 mg DAILY ORAL 12/16/19 09:00 01/11/20 08:59 12/20/19 09:01 Lorazepam (Ativan) 1 mg Q4H PRN ORAL For Anxiety 12/15/19 14:01 12/22/19 14:00 Methimazole (Tapazole) 10 mg DAILY ORAL 12/17/19 09:00 03/12/20 16:59 12/20/19 09:02 Metoprolol Tartrate (Lopressor) 12.5 mg EVERY 12 HOURS ORAL 12/16/19 21:00 03/15/20 20:59 12/20/19 09:01 Metoprolol Tartrate (Lopressor) 50 mg EVERY 12 HOURS ORAL 12/16/19 21:00 03/15/20 20:59 12/20/19 09:01 Nitroglycerin (Ntg) 0.4 mg Q5M PRN SL Prn Chest Pain 12/15/19 14:02 01/14/20 14:01 Ondansetron HCl (Zofran) 4 mg Q4H PRN IVP Nausea & Vomiting 12/15/19 14:15 01/10/20 14:14 Pantoprazole (Protonix) 40 mg BID ORAL 12/19/19 18:00 01/11/20 08:59 12/20/19 09:02 Tamsulosin HCl (Flomax) 0.4 mg BEDTIME ORAL 12/19/19 21:00 01/18/20 20:59 Laboratory Tests 12/20/19 05:00: White Blood Count 8.3, Red Blood Count 4.26L, Hemoglobin 13.1L, Hematocrit 39.7L , Mean Corpuscular Volume 93, Mean Corpuscular Hemoglobin 30.7, Mean Corpuscular Hemoglobin Concent 32.9, Red Cell Distribution Width 12.6, Platelet Count 199, Mean Platelet Volume 6.3L, Neutrophils (%) (Auto) 66.9, Lymphocytes ( %) (Auto) 20.9, Monocytes (%) (Auto) 10.3H, Eosinophils (%) (Auto) 1.2, Basophils (%) (Auto) 0.8, D-Dimer 2.14H, Sodium Level 144, Potassium Level 4.3, Chloride Level 110H, Carbon Dioxide Level 22, Anion Gap 12, Blood Urea Nitrogen 39H, Creatinine 2.3H, Estimat Glomerular Filtration Rate 27.9, Glucose Level 90 , Hemoglobin A1c 5.5, Uric Acid 6.8, Calcium Level 9.1, Phosphorus Level 3.3, Magnesium Level 2.2, Total Bilirubin 0.5, Gamma Glutamyl Transpeptidase 36, Aspartate Amino Transf (AST/SGOT) 10L, Alanine Aminotransferase (ALT/SGPT) 19, Alkaline Phosphatase 91, Troponin I 0.000, C-Reactive Protein, Quantitative 2.2H , Pro-B-Type Natriuretic Peptide 2708H, Total Protein 7.0, Albumin 3.4, Globulin 3.6, Albumin/Globulin Ratio 0.9L Height (Feet): 5 Height (Inches): 10.00 Weight (Pounds): 180 General Appearance: no apparent distress Cardiovascular: normal rate Respiratory/Chest: decreased breath sounds Abdomen: soft Avila Sandy MD Dec 20, 2019 10:55
[2019-12-20 12:00] VITALS: BP_SYST 110; BP_SYST 161; BP_DIAS 63; BP_DIAS 77
--- NOTE | 2019-12-20 12:51 | Pulmonology Progress Note ---
Assessment/Plan Problems: (1) Atrial flutter with rapid ventricular response (2) Uncontrolled hypertension (3) Pericardial calcification (4) History of hypertension (5) History of gout Assessment/Plan rate is controlled at 80-90's adjust cardiac meds all meds reviewed social service note appreciated all prescription written pt agreed to go to [facility] Subjective ROS Limited/Unobtainable: No Interval Events: very defient Constitutional: Reports: no symptoms HEENT: Repors: no symptoms Respiratory: Reports: no symptoms Allergies: Uncoded Allergies: red meat (Adverse Reaction, Unknown, 11/15/19) patient has gout and does not eat red meat All Systems: reviewed and negative except above Objective Last 24 Hour Vital Signs Date Time Temp Pulse Resp B/P (MAP) Pulse Ox O2 Delivery O2 Flow Rate FiO2 12/20/19 12:00 97.7 68 20 110/63 (79) 97 12/20/19 09:02 83 132/71 12/20/19 09:01 83 132/71 12/20/19 09:01 83 132/71 12/20/19 09:01 132/71 12/20/19 09:00 Room Air 12/20/19 08:00 98.1 83 20 132/71 (91) 98 12/20/19 05:49 141/78 12/20/19 04:00 97.0 77 18 141/78 (99) 96 12/20/19 00:04 98.4 71 18 116/68 (84) 97 12/19/19 21:01 67 117/65 12/19/19 21:01 67 117/65 12/19/19 21:01 117/65 12/19/19 20:59 117/65 (82) 12/19/19 20:00 Room Air 12/19/19 19:58 98.2 67 18 109/66 (80) 96 12/19/19 17:10 67 121/73 12/19/19 16:00 98.1 67 18 121/73 (89) 97 12/19/19 13:54 142/66 Intake and Output 12/19/19 12/20/19 19:00 07:00 Intake Total 400 ml 600 ml Balance 400 ml 600 ml Intake Oral 400 ml 600 ml # Voids 3 2 # Bowel Movements 3 General Appearance: WD/WN HEENT: normocephalic, atraumatic Respiratory/Chest: chest wall non-tender, lungs clear Cardiovascular: normal peripheral pulses, normal rate Abdomen: normal bowel sounds, soft, non tender Genitourinary: normal external genitalia Extremities: no clubbing Skin: no rash Laboratory Tests 12/20/19 05:00: White Blood Count 8.3, Red Blood Count 4.26L, Hemoglobin 13.1L, Hematocrit 39.7L , Mean Corpuscular Volume 93, Mean Corpuscular Hemoglobin 30.7, Mean Corpuscular Hemoglobin Concent 32.9, Red Cell Distribution Width 12.6, Platelet Count 199, Mean Platelet Volume 6.3L, Neutrophils (%) (Auto) 66.9, Lymphocytes ( %) (Auto) 20.9, Monocytes (%) (Auto) 10.3H, Eosinophils (%) (Auto) 1.2, Basophils (%) (Auto) 0.8, D-Dimer 2.14H, Sodium Level 144, Potassium Level 4.3, Chloride Level 110H, Carbon Dioxide Level 22, Anion Gap 12, Blood Urea Nitrogen 39H, Creatinine 2.3H, Estimat Glomerular Filtration Rate 27.9, Glucose Level 90 , Hemoglobin A1c 5.5, Uric Acid 6.8, Calcium Level 9.1, Phosphorus Level 3.3, Magnesium Level 2.2, Total Bilirubin 0.5, Gamma Glutamyl Transpeptidase 36, Aspartate Amino Transf (AST/SGOT) 10L, Alanine Aminotransferase (ALT/SGPT) 19, Alkaline Phosphatase 91, Troponin I 0.000, C-Reactive Protein, Quantitative 2.2H , Pro-B-Type Natriuretic Peptide 2708H, Total Protein 7.0, Albumin 3.4, Globulin 3.6, Albumin/Globulin Ratio 0.9L Current Medications Medications (Trade) Dose Ordered Sig/Catrina Route PRN Reason Start Time Stop Time Status Last Admin Dose Admin Acetaminophen (Tylenol) 650 mg Q4H PRN ORAL Mild Pain (Pain Scale 1-3) 12/15/19 14:00 01/14/20 13:59 Acetaminophen (Tylenol) 650 mg Q4H PRN ORAL fever 12/15/19 14:00 01/14/20 13:59 Allopurinol (Zyloprim) 200 mg DAILY ORAL 12/20/19 09:00 01/11/20 08:59 12/20/19 09:02 Amlodipine Besylate (Norvasc) 5 mg BID ORAL 12/15/19 18:00 01/14/20 08:59 12/20/19 09:02 Dextrose 1,000 ml @ 100 mls/hr Q10H ONCE IV 12/20/19 11:00 12/20/19 20:59 Dextrose (Dextrose 50%) 25 ml Q30M PRN IV Hypoglycemia 12/15/19 14:15 03/10/20 14:14 Dextrose (Dextrose 50%) 50 ml Q30M PRN IV Hypoglycemia 12/15/19 14:15 03/10/20 14:14 Diphenhydramine HCl (Benadryl) 25 mg Q6H PRN ORAL Itching/Pruritis 12/15/19 14:01 01/14/20 14:00 Heparin Sodium (Porcine) (Heparin 5000 units/ml) 5,000 units EVERY 12 HOURS SUBQ 12/15/19 21:00 01/25/20 20:59 Hydralazine HCl (Apresoline) 50 mg Q8HR ORAL 12/15/19 22:00 03/14/20 21:59 12/20/19 05:49 Isosorbide Mononitrate (Imdur) 30 mg DAILY ORAL 12/16/19 09:00 01/11/20 08:59 12/20/19 09:01 Lorazepam (Ativan) 1 mg Q4H PRN ORAL For Anxiety 12/15/19 14:01 12/22/19 14:00 Methimazole (Tapazole) 10 mg DAILY ORAL 12/17/19 09:00 03/12/20 16:59 12/20/19 09:02 Metoprolol Tartrate (Lopressor) 12.5 mg EVERY 12 HOURS ORAL 12/16/19 21:00 03/15/20 20:59 12/20/19 09:01 Metoprolol Tartrate (Lopressor) 50 mg EVERY 12 HOURS ORAL 12/16/19 21:00 03/15/20 20:59 12/20/19 09:01 Nitroglycerin (Ntg) 0.4 mg Q5M PRN SL Prn Chest Pain 12/15/19 14:02 01/14/20 14:01 Ondansetron HCl (Zofran) 4 mg Q4H PRN IVP Nausea & Vomiting 12/15/19 14:15 01/10/20 14:14 Pantoprazole (Protonix) 40 mg BID ORAL 12/19/19 18:00 01/11/20 08:59 12/20/19 09:02 Tamsulosin HCl (Flomax) 0.4 mg BEDTIME ORAL 12/19/19 21:00 01/18/20 20:59 Erma Rajput MD Dec 20, 2019 12:51
--- NOTE | 2019-12-20 14:23 | General Progress Note ---
Assessment/Plan Problem List: (1) Hyperthyroidism ICD Codes: E05.90 - Thyrotoxicosis, unspecified without thyrotoxic crisis or storm SNOMED: 74210374 (2) Hypertension, essential ICD Codes: I10 - Essential (primary) hypertension SNOMED: 92359151 Assessment/Plan: continue Tapazole to 10 mg daily repeat thyroid function in 3 weeks Subjective Allergies: Uncoded Allergies: red meat (Adverse Reaction, Unknown, 11/15/19) patient has gout and does not eat red meat All Systems: reviewed and negative except above Subjective events noted interval notes reviewed Objective Last 24 Hour Vital Signs Date Time Temp Pulse Resp B/P (MAP) Pulse Ox O2 Delivery O2 Flow Rate FiO2 12/20/19 12:00 97.7 68 20 110/63 (79) 97 12/20/19 09:02 83 132/71 12/20/19 09:01 83 132/71 12/20/19 09:01 83 132/71 12/20/19 09:01 132/71 12/20/19 09:00 Room Air 12/20/19 08:00 98.1 83 20 132/71 (91) 98 12/20/19 05:49 141/78 12/20/19 04:00 97.0 77 18 141/78 (99) 96 12/20/19 00:04 98.4 71 18 116/68 (84) 97 12/19/19 21:01 67 117/65 12/19/19 21:01 67 117/65 12/19/19 21:01 117/65 12/19/19 20:59 117/65 (82) 12/19/19 20:00 Room Air 12/19/19 19:58 98.2 67 18 109/66 (80) 96 12/19/19 17:10 67 121/73 12/19/19 16:00 98.1 67 18 121/73 (89) 97 Intake and Output 12/19/19 12/20/19 19:00 07:00 Intake Total 400 ml 600 ml Balance 400 ml 600 ml Intake Oral 400 ml 600 ml # Voids 3 2 # Bowel Movements 3 Laboratory Tests 12/20/19 05:00: White Blood Count 8.3, Red Blood Count 4.26L, Hemoglobin 13.1L, Hematocrit 39.7L , Mean Corpuscular Volume 93, Mean Corpuscular Hemoglobin 30.7, Mean Corpuscular Hemoglobin Concent 32.9, Red Cell Distribution Width 12.6, Platelet Count 199, Mean Platelet Volume 6.3L, Neutrophils (%) (Auto) 66.9, Lymphocytes ( %) (Auto) 20.9, Monocytes (%) (Auto) 10.3H, Eosinophils (%) (Auto) 1.2, Basophils (%) (Auto) 0.8, D-Dimer 2.14H, Sodium Level 144, Potassium Level 4.3, Chloride Level 110H, Carbon Dioxide Level 22, Anion Gap 12, Blood Urea Nitrogen 39H, Creatinine 2.3H, Estimat Glomerular Filtration Rate 27.9, Glucose Level 90 , Hemoglobin A1c 5.5, Uric Acid 6.8, Calcium Level 9.1, Phosphorus Level 3.3, Magnesium Level 2.2, Total Bilirubin 0.5, Gamma Glutamyl Transpeptidase 36, Aspartate Amino Transf (AST/SGOT) 10L, Alanine Aminotransferase (ALT/SGPT) 19, Alkaline Phosphatase 91, Troponin I 0.000, C-Reactive Protein, Quantitative 2.2H , Pro-B-Type Natriuretic Peptide 2708H, Total Protein 7.0, Albumin 3.4, Globulin 3.6, Albumin/Globulin Ratio 0.9L Height (Feet): 5 Height (Inches): 10.00 Weight (Pounds): 180 General Appearance: no apparent distress Neck: normal alignment Cardiovascular: normal rate Respiratory/Chest: lungs clear Abdomen: normal bowel sounds Objective Current Medications Medications (Trade) Dose Ordered Sig/Catrina Route PRN Reason Start Time Stop Time Status Last Admin Dose Admin Acetaminophen (Tylenol) 650 mg Q4H PRN ORAL Mild Pain (Pain Scale 1-3) 12/15/19 14:00 01/14/20 13:59 Acetaminophen (Tylenol) 650 mg Q4H PRN ORAL fever 12/15/19 14:00 01/14/20 13:59 Allopurinol (Zyloprim) 100 mg DAILY ORAL 12/16/19 09:00 01/11/20 08:59 12/18/19 08:54 Amlodipine Besylate (Norvasc) 5 mg BID ORAL 12/15/19 18:00 01/14/20 08:59 12/18/19 17:44 Dextrose (Dextrose 50%) 25 ml Q30M PRN IV Hypoglycemia 12/15/19 14:15 03/10/20 14:14 Dextrose (Dextrose 50%) 50 ml Q30M PRN IV Hypoglycemia 12/15/19 14:15 03/10/20 14:14 Diphenhydramine HCl (Benadryl) 25 mg Q6H PRN ORAL Itching/Pruritis 12/15/19 14:01 01/14/20 14:00 Heparin Sodium (Porcine) (Heparin 5000 units/ml) 5,000 units EVERY 12 HOURS SUBQ 12/15/19 21:00 01/25/20 20:59 Hydralazine HCl (Apresoline) 50 mg Q8HR ORAL 12/15/19 22:00 03/14/20 21:59 12/19/19 05:21 Isosorbide Mononitrate (Imdur) 30 mg DAILY ORAL 12/16/19 09:00 01/11/20 08:59 12/18/19 08:54 Lorazepam (Ativan) 1 mg Q4H PRN ORAL For Anxiety 12/15/19 14:01 12/22/19 14:00 Methimazole (Tapazole) 10 mg DAILY ORAL 12/17/19 09:00 03/12/20 16:59 12/18/19 08:54 Metoprolol Tartrate (Lopressor) 12.5 mg EVERY 12 HOURS ORAL 12/16/19 21:00 03/15/20 20:59 12/18/19 21:11 Metoprolol Tartrate (Lopressor) 50 mg EVERY 12 HOURS ORAL 12/16/19 21:00 03/15/20 20:59 12/18/19 21:11 Nitroglycerin (Ntg) 0.4 mg Q5M PRN SL Prn Chest Pain 12/15/19 14:02 01/14/20 14:01 Ondansetron HCl (Zofran) 4 mg Q4H PRN IVP Nausea & Vomiting 12/15/19 14:15 01/10/20 14:14 Pantoprazole (Protonix) 40 mg DAILY ORAL 12/16/19 09:00 01/11/20 08:59 12/18/19 08:54 Diilp Flores MD Dec 20, 2019 14:23
--- NOTE | 2019-12-21 09:57 | Discharge Summary ---
Discharge Summary Discharge Summary _ DATE OF ADMISSION: 12/11/2019 DATE OF DISCHARGE: 12/20/2019 DISCHARGED BY: REASON FOR ADMISSION: 74 years old male with past medical history of atrial fibrillation/flutter, hypertension, hyperlipidemia, was initially started on Coumadin and then switched to Eliquis, presented with chief complaint of palpitations. Patient reported that he stopped taking blood thinners. He reported palpitations when his heart rate was too fast. Patient had similar symptoms in the past. The fast heart rate was intermittent and lasted for few minutes. Patient was hospitalized in this hospital last month. Patient was in [place] afterwards couple weeks later for several hours. He denied chest pain. He denied fever and chills. No shortness of breath. No nausea or vomiting. Upon evaluation patient was tachycardic with heart rate 139 . Pulse oximetry was stable on room air. EKG revealed atrial flutter with rapid ventricular response. Troponin was negative. Chest x-ray revealed no acute cardiopulmonary pathology. Laboratory work-up revealed stable hemoglobin and hematocrit. No leukocytosis. Stable coagulation profile. BUN 26, creatinine 1.8. In emergency room patient received IV labetalol and then IV Cardizem. Heart rate stabilized. Patient admitted to monitored floor for further management. CONSULTANTS: special services agent Dr. Silverio pulmonary Dr. Rajput aquatic physiotherapist Dr. Sandy peer counselor Dr. Flores [facility] COURSE: Patient admitted to monitored floor. Echocardiogram demonstrated mild global hypokinesis with left ventricular ejection fraction estimated to be 45%. No evidence of pericardial effusion. Right ventricular systolic pressure of 19. Mild mitral regurgitation and mild aortic regurgitation. Heart rate was controlled with beta-tino. Patient declined amiodarone. Patient declined anticoagulation despite multiple explanations by special services agent for need of it. Patient understood the risk of stroke. DVT and GI prophylaxis provided. Antihypertensive regimen was optimized and up-titrated to bring blood pressure under control . Prior to discharge blood pressure 110/63. Blood pressure control was achieved with multiply antihypertensive medications , including beta-tino , hydralazine , Imdur , and calcium channel tino. Guideline directed medical therapy for congestive heart failure continued with beta tino, hydralazine and isosorbide. No ADAL inhibitor, given chronic renal disease. Nitroglycerin was on board as needed. No chest pain. Pulse oximetry remained stable, on room air. No need for diuretic at this time. Use diuretic on as needed basis, as per special services agent . Lipid panel was stable. Patient was stressed importance of compliance with medication regimen and counseled on compliance with medications and diet. Hemoglobin and hematocrit were closely monitored with goal to keep hemoglobin above 7. Epogen and iron continued.in was on board as needed for chest pain. No chest pain. Patient noted to have low TSH and high free T4. Patient started on Tapazole as per peer counselor recommendation. Repeat thyroid function tests in 3- 4 weeks. Renal parameters were closely monitored. Nephrotoxic's were avoided. Electrolytes corrected as needed. Patient clinically stabilized and was ready for discharge. FINAL DIAGNOSES: Atrial flutter with rapid ventricular response CHF systolic and mild diastolic Cardiomyopathy Acute on chronic renal failure Hypertension Hyperthyroidism BPH Gout Hypercholesterolemia Noncompliance with medication regimen DISCHARGE MEDICATIONS: See Medication Reconciliation list. DISCHARGE INSTRUCTIONS: Patient was discharged to [facility]. [facility] will pay for patient stay for 2 weeks. Princess Elias NP Dec 21, 2019 09:57
== END 2019-12-20 14:36 | disposition home or self-care (01) | DRG 309 ==
LOC: EMR 23:51 → EDBEDREQ 12-11 04:10 → 2E 12-11 04:27 → EDBEDREQ 12-11 13:24 → 3E 12-15 13:51
DX: I48.92 Unspecified atrial flutter (principal); I13.0 Hypertensive heart and chronic kidney disease with heart failure and stage 1 through stage 4 chronic kidney disease, or unspecified chronic kidney disease; I50.42 Chronic combined systolic (congestive) and diastolic (congestive) heart failure; N17.9 Acute kidney failure, unspecified; I50.40 Unspecified combined systolic (congestive) and diastolic (congestive) heart failure; I31.1 Chronic constrictive pericarditis; I42.9 Cardiomyopathy, unspecified; N18.9 Chronic kidney disease, unspecified; E78.00 Pure hypercholesterolemia, unspecified; N40.0 Benign prostatic hyperplasia without lower urinary tract symptoms; M10.9 Gout, unspecified; Z91.14 Patient's other noncompliance with medication regimen; Z59.0 Homelessness; E05.80 Other thyrotoxicosis without thyrotoxic crisis or storm
CPT/HCPCS: 36415; 71045; 80048; 80053; 80061; 82977; 83036; 83735; 83880; 84100; 84436; 84439; 84443; 84480; 84481; 84484; 84550; 85025; 85379; 85610; 85730; 86140; 86376; 87081; 93005; 93306; 96374; 96375; 99285